=== PATIENT | female | born 1940 | race Caucasian/White ===

== ENCOUNTER 2019-09-10 17:47 | Inpatient (IN) | payer MEDICARE ==
[2019-09-10] MEDS ORDERED: SODIUM CHLORIDE 0.9% 1,000 ML IV STA (18:28)
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
[2019-09-10 18:37] LABS: Basophils % (A) 0 %; Eosinophils % (A) 1 %; HCT 32.4 % (34.0-46.0); Lymphocytes # (A) 1.4 k/uL (1.0-4.8); Lymphocytes % (A) 21 %; MCHC 34.1 g/dL (31.0-37.0); MCV 105.5 fL (80.0-100.0); Macrocytosis Slight; Monocytes # (A) 0.4 k/uL (0-1.0); Monocytes % (A) 6 %; Neutrophils # (A) 4.7 k/uL (1.3-7.7); Neutrophils % (A) 70 %; Platelet Count 238 k/uL (150-450); RBC 3.07 m/uL (3.80-5.40); RDW 12.9 % (11.5-15.5); WBC 6.7 k/uL (3.8-10.6)
[2019-09-10 18:45] LABS: African American GFR (CKD) >90 (>60 ml/min/1.73 sqM); Anion Gap 10 mmol/L; Blood Urea Nitrogen 14 mg/dL (7-17); Carbon Dioxide 21 mmol/L (22-30); Chloride 106 mmol/L (98-107); Glucose 89 mg/dL (74-99); Magnesium 1.9 mg/dL (1.6-2.3); Non-African American GFR(CKD) 85 (>60 ml/min/1.73 sqM); Partial Thromboplastin Time 25.4 sec (22.0-30.0); Potassium 3.2 mmol/L (3.5-5.1); Prothrombin Time 9.9 sec (9.0-12.0); Sodium 137 mmol/L (137-145)
--- NOTE | 2019-09-10 19:19 | XR ---
EXAMINATION: XR chest 2V DATE AND TIME: 09/10/2019 7:07 PM CLINICAL INDICATION: PHH; cough TECHNIQUE: Departmental protocol COMPARISON: None FINDINGS: The lungs are well expanded bilaterally and appear to be clear. However, a few scattered se nescent changes are noted and without a prior imaging study, stability over time cannot be confirmed. There appears to be developing partial consolidation in the right posterior lower lobe, suggesting b ronchopneumonia, and six-week follow-up PA and lateral chest radiograph are recommended to prove reso lution. The pleural spaces are negative. The cardiac silhouette is not enlarged. The remainder of the mediast inal silhouette is unremarkable. The skeletal structures and soft tissues are negative for acute find ings. IMPRESSION: Partial consolidation in the posterior right lower lobe, with 6-week follow-up radiographs advised.
[2019-09-10] MEDS ORDERED: DOXYCYCLINE 100 MG in SODIUM CHLORIDE 0.9% 100 ML IVPB ONE (19:32)
[2019-09-10] MEDS ORDERED: cefTRIAXone IN SWFI 1,000 MG/10 ML SYRINGE IVP STA (19:32)
[2019-09-10] MEDS ORDERED: KETOROLAC 30 MG/ML 1 ML VIAL IVP STA (19:40)
[2019-09-10] MEDS ORDERED: NALOXONE 0.4 MG/ML 1 ML VIAL IV PRN (20:02)
[2019-09-10] MEDS ORDERED: POTASSIUM CHLORIDE ER 20 MEQ TAB.ER PO STA (20:05)
[2019-09-10] MEDS: SODIUM CHLORIDE 0.9% 1,000 ML IV SCH (20:24)
[2019-09-10] MEDS: DOXYCYCLINE 100 MG in SODIUM CHLORIDE 0.9% 100 ML IVPB SCH ×2 (20:24→22:20)
[2019-09-11 05:02] LABS: Appearance,Urine Clear (Clear); Bilirubin,Urine Negative (Negative); Blood,Urine Negative (Negative); Color,Urine Yellow; Glucose,Urine (UA) Negative (Negative); Hyaline Casts,Urine 4 /lpf (0-2); Ketones,Urine 2+ (Negative); Leukocyte Esterase,Urine Large (Negative); Mucus,Urine Few /hpf; Nitrite,Urine Negative (Negative); Protein,Urine 2+ (Negative); RBC,Urine 2 /hpf (0-5); Specific Gravity,Urine 1.025 (1.001-1.035); Squamous Epithelial Cell,Urine 1 /hpf (0-4); WBC,Urine 32 /hpf (0-5)
[2019-09-11] MEDS: HYDROcodone/APAP 10-325MG 1 EACH TAB PO PRN ×3 (05:12→22:59)
[2019-09-11] MEDS: DOXYCYCLINE 100 MG in SODIUM CHLORIDE 0.9% 100 ML IVPB SCH ×2 (08:48→20:39)
[2019-09-11] MEDS: FLUoxetine HCL 20 MG CAP PO SCH (08:48)
[2019-09-11] MEDS: VIT A,C & E-LUTEIN-MINERALS 1 EACH TAB PO SCH (08:48)
[2019-09-11] MEDS: FAMOTIDINE 20 MG TAB PO SCH (08:48)
[2019-09-11] MEDS ORDERED: cefTRIAXone IN SWFI 1,000 MG/10 ML SYRINGE IVP SCH (09:00)
[2019-09-11] MEDS: IPRATROPIUM-ALBUTEROL 3 ML NEB INHALATION SCH ×5 (10:56→23:45)
[2019-09-11] MEDS: methylPREDNISolone SOD SUCCI 40 MG/ML 1 ML VIAL IV SCH ×3 (11:04→23:42)
[2019-09-11] MEDS: ALPRAZolam 1 MG TAB PO SCH (20:26)
[2019-09-11] MEDS: SODIUM CHLORIDE 0.9% 1,000 ML IV SCH (21:00)
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
[2019-09-11] MEDS: ENOXAPARIN 40 MG/0.4 ML SYRINGE SQ SCH (23:01)
[2019-09-11] MEDS: OSELTAMIVIR 75 MG CAP PO SCH (23:01)
[2019-09-11] MEDS: NICOTINE 21MG/24HR PATCH TRANSDERM SCH (23:15)
[2019-09-12] MEDS: IPRATROPIUM-ALBUTEROL 3 ML NEB INHALATION SCH ×6 (03:27→23:24)
[2019-09-12] MEDS: HYDROcodone/APAP 10-325MG 1 EACH TAB PO PRN ×2 (06:00→20:57)
[2019-09-12 07:42] LABS: Basophils % (A) 0 %; Eosinophils % (A) 0 %; HCT 33.3 % (34.0-46.0); HGB 11.2 gm/dL (11.4-16.0); Lymphocytes # (A) 0.5 k/uL (1.0-4.8); Lymphocytes % (A) 11 %; MCH 35.9 pg (25.0-35.0); MCHC 33.5 g/dL (31.0-37.0); MCV 107.1 fL (80.0-100.0); Macrocytosis Moderate; Mean Platelet Volume 7.8; Monocytes # (A) 0.1 k/uL (0-1.0); Monocytes % (A) 3 %; Neutrophils % (A) 85 %; Platelet Count 324 k/uL (150-450); RBC 3.11 m/uL (3.80-5.40); RDW 12.8 % (11.5-15.5); WBC 4.7 k/uL (3.8-10.6)
[2019-09-12 07:56] LABS: African American GFR (CKD) >90 (>60 ml/min/1.73 sqM); Anion Gap 8 mmol/L; Blood Urea Nitrogen 10 mg/dL (7-17); Calcium 8.6 mg/dL (8.4-10.2); Carbon Dioxide 25 mmol/L (22-30); Chloride 106 mmol/L (98-107); Glucose 180 mg/dL (74-99); Non-African American GFR(CKD) 87 (>60 ml/min/1.73 sqM); Potassium 4.1 mmol/L (3.5-5.1); Sodium 139 mmol/L (137-145)
[2019-09-12] MEDS: ENOXAPARIN 40 MG/0.4 ML SYRINGE SQ SCH (08:23)
[2019-09-12] MEDS: FLUoxetine HCL 20 MG CAP PO SCH (08:23)
[2019-09-12] MEDS: NICOTINE 21MG/24HR PATCH TRANSDERM SCH (08:23)
[2019-09-12] MEDS: methylPREDNISolone SOD SUCCI 40 MG/ML 1 ML VIAL IV SCH ×2 (08:23→17:08)
[2019-09-12] MEDS: VIT A,C & E-LUTEIN-MINERALS 1 EACH TAB PO SCH (08:24)
[2019-09-12] MEDS: FAMOTIDINE 20 MG TAB PO SCH (08:24)
[2019-09-12] MEDS: OSELTAMIVIR 75 MG CAP PO SCH ×2 (08:24→20:57)
[2019-09-12] MEDS: BUTA/APAP/CAF/COD 50-325-40-30 CAP PO PRN (17:45)
[2019-09-12] MEDS: ALPRAZolam 1 MG TAB PO SCH (20:57)
[2019-09-12] MEDS: SODIUM CHLORIDE 0.9% 1,000 ML IV SCH (22:37)
[2019-09-12] MEDS: NITROGLYCERIN OINT 1 INCH/GM PACKET TOPICAL SCH ×2 (22:37→22:43)
--- NOTE | 2019-09-12 23:15 | P.PN ---
Progress Note - Text Progress Note Date: 09/12/19 Chief Complaint: Cough short of breath Interval history: This is a 79-year-old patient of Dr. Acosta. Patient long-standing smoker. Quit 2 weeks patient been having increasing amount of cough shortness of breath. The cough has been dry. Has had fever and chills. Earlier patient also learned with dirty appearance. Appetite is gone on. Tired rundown. Also wheezing. Patient has a cardiac anomaly for which she's been followed up with zinc etcher. And she is due to have some surgery down the road. Patient also got arthritis in the joints. Patient tested positive for influenza A. Her is also the hospital with the same. Tired rundown. Chest x-ray showed infiltrates. Admitted with-influenza A infection and pneumonia Today-salt this patient this morning. feeling better. Breathing is improved. Did walk around the room. Did tolerate her diet. Later in the day hours: Patient has some chest pain. I ordered EKG serial enzymes Nitropaste and aspirin. Pain resolved. Review of systems: Was done for constitutional, cardiovascular, GI, pulmonary. relevant finding as above Active Medications Acetam/Butalbital/Caffeine/Codeine (Fioricet W/Codeine) 1 each PO Q6H PRN PRN Reason: Migraine Headache Last Admin: 09/12/19 17:45 Dose: 1 each Documented by: Hydrocodone Bitart/Acetaminophen ([place] 10) 1 each PO Q4H PRN PRN Reason: Pain Last Admin: 09/12/19 20:57 Dose: 1 each Documented by: Albuterol/Ipratropium (Duoneb 0.5 Mg-3 Mg/3 Ml Soln) 3 ml INHALATION RT-Q4H [facility] Last Admin: 09/12/19 20:10 Dose: 3 ml Documented by: Alprazolam (Xanax) 1 mg PO HS [facility] Last Admin: 09/12/19 20:57 Dose: 1 mg Documented by: Enoxaparin Sodium (Lovenox) 40 mg SQ DAILY [facility] Last Admin: 09/12/19 08:23 Dose: 40 mg Documented by: Famotidine (Pepcid) 20 mg PO DAILY [facility] Last Admin: 09/12/19 08:24 Dose: 20 mg Documented by: Fluoxetine HCl (Prozac) 60 mg PO DAILY [facility] Last Admin: 09/12/19 08:23 Dose: 60 mg Documented by: Sodium Chloride (Saline 0.9%) 1,000 mls @ 20 mls/hr IV .Q24H [facility] Last Admin: 09/12/19 22:37 Dose: Not Given Documented by: Ceftriaxone Sodium 1 gm/ (Sodium Chloride) 50 mls @ 100 mls/hr IVPB HS [facility] Last Admin: 09/12/19 20:57 Dose: 100 mls/hr Documented by: Methylprednisolone Sodium Succinate (Solu-Medrol) 40 mg IV Q8HR [facility] Last Admin: 09/12/19 17:08 Dose: 40 mg Documented by: Multivitamins/Minerals (Ivite) 1 each PO DAILY [facility] Last Admin: 09/12/19 08:24 Dose: 1 each Documented by: Naloxone HCl (Narcan) 0.2 mg IV Q2M PRN PRN Reason: Opioid Reversal Nitroglycerin (Nitro-Bid Oint) 0.5 inch TOPICAL Q8HR [facility] Last Admin: 09/12/19 22:43 Dose: Not Given Documented by: Oseltamivir Phosphate (Tamiflu) 75 mg PO Q12HR [facility] Stop: 09/16/19 09:01 Last Admin: 09/12/19 20:57 Dose: 75 mg Documented by: Physical examination: VITAL SIGNS: 97.4, 78, 15, 137/63, 97% room air GENERAL: Sitting up in bed, looking more comfortable EYES: Pupils equal. Conjunctiva normal. HEENT: External appearance of nose and ears normal, oral cavity grossly normal. Decreased hearing NECK: JVD not raised; masses not palpable. HEART: First and second heart sounds are normal; no edema. LUNGS: Respiratory rate increased, decreased breath sounds less wheezing. ABDOMEN: Soft, nontender, liver spleen not palpable, no masses palpable. PSYCH: Alert and oriented x3; mood and affect normal. MUSCULOSKELETAL: Evidence of OA especially in the hands INVESTIGATIONS, reviewed in the clinical context: White count 4.7 hemoglobin 11.2 potassium 4.1 creatinine 0.63 pro calcitonin 0.39 Previous testing White count 6.7 hemoglobin 11 platelets 238 progression 3.2 Longoria's 14 creatinine 0.67 UA positive Influenza type A positive EKG tracing personally reviewed by me-normal sinus rhythm Chest x-ray film personally reviewed by me-showing infiltrate consolidation of the right side Assessment: -Right lower lobe pneumonia, secondary gram-negative organism -Acute influenza A infection -Chronic nicotine dependence patient cigarette smoker -Primary osteoarthritis -Cardiac anomaly for which patient spending outpatient surgery type unknown -Acute COPD exacerbation in a current smoker -Macrocytic anemia, cause unknown-check B12 -Hypokalemia -Chest pain anterior chest wall, workup was ordered today Plan: -Continue with Tamiflu, ceftriaxone. , DuoNeb and IV Solu-Medrol. Serial cardiac enzymes, Nitropaste, aspirin, coronary consult ordered for the chest pain.
[2019-09-13] MEDS: methylPREDNISolone SOD SUCCI 40 MG/ML 1 ML VIAL IV SCH ×3 (00:29→18:01)
[2019-09-13] MEDS: IPRATROPIUM-ALBUTEROL 3 ML NEB INHALATION SCH ×5 (03:26→21:05)
[2019-09-13 04:49] VITALS: RESP 16
[2019-09-13 07:17] LABS: Glucose,Whole Blood 199 mg/dL (75-99)
[2019-09-13] MEDS: FAMOTIDINE 20 MG TAB PO SCH (09:14)
[2019-09-13] MEDS: ASPIRIN 81 MG PO SCH (09:14)
[2019-09-13] MEDS: NITROGLYCERIN OINT 1 INCH/GM PACKET TOPICAL SCH ×2 (09:15→18:02)
[2019-09-13] MEDS: ENOXAPARIN 40 MG/0.4 ML SYRINGE SQ SCH (09:15)
[2019-09-13] MEDS: INSULIN ASPART (NovoLOG) 100 UNIT/ML VIAL SQ SCH ×4 (09:16→20:27)
[2019-09-13] MEDS: OSELTAMIVIR 75 MG CAP PO SCH ×2 (09:16→20:34)
[2019-09-13] MEDS: FLUoxetine HCL 20 MG CAP PO SCH (09:16)
[2019-09-13] MEDS: VIT A,C & E-LUTEIN-MINERALS 1 EACH TAB PO SCH (09:16)
[2019-09-13 11:03] LABS: African American GFR (CKD) >90 (>60 ml/min/1.73 sqM); Anion Gap 5 mmol/L; Blood Urea Nitrogen 10 mg/dL (7-17); Calcium 8.9 mg/dL (8.4-10.2); Carbon Dioxide 27 mmol/L (22-30); Chloride 108 mmol/L (98-107); Glucose 106 mg/dL (74-99); Non-African American GFR(CKD) 90 (>60 ml/min/1.73 sqM); Potassium 3.3 mmol/L (3.5-5.1); Sodium 140 mmol/L (137-145)
[2019-09-13 11:16] LABS: Glucose,Whole Blood 70 mg/dL (75-99)
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
[2019-09-13] MEDS: BUTA/APAP/CAF/COD 50-325-40-30 CAP PO PRN (14:42)
[2019-09-13 17:26] LABS: Glucose,Whole Blood 186 mg/dL (75-99)
[2019-09-13 20:20] LABS: Glucose,Whole Blood 104 mg/dL (75-99)
[2019-09-13] MEDS: SODIUM CHLORIDE 0.9% 1,000 ML IV SCH (20:28)
[2019-09-13] MEDS: CEFDINIR 300 MG CAP PO SCH (20:34)
--- NOTE | 2019-09-13 21:25 | P.PN ---
Progress Note - Text Progress Note Date: 09/13/19 Chief Complaint: Cough short of breath Interval history: This is a 79-year-old patient of Dr. Acosta. Patient long-standing smoker. Quit 2 weeks patient been having increasing amount of cough shortness of breath. The cough has been dry. Has had fever and chills. Earlier patient also learned with dirty appearance. Appetite is gone on. Tired rundown. Also wheezing. Patient has a cardiac anomaly for which she's been followed up with group leader semiconductor processing. And she is due to have some surgery down the road. Patient also got arthritis in the joints. Patient tested positive for influenza A. Her is also the hospital with the same. Tired rundown. Chest x-ray showed infiltrates. Admitted with-influenza A infection and pneumonia. Episode of chest pain. Today-feeding much improved. No further chest pain. Tolerated diet. Patient is a small eater. Seen by cardiology. Review of systems: Was done for constitutional, cardiovascular, GI, pulmonary. relevant finding as above Active Medications Acetam/Butalbital/Caffeine/Codeine (Fioricet W/Codeine) 1 each PO Q6H PRN PRN Reason: Migraine Headache Last Admin: 09/13/19 14:42 Dose: 1 each Documented by: Hydrocodone Bitart/Acetaminophen ([place] 10) 1 each PO Q4H PRN PRN Reason: Pain Last Admin: 09/12/19 20:57 Dose: 1 each Documented by: Albuterol/Ipratropium (Duoneb 0.5 Mg-3 Mg/3 Ml Soln) 3 ml INHALATION RT-Q4H [facility] Last Admin: 09/13/19 21:05 Dose: 3 ml Documented by: Alprazolam (Xanax) 1 mg PO HS [facility] Last Admin: 09/12/19 20:57 Dose: 1 mg Documented by: Aspirin (Aspirin) 81 mg PO DAILY [facility] Last Admin: 09/13/19 09:14 Dose: 81 mg Documented by: Cefdinir (Omnicef) 300 mg PO BID [facility] Last Admin: 09/13/19 20:34 Dose: 300 mg Documented by: Enoxaparin Sodium (Lovenox) 40 mg SQ DAILY [facility] Last Admin: 09/13/19 09:15 Dose: 40 mg Documented by: Famotidine (Pepcid) 20 mg PO DAILY [facility] Last Admin: 09/13/19 09:14 Dose: 20 mg Documented by: Fluoxetine HCl (Prozac) 60 mg PO DAILY [facility] Last Admin: 09/13/19 09:16 Dose: 60 mg Documented by: Sodium Chloride (Saline 0.9%) 1,000 mls @ 20 mls/hr IV .Q24H [facility] Last Admin: 09/13/19 20:28 Dose: Not Given Documented by: Insulin Aspart (Novolog) 0 unit SQ ACHS [facility]; Protocol Last Admin: 09/13/19 20:27 Dose: Not Given Documented by: Methylprednisolone Sodium Succinate (Solu-Medrol) 40 mg IV Q8HR [facility] Last Admin: 09/13/19 18:01 Dose: 40 mg Documented by: Multivitamins/Minerals (Ivite) 1 each PO DAILY [facility] Last Admin: 09/13/19 09:16 Dose: 1 each Documented by: Naloxone HCl (Narcan) 0.2 mg IV Q2M PRN PRN Reason: Opioid Reversal Nitroglycerin (Nitro-Bid Oint) 0.5 inch TOPICAL Q8HR [facility] Last Admin: 09/13/19 18:02 Dose: 0.5 inch Documented by: Oseltamivir Phosphate (Tamiflu) 75 mg PO Q12HR [facility] Stop: 09/16/19 09:01 Last Admin: 09/13/19 20:34 Dose: 75 mg Documented by: Physical examination: VITAL SIGNS: 97.4, 85, 16, 129/61, 97% room air GENERAL: Sitting up in bed, comfortable EYES: Pupils equal. Conjunctiva normal. HEENT: External appearance of nose and ears normal, oral cavity grossly normal. Decreased hearing NECK: JVD not raised; masses not palpable. HEART: First and second heart sounds are normal; no edema. LUNGS: Respiratory rate normal, improved air entry. ABDOMEN: Soft, nontender, liver spleen not palpable, no masses palpable. PSYCH: Alert and oriented x3; mood and affect normal. MUSCULOSKELETAL: Evidence of OA especially in the hands INVESTIGATIONS, reviewed in the clinical context: Potassium 3.3, troponin negative Previous testing White count 6.7 hemoglobin 11 platelets 238 progression 3.2 Longoria's 14 creatinine 0.67 UA positive pro calcitonin 0.39 Influenza type A positive EKG tracing personally reviewed by me-normal sinus rhythm Chest x-ray film personally reviewed by me-showing infiltrate consolidation of the right side Assessment: -Right lower lobe pneumonia, secondary gram-negative organism, much improved -Acute influenza A infection, improved -Chronic nicotine dependence patient cigarette smoker -Primary osteoarthritis -Cardiac anomaly for which patient spending outpatient surgery type unknown -Acute COPD exacerbation in a current smoker -Macrocytic anemia, cause unknown-check B12 -Hypokalemia -Chest pain anterior chest wall, 2-D echo for coronary. Troponin is negative. Plan: Clinically much improved. Afebrile. Normal white count. Switched to Omnicef. We'll change to oral prednisone. DC tomorrow. If okay with cardiology
[2019-09-13] MEDS: HYDROcodone/APAP 10-325MG 1 EACH TAB PO PRN (22:20)
[2019-09-13] MEDS: ALPRAZolam 1 MG TAB PO SCH (22:20)
[2019-09-14] MEDS: NITROGLYCERIN OINT 1 INCH/GM PACKET TOPICAL SCH ×2 (00:46→08:10)
[2019-09-14] MEDS: IPRATROPIUM-ALBUTEROL 3 ML NEB INHALATION SCH ×5 (01:20→15:17)
[2019-09-14 07:20] LABS: Glucose,Whole Blood 124 mg/dL (75-99)
[2019-09-14 07:21] LABS: African American GFR (CKD) >90 (>60 ml/min/1.73 sqM); Anion Gap 6 mmol/L; Blood Urea Nitrogen 12 mg/dL (7-17); Carbon Dioxide 27 mmol/L (22-30); Chloride 109 mmol/L (98-107); Glucose 119 mg/dL (74-99); Non-African American GFR(CKD) 85 (>60 ml/min/1.73 sqM); Potassium 4.7 mmol/L (3.5-5.1); Sodium 142 mmol/L (137-145)
[2019-09-14] MEDS: INSULIN ASPART (NovoLOG) 100 UNIT/ML VIAL SQ SCH ×2 (08:02→12:43)
[2019-09-14] MEDS: ASPIRIN 81 MG PO SCH (08:09)
[2019-09-14] MEDS: FLUoxetine HCL 20 MG CAP PO SCH (08:09)
[2019-09-14] MEDS: CEFDINIR 300 MG CAP PO SCH (08:09)
[2019-09-14] MEDS: VIT A,C & E-LUTEIN-MINERALS 1 EACH TAB PO SCH (08:09)
[2019-09-14] MEDS: FAMOTIDINE 20 MG TAB PO SCH (08:09)
[2019-09-14] MEDS: OSELTAMIVIR 75 MG CAP PO SCH (08:10)
[2019-09-14] MEDS: HYDROcodone/APAP 10-325MG 1 EACH TAB PO PRN (08:10)
[2019-09-14] MEDS: ENOXAPARIN 40 MG/0.4 ML SYRINGE SQ SCH (08:10)
[2019-09-14] MEDS ORDERED: predniSONE 20 MG TAB PO SCH (09:00)
[2019-09-14 11:14] LABS: Glucose,Whole Blood 127 mg/dL (75-99)
[2019-09-14 12:04] VITALS: BP 147/65; PULSE 82; TEMP 97.6
[2019-09-14] MEDS: BUTA/APAP/CAF/COD 50-325-40-30 CAP PO PRN (14:18)
--- NOTE | 2019-09-15 00:22 | P.DS ---
Providers Date of admission: 09/12/19 14:14 Expected date of discharge: 09/14/19 Attending physician: Hi Hassan Consults: 09/12/19 21:43 Consult Physician Routine Consulting Provider: Jhonny Koch Consult Reason/Comments: chest pain Do you want consulting provider notified?: Yes, Notify in am Primary care physician: Carlyle Luevano [facility] Course: hief Complaint: Cough short of breath Hospital course: This is a 79-year-old patient of Dr. Acosta. Patient long-standing smoker. Quit 2 weeks patient been having increasing amount of cough shortness of breath. The cough has been dry. Has had fever and chills. Earlier patient also learned with dirty appearance. Appetite is gone on. Tired rundown. Also wheezing. Patient has a cardiac anomaly for which she's been followed up with assisted living nursing director. And she is due to have some surgery down the road. Patient also got arthritis in the joints. Patient tested positive for influenza A. Her is also the hospital with the same. Tired rundown. Chest x-ray showed infiltrates. Admitted with-influenza A infection and pneumonia. Episode of chest pain.-We'll follow with the assisted living nursing director in outpatient. Treated with Tamiflu, antibiotics to be responded well. Also steroids and bronchodilators. Switched to Omnicef. Today-doing well. Feeling well. Up and about. Discussed with the patient. Questions were answered. She'll follow with her assisted living nursing director an outpatient. Discussion and discharge planning more than 35 minutes Consultants: Dr. Koch from cardiology Physical examination: VITAL SIGNS: 97.6, 82, 16, 147/65, 96% room air GENERAL: Sitting up in bed, comfortable EYES: Pupils equal. Conjunctiva normal. HEENT: External appearance of nose and ears normal, oral cavity grossly normal. Decreased hearing NECK: JVD not raised; masses not palpable. HEART: First and second heart sounds are normal; no edema. LUNGS: Respiratory rate normal, improved air entry. ABDOMEN: Soft, nontender, liver spleen not palpable, no masses palpable. PSYCH: Alert and oriented x3; mood and affect normal. MUSCULOSKELETAL: Evidence of OA especially in the hands INVESTIGATIONS, reviewed in the clinical context: Potassium 4.7 Previous testing White count 6.7 hemoglobin 11 platelets 238 progression 3.2 Longoria's 14 creatinine 0.67 UA positive pro calcitonin 0.39 Influenza type A positive EKG tracing personally reviewed by me-normal sinus rhythm Chest x-ray film personally reviewed by me-showing infiltrate consolidation of the right side troponin negative Assessment: -Right lower lobe pneumonia, secondary gram-negative organism, much improved -Acute influenza A infection, improved -Chronic nicotine dependence patient cigarette smoker -Primary osteoarthritis -Cardiac anomaly for which patient spending outpatient surgery type unknown -Acute COPD exacerbation in a current smoker -Macrocytic anemia, cause unknown-check B12 -Hypokalemia -Chest pain anterior chest wall,. Troponin is negative. Follow up outpatient. Disposition: Home Plan - Discharge Summary New Discharge Prescriptions: New Aspirin 81 mg PO DAILY chew Ipratropium-Albuterol Nebulize [Duoneb 0.5 mg-3 mg/3 ml Soln] 3 ml INHALATION TID #90 ampul.neb INSULIN ASPART (NovoLOG) [NovoLOG (formulary)] 0 unit SQ ACHS vial Cefdinir [Omnicef] 300 mg PO BID #10 cap predniSONE 0 mg PO DIRECTED #10 tab Oseltamivir [Tamiflu] 75 mg PO Q12HR #4 cap Continue Vits A,C,E/Lutein/Minerals [Ocuvite with Lutein Tablet] 1 tab PO DAILY Ranitidine HCl [Zantac] 150 mg PO DAILY HYDROcodone/APAP 10-325MG [[place] 10-325] 1 tab PO Q4H PRN PRN Reason: Pain FLUoxetine HCL [PROzac] 60 mg PO DAILY Buta/APAP/Caf/Cod [id number] [Fioricet w/Cod 41-161-76-30MG] 1 - 2 cap PO Q6H PRN PRN Reason: Migraine Headache ALPRAZolam [Xanax] 1 mg PO HS Discharge Medication List ALPRAZolam [Xanax] 1 mg PO HS 09/10/19 [History] Buta/APAP/Caf/Cod 41-395-21-30 [Fioricet w/Cod 93-844-40-30MG] 1 - 2 cap PO Q6H PRN 09/10/19 [History] FLUoxetine HCL [PROzac] 60 mg PO DAILY 09/10/19 [History] HYDROcodone/APAP 10-325MG [[place] 10-325] 1 tab PO Q4H PRN 09/10/19 [History] Ranitidine HCl [Zantac] 150 mg PO DAILY 09/10/19 [History] Vits A,C,E/Lutein/Minerals [Ocuvite with Lutein Tablet] 1 tab PO DAILY 09/10/19 [History] Aspirin 81 mg PO DAILY chew 09/14/19 [Rx] Cefdinir [Omnicef] 300 mg PO BID #10 cap 09/14/19 [Rx] INSULIN ASPART (NovoLOG) [NovoLOG (formulary)] 0 unit SQ ACHS vial 09/14/19 [Rx] Ipratropium-Albuterol Nebulize [Duoneb 0.5 mg-3 mg/3 ml Soln] 3 ml INHALATION TID #90 ampul.neb 09/14/19 [Rx] Oseltamivir [Tamiflu] 75 mg PO Q12HR #4 cap 09/14/19 [Rx] predniSONE 0 mg PO DIRECTED #10 tab 09/14/19 [Rx] Follow up Appointment(s)/Referral(s): Carlyle Luevano MD [Primary Care Provider] - 1-2 days (office is currently closed, patient to call for appointment when office opens Saturday at 0830) Patient Instructions/Handouts: Influenza (DC), Pneumonia (DC) Discharge Disposition: HOME SELF-CARE
--- NOTE | 2019-09-15 12:00 | ECHOF ---
Referral Reason:chest pain MEASUREMENTS -------- HEIGHT: 167.6 cm WEIGHT: 54.0 kg BP: 134/63 RVIDd: 2.2 cm (< 3.3) IVSd: 1.0 cm (0.6 - 1.1) LVIDd: 4.1 cm (3.9 - 5.3) LVPWd: 0.9 cm (0.6 - 1.1) IVSs: 1.3 cm LVIDs: 2.9 cm LVPWs: 1.4 cm LA Diam: 2.9 cm (2.7 - 3.8) LAESV Index (A-L): 35.59 ml/m Ao Diam: 3.0 cm (2.0 - 3.7) AV Cusp: 2.1 cm (1.5 - 2.6) MV EXCURSION: 18.048 mm (> 18.000) MV EF SLOPE: 136 mm/s (70 - 150) EPSS: 0.3 cm MV E Wilner: 1.11 m/s MV DecT: 157 ms MV A Wilner: 0.93 m/s MV E/A Ratio: 1.18 AR PHT: 264 ms RAP: 5.00 mmHg RVSP: 37.42 mmHg FINDINGS -------- Sinus rhythm. This was a technically good study. The left ventricular size is normal. Left ventricular wall thickness is normal. Overall left vent ricular systolic function is normal with, an EF between 60 - 65 %. The right ventricle is normal in size. LA is moderately dilated 34-39 ml/m2 The right atrium is normal in size. Interatrial and interventricular septum intact. There is mild aortic valve sclerosis. There is hrax-fu-svyjaibt aortic regurgitation. Mild mitral annular calcification present. Treq-dd-[id number] mitral regurgitation is present. Mild tricuspid regurgitation present. There is mild pulmonary hypertension. The right ventricular systolic pressure, as measured by Doppler, is 37.42mmHg. Trace/mild (physiologic) pulmonic regurgitation. The aortic root size is normal. Normal inferior vena cava with normal inspiratory collapse consistent with estimated right atrial pre ssure of 5 mmHg. The inferior vena cava is mildly dilated. There is no pericardial effusion. CONCLUSIONS -------- 1. Sinus rhythm. 2. This was a technically good study. 3. The left ventricular size is normal. 4. Left ventricular wall thickness is normal. 5. Overall left ventricular systolic function is normal with, an EF between 60 - 65 %. 6. The right ventricle is normal in size. 7. LA is moderately dilated 34-39 ml/m2 8. The right atrium is normal in size. 9. Interatrial and interventricular septum intact. 10. There is mild aortic valve sclerosis. 11. There is qtbn-mf-mzzqdynq aortic regurgitation. 12. Mild mitral annular calcification present. 13. Sofr-rd-zwnfpjgb mitral regurgitation is present. 14. Mild tricuspid regurgitation present. 15. There is mild pulmonary hypertension. 16. The right ventricular systolic pressure, as measured by Doppler, is 37.42mmHg. 17. Trace/mild (physiologic) pulmonic regurgitation. 18. The aortic root size is normal. 19. Normal inferior vena cava with normal inspiratory collapse consistent with estimated right atrial pressure of 5 mmHg. 20. The inferior vena cava is mildly dilated. 21. There is no pericardial effusion. PST MANAGER: Eli Rubio RDCS
== END 2019-09-14 15:10 | disposition home health service (06) | DRG 179 ==
LOC: EC 17:47 → 5NMEDONC 20:02 → OBSVTOIN 09-12 14:14
PROVIDERS: ADMIT Hospitalist; ATTEND Hospitalist
DX: J10.08 Influenza due to other identified influenza virus with other specified pneumonia (principal); J15.6 Pneumonia due to other Gram-negative bacteria; J44.1 Chronic obstructive pulmonary disease with (acute) exacerbation; J44.0 Chronic obstructive pulmonary disease with (acute) lower respiratory infection; F17.210 Nicotine dependence, cigarettes, uncomplicated; E87.6 Hypokalemia; F32.9 Major depressive disorder, single episode, unspecified; D53.9 Nutritional anemia, unspecified; F41.9 Anxiety disorder, unspecified; M19.91 Primary osteoarthritis, unspecified site; Z79.899 Other long term (current) drug therapy; Q24.9 Congenital malformation of heart, unspecified; Z80.52 Family history of malignant neoplasm of bladder; Z82.5 Family history of asthma and other chronic lower respiratory diseases; Z85.42 Personal history of malignant neoplasm of other parts of uterus; Z90.710 Acquired absence of both cervix and uterus; Z88.1 Allergy status to other antibiotic agents; Z88.0 Allergy status to penicillin
CPT/HCPCS: 36415; 71046; 80048; 81001; 83605; 83735; 84145; 84484; 85025; 85610; 85730; 87086; 87502; 93005; 93306; 94640; 94760; 96361; 96365; 96375; 99285

== ENCOUNTER 2020-03-17 14:24 | Inpatient (IN) | payer MEDICARE ==
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
[2020-03-17 16:05] LABS: Basophils % (A) 0 %; Eosinophils % (A) 0 %; HCT 34.2 % (34.0-46.0); Lymphocytes % (A) 14 %; MCHC 32.3 g/dL (31.0-37.0); MCV 105.3 fL (80.0-100.0); Macrocytosis Slight; Monocytes # (A) 0.9 k/uL (0-1.0); Monocytes % (A) 6 %; Neutrophils # (A) 11.4 k/uL (1.3-7.7); Neutrophils % (A) 78 %; Platelet Count 493 k/uL (150-450); RBC 3.25 m/uL (3.80-5.40); RDW 12.6 % (11.5-15.5); WBC 14.5 k/uL (3.8-10.6)
--- NOTE | 2020-03-17 16:09 | XR ---
EXAMINATION TYPE: XR chest 1V portable DATE OF EXAM: 03/17/2020 COMPARISON: Chest x-ray September 10, 2019 HISTORY: Cough. TECHNIQUE: Single frontal view of the chest is obtained. FINDINGS: The osseous structures remain demineralized. Cardiac silhouette size stable and within nor mal limits with atherosclerotic change in the aortic knob. Background chronic emphysematous change wi th new right mid lung opacity. No pleural effusion or pneumothorax seen bilaterally. IMPRESSION: Chronic emphysematous change with new right mid lung opacity favoring focal pneumonia g iven patient's history of cough.
[2020-03-17] MEDS ORDERED: HYDROcodone/APAP 5-325MG 1 EACH TAB PO STA (16:13)
[2020-03-17] MEDS ORDERED: HYDROcodone/APAP 10-325MG 1 EACH TAB PO ONE (16:15)
[2020-03-17 16:22] LABS: INR 1.1 (<1.2); Partial Thromboplastin Time 27.9 sec (22.0-30.0); Prothrombin Time 10.9 sec (9.0-12.0)
[2020-03-17 16:26] LABS: Appearance,Urine Clear (Clear); Bilirubin,Urine Negative (Negative); Blood,Urine Negative (Negative); Color,Urine Yellow; Glucose,Urine (UA) Negative (Negative); Hyaline Casts,Urine 10 /lpf (0-2); Ketones,Urine 1+ (Negative); Leukocyte Esterase,Urine Trace (Negative); Mucus,Urine Few /hpf; Nitrite,Urine Negative (Negative); Protein,Urine 1+ (Negative); RBC,Urine 3 /hpf (0-5); Specific Gravity,Urine 1.013 (1.001-1.035); Squamous Epithelial Cell,Urine <1 /hpf (0-4); Urobilinogen,Urine <2.0 mg/dL (<2.0); WBC,Urine 6 /hpf (0-5)
[2020-03-17 16:28] LABS: ALT 21 U/L (4-34); AST 40 U/L (14-36); African American GFR (CKD) >90 (>60 ml/min/1.73 sqM); Albumin 2.9 g/dL (3.5-5.0); Alkaline Phosphatase 106 U/L (38-126); Anion Gap 8 mmol/L; Blood Urea Nitrogen 10 mg/dL (7-17); Calcium 8.5 mg/dL (8.4-10.2); Carbon Dioxide 24 mmol/L (22-30); Chloride 101 mmol/L (98-107); Glucose 103 mg/dL (74-99); LDH 525 U/L (313-618); Magnesium 2.2 mg/dL (1.6-2.3); Non-African American GFR(CKD) 87 (>60 ml/min/1.73 sqM); Potassium 4.1 mmol/L (3.5-5.1); Sodium 133 mmol/L (137-145); Total Bilirubin 0.5 mg/dL (0.2-1.3); Total Protein 5.8 g/dL (6.3-8.2)
[2020-03-17 16:43] LABS: C Reactive Protein 231.6 mg/L (<10.0)
[2020-03-17] MEDS ORDERED: NALOXONE 0.4 MG/ML 1 ML VIAL IV PRN (17:07)
[2020-03-17] MEDS ORDERED: LEVOFLOXACIN 500MG-D5W PMX 500 MG in DEXTROSE/WATER 1 100ML.BAG IVPB STA (17:08)
[2020-03-17] MEDS: SODIUM CHLORIDE 0.9% 1,000 ML IV SCH (17:29)
[2020-03-17] MEDS ORDERED: IBUPROFEN 200 MG TAB PO PRN (19:44)
[2020-03-17] MEDS: ENOXAPARIN 40 MG/0.4 ML SYRINGE SQ SCH (19:55)
[2020-03-17] MEDS ORDERED: ACETAMINOPHEN TAB 500 MG TAB PO PRN (20:08)
[2020-03-17] MEDS ORDERED: IPRATROPIUM-ALBUTEROL 3 ML NEB INHALATION PRN (20:12)
[2020-03-17] MEDS: ALPRAZolam 1 MG TAB PO SCH (21:01)
[2020-03-17] MEDS: HYDROcodone/APAP 10-325MG 1 EACH TAB PO PRN (21:20)
--- NOTE | 2020-03-17 22:06 | HP ---
HISTORY AND PHYSICAL CHIEF COMPLAINTS: Shortness of breath and cough and fever. HISTORY OF PRESENT ILLNESS: This 79-year-old woman with a past medical history of multiple medical problems, including uterine cancer with radiation, history of DJD, history of anxiety, depression, being followed by Dr. Luevano in the outpatient setting, had an episode of pneumonia in September associated with influenza subsequently. The patient apparently became better, but currently the patient is complaining of shortness of breath, cough, fever, night sweats and weakness, and the patient was lying in bed for quite some time. The patient was taken to [facility] and was found to have right middle lobe pneumonia. Patient was admitted for further evaluation and treatment. The COVID-19 test is pending at this time. Apparently the patient's is also sick with multiple illnesses. There is no history of any loss of consciousness, seizures. Patient is complaining of some headache. PAST MEDICAL HISTORY: History of uterine cancer, history of DJD, history of anxiety, depression. MEDICATIONS: Medications prior to admission include: 1. Multivitamins 1 p.o. daily. 2. Prilosec 20 mg daily. 3. Vitamin D3. 4. Calcium carbonate. 5. Ocuvite. 6. Prozac. 7. [place]. 8. Fioricet. 9. Xanax. Doses are reviewed. ALLERGIES: PENICILLIN AND ZITHROMAX. FAMILY HISTORY: History of COPD, bladder cancer in the family. SOCIAL HISTORY: The patient is a retired nurse. Occasional alcohol intake. History of continued nicotine dependence. REVIEW OF SYSTEMS: ENT: As mentioned earlier. CARDIOVASCULAR SYSTEM: No angina, palpitations. RESPIRATORY SYSTEM: As mentioned earlier. GI: No nausea, vomiting. : No dysuria or retention. NERVOUS SYSTEM: No numbness, weakness. ALLERGY/IMMUNOLOGY: No asthma, hayfever. MUSCULOSKELETAL: As mentioned earlier. HEMATOLOGY/ONCOLOGY: No history of anemia. ENDOCRINE: No history of diabetes, hypothyroidism. CONSTITUTIONAL: As mentioned earlier. DERMATOLOGY: Negative. RHEUMATOLOGY: Negative. PSYCHIATRY: As mentioned earlier. PHYSICAL EXAMINATION: Patient is alert, oriented x3. Pulse is 78, blood pressure 111/58, respiration 18, temperature 98.4, pulse ox 94% on room air. HEENT: Conjunctivae normal. Oral mucosa moist. NECK: No jugular venous distention. No carotid bruit. No lymph node enlargement. CARDIOVASCULAR SYSTEM: S1, S2 muffled. RESPIRATORY SYSTEM: Breath sounds diminished at the bases. A few scattered rhonchi and crackles. ABDOMEN: Soft, non-tender. No mass palpable. LEGS: No edema. No swelling. NERVOUS SYSTEM: Higher functions as mentioned earlier. Moves all 4 limbs. No focal motor or sensory deficit. LYMPHATICS: No lymph node palpable in neck, axillae or groin. SKIN: No ulcer, rash, bleeding. JOINTS: No active deforming arthropathy. LABS: Labs at this time show WBC 14.2, hemoglobin 11, MCV 105.3, platelets are 493. D-dimer is 1.16. Sodium 133. ASSESSMENT: 1. Acute right middle lobe pneumonia with possible sepsis. Rule out COVID-19, possibly community-acquired or Gram-negative. 2. Chronic obstructive pulmonary disease, acute exacerbation. 3. History of uterine cancer. 4. History of anxiety, depression. 5. Remote history of nicotine dependence. 6. Increased white count. 7. Anemia, macrocytic, possibly nutritional. 8. Thrombocytosis. 9. Elevated D-dimer. 10.Elevated ESR and CRP. RECOMMENDATIONS AND DISCUSSION: In this 79-year-old woman who presented with multiple complex medical issues, we will monitor the patient closely, continue the current medications, continue with symptomatic treatment and broad-spectrum IV antibiotics. I would also recommend bronchodilators empirically. COVID-19 testing is pending. Otherwise, Infectious Disease and Pulmonary will be consulted. Resume the home medications. DVT prophylaxis. Overall prognosis is guarded because of multiple complex medical issues. Further recommendations to follow. A copy of this dictation is being forwarded to Dr. Luevano, who is the primary physician. MMODL / IJN: [id number] /
[2020-03-18] MEDS: TEMAZEPAM 15 MG CAP PO PRN ×2 (01:30→21:24)
[2020-03-18] MEDS: CHOLECALCIFEROL 1,000 UNIT TAB PO SCH (07:31)
[2020-03-18] MEDS: FLUoxetine HCL 20 MG CAP PO SCH (07:31)
[2020-03-18] MEDS: CALCIUM CARBONATE 500 MG CHEWABLE PO SCH (07:31)
[2020-03-18] MEDS: MULTIVITAMINS, THERA 1 EACH TAB PO SCH (07:31)
[2020-03-18] MEDS: VIT A,C & E-LUTEIN-MINERALS 1 EACH TAB PO SCH (07:31)
[2020-03-18] MEDS: ENOXAPARIN 40 MG/0.4 ML SYRINGE SQ SCH (07:31)
[2020-03-18] MEDS: HYDROcodone/APAP 10-325MG 1 EACH TAB PO PRN ×4 (07:32→21:24)
[2020-03-18] MEDS: PANTOPRAZOLE 40 MG TABLET PO SCH (07:34)
--- NOTE | 2020-03-18 07:55 | CT ---
EXAMINATION TYPE: CT chest wo con DATE OF EXAM: 03/18/2020 COMPARISON: Chest radiograph 03/17/2020 HISTORY: Pneumonia CT DLP: 213.6 mGycm. Automated Exposure Control for Dose Reduction was Utilized. TECHNIQUE: CT scan of the thorax is performed without IV contrast. FINDINGS: LUNGS: The lungs demonstrate groundglass opacities and interlobular septal thickening of the right up per lobe, with more confluent opacity of the inferior right upper lobe and right middle lobe. There a re also scattered groundglass opacities of the bilateral lower lobes at the lung bases. There is a sm all right pleural effusion. No pneumothorax. The tracheobronchial tree is patent. MEDIASTINUM: Lack of IV contrast is noted to limit evaluation for mediastinal and especially hilar ad enopathy. There is a borderline-enlarged right hilar node with calcification (201:33). There are also several prominent mediastinal lymph nodes. Calcified right paraesophageal lymph node. No axillary ly mphadenopathy. No cardiomegaly or pericardial effusion is seen. Calcified coronary artery disease. OTHER: Thickened appearance of the left adrenal gland without discrete nodule. Multilevel degenerativ e changes of the spine. Sclerotic focus of the T6 vertebral body likely represents benign bone island . IMPRESSION: 1. Right upper lobe and right middle lobe confluent consolidative opacity, as well as groundglass op acities and interstitial septal thickening of the right upper lobe and to a lesser degree the bilater al lung bases. Small right pleural effusion. Findings may represent pneumonia. Follow-up to resolutio n is recommended. 2. Right hilar and mediastinal lymphadenopathy may be reactive.
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
[2020-03-18 08:28] LABS: Basophils % (A) 0 %; Eosinophils % (A) 0 %; HCT 32.1 % (34.0-46.0); HGB 10.2 gm/dL (11.4-16.0); Lymphocytes # (A) 1.3 k/uL (1.0-4.8); Lymphocytes % (A) 8 %; MCH 33.7 pg (25.0-35.0); MCHC 31.8 g/dL (31.0-37.0); Macrocytosis Slight; Mean Platelet Volume 7.2; Monocytes # (A) 0.8 k/uL (0-1.0); Monocytes % (A) 5 %; Neutrophils # (A) 14.4 k/uL (1.3-7.7); Neutrophils % (A) 87 %; Platelet Count 505 k/uL (150-450); RBC 3.02 m/uL (3.80-5.40); RDW 12.6 % (11.5-15.5); WBC 16.6 k/uL (3.8-10.6)
[2020-03-18 08:50] LABS: African American GFR (CKD) >90 (>60 ml/min/1.73 sqM); Anion Gap 10 mmol/L; Blood Urea Nitrogen 7 mg/dL (7-17); Calcium 7.8 mg/dL (8.4-10.2); Carbon Dioxide 20 mmol/L (22-30); Chloride 102 mmol/L (98-107); Glucose 82 mg/dL (74-99); Non-African American GFR(CKD) >90 (>60 ml/min/1.73 sqM); Potassium 4.3 mmol/L (3.5-5.1); Sodium 132 mmol/L (137-145)
[2020-03-18] MEDS ORDERED: FLUoxetine HCL 20 MG CAP PO SCH (09:00)
[2020-03-18] MEDS ORDERED: NON FORMULARY DRUG (Omeprazole Magnesium [Prilosec Otc] 20 MG) PO SCH (09:00)
[2020-03-18] MEDS: IPRATROPIUM-ALBUTEROL 3 ML NEB INHALATION SCH ×3 (09:08→21:49)
[2020-03-18] MEDS: SYMBICORT 160-4.5 MCG INHALER INHALATION SCH ×2 (09:09→21:49)
[2020-03-18] MEDS: SODIUM CHLORIDE 0.9% 1,000 ML IV SCH (09:27)
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
--- NOTE | 2020-03-18 16:13 | PN ---
PROGRESS NOTE DATE OF SERVICE: 03/18/2020 This 79-year-old woman who was admitted with acute right middle lobe pneumonia with possible sepsis is being closely monitored. CT scan of the chest was done which was personally reviewed by me. It showed evidence of a significant pneumonic process on the right upper lobe and middle lobe confluent consolidative opacity as well as ground- glass opacities and interstitial septal thickening of the right upper lobe and, to a lesser degree, of the bilateral lung base as well. Small right pleural effusion noted. Right hilar mediastinal lymphadenopathy also noted. Dr. Montejo is also following the patient closely as well as Infectious Disease. Broad-spectrum IV antibiotics have been initiated. Cultures have been obtained. An underlying pulmonary mass cannot be ruled out at this stage, per Dr. Montejo. Past medical history reviewed. REVIEW OF SYSTEMS: CARDIOVASCULAR SYSTEM: No angina, palpitations. RESPIRATORY SYSTEM: As mentioned earlier. GI: As mentioned earlier. : No dysuria or retention. NERVOUS SYSTEM: No numbness, weakness. CURRENT MEDICATIONS: Reviewed. They include Fioricet, Tylenol, Vanzant, DuoNeb, Xanax, Symbicort, Rocephin 1 gram, vitamin D3, Prozac, Advil, Levaquin, I-Marianne, Narcan, Restoril. PHYSICAL EXAMINATION: Patient is alert, oriented x3. The pulse is 103, blood pressure 129/60, respiration 18, temperature 99.9, pulse ox 93% on room air. HEENT: Conjunctivae normal. Oral mucosa moist. NECK: No jugular venous distention. No carotid bruit. No lymph node enlargement. CARDIOVASCULAR SYSTEM: S1, S2 muffled. RESPIRATORY SYSTEM: Breath sounds diminished at the bases. A few scattered rhonchi. ABDOMEN: Soft, non-tender. LEGS: No edema. No swelling. NERVOUS SYSTEM: No focal deficit. LABS: Labs at this time show WBC 16.6, hemoglobin 10.2, sodium 132. ASSESSMENT: 1. Acute right middle lobe pneumonia with possible sepsis, present on admission. Rule out COVID-19. Possibly Gram-negative pneumonia. Rule out underlying pulmonary mass lesion. 2. Chronic obstructive pulmonary disease, acute exacerbation. 3. Hyponatremia. 4. History of uterine cancer. 5. History of anxiety, depression. 6. Remote history of nicotine dependence. 7. Increased white count. 8. Anemia, macrocytic, possibly nutritional. 9. Thrombocytosis. 10.Elevated D-dimer. 11.Elevated ESR and CRP. 12.FULL CODE. RECOMMENDATIONS AND DISCUSSION: in this 79-year-old woman who presented with multiple complex medical issues, we will monitor the patient closely, continue the broad-spectrum IV antibiotics, follow the cultures. As mentioned earlier, the patient has significant lesions in the CT scan. I would recommend a course of antibiotics and watch for resolution and consider bronchoscopy or a repeat CT scan in case the patient is not improving or per Pulmonary. Prognosis guarded because of multiple complex medical issues. Further recommendations to follow. MMODL / IJN: [id number] /
[2020-03-18] MEDS ORDERED: LEVOFLOXACIN 500MG-D5W PMX 500 MG in DEXTROSE/WATER 1 100ML.BAG IVPB SCH (17:00)
--- NOTE | 2020-03-18 17:28 | PN ---
PROGRESS NOTE DATE OF SERVICE: 03/18/2020 REASON FOR FOLLOWUP: Pneumonia. INTERVAL HISTORY: Patient did spike a fever of 100.7 early this morning. The patient is afebrile since then, still complaining of feeling freezing. The patient denies having any headache. No chest pain. She did have a cough, not bringing up any sputum. No nausea, no vomiting. No abdominal pain, no diarrhea. PHYSICAL EXAMINATION: Blood pressure 109/60 with a pulse of 100, temperature 98.5. She is 96% room air. General description is an elderly female, lying in bed in no distress. RESPIRATORY SYSTEM: Unlabored breathing, clear to auscultation anteriorly. HEART: S1, S2. Regular rate and rhythm. ABDOMEN: Soft, no tenderness. LABS: Hemoglobin is 10.8, white count 16.6, creatinine 0.55. Blood culture so far negative. Sputum has not been obtained. DIAGNOSTIC IMPRESSION AND PLAN: Patient with fever, source is likely pneumonia, likely community-acquired. Will try to obtain a sputum to narrow down her antibiotics. Keep the patient on Rocephin and Levaquin and monitor clinical course closely. MMODL / IJN: [id number] /
[2020-03-18] MEDS: ALPRAZolam 1 MG TAB PO SCH (21:25)
[2020-03-19] MEDS: HYDROcodone/APAP 10-325MG 1 EACH TAB PO PRN ×5 (03:43→22:07)
[2020-03-19] MEDS: SYMBICORT 160-4.5 MCG INHALER INHALATION SCH ×2 (08:26→20:42)
[2020-03-19] MEDS: IPRATROPIUM-ALBUTEROL 3 ML NEB INHALATION SCH ×3 (08:26→20:42)
[2020-03-19] MEDS: SODIUM CHLORIDE 0.9% 1,000 ML IV SCH ×3 (08:59→22:02)
[2020-03-19] MEDS: PANTOPRAZOLE 40 MG TABLET PO SCH (09:10)
[2020-03-19] MEDS: FLUoxetine HCL 20 MG CAP PO SCH (09:10)
[2020-03-19] MEDS: CHOLECALCIFEROL 1,000 UNIT TAB PO SCH (09:10)
[2020-03-19] MEDS: VIT A,C & E-LUTEIN-MINERALS 1 EACH TAB PO SCH (09:10)
[2020-03-19] MEDS: CALCIUM CARBONATE 500 MG CHEWABLE PO SCH (09:10)
[2020-03-19] MEDS: MULTIVITAMINS, THERA 1 EACH TAB PO SCH (09:10)
[2020-03-19] MEDS: ENOXAPARIN 40 MG/0.4 ML SYRINGE SQ SCH (09:11)
[2020-03-19 09:35] LABS: Basophils % (A) 0 %; Eosinophils % (A) 0 %; HCT 31.7 % (34.0-46.0); Lymphocytes % (A) 16 %; MCH 33.8 pg (25.0-35.0); MCHC 31.4 g/dL (31.0-37.0); MCV 107.6 fL (80.0-100.0); Macrocytosis Moderate; Mean Platelet Volume 7.5; Monocytes % (A) 6 %; Neutrophils % (A) 77 %; Platelet Count 521 k/uL (150-450); RBC 2.95 m/uL (3.80-5.40); RDW 12.5 % (11.5-15.5); WBC 18.4 k/uL (3.8-10.6)
[2020-03-19 09:48] LABS: African American GFR (CKD) >90 (>60 ml/min/1.73 sqM); Anion Gap 9 mmol/L; Blood Urea Nitrogen 6 mg/dL (7-17); Calcium 7.8 mg/dL (8.4-10.2); Carbon Dioxide 23 mmol/L (22-30); Chloride 101 mmol/L (98-107); Glucose 95 mg/dL (74-99); Non-African American GFR(CKD) >90 (>60 ml/min/1.73 sqM); Potassium 4.5 mmol/L (3.5-5.1); Sodium 133 mmol/L (137-145)
--- NOTE | 2020-03-19 11:00 | P.PN ---
Subjective Progress Note Date: 03/19/20 Principal diagnosis: Acute right middle lobe pneumonia. This is a pleasant 79-year-old female patient who has a history of anxiety, depression, gastroesophageal reflux disease, chronic pain, uterine cancer status post hysterectomy in 1974, chronic tobacco dependence. She presented to the emergency yesterday with complaints of fever chills or diaphoresis, cough and congestion. Some chest wall discomfort. Positive diarrhea. No nausea or vomiting. This just started earlier this week. Chest x-ray reveals chronic emphysematous changes with a new right midlung opacity. Computed tomography scan of the chest reveals a right upper lobe and right middle lobe confluent consolidative opacity, groundglass opacities and interstitial septal thickening of the right upper lobe to a lesser degree bilateral lung bases. Small pleural effusion. Right hilar mediastinal lymphadenopathy, may be reactive. White count 16.6. Hemoglobin 10.2. Sodium 132. Potassium 4.3. Troponins negative 3. C-reactive protein 231. Pro Calcitonin 0.24. LDH 525. Lactic acid 0.8. She's been initiated on Symbicort, DuoNeb inhalations, antibiotics in the form of Levaquin and ceftriaxone. She is seen today in consultation on the regular medical floor. She is currently sitting up in bed. Awake and alert in no acute distress. She is maintaining O2 saturations in the 90s on room air. She's had a T-max of 100.7. Slightly tachycardic. Blood pressure stable. She has a loose nonproductive cough. No hemoptysis. No weight loss. The patient is seen today 03/19/2020 in follow-up on the regular medical floor. She is currently resting comfortably in bed. Awake and alert in no acute distress. She is maintaining O2 saturations in the low 90s on room air. Temp 99.5. Slightly tachycardic. Blood pressure stable. Blood culture reveals no growth to date. White count 18.4. Hemoglobin 10.0. Sodium 133. Potassium 4.5. Creatinine 0.46. She remains on Symbicort, bronchodilators, antibiotics in the form of ceftriaxone and Levaquin. Lovenox for DVT prophylaxis. Objective - Vital Signs Vital signs: Vital Signs Temp 99.5 F 03/19/20 08:07 Pulse 100 03/19/20 08:37 Resp 18 07/25/20 08:07 BP 127/69 03/19/20 08:07 Pulse Ox 93 L 03/19/20 08:07 Intake & Output 03/18/20 03/19/20 03/19/20 18:59 06:59 18:59 Intake Total 1080 600 Output Total 300 Balance 1080 300 Intake: Intake, IV Titration 600 Amount Sodium Chloride 0.9% 1, 600 000 ml @ 75 mls/hr IV . [id number] [facility] Rx#:[id number] Oral 1080 Output: Urine 300 Other: Voiding Method Toilet # Voids 1 1 - Exam GENERAL EXAM: Alert, pleasant 79-year-old female patient, on room air, comfortable in no apparent distress. HEAD: Normocephalic. EYES: Normal reaction of pupils, equal size. NOSE: Clear with pink turbinates. THROAT: No erythema or exudates. NECK: No masses, no JVD. CHEST: No chest wall deformity. LUNGS: Equal air entry with few scattered rhonchi in the right lung. CVS: S1 and S2 normal with no audible murmur, regular rhythm. ABDOMEN: No hepatosplenomegaly, normal bowel sounds, no guarding or rigidity. SPINE: No scoliosis or deformity SKIN: No rashes CENTRAL NERVOUS SYSTEM: No focal deficits, tone is normal in all 4 extremities. EXTREMITIES: There is no peripheral edema. No clubbing, no cyanosis. Pe ripheral pulses are intact. - Labs CBC & Chem 7: 03/19/20 08:42 03/19/20 08:42 Labs: Abnormal Lab Results - Last 24 Hours (Table) 03/19/20 03/19/20 Range/Units 08:42 08:42 WBC 18.4 H (3.8-10.6) k/uL RBC 2.95 L (3.80-5.40) m/uL Hgb 10.0 L (11.4-16.0) gm/dL Hct 31.7 L (34.0-46.0) % MCV 107.6 H (80.0-100.0) fL Plt Count 521 H (150-450) k/uL Neutrophils # 14.0 H (1.3-7.7) k/uL Sodium 133 L (137-145) mmol/L BUN 6 L (7-17) mg/dL Creatinine 0.46 L (0.52-1.04) mg/dL Calcium 7.8 L (8.4-10.2) mg/dL Microbiology - Last 24 Hours (Table) 03/17/20 15:43 Blood Culture - Preliminary Blood No Growth after 24 hours Assessment and Plan Assessment: 1 Acute right middle lobe pneumonia, suspect bacterial versus viral. CoVID screen negative. Legionella pending. 2 Febrile illness secondary to above 3 Leukocytosis secondary to above 4 Chronic tobacco dependence 5 History of uterine cancer status post hysterectomy 7 History of anxiety/depression Plan: The patient was seen and evaluated by Dr. Montejo. Covid 19 negative Continue antibiotics Await Legionella results Cannot rule out underlying pulmonary mass She did recently quit smoking, encouraged regarding complete smoking cessation If no significant improvement over the weekend may consider bronchoscopy with BAL and possible biopsy Repeat chest x-ray Saturday We will continue to follow and make further recommendations based on her clinical status. I, the cosigning physician, performed a history & physical examination of the patient. Lungs sounds with scattered rhonchi in the right lung.. Maintaining good O2 saturations in the 90s on room air. I discussed the assessment and plan of care with my nurse practitioner, Natty Jarquin. I attest to the above note as dictated by her.
[2020-03-19] MEDS: CEFEPIME 2 GM in SODIUM CHLORIDE 0.9% 100 ML IVPB SCH ×2 (14:13→22:01)
[2020-03-19] MEDS: KETOROLAC 30 MG/ML 1 ML VIAL IVP PRN (14:18)
--- NOTE | 2020-03-19 14:39 | XR ---
EXAMINATION TYPE: XR shoulder complete LT DATE OF EXAM: 03/19/2020 COMPARISON: NONE HISTORY: Shoulder pain TECHNIQUE: 3 views FINDINGS: I see no fracture nor dislocation. Joint spaces are normal. There are no pathologic calcifi cations. IMPRESSION: Negative left shoulder exam. No fracture seen.
[2020-03-19] MEDS: CLINDAMYCIN 600 MG in DEXTROSE 5% IN WATER 50 ML IVPB SCH ×2 (16:17)
--- NOTE | 2020-03-19 16:52 | P.PN ---
Subjective Patient is being treated for right middle lobe pneumonia. COVID 19 was ruled out Legionella antigen is pending patient is presently on cefepime patient is still not feeling well. Constitutional: Denied any fatigue denied any fever. Cardio vascular: denied any chest pain, palpitations Gastrointestinal denied any nausea vomiting Pulmonary: Denied any shortness of breath cough Neurologic denied any new focal deficits All inpatient medications were reviewed and appropriate changes in these medications as dictated in the interval history and assessment and plan. Objective - Vital Signs Vital signs: Vital Signs Temp 99.5 F 03/19/20 08:07 Pulse 92 03/19/20 12:04 Resp 18 03/19/20 08:07 BP 127/69 03/19/20 08:07 Pulse Ox 93 L 03/19/20 08:07 Intake & Output 03/18/20 03/19/20 03/19/20 18:59 06:59 18:59 Intake Total 1080 600 Output Total 300 400 Balance 1080 300 -400 Intake: Intake, IV Titration 600 Amount Sodium Chloride 0.9% 1, 600 000 ml @ 75 mls/hr IV . [id number] [facility] Rx#:[id number] Oral 1080 Output: Urine 300 400 Other: Voiding Method Toilet # Voids 1 1 - Exam PHYSICAL EXAMINATION: GENERAL: The patient is alert and oriented x3, not in any acute distress. Well developed, well nourished. HEENT: Pupils are round and equally reacting to light. EOMI. No scleral icterus. No conjunctival pallor. Normocephalic, atraumatic. No pharyngeal erythema. No thyromegaly. CARDIOVASCULAR: S1 and S2 present. No murmurs, rubs, or gallops. PULMONARY: Chest is clear to auscultation, no wheezing or crackles. ABDOMEN: Soft, nontender, nondistended, normoactive bowel sounds. No palpable organomegaly. MUSCULOSKELETAL: No joint swelling or deformity. EXTREMITIES: No cyanosis, clubbing, or pedal edema. NEUROLOGICAL: Gross neurological examination did not reveal any focal deficits. SKIN: No rashes. - Labs CBC & Chem 7: 03/19/20 08:42 03/19/20 08:42 Labs: Abnormal Lab Results - Last 24 Hours (Table) 03/19/20 03/19/20 Range/Units 08:42 08:42 WBC 18.4 H (3.8-10.6) k/uL RBC 2.95 L (3.80-5.40) m/uL Hgb 10.0 L (11.4-16.0) gm/dL Hct 31.7 L (34.0-46.0) % MCV 107.6 H (80.0-100.0) fL Plt Count 521 H (150-450) k/uL Neutrophils # 14.0 H (1.3-7.7) k/uL Sodium 133 L (137-145) mmol/L BUN 6 L (7-17) mg/dL Creatinine 0.46 L (0.52-1.04) mg/dL Calcium 7.8 L (8.4-10.2) mg/dL Microbiology - Last 24 Hours (Table) 03/17/20 15:43 Blood Culture - Preliminary Blood No Growth after 24 hours Assessment and Plan Plan: -Sepsis secondary to Right middle lobe pneumonia: For which patient is on cefepime and clindamycin at this time pulmonary and infectious is following the patient. COVID 19 was ruled out. Legionella is pending -History of nicotine use with possibly of COPD patient is not in significant acceleration at this time -Hypervolemic hyponatremia: Continue with IV fluids - depression -Left-sided chest pain and shoulder pain along obtain a shoulder x-ray. Chest pain is probably secondary to pneumonia For above-mentioned chronic problems or problems patient will be continued on the present medications.
[2020-03-19] MEDS: ALPRAZolam 1 MG TAB PO SCH (22:01)
[2020-03-19] MEDS: TEMAZEPAM 15 MG CAP PO PRN (22:08)
[2020-03-20] MEDS: CLINDAMYCIN 600 MG in DEXTROSE 5% IN WATER 50 ML IVPB SCH ×8 (01:02→22:57)
[2020-03-20] MEDS: HYDROcodone/APAP 10-325MG 1 EACH TAB PO PRN ×4 (05:09→22:56)
[2020-03-20] MEDS: IPRATROPIUM-ALBUTEROL 3 ML NEB INHALATION SCH ×3 (07:09→20:51)
[2020-03-20] MEDS: SYMBICORT 160-4.5 MCG INHALER INHALATION SCH ×2 (07:09→20:51)
[2020-03-20 08:26] LABS: Basophils % (A) 0 %; Eosinophils % (A) 0 %; HCT 31.1 % (34.0-46.0); HGB 9.7 gm/dL (11.4-16.0); Lymphocytes # (A) 2.3 k/uL (1.0-4.8); Lymphocytes % (A) 14 %; MCH 33.6 pg (25.0-35.0); MCHC 31.3 g/dL (31.0-37.0); MCV 107.3 fL (80.0-100.0); Macrocytosis Moderate; Mean Platelet Volume 7.4; Monocytes # (A) 0.9 k/uL (0-1.0); Monocytes % (A) 6 %; Neutrophils % (A) 79 %; Platelet Count 493 k/uL (150-450); RDW 12.5 % (11.5-15.5); WBC 16.5 k/uL (3.8-10.6)
[2020-03-20 08:32] LABS: African American GFR (CKD) >90 (>60 ml/min/1.73 sqM); Anion Gap 9 mmol/L; Blood Urea Nitrogen 6 mg/dL (7-17); Calcium 8.1 mg/dL (8.4-10.2); Carbon Dioxide 21 mmol/L (22-30); Chloride 103 mmol/L (98-107); Glucose 102 mg/dL (74-99); Non-African American GFR(CKD) >90 (>60 ml/min/1.73 sqM); Potassium 4.2 mmol/L (3.5-5.1); Sodium 133 mmol/L (137-145)
[2020-03-20] MEDS: PANTOPRAZOLE 40 MG TABLET PO SCH (09:20)
[2020-03-20] MEDS: VIT A,C & E-LUTEIN-MINERALS 1 EACH TAB PO SCH (09:20)
[2020-03-20] MEDS: MULTIVITAMINS, THERA 1 EACH TAB PO SCH (09:20)
[2020-03-20] MEDS: CEFEPIME 2 GM in SODIUM CHLORIDE 0.9% 100 ML IVPB SCH ×2 (09:20→20:19)
[2020-03-20] MEDS: CALCIUM CARBONATE 500 MG CHEWABLE PO SCH (09:20)
[2020-03-20] MEDS: CHOLECALCIFEROL 1,000 UNIT TAB PO SCH (09:20)
[2020-03-20] MEDS: FLUoxetine HCL 20 MG CAP PO SCH (09:20)
[2020-03-20] MEDS: ENOXAPARIN 40 MG/0.4 ML SYRINGE SQ SCH (09:21)
[2020-03-20] MEDS: KETOROLAC 30 MG/ML 1 ML VIAL IVP PRN ×2 (09:31→14:56)
--- NOTE | 2020-03-20 12:26 | P.PN ---
Subjective Progress Note Date: 03/20/20 Principal diagnosis: Acute right middle lobe pneumonia. This is a pleasant 79-year-old female patient who has a history of anxiety, depression, gastroesophageal reflux disease, chronic pain, uterine cancer status post hysterectomy in 1974, chronic tobacco dependence. She presented to the emergency yesterday with complaints of fever chills or diaphoresis, cough and congestion. Some chest wall discomfort. Positive diarrhea. No nausea or vomiting. This just started earlier this week. Chest x-ray reveals chronic emphysematous changes with a new right midlung opacity. Computed tomography scan of the chest reveals a right upper lobe and right middle lobe confluent consolidative opacity, groundglass opacities and interstitial septal thickening of the right upper lobe to a lesser degree bilateral lung bases. Small pleural effusion. Right hilar mediastinal lymphadenopathy, may be reactive. White count 16.6. Hemoglobin 10.2. Sodium 132. Potassium 4.3. Troponins negative 3. C-reactive protein 231. Pro Calcitonin 0.24. LDH 525. Lactic acid 0.8. She's been initiated on Symbicort, DuoNeb inhalations, antibiotics in the form of Levaquin and ceftriaxone. She is seen today in consultation on the regular medical floor. She is currently sitting up in bed. Awake and alert in no acute distress. She is maintaining O2 saturations in the 90s on room air. She's had a T-max of 100.7. Slightly tachycardic. Blood pressure stable. She has a loose nonproductive cough. No hemoptysis. No weight loss. The patient is seen today 03/19/2020 in follow-up on the regular medical floor. She is currently resting comfortably in bed. Awake and alert in no acute distress. She is maintaining O2 saturations in the low 90s on room air. Temp 99.5. Slightly tachycardic. Blood pressure stable. Blood culture reveals no growth to date. White count 18.4. Hemoglobin 10.0. Sodium 133. Potassium 4.5. Creatinine 0.46. She remains on Symbicort, bronchodilators, antibiotics in the form of ceftriaxone and Levaquin. Lovenox for DVT prophylaxis. The patient is seen today 03/20/2020 in follow-up on the regular medical floor. She is awake and alert in no acute distress. Resting comfortably in bed. Denies any worsening shortness of breath, cough or congestion. Continues to maintain good O2 saturations in the 90s on room air. She's been afebrile. Blood culture reveals no growth. White count 16.5. Hemoglobin 9.7. MCV 107. Sodium 133. Potassium 4.2. Creatinine 0.55. Continued on bronchodilators, clindamycin and cefepime. Objective - Vital Signs Vital signs: Vital Signs Temp 98.3 F 03/20/20 09:10 Pulse 102 H 03/20/20 09:10 Resp 16 03/20/20 09:10 BP 117/70 03/20/20 09:10 Pulse Ox 94 L 03/20/20 09:10 Intake & Output 03/19/20 03/20/20 03/20/20 18:59 06:59 18:59 Intake Total 300 Output Total 500 Balance -500 300 Intake: Oral 300 Output: Urine 500 Other: Voiding Method Toilet # Voids 3 1 - Exam GENERAL EXAM: Alert, pleasant 79-year-old female patient, on room air, comfortable in no apparent distress. HEAD: Normocephalic. EYES: Normal reaction of pupils, equal size. NOSE: Clear with pink turbinates. THROAT: No erythema or exudates. NECK: No masses, no JVD. CHEST: No chest wall deformity. LUNGS: Equal air entry with few scattered rhonchi in the right lung. CVS: S1 and S2 normal with no audible murmur, regular rhythm. ABDOMEN: No hepatosplenomegaly, normal bowel sounds, no guarding or rigidity. SPINE: No scoliosis or deformity SKIN: No rashes CENTRAL NERVOUS SYSTEM: No focal deficits, tone is normal in all 4 extremities. EXTREMITIES: There is no peripheral edema. No clubbing, no cyanosis. Peripheral pulses are intact. - Labs CBC & Chem 7: 03/20/20 07:28 03/20/20 07:28 Labs: Abnormal Lab Results - Last 24 Hours (Table) 03/20/20 03/20/20 Range/Units 07: 07:28 WBC 16.5 H (3.8-10.6) k/uL RBC 2.90 L (3.80-5.40) m/uL Hgb 9.7 L (11.4-16.0) gm/dL Hct 31.1 L (34.0-46.0) % MCV 107.3 H (80.0-100.0) fL Plt Count 493 H (150-450) k/uL Neutrophils # 13.0 H (1.3-7.7) k/uL Sodium 133 L (137-145) mmol/L Carbon Dioxide 21 L (22-30) mmol/L BUN 6 L (7-17) mg/dL Glucose 102 H (74-99) mg/dL Calcium 8.1 L (8.4-10.2) mg/dL Microbiology - Last 24 Hours (Table) 03/17/20 15:43 Blood Culture - Preliminary Blood No Growth after 48 hours Assessment and Plan Assessment: 1 Acute right middle lobe pneumonia, suspect bacterial versus viral. CoVID screen negative. Legionella pending. 2 Febrile illness secondary to above 3 Leukocytosis secondary to above 4 Chronic tobacco dependence 5 History of uterine cancer status post hysterectomy 7 History of anxiety/depression Plan: The patient was seen and evaluated by Dr. Montejo. Lung sounds improved today Continue antibiotics Await Legionella results Cannot rule out underlying pulmonary mass She did recently quit smoking, encouraged regarding complete smoking cessation Repeat chest x-ray in a.m. We will continue to follow and make further recommendations based on her clin ical status. I, the cosigning physician, performed a history & physical examination of the patient. Lungs sounds with scattered rhonchi in the right lung.. Maintaining good O2 saturations in the 90s on room air. I discussed the assessment and plan of care with my nurse practitioner, Natty Jarquin. I attest to the above note as dictated by her.
[2020-03-20] MEDS: SODIUM CHLORIDE 0.9% 1,000 ML IV SCH ×2 (12:38→20:21)
[2020-03-20] MEDS: ALPRAZolam 1 MG TAB PO SCH (20:21)
[2020-03-20] MEDS: TEMAZEPAM 15 MG CAP PO PRN (22:56)
--- NOTE | 2020-03-21 00:14 | PN ---
PROGRESS NOTE DATE OF SERVICE: 03/20/2020 REASON FOR FOLLOWUP: Possible aspiration pneumonia. INTERVAL HISTORY: The patient is currently afebrile. She is breathing comfortably. The patient denies having any chest pain or shortness of breath. She did have some cough, not bringing up any sputum. No nausea, no vomiting. No abdominal pain, no diarrhea. PHYSICAL EXAMINATION: Blood pressure 135/67 with a pulse of 98, temperature 98.4. She is 90% on 2 L nasal cannula. General description is an elderly female lying in bed in no distress. RESPIRATORY SYSTEM: Unlabored breathing, decreased intensity of breath sounds. No wheeze. HEART: S1, S2. Regular rate and rhythm. ABDOMEN: Soft, no tenderness. LABS: Hemoglobin is 9.7, white count 16.5. Blood culture has been negative. DIAGNOSTIC IMPRESSION AND PLAN: Patient with right-sided pneumonia with question of possible aspiration etiology. The patient white count responded to cefepime and clindamycin to continue. Try to obtain a sputum to narrow down antibiotics. Continue supportive care. MMODL / IJN: [id number] /
[2020-03-21] MEDS: HYDROcodone/APAP 10-325MG 1 EACH TAB PO PRN ×4 (07:48→21:26)
--- NOTE | 2020-03-21 07:55 | XR ---
EXAMINATION TYPE: XR chest 1V portable DATE OF EXAM: 03/21/2020 COMPARISON: 03/17/2020 INDICATION: Right lung pneumonia TECHNIQUE: Single frontal view of the chest is obtained. FINDINGS: The heart size is normal. The pulmonary vasculature is normal. There is a worsening consolidation at the base of the right upper lobe and in the perihilar region. S ome developing peripheral left lower lobe infiltrate is evident. Minimal effusion should be considere d bilaterally. Consider atypical pneumonia. IMPRESSION: 1. Base of the right upper lobe consolidation. Correlate for worsening pneumonia. 2. There are some developing peripheral infiltrates. Atypical pneumonia should be considered. 3. Minimal bilateral pleural effusions are not excluded. 4. Follow-up to clearing is recommended.
[2020-03-21] MEDS: FLUoxetine HCL 20 MG CAP PO SCH (08:16)
[2020-03-21] MEDS: CHOLECALCIFEROL 1,000 UNIT TAB PO SCH (08:16)
[2020-03-21] MEDS: PANTOPRAZOLE 40 MG TABLET PO SCH (08:16)
[2020-03-21] MEDS: VIT A,C & E-LUTEIN-MINERALS 1 EACH TAB PO SCH (08:16)
[2020-03-21] MEDS: MULTIVITAMINS, THERA 1 EACH TAB PO SCH (08:16)
[2020-03-21] MEDS: CEFEPIME 2 GM in SODIUM CHLORIDE 0.9% 100 ML IVPB SCH ×2 (08:17→20:04)
[2020-03-21] MEDS: CALCIUM CARBONATE 500 MG CHEWABLE PO SCH (08:17)
[2020-03-21] MEDS: ENOXAPARIN 40 MG/0.4 ML SYRINGE SQ SCH (08:17)
[2020-03-21] MEDS: SYMBICORT 160-4.5 MCG INHALER INHALATION SCH ×2 (08:32→19:37)
[2020-03-21] MEDS: IPRATROPIUM-ALBUTEROL 3 ML NEB INHALATION SCH ×3 (08:33→19:37)
[2020-03-21] MEDS: CLINDAMYCIN 600 MG in DEXTROSE 5% IN WATER 50 ML IVPB SCH ×6 (10:12→23:34)
[2020-03-21 10:16] LABS: Basophils % (A) 0 %; Eosinophils # (A) 0.1 k/uL (0-0.7); Eosinophils % (A) 1 %; HCT 32.4 % (34.0-46.0); Hypochromasia Slight; Lymphocytes # (A) 1.4 k/uL (1.0-4.8); Lymphocytes % (A) 10 %; MCH 33.5 pg (25.0-35.0); MCHC 30.9 g/dL (31.0-37.0); MCV 108.5 fL (80.0-100.0); Macrocytosis Moderate; Mean Platelet Volume 7.7; Monocytes # (A) 0.7 k/uL (0-1.0); Monocytes % (A) 5 %; Neutrophils # (A) 11.1 k/uL (1.3-7.7); Neutrophils % (A) 83 %; Platelet Count 520 k/uL (150-450); RBC 2.99 m/uL (3.80-5.40); RDW 12.6 % (11.5-15.5); WBC 13.5 k/uL (3.8-10.6)
[2020-03-21 10:39] LABS: African American GFR (CKD) >90 (>60 ml/min/1.73 sqM); Anion Gap 11 mmol/L; Blood Urea Nitrogen 8 mg/dL (7-17); Calcium 8.1 mg/dL (8.4-10.2); Carbon Dioxide 17 mmol/L (22-30); Chloride 105 mmol/L (98-107); Glucose 84 mg/dL (74-99); Non-African American GFR(CKD) >90 (>60 ml/min/1.73 sqM); Potassium 4.4 mmol/L (3.5-5.1); Sodium 133 mmol/L (137-145)
--- NOTE | 2020-03-21 10:48 | P.PN ---
Subjective Progress Note Date: 03/20/20 Principal diagnosis: Right middle lobe pneumonia/sepsis This is a pleasant 79-year-old female patient who has a history of anxiety, depression, gastroesophageal reflux disease, chronic pain, uterine cancer status post hysterectomy in 1974, chronic tobacco dependence. She presented to the emergency yesterday with complaints of fever chills or diaphoresis, cough and congestion. Some chest wall discomfort. Positive diarrhea. No nausea or vomiting. This just started earlier this week. Chest x-ray reveals chronic emphysematous changes with a new right midlung opacity. Computed tomography scan of the chest reveals a right upper lobe and right middle lobe confluent consolidative opacity, groundglass opacities and interstitial septal thickening of the right upper lobe to a lesser degree bilateral lung bases. Small pleural effusion. Right hilar mediastinal lymphadenopathy, may be reactive. White count 16.6. Hemoglobin 10.2. Sodium 132. Potassium 4.3. Troponins negative 3. C-reactive protein 231. Pro Calcitonin 0.24. LDH 525. Lactic acid 0.8. She was initiated on Symbicort, DuoNeb inhalations, antibiotics in the form of Levaquin and ceftriaxone 03/20/2020 Patient is seen for follow-up on medical floor; patient is resting comfortably in bed and denies any specific complaints Vital signs remained stable with a temperature of 98.3, pulse 102, respirations 16 and blood pressure 117/70; SpO2 of 94% Lab review shows a white blood count of 16.5 which is improved from 18.4 yesterday; hemoglobin remained stable at 9.7; sodium of 133; Legionella antigen is pending Patient remains on IV antibiotics in form of clindamycin and cefepime; continue with bronchodilator nebulizer treatment; cardiology is following and recommending a repeat chest x-ray in the morning and continue with current treatment until further recommendations Objective - Vital Signs Vital signs: Vital Signs Temp 98.3 F 03/20/20 09:10 Pulse 92 03/20/20 12:31 Resp 16 03/20/20 09:10 BP 117/70 03/20/20 09:10 Pulse Ox 94 L 03/20/20 09:10 Intake & Output 03/19/20 03/20/20 03/20/20 18:59 06:59 18:59 Intake Total 300 Output Total 500 Balance -500 300 Intake: Oral 300 Output: Urine 500 Other: Voiding Method Toilet # Voids 3 1 - Exam GENERAL: The patient is alert and oriented x3, not in any acute distress. Well developed, well nourished. HEENT: Pupils are round and equally reacting to light. EOMI. No scleral icterus. No conjunctival pallor. Normocephalic, atraumatic. No pharyngeal erythema. No thyromegaly. CARDIOVASCULAR: S1 and S2 present. No murmurs, rubs, or gallops. PULMONARY: Chest is clear to auscultation, no wheezing or crackles. ABDOMEN: Soft, nontender, nondistended, normoactive bowel sounds. No palpable organomegaly. MUSCULOSKELETAL: No joint swelling or deformity. EXTREMITIES: No cyanosis, clubbing, or pedal edema. NEUROLOGICAL: Gross neurological examination did not reveal any focal deficits. - Labs CBC & Chem 7: 03/21/20 07:35 03/21/20 07:35 Labs: Abnormal Lab Results - Last 24 Hours (Table) 03/20/20 03/20/20 Range/Units 07:28 07:28 WBC 16.5 H (3.8-10.6) k/uL RBC 2.90 L (3.80-5.40) m/uL Hgb 9.7 L (11.4-16.0) gm/dL Hct 31.1 L (34.0-46.0) % MCV 107.3 H (80.0-100.0) fL Plt Count 493 H (150-450) k/uL Neutrophils # 13.0 H (1.3-7.7) k/uL Sodium 133 L (137-145) mmol/L Carbon Dioxide 21 L (22-30) mmol/L BUN 6 L (7-17) mg/dL Glucose 102 H (74-99) mg/dL Calcium 8.1 L (8.4-10.2) mg/dL Microbiology - Last 24 Hours (Table) 03/17/20 15:43 Blood Culture - Preliminary Blood No Growth after 48 hours Assessment and Plan Assessment: -Sepsis secondary to Right middle lobe pneumonia: For which patient is on cefepime and clindamycin at this time pulmonary and infectious is following the patient. COVID 19 was ruled out. Legionella is pending -History of nicotine use with possibly of COPD patient is not in significant acceleration at this time -Hypervolemic hyponatremia: Continue with IV fluids - depression -Left-sided chest pain and shoulder pain along obtain a shoulder x-ray. Chest pain is probably secondary to pneumonia For above-mentioned chronic problems or problems patient will be continued on the present medications.
--- NOTE | 2020-03-21 14:31 | P.PN ---
Subjective Progress Note Date: 03/21/20 Principal diagnosis: Acute right middle lobe pneumonia This is a pleasant 79-year-old female patient who has a history of anxiety, depression, gastroesophageal reflux disease, chronic pain, uterine cancer status post hysterectomy in 1974, chronic tobacco dependence. She presented to the emergency yesterday with complaints of fever chills or diaphoresis, cough and congestion. Some chest wall discomfort. Positive diarrhea. No nausea or vomiting. This just started earlier this week. Chest x-ray reveals chronic emphysematous changes with a new right midlung opacity. Computed tomography scan of the chest reveals a right upper lobe and right middle lobe confluent consolidative opacity, groundglass opacities and interstitial septal thickening of the right upper lobe to a lesser degree bilateral lung bases. Small pleural effusion. Right hilar mediastinal lymphadenopathy, may be reactive. White count 16.6. Hemoglobin 10.2. Sodium 132. Potassium 4.3. Troponins negative 3. C-reactive protein 231. Pro Calcitonin 0.24. LDH 525. Lactic acid 0.8. She's been initiated on Symbicort, DuoNeb inhalations, antibiotics in the form of Levaquin and ceftriaxone. She is seen today in consultation on the regular medical floor. She is currently sitting up in bed. Awake and alert in no acute distress. She is maintaining O2 saturations in the 90s on room air. She's had a T-max of 100.7. Slightly tachycardic. Blood pressure stable. She has a loose nonproductive cough. No hemoptysis. No weight loss. The patient is seen today 03/19/2020 in follow-up on the regular medical floor. She is currently resting comfortably in bed. Awake and alert in no acute di stress. She is maintaining O2 saturations in the low 90s on room air. Temp 99.5. Slightly tachycardic. Blood pressure stable. Blood culture reveals no growth to date. White count 18.4. Hemoglobin 10.0. Sodium 133. Potassium 4.5. Creatinine 0.46. She remains on Symbicort, bronchodilators, antibiotics in the form of ceftriaxone and Levaquin. Lovenox for DVT prophylaxis. The patient is seen today 03/20/2020 in follow-up on the regular medical floor. She is awake and alert in no acute distress. Resting comfortably in bed. Denies any worsening shortness of breath, cough or congestion. Continues to maintain good O2 saturations in the 90s on room air. She's been afebrile. Blood culture reveals no growth. White count 16.5. Hemoglobin 9.7. MCV 107. Sodium 133. Potassium 4.2. Creatinine 0.55. Continued on bronchodilators, clindamycin and cefepime. On 03/21/2020 patient seen in follow-up on general medical surgical floor. She is resting comfortably in bed, denies any acute distress, is on 3 L of oxygen a pulse ox of 93%, she is afebrile, hemodynamically stable, no signs of altered mentation, lung sounds reveal a few crackles at bilateral bases, her only complaint is chest discomfort and cough, no phlegm production. Today's chest x- ray showing right upper lobe consolidation some worsening of the airspace disease, and some developing peripheral infiltrates with consideration for atypical pneumonia, minimal bilateral pleural effusions are not excluded. Current antibiotic coverage includes cefepime and clindamycin, patient has ALLERGIES to azithromycin and penicillin. Patient is given IV fluids at 75 ML per hour. Legionella urine antigen has been sent and is pending, mycoplasma IgG and IgM pending Objective - Vital Signs Vital signs: Vital Signs Temp 98.9 F 03/21/20 07:42 Pulse 86 03/21/20 11:33 Resp 18 03/21/20 07:42 BP 166/70 03/21/20 07:42 Pulse Ox 93 L 03/21/20 07:42 Intake & Output 03/20/20 03/21/20 03/21/20 18:59 06:59 18:59 Intake Total 600 Balance 600 Intake: IV 600 Sodium Chloride 0.9% 1, 600 000 ml @ 75 mls/hr IV . [id number] [facility] Rx#:[id number] Other: Voiding Method Toilet # Voids 1 2 3 - Exam GENERAL EXAM: Alert, very pleasant, 79-year-old white female on 3 L of oxygen pulse ox of 93% comfortable in no apparent distress. HEAD: Normocephalic/atraumatic. EYES: Normal reaction of pupils, equal size. Conjunctiva pink, sclera white. NOSE: Clear with pink turbinates. THROAT: No erythema or exudates. NECK: No masses, no JVD, no thyroid enlargement, no adenopathy. CHEST: No chest wall deformity. Symmetrical expansion. LUNGS: Equal air entry with mild crackles at bilateral bases CVS: Regular rate and rhythm, normal S1 and S2, no gallops, no murmurs, no rubs ABDOMEN: Soft, nontender. No hepatosplenomegaly, normal bowel sounds, no guarding or rigidity. EXTREMITIES: No clubbing, no edema, no cyanosis, 2+ pulses and upper and lower extremities. MUSCULOSKELETAL: Muscle strength and tone normal. SPINE: No scoliosis or deformity SKIN: No rashes CENTRAL NERVOUS SYSTEM: Alert and oriented -3. No focal deficits, tone is normal in all 4 extremities. PSYCHIATRIC: Alert and oriented -3. Appropriate affect. Intact judgment and insight. - Labs CBC & Chem 7: 03/21/20 07:35 03/21/20 07:35 Labs: Abnormal Lab Results - Last 24 Hours (Table) 03/21/20 03/21/20 Range/Units 07:35 07:35 WBC 13.5 H (3.8-10.6) k/uL RBC 2.99 L (3.80-5.40) m/uL Hgb 10.0 L (11.4-16.0) gm/dL Hct 32.4 L (34.0-46.0) % MCV 108.5 H (80.0-100.0) fL MCHC 30.9 L (31.0-37.0) g/dL Plt Count 520 H (150-450) k/uL Neutrophils # 11.1 H (1.3-7.7) k/uL Sodium 133 L (137-145) mmol/L Carbon Dioxide 17 L (22-30) mmol/L Calcium 8.1 L (8.4-10.2) mg/dL Microbiology - Last 24 Hours (Table) 03/17/20 15:43 Blood Culture - Preliminary Blood No Growth after 72 hours Assessment and Plan Plan: Assessment: 1 Acute right middle lobe pneumonia, suspect bacterial versus viral. CoVID screen negative. Legionella pending. 2 Febrile illness secondary to above 3 Leukocytosis secondary to above 4 Chronic tobacco dependence 5 History of uterine cancer status post hysterectomy 7 History of anxiety/depression Plan: Continue with antibiotics per ID service recommendations, today's chest x-ray has been noted with some worsening of the right upper lobe pneumonia, Legionella urine antigen was negative, mycoplasma IgG and IgM are pending, patient has been afebrile. We will obtain follow-up pro-calcitonin. I performed a history & physical examination of the patient and discussed their management with my nurse practitioner, Khushbu Reyes. I reviewed the nurse practitioner's note and agree with the documented findings and plan of care. Lung sounds are positive for diminished breath sounds. The findings and the impression was discussed with the patient. I attest to the documentation by the nurse practitioner. Time with Patient: Less than 30
--- NOTE | 2020-03-21 15:17 | XR ---
EXAMINATION TYPE: XR chest 1V portable DATE OF EXAM: 03/21/2020 COMPARISON: 03/21/2020 earlier exam INDICATION: Short of breath TECHNIQUE: Single frontal view of the chest is obtained. FINDINGS: The heart size is normal. The pulmonary vasculature is normal. Right upper lobe consolidation remains present. Right perihilar infiltrate may be slightly improved. Left lower lobe infiltrate appears improved. Small right pleural effusion is present IMPRESSION: 1. Mild improvement of infiltrates. A right upper lobe consolidation remains present. Small right ple ural effusion is present.
[2020-03-21] MEDS: SODIUM CHLORIDE 0.9% 1,000 ML IV SCH (16:26)
[2020-03-21] MEDS: ALPRAZolam 1 MG TAB PO SCH (20:05)
--- NOTE | 2020-03-21 21:00 | PN ---
PROGRESS NOTE DATE OF SERVICE: 03/21/2020 REASON FOR FOLLOWUP: Pneumonia; possible aspiration. INTERVAL HISTORY: The patient is currently afebrile. The patient is breathing more comfortably. The patient denies having any chest pain. She did have a cough, though decreased in intensity and dry in nature. No nausea, no vomiting. No abdominal pain or diarrhea. PHYSICAL EXAMINATION: Blood pressure 117/56, pulse of 92, temperature 97.8. She is 96% on 2 L nasal cannula. General description is an elderly female lying in bed in no distress. RESPIRATORY SYSTEM: Unlabored breathing. Clear to auscultation anteriorly. HEART: S1, S2. Regular rate and rhythm. ABDOMEN: Soft. No tenderness. LABS: Hemoglobin is 10, white count 13.5, BUN of 8, creatinine 0.52. Blood culture has been negative. Chest x-ray this afternoon did show improvement of infiltrate. DIAGNOSTIC IMPRESSION AND PLAN: Patient with right upper lobe pneumonia, possible aspiration in etiology. The patient is clinically responding to the clindamycin and cefepime; to continue. Try to obtain a sputum sample to narrow down the antibiotics. Continue with supportive care. MMODL / IJN: [id number] /
[2020-03-21] MEDS: TEMAZEPAM 15 MG CAP PO PRN (21:26)
[2020-03-22] MEDS: BUTA/APAP/CAF/COD 50-325-40-30 CAP PO PRN (05:14)
[2020-03-22] MEDS: SODIUM CHLORIDE 0.9% 1,000 ML IV SCH ×2 (05:16→17:15)
[2020-03-22] MEDS: IPRATROPIUM-ALBUTEROL 3 ML NEB INHALATION SCH ×3 (08:20→20:59)
[2020-03-22] MEDS: SYMBICORT 160-4.5 MCG INHALER INHALATION SCH ×2 (08:21→21:00)
[2020-03-22 08:34] LABS: African American GFR (CKD) >90 (>60 ml/min/1.73 sqM); Anion Gap 8 mmol/L; Blood Urea Nitrogen 8 mg/dL (7-17); Calcium 7.8 mg/dL (8.4-10.2); Carbon Dioxide 19 mmol/L (22-30); Chloride 105 mmol/L (98-107); Glucose 85 mg/dL (74-99); Non-African American GFR(CKD) >90 (>60 ml/min/1.73 sqM); Potassium 3.6 mmol/L (3.5-5.1); Sodium 132 mmol/L (137-145)
[2020-03-22] MEDS ORDERED: guaiFENesin-Coden 100-10MG/5ML 10 ML CUP PO PRN (08:56)
[2020-03-22 09:00] LABS: Basophils % (A) 0 %; Eosinophils # (A) 0.1 k/uL (0-0.7); Eosinophils % (A) 1 %; HGB 9.3 gm/dL (11.4-16.0); Lymphocytes # (A) 1.2 k/uL (1.0-4.8); Lymphocytes % (A) 9 %; MCH 35.3 pg (25.0-35.0); MCHC 33.3 g/dL (31.0-37.0); MCV 105.8 fL (80.0-100.0); Macrocytosis Slight; Mean Platelet Volume 7.5; Monocytes # (A) 0.7 k/uL (0-1.0); Monocytes % (A) 5 %; Neutrophils % (A) 85 %; Platelet Count 509 k/uL (150-450); RBC 2.65 m/uL (3.80-5.40); RDW 12.7 % (11.5-15.5); WBC 14.2 k/uL (3.8-10.6)
[2020-03-22] MEDS: CHOLECALCIFEROL 1,000 UNIT TAB PO SCH (09:04)
[2020-03-22] MEDS: CALCIUM CARBONATE 500 MG CHEWABLE PO SCH (09:04)
[2020-03-22] MEDS: VIT A,C & E-LUTEIN-MINERALS 1 EACH TAB PO SCH (09:04)
[2020-03-22] MEDS: MULTIVITAMINS, THERA 1 EACH TAB PO SCH (09:04)
[2020-03-22] MEDS: FLUoxetine HCL 20 MG CAP PO SCH (09:04)
[2020-03-22] MEDS: PANTOPRAZOLE 40 MG TABLET PO SCH (09:04)
[2020-03-22] MEDS: CLINDAMYCIN 600 MG in DEXTROSE 5% IN WATER 50 ML IVPB SCH ×6 (09:05→23:01)
[2020-03-22] MEDS: HYDROcodone/APAP 10-325MG 1 EACH TAB PO PRN ×4 (09:05→22:59)
[2020-03-22] MEDS: ENOXAPARIN 40 MG/0.4 ML SYRINGE SQ SCH (09:14)
--- NOTE | 2020-03-22 10:35 | P.PN ---
Subjective Progress Note Date: 03/22/20 Principal diagnosis: Acute right middle lobe pneumonia This is a pleasant 79-year-old female patient who has a history of anxiety, depression, gastroesophageal reflux disease, chronic pain, uterine cancer status post hysterectomy in 1974, chronic tobacco dependence. She presented to the emergency yesterday with complaints of fever chills or diaphoresis, cough and congestion. Some chest wall discomfort. Positive diarrhea. No nausea or vomiting. This just started earlier this week. Chest x-ray reveals chronic emphysematous changes with a new right midlung opacity. Computed tomography scan of the chest reveals a right upper lobe and right middle lobe confluent consolidative opacity, groundglass opacities and interstitial septal thickening of the right upper lobe to a lesser degree bilateral lung bases. Small pleural effusion. Right hilar mediastinal lymphadenopathy, may be reactive. White count 16.6. Hemoglobin 10.2. Sodium 132. Potassium 4.3. Troponins negative 3. C-reactive protein 231. Pro Calcitonin 0.24. LDH 525. Lactic acid 0.8. She's been initiated on Symbicort, DuoNeb inhalations, antibiotics in the form of Levaquin and ceftriaxone. She is seen today in consultation on the regular medical floor. She is currently sitting up in bed. Awake and alert in no acute distress. She is maintaining O2 saturations in the 90s on room air. She's had a T-max of 100.7. Slightly tachycardic. Blood pressure stable. She has a loose nonproductive cough. No hemoptysis. No weight loss. The patient is seen today 03/19/2020 in follow-up on the regular medical floor. She is currently resting comfortably in bed. Awake and alert in no acute di stress. She is maintaining O2 saturations in the low 90s on room air. Temp 99.5. Slightly tachycardic. Blood pressure stable. Blood culture reveals no growth to date. White count 18.4. Hemoglobin 10.0. Sodium 133. Potassium 4.5. Creatinine 0.46. She remains on Symbicort, bronchodilators, antibiotics in the form of ceftriaxone and Levaquin. Lovenox for DVT prophylaxis. The patient is seen today 03/20/2020 in follow-up on the regular medical floor. She is awake and alert in no acute distress. Resting comfortably in bed. Denies any worsening shortness of breath, cough or congestion. Continues to maintain good O2 saturations in the 90s on room air. She's been afebrile. Blood culture reveals no growth. White count 16.5. Hemoglobin 9.7. MCV 107. Sodium 133. Potassium 4.2. Creatinine 0.55. Continued on bronchodilators, clindamycin and cefepime. On 03/21/2020 patient seen in follow-up on general medical surgical floor. She is resting comfortably in bed, denies any acute distress, is on 3 L of oxygen a pulse ox of 93%, she is afebrile, hemodynamically stable, no signs of altered mentation, lung sounds reveal a few crackles at bilateral bases, her only complaint is chest discomfort and cough, no phlegm production. Today's chest x- ray showing right upper lobe consolidation some worsening of the airspace disease, and some developing peripheral infiltrates with consideration for atypical pneumonia, minimal bilateral pleural effusions are not excluded. Current antibiotic coverage includes cefepime and clindamycin, patient has ALLERGIES to azithromycin and penicillin. Patient is given IV fluids at 75 ML per hour. Legionella urine antigen has been sent and is pending, mycoplasma IgG and IgM pending On 03/14/2020 patient seen in follow-up on general medical surgical floor, she is resting in bed, she states she's been coughing excessively last night, and now her chest hurts from all the coughing she is known. Not bringing up any sputum, lung sounds reveal some crackles in the right lower and mid lung. She is afebrile, she remains on antibiotics with clindamycin and cefepime. She is on breathing treatments. Denies hemoptysis, yesterday chest x-ray showed mild improvement of infiltrates, and persistence of right upper lobe consolidation and small right pleural effusion. Pro calcitonin has actually increased to 0.40. Blood culture has shown no growth, today's labs have been reviewed showing white blood cell count of 14.2, hemoglobin of 9.3, sodium of 132, potassium is 3.6, chloride is 105, CO2 is 19, BUN of 8 creatinine 0.48. Objective - Vital Signs Vital signs: Vital Signs Temp 98.3 F 03/22/20 07:00 Pulse 94 03/22/20 08:38 Resp 18 03/22/20 07:00 BP 123/70 03/22/20 07:00 Pulse Ox 94 L 03/22/20 07:00 Intake & Output 03/21/20 03/22/20 03/22/20 18:59 06:59 18:59 Intake Total 600 Balance 600 Intake: IV 600 Sodium Chloride 0.9% 1, 600 000 ml @ 75 mls/hr IV . [id number] [facility] Rx#:[id number] Other: Voiding Method Toilet # Voids 3 2 - Exam GENERAL EXAM: Alert, very pleasant, 79-year-old white female on 3 L of oxygen pulse ox of 93% comfortable in no apparent distress. HEAD: Normocephalic/atraumatic. EYES: Normal reaction of pupils, equal size. Conjunctiva pink, sclera white. NOSE: Clear with pink turbinates. THROAT: No erythema or exudates. NECK: No masses, no JVD, no thyroid enlargement, no adenopathy. CHEST: No chest wall deformity. Symmetrical expansion. LUNGS: Equal air entry with mild crackles at bilateral bases CVS: Regular rate and rhythm, normal S1 and S2, no gallops, no murmurs, no rubs ABDOMEN: Soft, nontender. No hepatosplenomegaly, normal bowel sounds, no guarding or rigidity. EXTREMITIES: No clubbing, no edema, no cyanosis, 2+ pulses and upper and lower extremities. MUSCULOSKELETAL: Muscle strength and tone normal. SPINE: No scoliosis or deformity SKIN: No rashes CENTRAL NERVOUS SYSTEM: Alert and oriented -3. No focal deficits, tone is normal in all 4 extremities. PSYCHIATRIC: Alert and oriented -3. Appropriate affect. Intact judgment and insight. - Labs CBC & Chem 7: 03/22/20 07:49 03/22/20 07:49 Labs: Abnormal Lab Results - Last 24 Hours (Table) 03/21/20 03/21/20 03/22/20 Range/Units 07:35 07:35 07:49 WBC 14.2 H (3.8-10.6) k/uL RBC 2.65 L (3.80-5.40) m/uL Hgb 9.3 L (11.4-16.0) gm/dL Hct 28.0 L (34.0-46.0) % MCV 105.8 H (80.0-100.0) fL MCH 35.3 H (25.0-35.0) pg Plt Count 509 H (150-450) k/uL Neutrophils # 12.0 H (1.3-7.7) k/uL Sodium 133 L (137-145) mmol/L Carbon Dioxide 17 L (22-30) mmol/L Creatinine (0.52-1.04) mg/dL Calcium 8.1 L (8.4-10.2) mg/dL Procalcitonin 0.40 H (0.02-0.09) ng/mL 03/22/20 Range/Units 07:49 WBC (3.8-10.6) k/uL RBC (3.80-5.40) m/uL Hgb (11.4-16.0) gm/dL Hct (34.0-46.0) % MCV (80.0-100.0) fL MCH (25.0-35.0) pg Plt Count (150-450) k/uL Neutrophils # (1.3-7.7) k/uL Sodium 132 L (137-145) mmol/L Carbon Dioxide 19 L (22-30) mmol/L Creatinine 0.48 L (0.52-1.04) mg/dL Calcium 7.8 L (8.4-10.2) mg/dL Procalcitonin (0.02-0.09) ng/mL Microbiology - Last 24 Hours (Table) 03/17/20 15:43 Blood Culture - Preliminary Blood No Growth after 96 hours Assessment and Plan Plan: Assessment: 1 Acute right middle lobe pneumonia, suspect bacterial versus viral. CoVID screen negative. Legionella pending. 2 Febrile illness secondary to above 3 Leukocytosis secondary to above 4 Chronic tobacco dependence 5 History of uterine cancer status post hysterectomy 7 History of anxiety/depression Plan: No fever or chills, continue with antibiotics per ID service recommendations, patient is complaining of cough and chest soreness from coughing, patient can have Robitussin-AC every 6 hours as needed for coughing spells, pro-calcitonin level has been noted. Vital signs remain stable, no altered mentation, we'll continue to follow I performed a history & physical examination of the patient and discussed their management with my nurse practitioner, Khushbu Reyes. I reviewed the nurse practitioner's note and agree with the documented findings and plan of care. Lung sounds are positive for diminished breath sounds. The findings and the impression was discussed with the patient. I attest to the documentation by the nurse practitioner. Time with Patient: Less than 30
[2020-03-22] MEDS: CEFEPIME 2 GM in SODIUM CHLORIDE 0.9% 100 ML IVPB SCH ×2 (10:44→20:59)
[2020-03-22] MEDS: guaiFENesin 600 MG TABLET.ER PO SCH ×2 (13:03→20:58)
--- NOTE | 2020-03-22 15:41 | PN ---
PROGRESS NOTE DATE OF SERVICE: 03/22/2020 REASON FOR FOLLOWUP: Pneumonia, possible aspiration. INTERVAL HISTORY: Patient is currently afebrile. The patient is breathing more comfortably. She did have a cough, not bringing up any sputum. No chest pain. No nausea, no vomiting. No abdominal pain, no diarrhea. PHYSICAL EXAMINATION: Blood pressure 120/70 with a pulse 96, temperature 98.3. She is 94% on 2 L nasal cannula. General description is an elderly female, up in the bed in no distress. RESPIRATORY SYSTEM: Unlabored breathing, decreased intense breath sounds. No wheeze. HEART: S1, S2. Regular rate and rhythm. ABDOMEN: Soft. No tenderness. LABS: Hemoglobin is 9, white count of 14.2, creatinine 0.48, blood culture negative. DIAGNOSTIC IMPRESSION AND PLAN: Patient with right upper lobe pneumonia, possible aspiration etiology. Currently on cefepime. May benefit from bronchoscopy and deep cultures and she was unable to provide any sputum and monitor clinical course closely. MMODL / IJN: [id number] /
[2020-03-22] MEDS: ALPRAZolam 1 MG TAB PO SCH (20:59)
--- NOTE | 2020-03-23 00:16 | P.PN ---
Progress Note - Text Progress Note Date: 03/22/20 presenting complaint: Cough Interval history: Patient admitted with COPD exacerbation and pneumonia. Today-has a cough. Bit congested anteriorly. Not able to bring up any sputum. Some headache with coughing. tolerating diet. Playing Scrabble on the iPad. Review of systems: Was done for constitutional, cardiovascular, GI, pulmonary. relevant finding as above Active Medications Acetam/Butalbital/Caffeine/Codeine (Fioricet W/Codeine) 1 - 2 each PO Q6H PRN PRN Reason: Migraine Headache Last Admin: 03/22/20 05:14 Dose: 1 each Documented by: Acetaminophen (Tylenol Tab) 500 mg PO Q6HR PRN PRN Reason: Fever and/ or Pain Last Admin: 03/18/20 02:45 Dose: 500 mg Documented by: Hydrocodone Bitart/Acetaminophen (Glide 10) 1 each PO Q4H PRN PRN Reason: Pain Last Admin: 03/22/20 22:59 Dose: 1 each Documented by: Albuterol/Ipratropium (Duoneb 0.5 Mg-3 Mg/3 Ml Soln) 3 ml INHALATION RT-TID PENDING SALE TO [facility] Last Admin: 03/22/20 20:59 Dose: 3 ml Documented by: Albuterol/Ipratropium (Duoneb 0.5 Mg-3 Mg/3 Ml Soln) 3 ml INHALATION RT-TID PRN PRN Reason: Shortness Of Breath Or Wheezing Alprazolam (Xanax) 1 mg PO HS PENDING SALE TO [facility] Last Admin: 03/22/20 20:59 Dose: 1 mg Documented by: Budesonide/Formoterol Fumarate (Symbicort 160-4.5 Mcg Inhaler) 2 puff INHALATI ON RT-BID PENDING SALE TO [facility] Last Admin: 03/22/20 21:00 Dose: 2 puff Documented by: Calcium Carbonate/Glycine (Tums) 500 mg PO DAILY PENDING SALE TO [facility] Last Admin: 03/22/20 09:04 Dose: 500 mg Documented by: Cholecalciferol (Vitamin D3 (25 Mcg = 1000 Iu)) 1,000 unit PO DAILY PENDING SALE TO [facility] Last Admin: 03/22/20 09:04 Dose: 1,000 unit Documented by: Enoxaparin Sodium (Lovenox) 40 mg SQ DAILY PENDING SALE TO [facility] Last Admin: 03/22/20 09:14 Dose: 40 mg Documented by: Fluoxetine HCl (Prozac) 60 mg PO DAILY PENDING SALE TO [facility] Last Admin: 03/22/20 09:04 Dose: 60 mg Documented by: Guaifenesin (Mucinex) 1,200 mg PO Q12HR PENDING SALE TO [facility] Last Admin: 03/22/20 20:58 Dose: 1,200 mg Documented by: Sodium Chloride (Saline 0.9%) 1,000 mls @ 75 mls/hr IV .[id number] PENDING SALE TO [facility] Last Admin: 03/22/20 17:15 Dose: Not Given Documented by: Cefepime HCl 2 gm/ Sodium (Chloride) 100 mls @ 200 mls/hr IVPB Q12HR PENDING SALE TO [facility] Last Admin: 03/22/20 20:59 Dose: 200 mls/hr Documented by: Clindamycin Phosphate 600 mg/ (Dextrose/Water) 54 mls @ 50 mls/hr IVPB Q8HR PENDING SALE TO [facility] Last Admin: 03/22/20 23:01 Dose: 50 mls/hr Documented by: Ketorolac Tromethamine (Toradol) 15 mg IVP Q6HR PRN PRN Reason: Pain Stop: 03/24/20 13:47 Last Admin: 03/20/20 14:56 Dose: 15 mg Documented by: Multivitamins (Theragran) 1 each PO DAILY PENDING SALE TO [facility] Last Admin: 03/22/20 09:04 Dose: 1 each Documented by: Multivitamins/Minerals (Ivite) 1 each PO DAILY PENDING SALE TO [facility] Last Admin: 03/22/20 09:04 Dose: 1 each Documented by: Naloxone HCl (Narcan) 0.2 mg IV Q2M PRN PRN Reason: Opioid Reversal Pantoprazole Sodium (Protonix) 40 mg PO -BRKFST PENDING SALE TO [facility] Last Admin: 03/22/20 09:04 Dose: 40 mg Documented by: Temazepam (Restoril) 15 mg PO HS PRN PRN Reason: Insomnia Last Admin: 03/21/20 21:26 Dose: 15 mg Documented by: On examination: VITAL SIGNS: [98.1, 101, 16, 109/63, 90% on 2 L] GENERAL APPEARANCE: propped up in bed, comfortable HEENT: Normal external appearance of nose and ear. Oral cavity normal EYES: Pupils equal. Conjunctiva normal. NECK: JVD not raised. Mass not palpable. RESPIRATORY: Respiratory effort normal. Lungs -fair entry CARDIOVASCULAR: First and second sounds normal. No edema. ABDOMEN: Soft. Liver and spleen not palpable. No tenderness. No mass palpable. PSYCHIATRY: Alert and oriented x3. Mood and affect normal. Investigations: white count 14.2 hemoglobin 9.3 progression 3.6 sodium 132 creatinine 0.48 Protocol calcitonin 0.4 chest x-ray film shows right upper lobe consolidation Blood culture negative Assessment: -Right upper lobe pneumonia, suspected gram-negative organism -Acute COPD exacerbation Holly ex-smoker -Anxiety depression otherwise specified -GERD Plan: Discussed at length with the patient. Question onset.. Mucinex added.also spoke to patient's sister on the phone at length. questions are answered. Hopefully discharge in next 24-48 hours. Follow with pulmonary an infection disease. Total time spent today was about 40 minutes with over 25 minutes of discussion.
[2020-03-23 05:24] LABS: Mycoplasma IgG Antibody (EIA) 0.88 INDEX (<=0.90); Mycoplasma IgM Antibody 0.1 INDEX (<=0.90)
[2020-03-23] MEDS: PANTOPRAZOLE 40 MG TABLET PO SCH (07:37)
[2020-03-23] MEDS: CLINDAMYCIN 600 MG in DEXTROSE 5% IN WATER 50 ML IVPB SCH ×6 (07:49→23:45)
[2020-03-23] MEDS: IPRATROPIUM-ALBUTEROL 3 ML NEB INHALATION SCH ×3 (08:10→20:14)
[2020-03-23] MEDS: SYMBICORT 160-4.5 MCG INHALER INHALATION SCH ×2 (08:10→20:14)
[2020-03-23] MEDS: SODIUM CHLORIDE 0.9% 1,000 ML IV SCH ×2 (08:47→22:09)
[2020-03-23] MEDS: HYDROcodone/APAP 10-325MG 1 EACH TAB PO PRN ×3 (09:01→20:47)
[2020-03-23] MEDS: CEFEPIME 2 GM in SODIUM CHLORIDE 0.9% 100 ML IVPB SCH ×2 (09:02→20:48)
[2020-03-23] MEDS: CALCIUM CARBONATE 500 MG CHEWABLE PO SCH (09:41)
[2020-03-23] MEDS: CHOLECALCIFEROL 1,000 UNIT TAB PO SCH (09:42)
[2020-03-23] MEDS: FLUoxetine HCL 20 MG CAP PO SCH (09:42)
[2020-03-23] MEDS: MULTIVITAMINS, THERA 1 EACH TAB PO SCH (09:42)
[2020-03-23] MEDS: ENOXAPARIN 40 MG/0.4 ML SYRINGE SQ SCH (09:43)
[2020-03-23] MEDS: guaiFENesin 600 MG TABLET.ER PO SCH ×2 (09:44→20:54)
[2020-03-23] MEDS: VIT A,C & E-LUTEIN-MINERALS 1 EACH TAB PO SCH (09:52)
--- NOTE | 2020-03-23 14:17 | P.PN ---
Subjective Progress Note Date: 03/23/20 Principal diagnosis: Acute right middle lobe pneumonia This is a pleasant 79-year-old female patient who has a history of anxiety, depression, gastroesophageal reflux disease, chronic pain, uterine cancer status post hysterectomy in 1974, chronic tobacco dependence. She presented to the emergency yesterday with complaints of fever chills or diaphoresis, cough and congestion. Some chest wall discomfort. Positive diarrhea. No nausea or vomiting. This just started earlier this week. Chest x-ray reveals chronic emphysematous changes with a new right midlung opacity. Computed tomography scan of the chest reveals a right upper lobe and right middle lobe confluent consolidative opacity, groundglass opacities and interstitial septal thickening of the right upper lobe to a lesser degree bilateral lung bases. Small pleural effusion. Right hilar mediastinal lymphadenopathy, may be reactive. White count 16.6. Hemoglobin 10.2. Sodium 132. Potassium 4.3. Troponins negative 3. C-reactive protein 231. Pro Calcitonin 0.24. LDH 525. Lactic acid 0.8. She's been initiated on Symbicort, DuoNeb inhalations, antibiotics in the form of Levaquin and ceftriaxone. She is seen today in consultation on the regular medical floor. She is currently sitting up in bed. Awake and alert in no acute distress. She is maintaining O2 saturations in the 90s on room air. She's had a T-max of 100.7. Slightly tachycardic. Blood pressure stable. She has a loose nonproductive cough. No hemoptysis. No weight loss. The patient is seen today 03/19/2020 in follow-up on the regular medical floor. She is currently resting comfortably in bed. Awake and alert in no acute di stress. She is maintaining O2 saturations in the low 90s on room air. Temp 99.5. Slightly tachycardic. Blood pressure stable. Blood culture reveals no growth to date. White count 18.4. Hemoglobin 10.0. Sodium 133. Potassium 4.5. Creatinine 0.46. She remains on Symbicort, bronchodilators, antibiotics in the form of ceftriaxone and Levaquin. Lovenox for DVT prophylaxis. The patient is seen today 03/20/2020 in follow-up on the regular medical floor. She is awake and alert in no acute distress. Resting comfortably in bed. Denies any worsening shortness of breath, cough or congestion. Continues to maintain good O2 saturations in the 90s on room air. She's been afebrile. Blood culture reveals no growth. White count 16.5. Hemoglobin 9.7. MCV 107. Sodium 133. Potassium 4.2. Creatinine 0.55. Continued on bronchodilators, clindamycin and cefepime. On 03/21/2020 patient seen in follow-up on general medical surgical floor. She is resting comfortably in bed, denies any acute distress, is on 3 L of oxygen a pulse ox of 93%, she is afebrile, hemodynamically stable, no signs of altered mentation, lung sounds reveal a few crackles at bilateral bases, her only complaint is chest discomfort and cough, no phlegm production. Today's chest x- ray showing right upper lobe consolidation some worsening of the airspace disease, and some developing peripheral infiltrates with consideration for atypical pneumonia, minimal bilateral pleural effusions are not excluded. Current antibiotic coverage includes cefepime and clindamycin, patient has ALLERGIES to azithromycin and penicillin. Patient is given IV fluids at 75 ML per hour. Legionella urine antigen has been sent and is pending, mycoplasma IgG and IgM pending On 03/14/2020 patient seen in follow-up on general medical surgical floor, she is resting in bed, she states she's been coughing excessively last night, and now her chest hurts from all the coughing she is known. Not bringing up any sputum, lung sounds reveal some crackles in the right lower and mid lung. She is afebrile, she remains on antibiotics with clindamycin and cefepime. She is on breathing treatments. Denies hemoptysis, yesterday chest x-ray showed mild improvement of infiltrates, and persistence of right upper lobe consolidation and small right pleural effusion. Pro calcitonin has actually increased to 0.40. Blood culture has shown no growth, today's labs have been reviewed showing white blood cell count of 14.2, hemoglobin of 9.3, sodium of 132, potassium is 3.6, chloride is 105, CO2 is 19, BUN of 8 creatinine 0.48. On 03/23/2020 patient seen in follow-up on a general medical surgical floor. She is sleeping comfortably in bed, we did wake her up to talk to her, she states she still coughs, and her chest wall hurts from all the coughing she has them, she is currently on Mucinex, her cough syrup with codeine has been di scontinued, she is not able to bring up any sputum. She is on 2 L of oxygen, and at times she is hypoxic even on supplemental oxygen, may be because she is sleeping, she did have a low-grade fever this morning with a temp of 100.2F. She remains on cefepime and clindamycin for antibiotic coverage. No new chest x-ray today, we'll obtain follow-up chest x-ray tomorrow. Today's labs have been reviewed, showing white blood cell, 14.2, hemoglobin is 9.3, platelet count is 509, sodium is 132, potassium 3.6, CO2 is 19, B1 is 8 creatinine 0.48. Yesterday's Pro calcitonin was elevated to 0.40. No altered mentation, no hemoptysis. She states she requires assistance to get up out of bed and ambu late in the room, feels weak Objective - Vital Signs Vital signs: Vital Signs Temp 99.8 F H 03/23/20 11:26 Pulse 84 03/23/20 12:06 Resp 18 03/23/20 11:26 BP 110/56 03/23/20 11:26 Pulse Ox 88 L 03/23/20 11:26 Intake & Output 03/22/20 03/23/20 03/23/20 18:59 06:59 18:59 Intake Total 100 Balance 100 Intake: Oral 100 Other: Voiding Method Toilet Toilet # Voids 3 1 - Exam GENERAL EXAM: Alert, very pleasant, 79-year-old white female on 2 L of oxygen pulse ox of 84-91% comfortable in no apparent distress. HEAD: Normocephalic/atraumatic. EYES: Normal reaction of pupils, equal size. Conjunctiva pink, sclera white. NOSE: Clear with pink turbinates. THROAT: No erythema or exudates. NECK: No masses, no JVD, no thyroid enlargement, no adenopathy. CHEST: No chest wall deformity. Symmetrical expansion. LUNGS: Equal air entry with mild crackles at bilateral bases CVS: Regular rate and rhythm, normal S1 and S2, no gallops, no murmurs, no rubs ABDOMEN: Soft, nontender. No hepatosplenomegaly, normal bowel sounds, no guarding or rigidity. EXTREMITIES: No clubbing, no edema, no cyanosis, 2+ pulses and upper and lower extremities. MUSCULOSKELETAL: Muscle strength and tone normal. SPINE: No scoliosis or deformity SKIN: No rashes CENTRAL NERVOUS SYSTEM: Alert and oriented -3. No focal deficits, tone is normal in all 4 extremities. PSYCHIATRIC: Alert and oriented -3. Appropriate affect. Intact judgment and insight. - Labs CBC & Chem 7: 03/22/20 07:49 03/22/20 07:49 Labs: Microbiology - Last 24 Hours (Table) 03/17/20 15:43 Blood Culture - Preliminary Blood No Growth after 120 hours Assessment and Plan Plan: Assessment: 1 Acute right middle lobe pneumonia, suspect bacterial versus viral. CoVID screen negative. Legionella urine antigen was negative, mycoplasma IgG and IgM were negative 2 Febrile illness secondary to above 3 Leukocytosis secondary to above 4 Chronic tobacco dependence 5 History of uterine cancer status post hysterectomy 7 History of anxiety/depression Plan: Continue antibiotics per ID service recommendations, patient is in no acute distress, still has episodes of coughing spells, complains of chest discomfort from all the coughing. No altered mentation, continues to have intermittent low-grade fevers, we'll obtain follow-up chest x-ray in the morning. The re sults of the urine Legionella antigen and mycoplasma IgG and IgM were negative. We'll continue to closely follow I performed a history & physical examination of the patient and discussed their management with my nurse practitioner, Khushbu Reyes. I reviewed the nurse practitioner's note and agree with the documented findings and plan of care. Lung sounds are positive for diminished breath sounds. The findings and the impression was discussed with the patient. I attest to the documentation by the nurse practitioner. Time with Patient: Less than 30
[2020-03-23] MEDS: BUTA/APAP/CAF/COD 50-325-40-30 CAP PO PRN (16:07)
[2020-03-23 20:29] VITALS: BMI 19.3
[2020-03-23] MEDS: ALPRAZolam 1 MG TAB PO SCH (20:47)
[2020-03-23] MEDS: TEMAZEPAM 15 MG CAP PO PRN (20:54)
[2020-03-23] MEDS ORDERED: CODEINE 30 MG TAB PO PRN (22:32)
--- NOTE | 2020-03-23 22:32 | P.PN ---
Progress Note - Text Progress Note Date: 03/23/20 presenting complaint: Cough Interval history: Patient admitted with COPD exacerbation and pneumonia. Ex-smoker. On IV cefepime, clindamycin, nebulized bronchodilators,. Today-has had bouts of coughing this morning. No congestion. Eating some. Sitting up in bed. No fever no chills. Review of systems: Was done for constitutional, cardiovascular, GI, pulmonary. relevant finding as above Active Medications Acetam/Butalbital/Caffeine/Codeine (Fioricet W/Codeine) 1 - 2 each PO Q6H PRN PRN Reason: Migraine Headache Last Admin: 03/23/20 16:07 Dose: 2 each Documented by: Acetaminophen (Tylenol Tab) 500 mg PO Q6HR PRN PRN Reason: Fever and/ or Pain Last Admin: 03/18/20 02:45 Dose: 500 mg Documented by: Hydrocodone Bitart/Acetaminophen ([place] 10) 1 each PO Q4H PRN PRN Reason: Pain Last Admin: 03/23/20 20:47 Dose: 1 each Documented by: Albuterol/Ipratropium (Duoneb 0.5 Mg-3 Mg/3 Ml Soln) 3 ml INHALATION RT-TID [facility] Last Admin: 03/23/20 20:14 Dose: 3 ml Documented by: Albuterol/Ipratropium (Duoneb 0.5 Mg-3 Mg/3 Ml Soln) 3 ml INHALATION RT-TID PRN PRN Reason: Shortness Of Breath Or Wheezing Alprazolam (Xanax) 1 mg PO HS [facility] Last Admin: 03/23/20 20:47 Dose: 1 mg Documented by: Budesonide/Formoterol Fumarate (Symbicort 160-4.5 Mcg Inhaler) 2 puff INHALATION RT-BID [facility] Last Admin: 03/23/20 20:14 Dose: 2 puff Documented by: Calcium Carbonate/Glycine (Tums) 500 mg PO DAILY [facility] Last Admin: 03/23/20 09:41 Dose: 500 mg Documented by: Cholecalciferol (Vitamin D3 (25 Mcg = 1000 Iu)) 1,000 unit PO DAILY [facility] Last Admin: 03/23/20 09:42 Dose: 1,000 unit Documented by: Enoxaparin Sodium (Lovenox) 40 mg SQ DAILY [facility] Last Admin: 03/23/20 09:43 Dose: 40 mg Documented by: Fluoxetine HCl (Prozac) 60 mg PO DAILY [facility] Last Admin: 03/23/20 09:42 Dose: 60 mg Documented by: Guaifenesin (Mucinex) 1,200 mg PO Q12HR [facility] Last Admin: 03/23/20 20:54 Dose: 1,200 mg Documented by: Sodium Chloride (Saline 0.9%) 1,000 mls @ 75 mls/hr IV .[id number] [facility] Last Admin: 03/23/20 22:09 Dose: Not Given Documented by: Cefepime HCl 2 gm/ Sodium (Chloride) 100 mls @ 200 mls/hr IVPB Q12HR [facility] Last Admin: 03/23/20 20:48 Dose: 200 mls/hr Documented by: Clindamycin Phosphate 600 mg/ (Dextrose/Water) 54 mls @ 50 mls/hr IVPB Q8HR [facility] Last Admin: 03/23/20 15:55 Dose: 50 mls/hr Documented by: Ketorolac Tromethamine (Toradol) 15 mg IVP Q6HR PRN PRN Reason: Pain Stop: 03/24/20 13:47 Last Admin: 03/20/20 14:56 Dose: 15 mg Documented by: Multivitamins (Theragran) 1 each PO DAILY [facility] Last Admin: 03/23/20 09:42 Dose: 1 each Documented by: Multivitamins/Minerals (Ivite) 1 each PO DAILY [facility] Last Admin: 03/23/20 09:52 Dose: 1 each Documented by: Naloxone HCl (Narcan) 0.2 mg IV Q2M PRN PRN Reason: Opioid Reversal Pantoprazole Sodium (Protonix) 40 mg PO AC-BRKFST [facility] Last Admin: 03/23/20 07:37 Dose: 40 mg Documented by: Temazepam (Restoril) 15 mg PO HS PRN PRN Reason: Insomnia Last Admin: 03/23/20 20:54 Dose: 15 mg Documented by: On examination: VITAL SIGNS: 97.8, 88, 20, 113/61, 91% on 2 L GENERAL APPEARANCE: propped up in bed, HEENT: Normal external appearance of nose and ear. Oral cavity normal EYES: Pupils equal. Conjunctiva normal. NECK: JVD not raised. Mass not palpable. RESPIRATORY: Respiratory effort increased Lungs -fair entry CARDIOVASCULAR: First and second sounds normal. No edema. ABDOMEN: Soft. Liver and spleen not palpable. No tenderness. No mass palpable. PSYCHIATRY: Alert and oriented x3. Mood and affect normal. Investigations: white count 14.2 hemoglobin 9.3 progression 3.6 sodium 132 creatinine 0.48 Pro-calcitonin 0.4 chest x-ray film shows right upper lobe consolidation Blood culture negative Assessment: -Right upper lobe pneumonia, suspected gram-negative organism -Acute COPD exacerbation - ex-smoker -Anxiety depression otherwise specified -GERD Plan: Continue with bronchodilators.. We will DC Mucinex. Use codeine for cough suppression. Discussed with the patient.
--- NOTE | 2020-03-23 22:53 | PN ---
PROGRESS NOTE DATE OF SERVICE: 03/23/2020 REASON FOR FOLLOWUP: Pneumonia, possibly aspiration. INTERVAL HISTORY: The patient is currently afebrile. The patient is breathing comfortably. Still complaining of cough, not bringing up any sputum. No nausea, no vomiting. No abdominal pain or diarrhea. PHYSICAL EXAMINATION: Blood pressure 113/61 with a pulse of 80, temperature 97.8. She is 91% on 2 L nasal cannula. General description is an elderly female up in the bed in no distress. RESPIRATORY SYSTEM: Unlabored breathing with decreased breath sounds at the base. No wheeze. HEART: S1, S2. Regular rate and rhythm. ABDOMEN: Soft. No tenderness. LABS: White count 14.2. Blood culture negative. She was unable to provide any sputum. DIAGNOSTIC IMPRESSION AND PLAN: Patient with right upper lobe pneumonia with concern for possible aspiration. Await repeat x-ray in the morning. Try to obtain a sputum sample. If unable, may benefit from bronchoscopy. Will discuss further with Pulmonary. Continue with supportive care. MMODL / IJN: [id number] /
[2020-03-24 07:14] LABS: Basophils % (A) 0 %; Eosinophils # (A) 0.2 k/uL (0-0.7); Eosinophils % (A) 1 %; HCT 34.2 % (34.0-46.0); HGB 10.6 gm/dL (11.4-16.0); Hypochromasia Slight; Lymphocytes # (A) 1.3 k/uL (1.0-4.8); Lymphocytes % (A) 7 %; MCH 33.3 pg (25.0-35.0); MCHC 30.9 g/dL (31.0-37.0); MCV 107.9 fL (80.0-100.0); Macrocytosis Moderate; Mean Platelet Volume 7.2; Monocytes # (A) 0.8 k/uL (0-1.0); Monocytes % (A) 4 %; Neutrophils # (A) 16.4 k/uL (1.3-7.7); Neutrophils % (A) 87 %; Platelet Count 582 k/uL (150-450); RBC 3.17 m/uL (3.80-5.40); RDW 12.8 % (11.5-15.5); WBC 18.9 k/uL (3.8-10.6)
--- NOTE | 2020-03-24 07:20 | XR ---
EXAMINATION TYPE: XR chest 2V DATE OF EXAM: 03/24/2020 COMPARISON: Prior chest x-ray 03/21/2020 HISTORY: Shortness of breath TECHNIQUE: Frontal and lateral views of the chest are obtained. FINDINGS: The abnormal density in the right upper lobe is somewhat less confluent, there is interval development of abnormal density in the perihilar locations, left upper lobe. Interstitium is increas ed. Heart size is stable. No evident pneumothorax or pleural effusion. Prominent lung lines suggest u nderlying COPD. IMPRESSION: Correlate for possible congestive heart failure in a patient with pre-existing COPD, [employer] pneumonia, pulmonary edema, interstitial lung disease
[2020-03-24 07:22] LABS: African American GFR (CKD) >90 (>60 ml/min/1.73 sqM); Anion Gap 10 mmol/L; Blood Urea Nitrogen 10 mg/dL (7-17); Calcium 8.2 mg/dL (8.4-10.2); Carbon Dioxide 20 mmol/L (22-30); Chloride 106 mmol/L (98-107); Glucose 84 mg/dL (74-99); Non-African American GFR(CKD) >90 (>60 ml/min/1.73 sqM); Potassium 3.8 mmol/L (3.5-5.1); Sodium 136 mmol/L (137-145)
[2020-03-24] MEDS: PANTOPRAZOLE 40 MG TABLET PO SCH (07:23)
[2020-03-24] MEDS: CHOLECALCIFEROL 1,000 UNIT TAB PO SCH (07:23)
[2020-03-24] MEDS: VIT A,C & E-LUTEIN-MINERALS 1 EACH TAB PO SCH (07:23)
[2020-03-24] MEDS: FLUoxetine HCL 20 MG CAP PO SCH (07:23)
[2020-03-24] MEDS: CALCIUM CARBONATE 500 MG CHEWABLE PO SCH (07:23)
[2020-03-24] MEDS: MULTIVITAMINS, THERA 1 EACH TAB PO SCH (07:23)
[2020-03-24] MEDS: BUTA/APAP/CAF/COD 50-325-40-30 CAP PO PRN ×2 (07:24→15:54)
[2020-03-24] MEDS: CEFEPIME 2 GM in SODIUM CHLORIDE 0.9% 100 ML IVPB SCH ×2 (07:25→20:36)
[2020-03-24] MEDS: ENOXAPARIN 40 MG/0.4 ML SYRINGE SQ SCH (07:25)
[2020-03-24] MEDS ORDERED: FUROSEMIDE 10 MG/ML 4 ML VIAL IV STA (08:48)
[2020-03-24] MEDS: FORMOTEROL FUMARATE 20 MCG/2 ML NEBU INHALATION SCH ×2 (08:56→20:18)
[2020-03-24] MEDS: BUDESONIDE 1 MG/2 ML NEBU INHALATION SCH ×2 (08:56→20:06)
[2020-03-24] MEDS: IPRATROPIUM-ALBUTEROL 3 ML NEB INHALATION SCH ×3 (08:56→20:06)
[2020-03-24] MEDS: CLINDAMYCIN 600 MG in DEXTROSE 5% IN WATER 50 ML IVPB SCH ×6 (09:53→23:31)
--- NOTE | 2020-03-24 11:23 | P.PN ---
Subjective Progress Note Date: 03/24/20 Principal diagnosis: Acute right middle lobe pneumonia This is a pleasant 79-year-old female patient who has a history of anxiety, depression, gastroesophageal reflux disease, chronic pain, uterine cancer status post hysterectomy in 1974, chronic tobacco dependence. She presented to the emergency yesterday with complaints of fever chills or diaphoresis, cough and congestion. Some chest wall discomfort. Positive diarrhea. No nausea or vomiting. This just started earlier this week. Chest x-ray reveals chronic emphysematous changes with a new right midlung opacity. Computed tomography scan of the chest reveals a right upper lobe and right middle lobe confluent consolidative opacity, groundglass opacities and interstitial septal thickening of the right upper lobe to a lesser degree bilateral lung bases. Small pleural effusion. Right hilar mediastinal lymphadenopathy, may be reactive. White count 16.6. Hemoglobin 10.2. Sodium 132. Potassium 4.3. Troponins negative 3. C-reactive protein 231. Pro Calcitonin 0.24. LDH 525. Lactic acid 0.8. She's been initiated on Symbicort, DuoNeb inhalations, antibiotics in the form of Levaquin and ceftriaxone. She is seen today in consultation on the regular medical floor. She is currently sitting up in bed. Awake and alert in no acute distress. She is maintaining O2 saturations in the 90s on room air. She's had a T-max of 100.7. Slightly tachycardic. Blood pressure stable. She has a loose nonproductive cough. No hemoptysis. No weight loss. The patient is seen today 03/19/2020 in follow-up on the regular medical floor. She is currently resting comfortably in bed. Awake and alert in no acute di stress. She is maintaining O2 saturations in the low 90s on room air. Temp 99.5. Slightly tachycardic. Blood pressure stable. Blood culture reveals no growth to date. White count 18.4. Hemoglobin 10.0. Sodium 133. Potassium 4.5. Creatinine 0.46. She remains on Symbicort, bronchodilators, antibiotics in the form of ceftriaxone and Levaquin. Lovenox for DVT prophylaxis. The patient is seen today 03/20/2020 in follow-up on the regular medical floor. She is awake and alert in no acute distress. Resting comfortably in bed. Denies any worsening shortness of breath, cough or congestion. Continues to maintain good O2 saturations in the 90s on room air. She's been afebrile. Blood culture reveals no growth. White count 16.5. Hemoglobin 9.7. MCV 107. Sodium 133. Potassium 4.2. Creatinine 0.55. Continued on bronchodilators, clindamycin and cefepime. On 03/21/2020 patient seen in follow-up on general medical surgical floor. She is resting comfortably in bed, denies any acute distress, is on 3 L of oxygen a pulse ox of 93%, she is afebrile, hemodynamically stable, no signs of altered mentation, lung sounds reveal a few crackles at bilateral bases, her only complaint is chest discomfort and cough, no phlegm production. Today's chest x- ray showing right upper lobe consolidation some worsening of the airspace disease, and some developing peripheral infiltrates with consideration for atypical pneumonia, minimal bilateral pleural effusions are not excluded. Current antibiotic coverage includes cefepime and clindamycin, patient has ALLERGIES to azithromycin and penicillin. Patient is given IV fluids at 75 ML per hour. Legionella urine antigen has been sent and is pending, mycoplasma IgG and IgM pending On 03/14/2020 patient seen in follow-up on general medical surgical floor, she is resting in bed, she states she's been coughing excessively last night, and now her chest hurts from all the coughing she is known. Not bringing up any sputum, lung sounds reveal some crackles in the right lower and mid lung. She is afebrile, she remains on antibiotics with clindamycin and cefepime. She is on breathing treatments. Denies hemoptysis, yesterday chest x-ray showed mild improvement of infiltrates, and persistence of right upper lobe consolidation and small right pleural effusion. Pro calcitonin has actually increased to 0.40. Blood culture has shown no growth, today's labs have been reviewed showing white blood cell count of 14.2, hemoglobin of 9.3, sodium of 132, potassium is 3.6, chloride is 105, CO2 is 19, BUN of 8 creatinine 0.48. On 03/23/2020 patient seen in follow-up on a general medical surgical floor. She is sleeping comfortably in bed, we did wake her up to talk to her, she states she still coughs, and her chest wall hurts from all the coughing she has them, she is currently on Mucinex, her cough syrup with codeine has been di scontinued, she is not able to bring up any sputum. She is on 2 L of oxygen, and at times she is hypoxic even on supplemental oxygen, may be because she is sleeping, she did have a low-grade fever this morning with a temp of 100.2F. She remains on cefepime and clindamycin for antibiotic coverage. No new chest x-ray today, we'll obtain follow-up chest x-ray tomorrow. Today's labs have been reviewed, showing white blood cell, 14.2, hemoglobin is 9.3, platelet count is 509, sodium is 132, potassium 3.6, CO2 is 19, B1 is 8 creatinine 0.48. Yesterday's Pro calcitonin was elevated to 0.40. No altered mentation, no hemoptysis. She states she requires assistance to get up out of bed and ambu late in the room, feels weak. On 03/24/2020 patient seen in follow-up on general medical surgical floor. She states she is still having some intermittent coughing, denies any chest pain, no hemoptysis, follow-up chest x-ray today shows congestive heart failure, pulmonary edema and interstitial lung disease. Patient has been getting IV fluids for last 7 days with 0.9 normal saline at a rate of 75 ML per hour, proBNP was obtained and came back at 6440. No lower extremity edema, we'll stop the IV fluids, and we'll give the patient on dose of IV Lasix. On 2 L of oxygen her pulse ox is 90-91%, she is afebrile. Blood culture has shown no growth, today's labs have been reviewed showing white blood cell count of 18.9, hemoglobin of 10.6, sodium of 136, potassium 3.8, CO2 is 20, and renal profile was within normal limits. Objective - Vital Signs Vital signs: Vital Signs Temp 98.2 F 03/24/20 07:00 Pulse 88 03/24/20 09:25 Resp 20 03/24/20 07:28 BP 149/79 03/24/20 07:00 Pulse Ox 91 L 03/24/20 07:00 Intake & Output 03/23/20 03/24/20 03/24/20 18:59 06:59 18:59 Intake Total 200 Balance 200 Weight 54.431 kg Intake: Oral 200 Other: Voiding Method Toilet Toilet Toilet # Voids 2 2 - Exam GENERAL EXAM: Alert, very pleasant, 79-year-old white female on 2 L of oxygen pulse ox of 90-91% comfortable in no apparent distress. HEAD: Normocephalic/atraumatic. EYES: Normal reaction of pupils, equal size. Conjunctiva pink, sclera white. NOSE: Clear with pink turbinates. THROAT: No erythema or exudates. NECK: No masses, no JVD, no thyroid enlargement, no adenopathy. CHEST: No chest wall deformity. Symmetrical expansion. LUNGS: Equal air entry with mild crackles at bilateral bases CVS: Regular rate and rhythm, normal S1 and S2, no gallops, no murmurs, no rubs ABDOMEN: Soft, nontender. No hepatosplenomegaly, normal bowel sounds, no guarding or rigidity. EXTREMITIES: No clubbing, no edema, no cyanosis, 2+ pulses and upper and lower extremities. MUSCULOSKELETAL: Muscle strength and tone normal. SPINE: No scoliosis or deformity SKIN: No rashes CENTRAL NERVOUS SYSTEM: Alert and oriented -3. No focal deficits, tone is normal in all 4 extremities. PSYCHIATRIC: Alert and oriented -3. Appropriate affect. Intact judgment and insight. - Labs CBC & Chem 7: 03/24/20 06:46 03/24/20 06:46 Labs: Abnormal Lab Results - Last 24 Hours (Table) 03/24/20 03/24/20 Range/Units 06:46 06:46 WBC 18.9 H (3.8-10.6) k/uL RBC 3.17 L (3.80-5.40) m/uL Hgb 10.6 L (11.4-16.0) gm/dL MCV 107.9 H (80.0-100.0) fL MCHC 30.9 L (31.0-37.0) g/dL Plt Count 582 H (150-450) k/uL Neutrophils # 16.4 H (1.3-7.7) k/uL Sodium 136 L (137-145) mmol/L Carbon Dioxide 20 L (22-30) mmol/L Calcium 8.2 L (8.4-10.2) mg/dL Microbiology - Last 24 Hours (Table) 03/17/20 15:43 Blood Culture - Final Blood No Growth after 144 hours Assessment and Plan Plan: Assessment: 1 Acute right middle lobe pneumonia, suspect bacterial versus viral. CoVID screen negative. Legionella urine antigen was negative, mycoplasma IgG and IgM were negative 2 pulmonary edema, fluid overload 3 Febrile illness secondary to above, resolved 4 Leukocytosis secondary to above 5 Chronic tobacco dependence 6 History of uterine cancer status post hysterectomy 7 History of anxiety/depression Plan: Continue current antibiotics, we'll stop the IV fluids, will give the patient dose of IV Lasix, be chest x-ray in the morning, accurate intake and output, daily weight, increase activity as tolerated, continue to follow I performed a history & physical examination of the patient and discussed their management with my nurse practitioner, Khushbu Reyes. I reviewed the nurse practitioner's note and agree with the documented findings and plan of care. Lung sounds are positive for diminished breath sounds. The findings and the impression was discussed with the patient. I attest to the documentation by the nurse practitioner. Time with Patient: Less than 30
[2020-03-24] MEDS: HYDROcodone/APAP 10-325MG 1 EACH TAB PO PRN ×2 (13:10→20:35)
--- NOTE | 2020-03-24 16:00 | CDI ---
Documentation Clarification Form Date: 03/24/2020 03:05:00 PM From: Anum Solis RN, CCDS Admit Date: 03/17/2020 05:21:00 PM Patient Name: Naomi Yuen Visit Number: [id number] Discharge Date: ATTENTION: The Clinical Documentation Specialists (CDI) and [facility] Coding Staff appreciate your assistance in clarifying documentation. Please respond to the clarification below the line at the bottom and electronically sign. The CDI & [facility] Coding staff will review the response and follow-up if needed. Please note: Queries are made part of the Legal Health Record. If you have any questions, please contact the author of this message via ITS. Dr. Hi Hassan 03/17 H/P Acute right middle lobe pneumonia with possible sepsis. Rule out COVID- 19, possibly community-acquired or Gram-Negative 03/19-03/10 (Internal medicine) progress note: Sepsis secondary to right middle lobe pneumonia. Please render your opinion on the diagnosis of sepsis. History/Risk Factors: COPD, Urinary cancer, Former smoker Clinical Indicators: 79-year-old female present to ED on 03/17 with complaints of fever chill, diaphoresis, cough and congestion. Some chest wall discomfort, Positive diarrhea. 03/17 WBC 14.5, Neutrophils 11.4 03/17 Lactic acid: 0.8 03/17 Blood cultures: No growth 03/24 Labs: WBC 18.9 Neutorphils 16.4 03/17 Vitals signs on admission: 106/53 79 18 97.9 03/18 08:02 vital signs: 123/58 103 18 99.9 03/17 CXR: chronic emphysematous change with new right mid lung opacity favoring focal pneumonia Treatment: 03/17 ID Consult: Presented with fever shortness of breath and couth in this patient CXR with right middle pneumonia patient did have elevated white count with left shift no lymphopenia high clinical suspicious for bacterial pneumonia rather than a viral. Rocephin 1 gm daily (03/17-03/19) 03/19 Maxipime 2 gm iv q 12 hrs 03/19 Clindamycin 600 mg iv q hr Levaquin 500 mg iv -03/18 CBC Daily In your professional opinion, please clarify if these findings signify one of the following conditions, whether the condition is POA, and cause, if known: Condition Sepsis ruled out Sepsis secondary to pneumonia present on admission, now resolved Sepsis, secondary to pneumonia, suspected gram-negative organism, POA Other, please specify Unable to determine SIRS Criteria (2 or more of the following may indicate SIRS): -Temperature < 96.8F (36C) or > 101.0F (38.3C) -Heart Rate > 90 bpm -Respiratory Rate > 20 breaths/min or PaCO2 < 32 mmHg -White Blood Cell Count > 12,000 or < 4,000 cells/mm3 or > 10% bands -Lactate >2.0 mmol/L (>4.0 is equivalent to septic shock) (Last Revision: November 2017) Sepsis from pneumonia, from suspected gram-negative organism POA MTDD
--- NOTE | 2020-03-24 17:39 | PN ---
PROGRESS NOTE DATE OF SERVICE: 03/24/2020 REASON FOR FOLLOWUP: Right upper lobe pneumonia. INTERVAL HISTORY: The patient is currently afebrile. The patient is still complaining of shortness of breath. She did have a cough but was not bringing up any sputum. No nausea, no vomiting. No abdominal pain or any diarrhea. PHYSICAL EXAMINATION: Blood pressure 118/67 with a pulse of 103, temperature 98. She is 92% on 2 L nasal cannula. General description is an elderly female up in the bed in no distress. RESPIRATORY SYSTEM: Unlabored breathing with decreased intensity of breath sounds. No wheeze. HEART: S1, S2. Regular rate and rhythm. ABDOMEN: Soft. No tenderness. LABS: BUN of 10, creatinine 0.54, white count of 18.9. Blood culture has been negative. Sputum has not been collected. DIAGNOSTIC IMPRESSION AND PLAN: Patient admitted to hospital with fever, shortness of breath and a cough in this patient who did have evidence of pneumonia, concern for possible aspiration etiology. She has been on cefepime and clindamycin. Will try to obtain a sputum sample to narrow down antibiotics and monitor clinical course closely. MMODL / IJN: [id number] /
--- NOTE | 2020-03-24 17:41 | P.PN ---
Progress Note - Text Progress Note Date: 03/24/20 presenting complaint: Cough Interval history: Patient admitted with COPD exacerbation and pneumonia. Ex-smoker. On IV cefepime, clindamycin, nebulized bronchodilators,. Being followed by Dr. Castaneda from pulmonary. Today-intermittent coughing. Occasionally short of breath. Hasn't been out of bed. Eating some. Review of systems: Was done for constitutional, cardiovascular, GI, pulmonary. relevant finding as above Active Medications Acetam/Butalbital/Caffeine/Codeine (Fioricet W/Codeine) 1 - 2 each PO Q6H PRN PRN Reason: Migraine Headache Last Admin: 03/24/20 15:54 Dose: 2 each Documented by: Acetaminophen (Tylenol Tab) 500 mg PO Q6HR PRN PRN Reason: Fever and/ or Pain Last Admin: 03/18/20 02:45 Dose: 500 mg Documented by: Hydrocodone Bitart/Acetaminophen ([place] 10) 1 each PO Q4H PRN PRN Reason: Pain Last Admin: 03/24/20 13:10 Dose: 1 each Documented by: Albuterol/Ipratropium (Duoneb 0.5 Mg-3 Mg/3 Ml Soln) 3 ml INHALATION RT-TID [facility] Last Admin: 03/24/20 11:53 Dose: 3 ml Documented by: Albuterol/Ipratropium (Duoneb 0.5 Mg-3 Mg/3 Ml Soln) 3 ml INHALATION RT-TID PRN PRN Reason: Shortness Of Breath Or Wheezing Alprazolam (Xanax) 1 mg PO HS [facility] Last Admin: 03/23/20 20:47 Dose: 1 mg Documented by: Budesonide (Pulmicort) 1 mg INHALATION RT-BID [facility] Last Admin: 03/24/20 08:56 Dose: 1 mg Documented by: Calcium Carbonate/Glycine (Tums) 500 mg PO DAILY [facility] Last Admin: 03/24/20 07:23 Dose: 500 mg Documented by: Cholecalciferol (Vitamin D3 (25 Mcg = 1000 Iu)) 1,000 unit PO DAILY [facility] Last Admin: 03/24/20 07:23 Dose: 1,000 unit Documented by: Codeine Sulfate (Codeine) 15 mg PO Q6HR PRN PRN Reason: When necessary for cough Last Admin: 03/24/20 05:17 Dose: 15 mg Documented by: Enoxaparin Sodium (Lovenox) 40 mg SQ DAILY [facility] Last Admin: 03/24/20 07:25 Dose: 40 mg Documented by: Fluoxetine HCl (Prozac) 60 mg PO DAILY [facility] Last Admin: 03/24/20 07:23 Dose: 60 mg Documented by: Formoterol Fumarate (Perforomist) 20 mcg INHALATION RT-BID [facility] Last Admin: 03/24/20 08:56 Dose: 20 mcg Documented by: Cefepime HCl 2 gm/ Sodium (Chloride) 100 mls @ 200 mls/hr IVPB Q12HR [facility] Last Admin: 03/24/20 07:25 Dose: 200 mls/hr Documented by: Clindamycin Phosphate 600 mg/ (Dextrose/Water) 54 mls @ 50 mls/hr IVPB Q8HR [facility] Last Admin: 03/24/20 15:54 Dose: 50 mls/hr Documented by: Multivitamins (Theragran) 1 each PO DAILY [facility] Last Admin: 03/24/20 07:23 Dose: 1 each Documented by: Multivitamins/Minerals (Ivite) 1 each PO DAILY [facility] Last Admin: 03/24/20 07:23 Dose: 1 each Documented by: Naloxone HCl (Narcan) 0.2 mg IV Q2M PRN PRN Reason: Opioid Reversal Pantoprazole Sodium (Protonix) 40 mg PO AC-BRKFST [facility] Last Admin: 03/24/20 07:23 Dose: 40 mg Documented by: Temazepam (Restoril) 15 mg PO HS PRN PRN Reason: Insomnia Last Admin: 03/23/20 20:54 Dose: 15 mg Documented by: On examination: VITAL SIGNS: 98.2, 109, 20, 149/79, 91% on 2 L GENERAL APPEARANCE: propped up in bed, awake HEENT: Normal external appearance of nose and ear. Oral cavity normal EYES: Pupils equal. Conjunctiva normal. NECK: JVD not raised. Mass not palpable. RESPIRATORY: Respiratory effort increased Lungs -decreased breath sounds CARDIOVASCULAR: First and second sounds normal. No edema. ABDOMEN: Soft. Liver and spleen not palpable. No tenderness. No mass palpable. PSYCHIATRY: Alert and oriented x3. Mood and affect normal. Investigations: White count 18.19 globin 10.6 potassium 3.8 creatinine 0.54 chest x-ray film shows right upper lobe consolidation Blood culture negative Assessment: -Right upper lobe pneumonia, suspected gram-negative organism -Acute COPD exacerbation - ex-smoker -Anxiety depression otherwise specified -GERD Plan: Dr. Castaneda did give the patient 1 dose of IV Lasix. Other medication to plan to continue. Did remind the patient to sit up in a chair. Nursing order placed. We will use incentive spirometer.
[2020-03-24] MEDS: ALPRAZolam 1 MG TAB PO SCH (20:32)
[2020-03-24] MEDS: TEMAZEPAM 15 MG CAP PO PRN (20:35)
[2020-03-25] MEDS: HYDROcodone/APAP 10-325MG 1 EACH TAB PO PRN ×3 (05:41→21:04)
--- NOTE | 2020-03-25 07:08 | XR ---
EXAMINATION TYPE: XR chest 2V DATE OF EXAM: 03/25/2020 COMPARISON: 03/24/2020 HISTORY: Shortness of breath TECHNIQUE: Frontal and lateral views of the chest are obtained. FINDINGS: Scattered senescent parenchymal changes noted. Hyperinflation compatible with COPD. Increasing nodularity and volume loss right upper lobe. Stable upper lobe and perihilar infiltrates. Small effusion suggested. Correlate for pneumonia. Underlying mass is not excluded. Follow-up until r esolution advised. Heart size is stable. Mediastinal structures are stable and grossly unremarkable. No evidence for hilar prominence. Degenerative changes dorsal spine. IMPRESSION: 1. Increasing nodularity and volume loss right upper lobe. Stable upper lobe and perihilar infiltrate s. Small effusion suggested. Correlate for pneumonia. Underlying mass is not excluded. Follow-up unti l resolution advised.
[2020-03-25] MEDS: ENOXAPARIN 40 MG/0.4 ML SYRINGE SQ SCH (08:05)
[2020-03-25] MEDS: MULTIVITAMINS, THERA 1 EACH TAB PO SCH (08:06)
[2020-03-25] MEDS: CHOLECALCIFEROL 1,000 UNIT TAB PO SCH (08:06)
[2020-03-25] MEDS: FLUoxetine HCL 20 MG CAP PO SCH (08:06)
[2020-03-25] MEDS: PANTOPRAZOLE 40 MG TABLET PO SCH (08:06)
[2020-03-25] MEDS: CALCIUM CARBONATE 500 MG CHEWABLE PO SCH (08:06)
[2020-03-25] MEDS: VIT A,C & E-LUTEIN-MINERALS 1 EACH TAB PO SCH (08:06)
[2020-03-25] MEDS: CEFEPIME 2 GM in SODIUM CHLORIDE 0.9% 100 ML IVPB SCH ×2 (08:07→21:03)
[2020-03-25] MEDS: BUDESONIDE 1 MG/2 ML NEBU INHALATION SCH ×2 (09:26→19:54)
[2020-03-25] MEDS: FORMOTEROL FUMARATE 20 MCG/2 ML NEBU INHALATION SCH ×2 (09:26→19:54)
[2020-03-25] MEDS: IPRATROPIUM-ALBUTEROL 3 ML NEB INHALATION SCH ×4 (09:26→19:54)
[2020-03-25] MEDS: CLINDAMYCIN 600 MG in DEXTROSE 5% IN WATER 50 ML IVPB SCH ×4 (10:12→15:42)
[2020-03-25] MEDS ORDERED: FUROSEMIDE 10 MG/ML 4 ML VIAL IV STA (11:13)
[2020-03-25] MEDS: BUTA/APAP/CAF/COD 50-325-40-30 CAP PO PRN (12:11)
--- NOTE | 2020-03-25 13:12 | P.PN ---
Subjective Progress Note Date: 03/25/20 Principal diagnosis: Acute right middle lobe pneumonia This is a pleasant 79-year-old female patient who has a history of anxiety, depression, gastroesophageal reflux disease, chronic pain, uterine cancer status post hysterectomy in 1974, chronic tobacco dependence. She presented to the emergency yesterday with complaints of fever chills or diaphoresis, cough and congestion. Some chest wall discomfort. Positive diarrhea. No nausea or vomiting. This just started earlier this week. Chest x-ray reveals chronic emphysematous changes with a new right midlung opacity. Computed tomography scan of the chest reveals a right upper lobe and right middle lobe confluent consolidative opacity, groundglass opacities and interstitial septal thickening of the right upper lobe to a lesser degree bilateral lung bases. Small pleural effusion. Right hilar mediastinal lymphadenopathy, may be reactive. White count 16.6. Hemoglobin 10.2. Sodium 132. Potassium 4.3. Troponins negative 3. C-reactive protein 231. Pro Calcitonin 0.24. LDH 525. Lactic acid 0.8. She's been initiated on Symbicort, DuoNeb inhalations, antibiotics in the form of Levaquin and ceftriaxone. She is seen today in consultation on the regular medical floor. She is currently sitting up in bed. Awake and alert in no acute distress. She is maintaining O2 saturations in the 90s on room air. She's had a T-max of 100.7. Slightly tachycardic. Blood pressure stable. She has a loose nonproductive cough. No hemoptysis. No weight loss. The patient is seen today 03/19/2020 in follow-up on the regular medical floor. She is currently resting comfortably in bed. Awake and alert in no acute di stress. She is maintaining O2 saturations in the low 90s on room air. Temp 99.5. Slightly tachycardic. Blood pressure stable. Blood culture reveals no growth to date. White count 18.4. Hemoglobin 10.0. Sodium 133. Potassium 4.5. Creatinine 0.46. She remains on Symbicort, bronchodilators, antibiotics in the form of ceftriaxone and Levaquin. Lovenox for DVT prophylaxis. The patient is seen today 03/20/2020 in follow-up on the regular medical floor. She is awake and alert in no acute distress. Resting comfortably in bed. Denies any worsening shortness of breath, cough or congestion. Continues to maintain good O2 saturations in the 90s on room air. She's been afebrile. Blood culture reveals no growth. White count 16.5. Hemoglobin 9.7. MCV 107. Sodium 133. Potassium 4.2. Creatinine 0.55. Continued on bronchodilators, clindamycin and cefepime. On 03/21/2020 patient seen in follow-up on general medical surgical floor. She is resting comfortably in bed, denies any acute distress, is on 3 L of oxygen a pulse ox of 93%, she is afebrile, hemodynamically stable, no signs of altered mentation, lung sounds reveal a few crackles at bilateral bases, her only complaint is chest discomfort and cough, no phlegm production. Today's chest x- ray showing right upper lobe consolidation some worsening of the airspace disease, and some developing peripheral infiltrates with consideration for atypical pneumonia, minimal bilateral pleural effusions are not excluded. Current antibiotic coverage includes cefepime and clindamycin, patient has ALLERGIES to azithromycin and penicillin. Patient is given IV fluids at 75 ML per hour. Legionella urine antigen has been sent and is pending, mycoplasma IgG and IgM pending On 03/14/2020 patient seen in follow-up on general medical surgical floor, she is resting in bed, she states she's been coughing excessively last night, and now her chest hurts from all the coughing she is known. Not bringing up any sputum, lung sounds reveal some crackles in the right lower and mid lung. She is afebrile, she remains on antibiotics with clindamycin and cefepime. She is on breathing treatments. Denies hemoptysis, yesterday chest x-ray showed mild improvement of infiltrates, and persistence of right upper lobe consolidation and small right pleural effusion. Pro calcitonin has actually increased to 0.40. Blood culture has shown no growth, today's labs have been reviewed showing white blood cell count of 14.2, hemoglobin of 9.3, sodium of 132, potassium is 3.6, chloride is 105, CO2 is 19, BUN of 8 creatinine 0.48. On 03/23/2020 patient seen in follow-up on a general medical surgical floor. She is sleeping comfortably in bed, we did wake her up to talk to her, she states she still coughs, and her chest wall hurts from all the coughing she has them, she is currently on Mucinex, her cough syrup with codeine has been di scontinued, she is not able to bring up any sputum. She is on 2 L of oxygen, and at times she is hypoxic even on supplemental oxygen, may be because she is sleeping, she did have a low-grade fever this morning with a temp of 100.2F. She remains on cefepime and clindamycin for antibiotic coverage. No new chest x-ray today, we'll obtain follow-up chest x-ray tomorrow. Today's labs have been reviewed, showing white blood cell, 14.2, hemoglobin is 9.3, platelet count is 509, sodium is 132, potassium 3.6, CO2 is 19, B1 is 8 creatinine 0.48. Yesterday's Pro calcitonin was elevated to 0.40. No altered mentation, no hemoptysis. She states she requires assistance to get up out of bed and ambu late in the room, feels weak. On 03/24/2020 patient seen in follow-up on general medical surgical floor. She states she is still having some intermittent coughing, denies any chest pain, no hemoptysis, follow-up chest x-ray today shows congestive heart failure, pulmonary edema and interstitial lung disease. Patient has been getting IV fluids for last 7 days with 0.9 normal saline at a rate of 75 ML per hour, proBNP was obtained and came back at 6440. No lower extremity edema, we'll stop the IV fluids, and we'll give the patient on dose of IV Lasix. On 2 L of oxygen her pulse ox is 90-91%, she is afebrile. Blood culture has shown no growth, today's labs have been reviewed showing white blood cell count of 18.9, hemoglobin of 10.6, sodium of 136, potassium 3.8, CO2 is 20, and renal profile was within normal limits. On 03/25/2020 patient seen in follow-up on general medical surgical floor. She states her breathing is improving, although she still gets short of breath with exertion, coughing less, she remains on 2 L of oxygen her pulse ox is around 92%, afebrile, respirations nonlabored. We'll cut her IV fluids down yesterday, she received a dose of IV Lasix, patient has diabetes, on today's exam lung sounds reveal some coarse scattered crackles at the left lower base, follow-up chest x-ray was reviewed showing nodularity involving loss in the right upper lobe, small pleural effusion, stable upper lobe and perihilar infiltrates. No altered mentation, vital signs are stable, no hemoptysis, she remains on empiric antibiotics, blood cultures have been negative, she has not been able to produce a sputum for specimen. Objective - Vital Signs Vital signs: Vital Signs Temp 98.5 F 03/25/20 07:00 Pulse 82 03/25/20 09:47 Resp 16 03/25/20 08:10 BP 113/57 03/25/20 07:00 Pulse Ox 92 L 03/25/20 07:00 Intake & Output 03/24/20 03/25/20 03/25/20 18:59 06:59 18:59 Intake Total 150 100 100 Balance 150 100 100 Intake: Intake, IV Titration 150 Amount Cefepime 2 gm In Sodium 100 Chloride 0.9% 100 ml @ 200 mls/hr IVPB Q12HR [facility] Rx#:[id number] Clindamycin 600 mg In 50 Dextrose 5% in Water 50 ml @ 50 mls/hr IVPB Q8HR [facility] Rx#:[id number] Oral 100 100 Other: Voiding Method Toilet Toilet Toilet # Voids 1 - Exam GENERAL EXAM: Alert, very pleasant, 79-year-old white female on 2 L of oxygen pulse ox of 92% comfortable in no apparent distress. HEAD: Normocephalic/atraumatic. EYES: Normal reaction of pupils, equal size. Conjunctiva pink, sclera white. NOSE: Clear with pink turbinates. THROAT: No erythema or exudates. NECK: No masses, no JVD, no thyroid enlargement, no adenopathy. CHEST: No chest wall deformity. Symmetrical expansion. LUNGS: Equal air entry with mild crackles at bilateral bases CVS: Regular rate and rhythm, normal S1 and S2, no gallops, no murmurs, no rubs ABDOMEN: Soft, nontender. No hepatosplenomegaly, normal bowel sounds, no guarding or rigidity. EXTREMITIES: No clubbing, no edema, no cyanosis, 2+ pulses and upper and lower extremities. MUSCULOSKELETAL: Muscle strength and tone normal. SPINE: No scoliosis or deformity SKIN: No rashes CENTRAL NERVOUS SYSTEM: Alert and oriented -3. No focal deficits, tone is normal in all 4 extremities. PSYCHIATRIC: Alert and oriented -3. Appropriate affect. Intact judgment and insight. - Labs CBC & Chem 7: 03/24/20 06:46 03/24/20 06:46 Assessment and Plan Plan: Assessment: 1 Acute right middle lobe pneumonia, suspect bacterial versus viral. CoVID screen negative. Legionella urine antigen was negative, mycoplasma IgG and IgM were negative 2 pulmonary edema, fluid overload 3 Febrile illness secondary to above, resolved 4 Leukocytosis secondary to above 5 Chronic tobacco dependence 6 History of uterine cancer status post hysterectomy 7 History of anxiety/depression 8 fluid overload, pulmonary edema, improved with diuretics Plan: We'll give the patient another dose of IV Lasix today, wean FiO2, increase activity as tolerated, today's chest x-ray has been reviewed, still showing changes of fluid volume overload, and stable upper lobe perihilar infiltrates. From pulmonary perspective patient is stable and could be considered for discharge home possibly next 24 hours, or even today, she will need outpatient follow-up in the office for repeat chest x-ray. No fever, altered mentation, no chest pain no hemoptysis, continue same antibiotics. I performed a history & physical examination of the patient and discussed their management with my nurse practitioner, Khushbu Reyes. I reviewed the nurse practitioner's note and agree with the documented findings and plan of care. Lung sounds are positive for diminished breath sounds. The findings and the imp ression was discussed with the patient. I attest to the documentation by the nurse practitioner. Time with Patient: Less than 30
[2020-03-25] MEDS: ALPRAZolam 1 MG TAB PO SCH (21:03)
[2020-03-25] MEDS: TEMAZEPAM 15 MG CAP PO PRN (21:03)
[2020-03-25] MEDS: metroNIDAZOLE 500 MG TAB PO SCH (23:05)
--- NOTE | 2020-03-25 23:16 | P.PN ---
Progress Note - Text Progress Note Date: 03/25/20 presenting complaint: Cough Interval history: Patient admitted with COPD exacerbation and pneumonia. Ex-smoker. On IV cefepime, clindamycin, nebulized bronchodilators,. Being followed by Dr. Castaneda from pulmonary. Today-breathing better. Pulmonary care to some IV Lasix. Appetite somewhat be tter. Up to bathroom. Had a bowel movement.. Review of systems: Was done for constitutional, cardiovascular, GI, pulmonary. relevant finding as above Active Medications Acetam/Butalbital/Caffeine/Codeine (Fioricet W/Codeine) 1 - 2 each PO Q6H PRN PRN Reason: Migraine Headache Last Admin: 03/25/20 12:11 Dose: 2 each Documented by: Acetaminophen (Tylenol Tab) 500 mg PO Q6HR PRN PRN Reason: Fever and/ or Pain Last Admin: 03/18/20 02:45 Dose: 500 mg Documented by: Hydrocodone Bitart/Acetaminophen (Amistad 10) 1 each PO Q4H PRN PRN Reason: Pain Last Admin: 03/25/20 21:04 Dose: 1 each Documented by: Albuterol/Ipratropium (Duoneb 0.5 Mg-3 Mg/3 Ml Soln) 3 ml INHALATION RT-TID [facility] Last Admin: 03/25/20 19:54 Dose: 3 ml Documented by: Albuterol/Ipratropium (Duoneb 0.5 Mg-3 Mg/3 Ml Soln) 3 ml INHALATION RT-TID PRN PRN Reason: Shortness Of Breath Or Wheezing Alprazolam (Xanax) 1 mg PO HS [facility] Last Admin: 03/25/20 21:03 Dose: 1 mg Documented by: Budesonide (Pulmicort) 1 mg INHALATION RT-BID [facility] Last Admin: 03/25/20 19:54 Dose: 1 mg Documented by: Calcium Carbonate/Glycine (Tums) 500 mg PO DAILY [facility] Last Admin: 03/25/20 08:06 Dose: 500 mg Documented by: Cholecalciferol (Vitamin D3 (25 Mcg = 1000 Iu)) 1,000 unit PO DAILY [facility] Last Admin: 03/25/20 08:06 Dose: 1,000 unit Documented by: Codeine Sulfate (Codeine) 15 mg PO Q6HR PRN PRN Reason: When necessary for cough Last Admin: 03/24/20 05:17 Dose: 15 mg Documented by: Enoxaparin Sodium (Lovenox) 40 mg SQ DAILY [facility] Last Admin: 03/25/20 08:05 Dose: 40 mg Documented by: Fluoxetine HCl (Prozac) 60 mg PO DAILY [facility] Last Admin: 03/25/20 08:06 Dose: 60 mg Documented by: Formoterol Fumarate (Perforomist) 20 mcg INHALATION RT-BID [facility] Last Admin: 03/25/20 19:54 Dose: 20 mcg Documented by: Cefepime HCl 2 gm/ Sodium (Chloride) 100 mls @ 200 mls/hr IVPB Q12HR [facility] Last Admin: 03/25/20 21:03 Dose: 200 mls/hr Documented by: Metronidazole (Flagyl) 500 mg PO TID [facility] Last Admin: 03/25/20 23:05 Dose: 500 mg Documented by: Multivitamins (Theragran) 1 each PO DAILY [facility] Last Admin: 03/25/20 08:06 Dose: 1 each Documented by: Multivitamins/Minerals (Ivite) 1 each PO DAILY [facility] Last Admin: 03/25/20 08:06 Dose: 1 each Documented by: Naloxone HCl (Narcan) 0.2 mg IV Q2M PRN PRN Reason: Opioid Reversal Pantoprazole Sodium (Protonix) 40 mg PO AC-BRKFST [facility] Last Admin: 03/25/20 08:06 Dose: 40 mg Documented by: Temazepam (Restoril) 15 mg PO HS PRN PRN Reason: Insomnia Last Admin: 03/25/20 21:03 Dose: 15 mg Documented by: On examination: VITAL SIGNS: 98.3, 91, 15, 104/57 ,96% on 2 L GENERAL APPEARANCE: Sitting up, looking better HEENT: Normal external appearance of nose and ear. Oral cavity normal EYES: Pupils equal. Conjunctiva normal. NECK: JVD not raised. Mass not palpable. RESPIRATORY: Respiratory effort increased Lungs -decreased breath sounds CARDIOVASCULAR: First and second sounds normal. No edema. ABDOMEN: Soft. Liver and spleen not palpable. No tenderness. No mass palpable. PSYCHIATRY: Alert and oriented x3. Mood and affect normal. Investigations: White count 18.19 globin 10.6 potassium 3.8 creatinine 0.54 chest x-ray film shows right upper lobe consolidation Blood culture negative Assessment: -Right upper lobe pneumonia, suspected gram-negative organism -Acute COPD exacerbation - ex-smoker -Anxiety depression otherwise specified -GERD Plan: Dr. Castaneda gave a dose of IV Lasix. I did discuss with her liters and his practitioner with Dr. Castaneda. Patient okay to be discharged tomorrow.
--- NOTE | 2020-03-25 23:34 | PN ---
PROGRESS NOTE DATE OF SERVICE: 03/25/2020 REASON FOR FOLLOWUP: Pneumonia with a question of aspiration etiology. INTERVAL HISTORY: The patient is currently afebrile. The patient is breathing slightly comfortably. Still has a cough but no sputum. No nausea, no vomiting. No abdominal pain. She has been complaining of some diarrhea. PHYSICAL EXAMINATION: Blood pressure 105/58 with a pulse of 89, temperature 98.4. She is 95% on room air. General description is an elderly female up in the chair in no distress. RESPIRATORY SYSTEM: Unlabored breathing with decreased breath sounds at the base. No wheeze. HEART: S1, S2. Regular rate and rhythm. ABDOMEN: Soft. No tenderness. LABS: No new labs have been obtained today. DIAGNOSTIC IMPRESSION AND PLAN: Patient with right upper lobe pneumonia with a question of possible aspiration patient is currently covered with cefepime. Clindamycin will be discontinued in view of the diarrhea and Flagyl will be added. Monitor clinical course closely. MMODL / IJN: [id number] /
[2020-03-26 02:46] VITALS: RESP 17
[2020-03-26] MEDS: HYDROcodone/APAP 10-325MG 1 EACH TAB PO PRN ×3 (03:55→16:10)
[2020-03-26 07:30] VITALS: BP 117/70; TEMP 98.8
[2020-03-26] MEDS: ENOXAPARIN 40 MG/0.4 ML SYRINGE SQ SCH (07:57)
[2020-03-26] MEDS: FLUoxetine HCL 20 MG CAP PO SCH (07:57)
[2020-03-26] MEDS: CEFEPIME 2 GM in SODIUM CHLORIDE 0.9% 100 ML IVPB SCH (07:57)
[2020-03-26] MEDS: PANTOPRAZOLE 40 MG TABLET PO SCH (07:57)
[2020-03-26] MEDS: VIT A,C & E-LUTEIN-MINERALS 1 EACH TAB PO SCH (07:58)
[2020-03-26] MEDS: metroNIDAZOLE 500 MG TAB PO SCH (07:58)
[2020-03-26] MEDS: CALCIUM CARBONATE 500 MG CHEWABLE PO SCH (07:58)
[2020-03-26] MEDS: CHOLECALCIFEROL 1,000 UNIT TAB PO SCH (07:58)
[2020-03-26] MEDS: MULTIVITAMINS, THERA 1 EACH TAB PO SCH (07:58)
[2020-03-26] MEDS: IPRATROPIUM-ALBUTEROL 3 ML NEB INHALATION SCH ×2 (08:31→11:36)
[2020-03-26] MEDS: FORMOTEROL FUMARATE 20 MCG/2 ML NEBU INHALATION SCH (08:31)
[2020-03-26] MEDS: BUDESONIDE 1 MG/2 ML NEBU INHALATION SCH (08:31)
--- NOTE | 2020-03-26 10:23 | XR ---
EXAMINATION TYPE: XR chest 2V DATE OF EXAM: 03/26/2020 HISTORY: CHF/ Pneumonia. REFERENCE: Previous study dated 03/25/2020. FINDINGS: There is a continuing right upper lobe infiltrate. There is fullness of the right hilum. Th e lungs are overinflated. There is nodular interstitial disease in the right upper lobe and this may represent early pneumonitis. The heart is not enlarged. No definite pleural fluid is seen. IMPRESSION: 1. COPD. 2. CONTINUING RIGHT UPPER LOBE AIRSPACE DISEASE. 3. PROMINENCE OF THE RIGHT HILUM. THIS SHOULD BE FOLLOWED TO RESOLUTION.
--- NOTE | 2020-03-26 11:41 | PN ---
PROGRESS NOTE This is a 79-year-old female. She is again seen in her room, resting comfortably. She is actually getting a breathing treatment. Her lung sounds have improved. Her breathing is improved. She remains on O2 at 2 L. Saturations are in the mid 90s. Yesterday, we gave her a dose of Lasix. We likely will give her another dose today. In addition, we will repeat a chest x-ray. The most recent chest x-ray appears to show some fluid overload and fluid in the minor fissure consistent with a pseudotumor. PHYSICAL EXAMINATION: VITAL SIGNS: Current vital signs are reviewed. Temperature is 98.8, heart rate 78, respiratory rate 17, blood pressure 117/70, mean 85. 2 L saturation 96%. GENERAL: Appears in no acute distress. HEENT: Examination is grossly unremarkable. Nasal O2 in place. NECK: Supple. Full range of motion. No adenopathy. Neck veins are flat. CARDIOVASCULAR: Examination reveals regular rhythm and rate. Heart rate 76. S1, S2 normal. LUNGS: Reveal mostly clear breath sounds. A few scattered crackles. No wheezes or rhonchi. ABDOMEN: Soft. Bowel sounds are heard. EXTREMITIES are intact. LAB DATA: No lab data from today as yet. Microbiology is negative. Chest x-ray from today shows a persistent right upper lobe infiltrate/fluid collection. Costophrenic angles shows small pleural effusions. The right hilum is a bit enlarged and will need to be followed. Current medications are reviewed. She remains on Pulmicort and formoterol. That could be switched to Symbicort. She is on DuoNeb. She is also getting cefepime. ASSESSMENT: 1. Acute right middle lobe/right upper lobe pneumonia. Improved clinically. Covid screen was negative as was Legionella urinary antigen and mycoplasma IgG and IgM antibodies. 2. Mild fluid overload/pulmonary edema with pseudotumor. 3. Febrile illness, resolved. 4. Chronic tobacco dependence. 5. History of uterine cancer, status post hysterectomy. 6. Anxiety/depression. PLAN: Currently, from the pulmonary standpoint, the patient is stable for discharge. We mentioned that yesterday in our note. She did get Lasix yesterday. She does need to follow up as an outpatient. Additional recommendations and suggestions are forthcoming. We will continue to follow. No additional recommendations are made. Prognosis is guarded. MMODL / IJN: [id number] /
[2020-03-26 11:45] VITALS: PULSE 73
[2020-03-26] MEDS: BUTA/APAP/CAF/COD 50-325-40-30 CAP PO PRN (12:22)
--- NOTE | 2020-03-26 14:26 | PN ---
PROGRESS NOTE DATE OF SERVICE: 03/26/2020 REASON FOR FOLLOWUP: Pneumonia, possible aspiration. INTERVAL HISTORY: Patient is currently afebrile. Patient is breathing more comfortably. Denies having any chest pain. She did have a cough, not bringing up any sputum. No nausea, no vomiting. No abdominal pain or diarrhea. PHYSICAL EXAMINATION: Blood pressure is 117/70 with a pulse of 86, temperature is 98.8. She is 95% on 2 L nasal cannula. General description is an elderly female lying in bed in no distress. Respiratory system: Unlabored breathing, clear to auscultation anteriorly. Heart S1, S2. Regular rate and rhythm. ABDOMEN: Soft, no tenderness. LABS: No new labs have been obtained today. DIAGNOSTIC IMPRESSION AND PLAN: Patient with right upper lobe pneumonia in this patient overall clinical improvement and admitting team wants to discharge the patient home. Discharge antibiotic will be Avelox 400 daily for 7 days and close outpatient followup. May benefit from outpatient bronchoscopy if the right upper lobe abnormal area does not resolve. MMODL / IJN: [id number] /
--- NOTE | 2020-03-26 19:20 | P.DS ---
Providers Date of admission: 03/17/20 17:21 Expected date of discharge: 03/26/20 Attending physician: Hi Hassan Consults: 03/17/20 18:20 Consult Physician Routine Consulting Provider: Domenico Montejo Consult Reason/Comments: pneumonia Do you want consulting provider notified?: Yes 03/17/20 18:21 Consult Physician Routine Consulting Provider: Roberta Srivastava Consult Reason/Comments: covid??? Do you want consulting provider notified?: Yes Primary care physician: [facility] Course: presenting complaint: Cough Interval history: Patient admitted with COPD exacerbation and pneumonia. Ex-smoker. On IV cefepime, clindamycin, nebulized bronchodilators,. Being followed by Dr. Castaneda from pulmonary. Did get fluid overloaded with IV fluids. Given IV Lasix. Today-doing much better. Cleared by Dr. Castaneda to be discharged. Care was discussed with the patient question also. Follow-up with pulmonary. Discharge antibiotics discussed with Dr. Srivastava from ID Discussion and discharge planning more than 35 minutes Consultation: Dr. Acuña and Dr. Castaneda from pulmonary Dr. Srivastava from ID On examination: VITAL SIGNS: 98.8, 86, 17, 117/70, 93% room air GENERAL APPEARANCE: Sitting up, comfortable HEENT: Normal external appearance of nose and ear. Oral cavity normal EYES: Pupils equal. Conjunctiva normal. NECK: JVD not raised. Mass not palpable. RESPIRATORY: Respiratory effort normal,-decreased breath sounds CARDIOVASCULAR: First and second sounds normal. No edema. ABDOMEN: Soft. Liver and spleen not palpable. No tenderness. No mass palpable. PSYCHIATRY: Alert and oriented x3. Mood and affect normal. Investigations: White count 18.19 globin 10.6 potassium 3.8 creatinine 0.54 chest x-ray film shows right upper lobe consolidation Blood culture negative Assessment: -Right upper lobe pneumonia, suspected gram-negative organism -Acute COPD exacerbation - ex-smoker -Anxiety depression otherwise specified -GERD -Mild hyponatremia -Macrocytic anemia for outpatient workup Disposition: Home Patient Condition at Discharge: Stable Plan - Discharge Summary Discharge Rx Participant: Yes New Discharge Prescriptions: New Ipratropium-Albuterol Nebulize [Duoneb 0.5 mg-3 mg/3 ml Soln] 3 ml INHALATION RT-TID #90 ml Budesonide-Formot 160-4.5 Mcg [Symbicort 160-4.5 Mcg Inhaler] 2 puff INHALATION RT-BID #1 puff Moxifloxacin HCl [Avelox] 400 mg PO DAILY #7 tablet Continue Vits A,C,E/Lutein/Minerals [Ocuvite with Lutein Tablet] 1 tab PO DAILY HYDROcodone/APAP 10-325MG [[place] 10-325] 1 tab PO Q4H PRN PRN Reason: Pain FLUoxetine HCL [PROzac] 20 mg PO DAILY [place]/APAP/Caf/Cod 22-685-18-30 [Fioricet w/Cod 96-533-17-30MG] 1 - 2 cap PO Q6H PRN PRN Reason: Migraine Headache ALPRAZolam [Xanax] 1 mg PO HS Multivitamins, Thera [Multivitamin (formulary)] 1 tab PO DAILY Omeprazole Magnesium [PriLOSEC OTC] 20 mg PO DAILY Cholecalciferol [Vitamin D3 (25 Mcg = 1000 Iu)] 1,000 unit PO DAILY Calcium Carbonate [Calcium] 600 mg PO DAILY FLUoxetine HCL [PROzac] 40 mg PO DAILY Discharge Medication List ALPRAZolam [Xanax] 1 mg PO HS 09/10/19 [History] [place]/APAP/Caf/Cod 66-507-37-30 [Fioricet w/Cod 43-933-94-30MG] 1 - 2 cap PO Q6H PRN 09/10/19 [History] FLUoxetine HCL [PROzac] 20 mg PO DAILY 09/10/19 [History] HYDROcodone/APAP 10-325MG [[place] 10-325] 1 tab PO Q4H PRN 09/10/19 [History] Vits A,C,E/Lutein/Minerals [Ocuvite with Lutein Tablet] 1 tab PO DAILY 09/10/19 [History] Calcium Carbonate [Calcium] 600 mg PO DAILY 03/17/20 [History] Cholecalciferol [Vitamin D3 (25 Mcg = 1000 Iu)] 1,000 unit PO DAILY 03/17/20 [History] FLUoxetine HCL [PROzac] 40 mg PO DAILY 03/17/20 [History] Multivitamins, Thera [Multivitamin (formulary)] 1 tab PO DAILY 03/17/20 [History] Omeprazole Magnesium [PriLOSEC OTC] 20 mg PO DAILY 03/17/20 [History] Budesonide-Formot 160-4.5 Mcg [Symbicort 160-4.5 Mcg Inhaler] 2 puff INHALATION RT-BID #1 puff 03/26/20 [Rx] Ipratropium-Albuterol Nebulize [Duoneb 0.5 mg-3 mg/3 ml Soln] 3 ml INHALATION RT-TID #90 ml 03/26/20 [Rx] Moxifloxacin HCl [Avelox] 400 mg PO DAILY #7 tablet 03/26/20 [Rx] Follow up Appointment(s)/Referral(s): Domenico Montejo MD [STAFF PHYSICIAN] - 1 Week (Office closed at time of discharge please call SaturdayMarch 28 to set up a follow up appointment) Carlyle Luevano MD [Primary Care Provider] - 1-2 days (Office closed at time of discharge please call SaturdayMarch 28 to set up a follow up appointment) [facility] [NON-STAFF] - As Needed (Oxygen and Walker) [facility] Visiting Nurse, [NON-STAFF] - As Needed Patient Instructions/Handouts: Pneumonia (DC) Activity/Diet/Wound Care/Special Instructions: Please call [place] [facility] for meals, housekeeping: #[phone] Please call [facility] at least 24 hours in advance for transportation to appointments if needed: [phone] Discharge Disposition: HOME WITH HOME HEALTH SERVICES
[2020-03-26] MEDS ORDERED: SYMBICORT 160-4.5 MCG INHALER INHALATION SCH (20:00)
== END 2020-03-26 16:37 | disposition home health service (06) | DRG 871 ==
LOC: EC 14:24 → 4SSUR 17:21
PROVIDERS: ADMIT Hospitalist; ATTEND Hospitalist
DX: A41.50 Gram-negative sepsis, unspecified (principal); J15.6 Pneumonia due to other Gram-negative bacteria; J44.1 Chronic obstructive pulmonary disease with (acute) exacerbation; J44.0 Chronic obstructive pulmonary disease with (acute) lower respiratory infection; E87.1 Hypo-osmolality and hyponatremia; J81.1 Chronic pulmonary edema; Z20.828 Contact with and (suspected) exposure to other viral communicable diseases; K21.9 Gastro-esophageal reflux disease without esophagitis; M19.90 Unspecified osteoarthritis, unspecified site; D53.9 Nutritional anemia, unspecified; F17.200 Nicotine dependence, unspecified, uncomplicated; R59.0 Localized enlarged lymph nodes; E87.70 Fluid overload, unspecified; E86.1 Hypovolemia; F41.8 Other specified anxiety disorders; Z79.899 Other long term (current) drug therapy; Z88.0 Allergy status to penicillin; Z88.1 Allergy status to other antibiotic agents; Z85.42 Personal history of malignant neoplasm of other parts of uterus; Z92.3 Personal history of irradiation; Z82.5 Family history of asthma and other chronic lower respiratory diseases; Z80.52 Family history of malignant neoplasm of bladder; Z90.710 Acquired absence of both cervix and uterus; Z87.01 Personal history of pneumonia (recurrent)
CPT/HCPCS: 36415; 71045; 71046; 71250; 80048; 80053; 81001; 83605; 83615; 83735; 83880; 84145; 84484; 85025; 85379; 85610; 85652; 85730; 86140; 86738; 87040; 87449; 93005; 94640; 96365; 99285

== ENCOUNTER 2020-06-24 21:39 | Emergency (ER) | payer MEDICARE ==
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
[2020-06-24] MEDS ORDERED: ACETAMINOPHEN TAB 500 MG TAB PO STA (21:53)
[2020-06-24 21:55] VITALS: RESP 16
--- NOTE | 2020-06-24 22:09 | XR ---
EXAMINATION TYPE: XR shoulder complete LT DATE OF EXAM: 06/24/2020 COMPARISON: 03/19/2020 HISTORY: Pain. Trauma. TECHNIQUE: 3 views FINDINGS: There is nondisplaced fracture lateral and of the left clavicle. The glenohumeral joint is anatomic. Joint spaces are normal. IMPRESSION: Acute nondisplaced fracture of the lateral and of the clavicle.
--- NOTE | 2020-06-24 22:21 | CT ---
EXAMINATION TYPE: CT brain cspine wo con DATE OF EXAM: 06/24/2020 COMPARISON: None HISTORY: Fall. CT DLP: 1367.8 mGycm Automated exposure control for dose reduction was used. There is cerebral cortical atrophy. There is some hypodensity in the periventricular white matter. Th ere is no mass effect nor midline shift. There is no sign of intracranial hemorrhage. The calvarium i s intact. Skull base appears intact. There is normal aeration of the mastoid sinuses. Cervical vertebra have fairly normal spacing and alignment. Posterior elements are intact. Facet join ts are intact. Prevertebral soft tissues appear normal. There is no evidence of a fracture. IMPRESSION: Negative CT scan of the brain. Mild chronic small vessel ischemia. Negative CT scan cervical spine.
[2020-06-24 22:50] VITALS: BP 140/68; PULSE 70; TEMP 98
== END 2020-06-24 22:45 | disposition home or self-care (01) ==
LOC: EC 21:39
DX: S16.1XXA Strain of muscle, fascia and tendon at neck level, initial encounter (principal); S42.035A Nondisplaced fracture of lateral end of left clavicle, initial encounter for closed fracture; F41.9 Anxiety disorder, unspecified; F32.9 Major depressive disorder, single episode, unspecified; Z85.42 Personal history of malignant neoplasm of other parts of uterus; Z92.3 Personal history of irradiation; Z88.0 Allergy status to penicillin; Z88.1 Allergy status to other antibiotic agents; Z87.891 Personal history of nicotine dependence; Z80.52 Family history of malignant neoplasm of bladder; W01.198A Fall on same level from slipping, tripping and stumbling with subsequent striking against other object, initial encounter; Y93.89 Activity, other specified; Y92.89 Other specified places as the place of occurrence of the external cause
CPT/HCPCS: 70450; 72125; 99284

== ENCOUNTER 2023-01-13 17:55 | Emergency (ER) | payer MEDICARE ==
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
[2023-01-13 18:10] VITALS: TEMP 98
--- NOTE | 2023-01-13 19:26 | CT ---
EXAMINATION TYPE: CT brain cspine wo con CT DLP: 1297.1 mGycm, Automated exposure control for dose reduction was used. DATE OF EXAM: 01/13/2023 6:38 PM COMPARISON: None. CLINICAL INDICATION:Female, 82 years old with history of fall; fall. laceration to back of head. TECHNIQUE: Brain: Multiple axial CT images of the brain were obtained without IV contrast. Cspine: Axial CT images from the skull base to the inferior aspect of T2 we obtained without intraven ous contrast. Coronal and sagittal reformatted images were also reviewed. FINDINGS: Brain: Extra-axial spaces: No abnormal extra-axial fluid collections. Ventricular system: Within normal limits Cerebral parenchyma: No acute intraparenchymal hemorrhage or mass effect. The wren-white junction is well differentiated. Cerebellum: Unremarkable. Mass effect: No evidence of midline shift. Intracranial vasculature: unremarkable Soft tissues: Posterior scalp laceration with skin maximo. Calvarium/osseous structures: No depressed skull fracture. Paranasal sinuses and mastoid air cells: Mild scattered mucosal thickening and or secretions. Visualized orbits: Bilateral aphakia Cervical spine: Fracture: None. Osseous structures: Unremarkable Vertebral alignment: Within normal limits. Spinal canal/Neural Foramina: No evidence of significant spinal canal narrowing. No evidence for sign ificant neural foraminal stenosis. Neck soft tissues: Prevertebral soft tissues are within normal limits. Other: The airway is patent. Mild centrilobular emphysema changes. IMPRESSION: 1. No acute intracranial process. 2. Posterior skin laceration without evidence of fracture. 3. No evidence of cervical spine fracture. 4. Mild multilevel degenerative disc disease.
--- NOTE | 2023-01-13 20:08 | XR ---
EXAMINATION TYPE: XR chest 1V DATE OF EXAM: 01/13/2023 8:05 PM COMPARISON: Chest radiographs from 04/26/2020 TECHNIQUE: XR chest 1V Frontal view of the chest. CLINICAL INDICATION:Female, 82 years old with history of fall; FINDINGS: Lungs/Pleura: There is no evidence of pleural effusion, focal consolidation, or pneumothorax. Pulmonary vascularity: Unremarkable. Heart/mediastinum: Cardiomediastinal silhouette is unremarkable. Musculoskeletal: No acute osseous pathology. Deformity of the distal clavicle is new from prior. IMPRESSION: 1. No acute cardiopulmonary disease/process. 2. Left clavicle deformity correlate with point tenderness for acute fracture.
--- NOTE | 2023-01-13 20:09 | XR ---
EXAMINATION TYPE: XR pelvis AP view DATE OF EXAM: 01/13/2023 8:05 PM INDICATION: Patient age:Female; 82 years old; Reason for study: fall; COMPARISON: None TECHNIQUE: The pelvis was examined in a single projection. FINDINGS: There is no evidence of fracture or dislocation. There is no soft tissue abnormality. No a bnormal calcifications are present. Multilevel degenerative changes of the lower spine. IMPRESSION: No acute osseous pathology.
[2023-01-13 20:51] VITALS: BP 144/80; PULSE 78; RESP 16
== END 2023-01-13 20:51 | disposition home or self-care (01) ==
LOC: EC 17:55
DX: S01.01XA Laceration without foreign body of scalp, initial encounter (principal); F41.9 Anxiety disorder, unspecified; F32.A Depression, unspecified; Z79.51 Long term (current) use of inhaled steroids; Z79.899 Other long term (current) drug therapy; Z88.0 Allergy status to penicillin; Z88.1 Allergy status to other antibiotic agents; Z87.891 Personal history of nicotine dependence; W18.30XA Fall on same level, unspecified, initial encounter
CPT/HCPCS: 12001; 70450; 71045; 72125; 72170; 99284

== ENCOUNTER 2023-01-19 20:55 | Emergency (ER) | payer MEDICARE ==
[2023-01-19 21:01] VITALS: RESP 16
[2023-01-19] MEDS ORDERED: DIPH,PERTUS(ACELL)TETVAC-LF 0.5 ML VIAL IM ONE (21:23)
[2023-01-19] MEDS ORDERED: MORPHINE SULFATE 4 MG/ML SYRINGE IM STA (21:23)
--- NOTE | 2023-01-19 22:17 | CT ---
EXAMINATION TYPE: CT brain wo con CT DLP: 1099.4 mGycm, Automated exposure control for dose reduction was used. DATE OF EXAM: 01/19/2023 9:54 PM COMPARISON: CT brain 06/24/2020, CT brain 01/13/2023. CLINICAL INDICATION:Female, 82 years old with history of fall, head laceration, Laceration to posteri or skull, fall TECHNIQUE: Brain: Axial CT images of the brain were obtained with coronal and sagittal reformats created and rev iewed. Contrast used: None. Oral contrast used: None. FINDINGS: Brain: Extra-axial spaces: No abnormal extra-axial fluid collections. Ventricular system: Dilatation in proportion to cerebral atrophy. Cerebral parenchyma: Cerebral atrophy. No acute intraparenchymal hemorrhage or mass effect. The hemalatha lucio of the wren-white junctions are well differentiated. Patchy nonspecific areas of hypoattenuatio n in the periventricular white matter. Cerebellum: Unremarkable. Mass effect: No evidence of midline shift. Intracranial vasculature: Atherosclerotic calcifications of the intracranial vessels. Soft tissues: Posterior midline/left scalp soft tissue swelling with small laceration and soft tissue hematoma (series 201, image 31). Calvarium/osseous structures: No depressed skull fracture. Paranasal sinuses and mastoid air cells: Clear. Mastoid air cells are Clear Visualized orbits: The lenses are surgically removed from the globes. IMPRESSION: 1. No acute intracranial process. 2. Nonspecific white matter changes, likely secondary to chronic small vessel ischemic disease. 3. Posterior skin laceration with small soft tissue hematoma.
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
[2023-01-20] MEDS ORDERED: LIDOCAINE 2% INJ 20 MG/ML (10 ML MDV) SQ STA (00:04)
[2023-01-20 01:27] VITALS: BP 154/6; PULSE 77; TEMP 97.8
== END 2023-01-20 01:25 | disposition home or self-care (01) ==
LOC: EC 20:55
DX: S01.01XA Laceration without foreign body of scalp, initial encounter (principal); F32.A Depression, unspecified; F41.9 Anxiety disorder, unspecified; Z79.899 Other long term (current) drug therapy; Z23 Encounter for immunization; Z88.0 Allergy status to penicillin; Z88.1 Allergy status to other antibiotic agents; Z87.891 Personal history of nicotine dependence; W01.0XXA Fall on same level from slipping, tripping and stumbling without subsequent striking against object, initial encounter; Y92.009 Unspecified place in unspecified non-institutional (private) residence as the place of occurrence of the external cause; Y93.01 Activity, walking, marching and hiking
CPT/HCPCS: 70450; 90715; 99285; 96372; 90471; 12002; J2001; J2270

== ENCOUNTER 2023-06-21 15:41 | Inpatient (IN) | payer MEDICARE ==
[2023-06-21] MEDS ORDERED: IPRATROPIUM-ALBUTEROL 3 ML NEB INHALATION STA (15:55)
[2023-06-21 16:26] LABS: Basophils % (A) 0 %; Eosinophils # (A) 0.2 k/uL (0-0.7); Eosinophils % (A) 3 %; HCT 34.3 % (34.0-46.0); HGB 11.7 gm/dL (11.4-16.0); Lymphocytes # (A) 1.9 k/uL (1.0-4.8); Lymphocytes % (A) 26 %; MCH 36.1 pg (25.0-35.0); MCV 106.2 fL (80.0-100.0); Macrocytosis Slight; Mean Platelet Volume 8.3; Monocytes # (A) 0.5 k/uL (0-1.0); Monocytes % (A) 7 %; Neutrophils # (A) 4.7 k/uL (1.3-7.7); Neutrophils % (A) 64 %; Platelet Count 216 k/uL (150-450); RBC 3.23 m/uL (3.80-5.40); RDW 11.8 % (11.5-15.5); WBC 7.3 k/uL (3.8-10.6)
--- NOTE | 2023-06-21 16:35 | XR ---
EXAMINATION TYPE: XR chest 1V portable DATE OF EXAM: 06/21/2023 COMPARISON: 01/13/2023. HISTORY: Fall. TECHNIQUE: Single frontal view of the chest is obtained. IMPRESSION: There is airspace opacity seen within the left upper lobe as well as the right lung apex which would raise the suspicion of pneumonia. There are some scattered interstitial changes also seen throughout the lungs bilaterally which may be inflammatory or infectious as well. Follow to resolution is recomm ended. The cardiac silhouette is mildly enlarged.
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
[2023-06-21 16:52] LABS: ALT 17 U/L (4-34); AST 32 U/L (14-36); African American GFR (CKD) >90 (>60 ml/min/1.73 sqM); Albumin 2.5 g/dL (3.5-5.0); Alkaline Phosphatase 94 U/L (38-126); Anion Gap 8 mmol/L; Blood Urea Nitrogen 15 mg/dL (7-17); Carbon Dioxide 21 mmol/L (22-30); Chloride 104 mmol/L (98-107); Glucose 104 mg/dL (74-99); Non-African American GFR(CKD) 89 (>60 ml/min/1.73 sqM); Potassium 4.2 mmol/L (3.5-5.1); Sodium 133 mmol/L (137-145); Total Bilirubin 0.5 mg/dL (0.2-1.3)
[2023-06-21 16:57] LABS: NT-Pro-B-Type Natriuretic Pept 2620 pg/mL
[2023-06-21] MEDS ORDERED: MORPHINE SULFATE 4 MG/ML SYRINGE IVP STA (17:40)
[2023-06-21 19:11] LABS: Partial Thromboplastin Time 20.6 sec (22.0-30.0); Prothrombin Time 11.2 sec (10.0-12.5)
[2023-06-21] MEDS ORDERED: HYDROmorphone 0.5 MG/0.5 ML SYRINGE IVP STA (20:51)
--- NOTE | 2023-06-21 22:06 | CT ---
EXAMINATION TYPE: CT angio chest DATE OF EXAM: 06/21/2023 COMPARISON: CT chest March 18, 2020 HISTORY: c/o SOB CT DLP: 279.4 mGycm. Automated Exposure Control for Dose Reduction was Utilized. CONTRAST: CTA scan of the thorax is performed with IV Contrast, patient injected with 67cc mL of Isovue 370, pu lmonary embolism protocol. MIP Images are created on CT scanner and reviewed. FINDINGS: LUNGS: Bilateral multifocal areas of groundglass opacity are present. There is additional cystic hernandez ge in the left upper lobe. There is some organizing consolidations in the anterior right upper lung a xial image 21. There is small to tiny left pleural effusion. No pneumothorax is seen bilaterally. Mil d underlying emphysematous changes are present. MEDIASTINUM: There is satisfactory enhancement of the pulmonary artery and its branches, there is no CT evidence for pulmonary embolism. There is an enlarged 1.5 x 1.1 cm right hilar lymph node image 78 . There are prominent but subcentimeter prevascular and AP window along with left hilar lymph nodes. No cardiomegaly or pericardial effusion is seen. Moderate biatrial dilatation is seen. OTHER: Exaggerated thoracic kyphosis is seen. IMPRESSION: 1. No CT evidence for acute pulmonary embolism. 2. Bilateral multifocal groundglass opacities consistent with bilateral multilobar multifocal edema a nd/or acute infiltrates. Suspect chronic cystic change in the left upper lobe. Differential includes atypical infection such as covid-19. Correlate clinically.
[2023-06-21] MEDS ORDERED: IPRATROPIUM-ALBUTEROL 3 ML NEB INHALATION PRN (22:25)
[2023-06-21] MEDS ORDERED: PNEUMONIA PROTOCOL UTILIZED 1 EACH MISC PO PRN (22:25)
[2023-06-21] MEDS ORDERED: LEVOFLOXACIN 750MG-D5W PMX 750 MG in DEXTROSE/WATER 1 150ML.BAG IVPB STA (22:27)
[2023-06-21] MEDS: SODIUM CHLORIDE 0.9% 1,000 ML IV SCH (23:15)
[2023-06-22] MEDS ORDERED: HYDROmorphone 0.5 MG/0.5 ML SYRINGE IVP STA (01:43)
[2023-06-22 07:38] LABS: Basophils % (A) 0 %; Eosinophils # (A) 0.2 k/uL (0-0.7); Eosinophils % (A) 3 %; HCT 36.5 % (34.0-46.0); HGB 12.1 gm/dL (11.4-16.0); Lymphocytes # (A) 1.3 k/uL (1.0-4.8); Lymphocytes % (A) 15 %; MCH 35.4 pg (25.0-35.0); MCV 107.2 fL (80.0-100.0); Macrocytosis Moderate; Mean Platelet Volume 7.6; Monocytes # (A) 0.7 k/uL (0-1.0); Monocytes % (A) 8 %; Neutrophils # (A) 6.1 k/uL (1.3-7.7); Neutrophils % (A) 73 %; Platelet Count 417 k/uL (150-450); RBC 3.41 m/uL (3.80-5.40); RDW 11.9 % (11.5-15.5); WBC 8.3 k/uL (3.8-10.6)
[2023-06-22 08:13] LABS: African American GFR (CKD) >90 (>60 ml/min/1.73 sqM); Anion Gap 6 mmol/L; Blood Urea Nitrogen 12 mg/dL (7-17); Calcium 8.3 mg/dL (8.4-10.2); Carbon Dioxide 25 mmol/L (22-30); Chloride 100 mmol/L (98-107); Glucose 133 mg/dL (74-99); Non-African American GFR(CKD) >90 (>60 ml/min/1.73 sqM); Potassium 4.8 mmol/L (3.5-5.1); Sodium 131 mmol/L (137-145)
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
[2023-06-22] MEDS: ALPRAZolam 0.5 MG TAB PO PRN ×2 (09:17→20:46)
[2023-06-22] MEDS: SODIUM CHLORIDE 0.9% 1,000 ML IV SCH ×2 (09:17→17:04)
[2023-06-22] MEDS: FLUoxetine HCL 20 MG CAP PO SCH ×2 (09:17)
[2023-06-22] MEDS: HYDROcodone/APAP 10-325MG 1 EACH TAB PO PRN ×3 (09:18→20:46)
[2023-06-22] MEDS: FAMOTIDINE 20 MG/2 ML VIAL IV SCH ×2 (09:18→20:47)
[2023-06-22] MEDS: CALCIUM CARBONATE 500 MG CHEWABLE PO PRN (09:18)
[2023-06-22] MEDS: HEPARIN SODIUM,PORCINE 5,000 UNIT/ML 1 ML VIAL SQ SCH ×2 (09:19→20:47)
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
[2023-06-22] MEDS: BUTA/APAP/CAF/COD 50-325-40-30 CAP PO PRN ×2 (13:38→18:41)
[2023-06-22] MEDS ORDERED: ARTIFICIAL TEARS OINTMENT 3.5 GM TUBE BOTH EYES PRN (15:51)
--- NOTE | 2023-06-22 16:03 | XR ---
EXAM: XR chest 1V portable CLINICAL INDICATION:Female, 83 years old with history of pneumonia; [facility] COMPARISON: 06/21/2023 chest x-ray and CTA TECHNIQUE: Chest single view. FINDINGS: Lines/tubes/devices: EKG leads overlie the chest. No indwelling lines are seen. Cardiomediastinum: Cardiac silhouette appears stable, top normal in size. Atherosclerotic calcifications of the aorta. Unremarkable mediastinal silhouette. Vasculature: No increased pulmonary vasculature. Lungs/pleura: Chronic pulmonary parenchymal changes redemonstrated. Hazy opacities bilaterally, greatest over the l raquel apices and lung bases, seem to correspond with the previous CT findings of groundglass infiltrate s. Stable small left pleural effusion. No visible pneumothorax. Bones/soft tissues: Osseous structures appear grossly stable. Remote appearing deformity of the distal left clavicle. Mil dly widened appearance of the right AC joint, could be posttraumatic or postoperative. Mild diffuse d egenerative changes. Regional soft tissues appear unremarkable. IMPRESSION: Background chronic lung changes, with slight interval worsening of bilateral hazy opacities concernin g for edema, versus infectious/inflammatory process. Stable small left pleural effusion.
[2023-06-22] MEDS: traZODone HCL 50 MG TAB PO PRN (20:47)
[2023-06-22] MEDS: LEVOFLOXACIN 750MG-D5W PMX 750 MG in DEXTROSE/WATER 1 150ML.BAG IVPB SCH (20:47)
[2023-06-22] MEDS: [UNRECOGNIZED DRUG - OTHER] LEFT EYE SCH (20:48)
[2023-06-22] MEDS: HYPROMELLOSE LEFT EYE SCH (20:48)
[2023-06-22] MEDS ORDERED: [UNRECOGNIZED DRUG - OTHER] LEFT EYE SCH (21:00)
[2023-06-22] MEDS ORDERED: MELATONIN 3 MG TABLET PO PRN (23:25)
[2023-06-22] MEDS ORDERED: ARTIFICIAL TEARS-HYPROMELLOSE DROPS 15 ML BTL BOTH EYES PRN (23:26)
[2023-06-23] MEDS: BUTA/APAP/CAF/COD 50-325-40-30 CAP PO PRN ×2 (00:32→06:19)
[2023-06-23] MEDS: CALCIUM CARBONATE 500 MG CHEWABLE PO PRN (02:22)
[2023-06-23] MEDS: HYDROcodone/APAP 10-325MG 1 EACH TAB PO PRN ×3 (02:25→19:58)
[2023-06-23] MEDS: ALPRAZolam 0.5 MG TAB PO PRN ×3 (03:55→21:01)
[2023-06-23] MEDS: SODIUM CHLORIDE 0.9% 1,000 ML IV SCH ×2 (03:56→16:57)
[2023-06-23] MEDS: FAMOTIDINE 20 MG/2 ML VIAL IV SCH ×2 (08:33→21:01)
[2023-06-23] MEDS: FLUoxetine HCL 20 MG CAP PO SCH ×2 (09:51)
[2023-06-23] MEDS: HEPARIN SODIUM,PORCINE 5,000 UNIT/ML 1 ML VIAL SQ SCH ×2 (09:51→21:01)
--- NOTE | 2023-06-23 12:00 | P.PN ---
Subjective This is a pleasant 83 years old female with past medical history of anxiety and depression on medication and remote history of history of uterine cancer Pt states TERESITA with cough for a few days. Pt had negative Covid test yesterday. Patient presents because of dyspnea of one week duration associated with left upper chest pain, noncardiac in about 8/10 in severity. Patient says that her chest pain is worse with inhalation and feels like sharp yesterday. She denies coughing to me. She denies any GI or urinary symptoms. No headache dizziness weakness or numbness. She denies smoking, drinks alcohol occasionally and no illicit tracts Patient is afebrile, she is saturating 97% on room air Labs show an unremarkable CBC, INR 1.0. D-dimer elevated at 1.5. BMP is unremarkable. Liver enzymes not elevated. Troponin is negative. Appropriate ProBNP [address] [place] virus, RSV and influenza virus is undetected chest x-ray:Opacity in the left upper lobe as well as right lung Which raise the suspicion for pneumonia with this catheter into station changes, I reviewed the chest x-ray by myself CTA of the chest: No pulmonary embolism. Bilateral multifocal groundglass opacity consistent with bilateral multifocal edema and/or acute infiltrates. Suspected chronic cystic changes in the left upper lobe. EKG: Normal sinus rhythm at [address]-T changes. Patient is a started on Levaquin and admitted with pulmonary team consult 06/23/2023 Patient states she is a little better regarding her breathing and her exertional dyspnea is also a little better when she went to the restroom today She denies chest pain or coughing. She has been a problem and she was placed on melatonin. Chest x-ray from yesterday showing similar changes when I reviewed it, radiologist thinks is slightly worse. Procalcitonin is -0.08 She remains on IV Levaquin 750 mg and normal saline 100 mL per hour Objective - Vital Signs Vital signs: Vital Signs Temp 97.2 F L 06/23/23 07:07 Pulse 85 06/23/23 07:07 Resp 17 06/23/23 07:07 BP 146/73 06/23/23 07:07 Pulse Ox 95 06/23/23 07:07 FiO2 Intake & Output 06/22/23 06/23/23 06/23/23 18:59 06:59 18:59 Output Total 1 Balance -1 Output: Urine/Stool Mix 1 Other: Voiding Method Toilet Toilet Toilet # Voids 3 3 - Exam GENERAL: The patient is alert and oriented x3, not in any acute distress. Well developed, well nourished. HEENT: Pupils are round and equally reacting to light. EOMI. No scleral icterus. No conjunctival pallor. Normocephalic, atraumatic. No pharyngeal erythema. No thyromegaly. CARDIOVASCULAR: S1 and S2 present. No murmurs, rubs, or gallops. PULMONARY: Chest is clear to auscultation, no wheezing , no crackles. ABDOMEN: Soft, nontender, nondistended, normoactive bowel sounds. No palpable organomegaly. MUSCULOSKELETAL: No joint swelling or deformity. EXTREMITIES: No cyanosis, clubbing, or pedal edema. NEUROLOGICAL: Gross neurological examination did not reveal any focal deficits. SKIN: No rashes. no petechiae. - Labs CBC & Chem 7: 06/22/23 07:19 06/22/23 07:19 Assessment and Plan Assessment: Bilateral multifocal pneumonia Bilateral upper lobe opacity suspicious for chronic cystic changes in the left upper lobe. History of anxiety and depression history of uterine cancer Plan: Continue with Levaquin Pulmonary consult Continue with bronchodilator Labs and medication were reviewed.. Continue same treatment. Continue with symptomatic treatment. Resume home medication. Monitor labs and vitals. DVT and GI prophylaxis. Further recommendations as per clinical course of the patient DVT prophylaxis: Subcutaneous heparin GI Prophylaxis: Pepcid PT/OT: Pending Prognosis is guarded
--- NOTE | 2023-06-23 12:59 | P.PN ---
Subjective Progress Note Date: 06/23/23 This is a 83-year-old female patient, residing at [facility], presented to the hospital because of worsening shortness of breath and cough. The patient chest x-ray showed a left lung pneumonia and following that the patient was given a computed tomography scan of the chest that showed extensive multifocal groundglass pulmonary opacity mainly in the left lung and the patient was diagnosed having bilateral pneumonia, hospitalized, started on antibiotics. She is known to have underlying COPD patient was treated by our services back in February 2024 and extensive right lung pneumonia from which the patient recovers. She is known to have COPD and she is an ex-smoker. She has previous history of uterine cancer and she has undergone hysterectomy. She is an ex-smoker. At this point in time, the patient is on oxygen at 2 L with a pulse ox of 94%. The patient has a white cell count of 8.3 with a hemoglobin of 12, BUN is at 12 with a creatinine of 0.4 and sodium level is at 131. The viral screen including Covid 19, influenza and RSV are all negative. D-dimer is at 1.56. The patient is currently on a combination of Levaquin and DuoNeb nebulized treatments [id number]. She is also on heparin subcu for DVT prophylaxis. On today's evaluation of 06/23/2023, no new complaints and the patient remains on Levaquin. Remains on oxygen at 2 L/m nasal cannula. No fever or chills. The pro-calcitonin level was low. BUN is at 12 with a creatinine of 0 point. D-dimer is at 1.56. The discomfort of 8.3 with a hemoglobin 12.1. Objective - Vital Signs Vital signs: Vital Signs Temp 97.2 F L 06/23/23 07:07 Pulse 85 06/23/23 07:07 Resp 17 06/23/23 07:07 BP 146/73 06/23/23 07:07 Pulse Ox 95 06/23/23 07:07 FiO2 Intake & Output 06/22/23 06/23/23 06/23/23 18:59 06:59 18:59 Output Total 1 Balance -1 Output: Urine/Stool Mix 1 Other: Voiding Method Toilet Toilet # Voids 3 3 - Exam The patient is calm comfortable, nontoxic looking and the patient is currently on 2 L of oxygen by nasal cannula HEAD: Normocephalic. EYES: Normal reaction of pupils, equal size. NOSE: Clear with pink turbinates. THROAT: No erythema or exudates. NECK: No masses, no JVD. CHEST: No chest wall deformity. LUNGS: Equal air entry with few scattered rhonchi in the right lung. CVS: S1 and S2 normal with no audible murmur, regular rhythm. ABDOMEN: No hepatosplenomegaly, normal bowel sounds, no guarding or rigidity. SPINE: No scoliosis or deformity SKIN: No rashes CENTRAL NERVOUS SYSTEM: No focal deficits, tone is normal in all 4 extremities. EXTREMITIES: There is no peripheral edema. No clubbing, no cyanosis. Peripheral pulses are intact. - Labs CBC & Chem 7: 06/22/23 07:19 06/22/23 07:19 Assessment and Plan Plan: Bilateral pneumonia with extensive groundglass pulmonary infiltrates involving the left lung with predominance of the left upper lobe. Consider atypical pneumonia. Suspect a viral pneumonia. The patient's pro-calcitonin level was low. Interstitial edema/CHF cannot be completely ruled out COPD Acute hypoxic respiratory failure secondary to above History of uterine cancer History of chronic anxiety/depression Plan Check pro calcitonin level, level was low Agree on Levaquin Obtain sputum Gram stain and culture possible Obtain an echocardiogram Continue DuoNeb nebs Titrate oxygen flow to maintain saturation above 90% Blood cultures Resume all medications We'll follow
[2023-06-23] MEDS: LEVOFLOXACIN 750MG-D5W PMX 750 MG in DEXTROSE/WATER 1 150ML.BAG IVPB SCH (21:01)
[2023-06-23] MEDS: TEMAZEPAM 15 MG CAP PO PRN (21:01)
[2023-06-23] MEDS: traZODone HCL 50 MG TAB PO PRN (21:01)
[2023-06-23] MEDS: [UNRECOGNIZED DRUG - OTHER] LEFT EYE SCH (21:06)
[2023-06-23] MEDS: HYPROMELLOSE LEFT EYE SCH (21:06)
[2023-06-23 23:48] LABS: Glucose,Whole Blood 96 mg/dL (70-110)
--- NOTE | 2023-06-24 00:31 | CT ---
EXAM: CT Head Without Intravenous Contrast CLINICAL HISTORY: ITS.REASON CT Reason: Fall TECHNIQUE: Axial computed tomography images of the head/brain without intravenous contrast. CTDI is 45.2 mGy and DLP is 1079.5 mGy-cm. This CT exam was performed using one or more of the following dose reduction techniques: automated exposure control, adjustment of the mA and/or kV according to patient size, and/or use of iterative reconstruction technique. COMPARISON: No relevant prior studies available. FINDINGS: No acute intracranial hemorrhage. No midline shift or mass effect. The territorial wren-white matter differentiation is maintained throughout. Age-related cerebral volume loss. Periventricular and subcortical white matter hypoattenuation, consistent with chronic microangiopathy. The visualized orbits appear grossly unremarkable. The calvarium is intact. The visualized paranasal sinuses and mastoid air cells are grossly clear. IMPRESSION: No acute intracranial hemorrhage, midline shift, or mass effect. EXAM: CT Cervical Spine Without Intravenous Contrast CLINICAL HISTORY: ITS.REASON CT Reason: Fall TECHNIQUE: Axial computed tomography images of the cervical spine without intravenous contrast. CTDI is 9.1 mGy and DLP is 261.1 mGy-cm. This CT exam was performed using one or more of the following dose reduction techniques: automated exposure control, adjustment of the mA and/or kV according to patient size, and/or use of iterative reconstruction technique. COMPARISON: No relevant prior studies available. FINDINGS: The vertebral body heights are maintained. The craniocervical junction is intact. The atlanto-dens interval is maintained. The dens is intact. There is no spondylolisthesis. Multilevel cervical spondylosis and degenerative disc disease. Straightening of the cervical lordosis. Airspace consolidation in the RIGHT and LEFT upper lobes, concerning for multifocal pneumonia. IMPRESSION: No acute fracture or subluxation of the cervical spine. Airspace consolidation in the RIGHT and LEFT upper lobes, concerning for multifocal pneumonia.
[2023-06-24] MEDS: SODIUM CHLORIDE 0.9% 1,000 ML IV SCH ×2 (02:22→23:55)
[2023-06-24] MEDS: BUTA/APAP/CAF/COD 50-325-40-30 CAP PO PRN ×3 (04:03→19:02)
[2023-06-24] MEDS: CALCIUM CARBONATE 500 MG CHEWABLE PO PRN (05:10)
[2023-06-24] MEDS: HEPARIN SODIUM,PORCINE 5,000 UNIT/ML 1 ML VIAL SQ SCH ×2 (08:00→21:15)
[2023-06-24] MEDS: FLUoxetine HCL 20 MG CAP PO SCH ×2 (08:00→08:01)
[2023-06-24] MEDS: FAMOTIDINE 20 MG/2 ML VIAL IV SCH (08:00)
[2023-06-24] MEDS: HYDROcodone/APAP 10-325MG 1 EACH TAB PO PRN ×2 (08:04→15:42)
[2023-06-24] MEDS ORDERED: FLUCONAZOLE 100 MG TAB PO ONE (11:22)
[2023-06-24] MEDS: FUROSEMIDE 10 MG/ML 2 ML VIAL IV SCH ×2 (12:12→18:29)
--- NOTE | 2023-06-24 15:48 | P.PN ---
Subjective Progress Note Date: 06/24/23 This is a 83-year-old female patient, residing at [facility], presented to the hospital because of worsening shortness of breath and cough. The patient chest x-ray showed a left lung pneumonia and following that the patient was given a computed tomography scan of the chest that showed extensive multifocal groundglass pulmonary opacity mainly in the left lung and the patient was diagnosed having bilateral pneumonia, hospitalized, started on antibiotics. She is known to have underlying COPD patient was treated by our services back in February 2024 and extensive right lung pneumonia from which the patient recovers. She is known to have COPD and she is an ex-smoker. She has previous history of uterine cancer and she has undergone hysterectomy. She is an ex-smoker. At this point in time, the patient is on oxygen at 2 L with a pulse ox of 94%. The patient has a white cell count of 8.3 with a hemoglobin of 12, BUN is at 12 with a creatinine of 0.4 and sodium level is at 131. The viral screen including Covid 19, influenza and RSV are all negative. D-dimer is at 1.56. The patient is currently on a combination of Levaquin and DuoNeb nebulized treatments [id number]. She is also on heparin subcu for DVT prophylaxis. On today's evaluation of 06/23/2023, no new complaints and the patient remains on Levaquin. Remains on oxygen at 2 L/m nasal cannula. No fever or chills. The pro-calcitonin level was low. BUN is at 12 with a creatinine of 0 point. D-dimer is at 1.56. The discomfort of 8.3 with a hemoglobin 12.1. The patient is seen today 06/24/2023 in follow-up on the regular medical floor. She is currently resting comfortably in bed. Awake and alert in no acute distre ss. She is maintaining O2 saturations at 3 L/m per nasal cannula. Her pro- calcitonin is 0.08. She has been on Levaquin. No new labs today. She did take a fall last evening. Computed tomography scan of the head revealed no acute intracranial hemorrhage, midline shift or mass effect. No acute fracture or subluxation of the cervical spine. Airspace consolidation in the right and left upper lobes were noted. She'll be given a trial of Lasix. Objective - Vital Signs Vital signs: Vital Signs Temp 98.1 F 06/24/23 13:30 Pulse 62 06/24/23 13:30 Resp 18 06/24/23 13:30 BP 154/78 06/24/23 13:30 Pulse Ox 95 06/24/23 13:30 FiO2 Intake & Output 06/23/23 06/24/23 06/24/23 18:59 06:59 18:59 Other: Voiding Method Toilet Toilet # Voids 2 2 # Bowel Movements 1 - Exam The patient is an 83-year-old female, in no acute distress, currently on 3 L of oxygen by nasal cannula HEAD: Normocephalic. EYES: Normal reaction of pupils, equal size. NOSE: Clear with pink turbinates. THROAT: No erythema or exudates. NECK: No masses, no JVD. CHEST: No chest wall deformity. LUNGS: Equal air entry with few scattered rhonchi. CVS: S1 and S2 normal with no audible murmur, regular rhythm. ABDOMEN: No hepatosplenomegaly, normal bowel sounds, no guarding or rigidity. SPINE: No scoliosis or deformity SKIN: No rashes CENTRAL NERVOUS SYSTEM: No focal deficits, tone is normal in all 4 extremities. EXTREMITIES: There is no peripheral edema. No clubbing, no cyanosis. Peripheral pulses are intact. - Labs CBC & Chem 7: 06/22/23 07:19 06/22/23 07:19 Assessment and Plan Assessment: Bilateral pneumonia with extensive groundglass pulmonary infiltrates involving the left lung with predominance of the left upper lobe. Consider atypical pneumonia. Suspect a viral pneumonia. The patient's pro-calcitonin level was low. Interstitial edema/CHF cannot be completely ruled out COPD Acute hypoxic respiratory failure secondary to above History of uterine cancer History of chronic anxiety/depression Plan Computed tomography scan, medications reviewed Pro-calcitonin within normal limits Levaquin discontinued Initiate IV Lasix Obtain an echocardiogram Follow-up chest x-ray in the a.m. We will continue to follow I have personally seen and examined the patient, performed the documentation and the assessment and plan as written. Number of minutes spent on the visit: 10.
--- NOTE | 2023-06-24 19:12 | CA ---
Transthoracic Echo Report Name: Naomi Yuen Age: 83 Gender: F : 1940 Exam Date: 06/24/2023 11:42 Exam Location: [facility] Ht (in): 64 Wt (lb): 145 Ordering Physician: Hina Gordon MD Attending/Referring Phys: Trustee Of Estate Sofia Casanova RDCS Procedure CPT: Indications: chf Cardiac Hx: Technical Quality: Fair Contrast 1: Total Dose (mL): Contrast 2: Total Dose (mL): MEASUREMENTS (Male / Female) Normal Values 2D ECHO LV Diastolic Diameter PLAX 4.3 cm 4.2 - 5.9 / 3.9 - 5.3 cm LV Systolic Diameter PLAX 3.3 cm IVS Diastolic Thickness 1.1 cm 0.6 - 1.0 / 0.6 - 0.9 cm LVPW Diastolic Thickness 1.4 cm 0.6 - 1.0 / 0.6 - 0.9 cm LV Relative Wall Thickness 0.6 LA Volume 40.8 cm??? 18 - 58 / 22 - 52 cm??? LA Volume Index 23.5 cm???/m??? 16 - 28 cm???/m??? M-MODE Aortic Root Diameter MM 3.2 cm LA Systolic Diameter MM 4.3 cm LA Ao Ratio MM 1.4 AV Cusp Separation MM 1.9 cm DOPPLER AV Peak Velocity 167.4 cm/s AV Peak Gradient 11.2 mmHg AV Mean Velocity 107.5 cm/s AV Mean Gradient 5.4 mmHg AV Velocity Time Integral 31.9 cm AI Peak Velocity 321.6 cm/s AI Peak Gradient 41.4 mmHg AI Pressure Half Time 460.9 ms LVOT Peak Velocity 91.1 cm/s LVOT Peak Gradient 3.3 mmHg LVOT Velocity Time Integral 20.1 cm MV Area PHT 5.2 cm??? Mitral E Point Velocity 88.2 cm/s Mitral A Point Velocity 91.8 cm/s Mitral E to A Ratio 1.0 MV Deceleration Time 146.2 ms MV E' Velocity 7.1 cm/s Mitral E to MV E' Ratio 12.4 TR Peak Velocity 335.9 cm/s TR Peak Gradient 45.1 mmHg Right Ventricular Systolic Press 50.0 mmHg FINDINGS Left Ventricle Moderately increased left ventricular wall thickness. Normal left ventricular systolic function with no obvious regional wall motion abnormalities. Left ventricular cavity size normal. Left ventricular ejection fraction is estimated at 55-60 %. Right Ventricle Normal right ventricular size and function . Moderate pulmonary hypertension. Right Atrium Normal right atrial size. Left Atrium Normal left atrial size. Mitral Valve Structurally normal mitral valve. No mitral stenosis. Mild mitral regurgitation.mitral annular calcification. Aortic Valve No aortic stenosis. Mild to moderate aortic regurgitation.aortic valve sclerosis. Tricuspid Valve Structurally normal tricuspid valve. Moderate tricuspid regurgitation. Pulmonic Valve Structurally normal pulmonic valve. Pericardium No pericardial effusion. Aorta Normal size aortic root and proximal ascending aorta. CONCLUSIONS 1. Normal left ventricle size and systolic function 2. Moderate tricuspid regurgitation with moderate pulmonary hypertension 3. Mild to moderate aortic and mild mitral regurgitation Previewed by: Dr. Joyce Cortes MD (Electronically Signed) Final Date: 24 June 2023 19:11
[2023-06-24] MEDS ORDERED: LEVOFLOXACIN 750 MG TAB PO SCH (21:00)
[2023-06-24] MEDS: FAMOTIDINE 20 MG TAB PO SCH (21:15)
[2023-06-24] MEDS: HYPROMELLOSE LEFT EYE SCH (21:17)
[2023-06-24] MEDS: [UNRECOGNIZED DRUG - OTHER] LEFT EYE SCH (21:17)
--- NOTE | 2023-06-24 21:56 | P.PN ---
Progress Note - Text Progress Note Date: 06/24/23 This is a pleasant 83 years old female with past medical history of anxiety and depression on medication and remote history of history of uterine cancer Pt states TERESITA with cough for a few days. Pt had negative Covid test yesterday. Patient presents because of dyspnea of one week duration associated with left upper chest pain, noncardiac in about 8/10 in severity. Patient says that her chest pain is worse with inhalation and feels like sharp yesterday. She denies coughing to me. She denies any GI or urinary symptoms. No headache dizziness weakness or numbness. She denies smoking, drinks alcohol occasionally and no illicit tracts Patient is afebrile, she is saturating 97% on room air Labs show an unremarkable CBC, INR 1.0. D-dimer elevated at 1.5. BMP is unremarkable. Liver enzymes not elevated. Troponin is negative. Appropriate ProBNP 2620 [place] virus, RSV and influenza virus is undetected chest x-ray:Opacity in the left upper lobe as well as right lung Which raise the suspicion for pneumonia with this catheter into station changes, I reviewed the chest x-ray by myself CTA of the chest: No pulmonary embolism. Bilateral multifocal groundglass opacity consistent with bilateral multifocal edema and/or acute infiltrates. Suspected chronic cystic changes in the left upper lobe. EKG: Normal sinus rhythm at [address]-T changes. Patient is a started on Levaquin and admitted with pulmonary team consult 06/23/2023 Patient states she is a little better regarding her breathing and her exertional dyspnea is also a little better when she went to the restroom today She denies chest pain or coughing. She has been a problem and she was placed on melatonin. Chest x-ray from yesterday showing similar changes when I reviewed it, radiologist thinks is slightly worse. Procalcitonin is -0.08 She remains on IV Levaquin 750 mg and normal saline 100 mL per hour June 24: I assumed care of the patient today. Negative bed. Tired. Oral thrush. Diflucan started. Decreased appetite. Dry cough. Short of breath. Seen by pulmonary Dr. Montejo. Trial of short course of IV Lasix. DC IV fluids. Active Medications Acetam/Butalbital/Caffeine/Codeine (Buta/Apap/Caf/Cod 29-600-16-30 Cap) 1 each PO Q6H PRN PRN Reason: Migraine Headache Last Admin: 06/24/23 19:02 Dose: 1 each Hydrocodone Bitart/Acetaminophen (Hydrocodone/Apap 10-325mg 1 Each Tab) 1 each PO Q6HR PRN PRN Reason: Pain Last Admin: 06/24/23 15:42 Dose: 1 each Albuterol/Ipratropium (Ipratropium-Albuterol 3 Ml Neb) 3 ml INHALATION RT-Q4H PRN PRN Reason: shortness of breath Last Admin: 06/22/23 08:31 Dose: 3 ml Alprazolam (Alprazolam 0.5 Mg Tab) 0.5 mg PO BID PRN PRN Reason: Anxiety Last Admin: 06/23/23 21:01 Dose: 0.5 mg Artificial Tears (Artificial Tears-Hypromellose Drops 15 Ml Btl) 1 drops BOTH EYES QID PRN PRN Reason: Dry Eye(s) Calcium Carbonate/Glycine (Calcium Carbonate 500 Mg Chewable) 500 mg PO QID PRN PRN Reason: GERD Last Admin: 06/24/23 05:10 Dose: 500 mg Famotidine (Famotidine 20 Mg Tab) 20 mg PO BID CODY Last Admin: 06/24/23 21:15 Dose: 20 mg Fluconazole (Fluconazole 100 Mg Tab) 100 mg PO DAILY CODY; Protocol Fluoxetine HCl (Fluoxetine Hcl 20 Mg Cap) 20 mg PO DAILY CODY Last Admin: 06/24/23 08:01 Dose: 20 mg Fluoxetine HCl (Fluoxetine Hcl 20 Mg Cap) 40 mg PO DAILY CODY Last Admin: 06/24/23 08:00 Dose: 40 mg Heparin Sodium (Porcine) (Heparin Sodium,Porcine 5,000 Unit/Ml 1 Ml Vial) 5,000 unit SQ Q12HR CODY Last Admin: 06/24/23 21:15 Dose: 5,000 unit Miscellaneous Information (Pneumonia Protocol Utilized 1 Each Misc) 1 each PO ONCE PRN PRN Reason: Per Protocol Systane Night Gel ( (Hypromellose 0.3%)) 1 applic LEFT EYE HS CODY Last Admin: 06/24/23 21:17 Dose: 1 applic Temazepam (Temazepam 15 Mg Cap) 15 mg PO HS PRN PRN Reason: Insomnia Last Admin: 06/23/23 21:01 Dose: 15 mg Trazodone HCl (Trazodone Hcl 50 Mg Tab) 50 mg PO HS PRN PRN Reason: Insomnia Last Admin: 06/23/23 21:01 Dose: 50 mg On examination: VITAL SIGNS: [98.1, 62, 18, 154/78, 95% on 2 L] GENERAL APPEARANCE: Laying in bed, but tired. HEENT: Normal external appearance of nose and ear. Oral cavity normal. White spots on the pharynx and tongue EYES: Pupils equal. Conjunctiva normal. NECK: JVD not raised. Mass not palpable. RESPIRATORY: Respiratory effort normal. Lungs basal crackles CARDIOVASCULAR: First and second sounds normal. No edema. ABDOMEN: Soft. Liver and spleen not palpable. No tenderness. No mass palpable. PSYCHIATRY: Alert and oriented x3. Mood and affect normal. INVESTIGATIONS, reviewed in the clinical context: White count 8.3 hemoglobin 12.1 potassium 4.8 creatinine 0.49 Procalcitonin 0.08 Influenza type A, B, urine Legionella antigen, RSV, COVID-19: Not detected 2-D echocardiogram: EF 55-60%. Moderate pulmonary hypertension. Moderate tricuspid regurgitation. Computed tomography cervical spine: Airspace consolidations right and upper lobes. Chest CTA: Bilateral multifocal groundglass opacities. Assessment and plan: -Bilateral multifocal pneumonia , could be viral Pulmonary consulted. Consider bronchoscopy -Bilateral upper lobe opacity suspicious for chronic cystic changes in the left upper lobe. Follow with pulmonary -Secondary pulmonary hypertension -anxiety and depression Prozac -Oral candidiasis Diflucan -Acute fluid overload IV Lasix. Stop IV fluids -Chronic insomnia Trazodone Antibiotics discontinued by pulmonary. IV Lasix. Patient may need a bronchoscopy.
[2023-06-24] MEDS: TEMAZEPAM 15 MG CAP PO PRN (23:12)
[2023-06-25] MEDS: BUTA/APAP/CAF/COD 50-325-40-30 CAP PO PRN ×2 (01:35→21:52)
[2023-06-25] MEDS: ALPRAZolam 0.5 MG TAB PO PRN ×2 (01:36→16:02)
[2023-06-25] MEDS: HYDROcodone/APAP 10-325MG 1 EACH TAB PO PRN ×3 (05:49→15:51)
[2023-06-25 07:06] LABS: African American GFR (CKD) >90 (>60 ml/min/1.73 sqM); Anion Gap 11 mmol/L; Blood Urea Nitrogen 5 mg/dL (7-17); Calcium 8.3 mg/dL (8.4-10.2); Carbon Dioxide 24 mmol/L (22-30); Chloride 100 mmol/L (98-107); Glucose 86 mg/dL (74-99); Non-African American GFR(CKD) >90 (>60 ml/min/1.73 sqM); Potassium 3.2 mmol/L (3.5-5.1); Sodium 135 mmol/L (137-145)
--- NOTE | 2023-06-25 07:18 | XR ---
EXAMINATION TYPE: XR chest 1V portable DATE OF EXAM: 06/25/2023 COMPARISON: 06/22/2023 INDICATION: Follow-up CHF TECHNIQUE: Single frontal view of the chest is obtained. FINDINGS: The heart size is normal. The pulmonary vasculature is prominent. There is prominent infiltrates in the upper lung oakley bilaterally. Some milder infiltrates in the l ower lung oakley findings are worsening over the interval. IMPRESSION: 1. Worsening bilateral lung infiltrates. Pulmonary edema and pneumonia within the differential.
[2023-06-25] MEDS ORDERED: POTASSIUM CHLORIDE ER 20 MEQ TAB.ER PO STA (09:07)
[2023-06-25] MEDS: FLUoxetine HCL 20 MG CAP PO SCH ×2 (09:21)
[2023-06-25] MEDS: FAMOTIDINE 20 MG TAB PO SCH ×2 (09:21→21:53)
[2023-06-25] MEDS: FLUCONAZOLE 100 MG TAB PO SCH (09:21)
[2023-06-25] MEDS: HEPARIN SODIUM,PORCINE 5,000 UNIT/ML 1 ML VIAL SQ SCH ×2 (09:22→21:43)
[2023-06-25] MEDS: FUROSEMIDE 10 MG/ML 2 ML VIAL IV SCH ×2 (11:18→21:54)
[2023-06-25] MEDS: LEVOFLOXACIN 500 MG TAB PO SCH (11:18)
--- NOTE | 2023-06-25 13:45 | P.PN ---
Subjective Progress Note Date: 06/25/23 This is a 83-year-old female patient, residing at [facility], presented to the hospital because of worsening shortness of breath and cough. The patient chest x-ray showed a left lung pneumonia and following that the patient was given a computed tomography scan of the chest that showed extensive multifocal groundglass pulmonary opacity mainly in the left lung and the patient was diagnosed having bilateral pneumonia, hospitalized, started on antibiotics. She is known to have underlying COPD patient was treated by our services back in February 2024 and extensive right lung pneumonia from which the patient recovers. She is known to have COPD and she is an ex-smoker. She has previous history of uterine cancer and she has undergone hysterectomy. She is an ex-smoker. At this point in time, the patient is on oxygen at 2 L with a pulse ox of 94%. The patient has a white cell count of 8.3 with a hemoglobin of 12, BUN is at 12 with a creatinine of 0.4 and sodium level is at 131. The viral screen including Covid 19, influenza and RSV are all negative. D-dimer is at 1.56. The patient is currently on a combination of Levaquin and DuoNeb nebulized treatments [id number]. She is also on heparin subcu for DVT prophylaxis. On today's evaluation of 06/23/2023, no new complaints and the patient remains on Levaquin. Remains on oxygen at 2 L/m nasal cannula. No fever or chills. The pro-calcitonin level was low. BUN is at 12 with a creatinine of 0 point. D-dimer is at 1.56. The discomfort of 8.3 with a hemoglobin 12.1. The patient is seen today 06/24/2023 in follow-up on the regular medical floor. She is currently resting comfortably in bed. Awake and alert in no acute distre ss. She is maintaining O2 saturations at 3 L/m per nasal cannula. Her pro- calcitonin is 0.08. She has been on Levaquin. No new labs today. She did take a fall last evening. Computed tomography scan of the head revealed no acute intracranial hemorrhage, midline shift or mass effect. No acute fracture or subluxation of the cervical spine. Airspace consolidation in the right and left upper lobes were noted. She'll be given a trial of Lasix. The patient is seen today 06/25/2023 in follow-up on the regular medical floor. She is sitting up in a chair at the bedside. Awake and alert in no acute distress. She is maintaining good O2 saturations in the 90s on 3 L/m per nasal cannula. She's been afebrile. Hemodynamically stable. She is feeling a bit better today compared to yesterday. She states she feels she can breathe easier after her dose of Lasix and some extra voiding. Chest x-ray reveals worsening bilateral lung infiltrates. Pulmonary edema and pneumonia within the differe ntial. Pro-calcitonin was 0.08. Echocardiogram reveals preserved left ventricular systolic function. Moderate tricuspid regurg with moderate pulmonary hypertension. Sodium 135. Potassium 3.2. Bicarb 24. BUN 5. Creatinine 0.49. Legionella urine antigen was negative. She'll be continued on IV diuretics and antibiotics for now. Objective - Vital Signs Vital signs: Vital Signs Temp 98.1 F 06/25/23 07:34 Pulse 94 06/25/23 08:00 Resp 17 06/25/23 08:00 BP 132/75 06/25/23 07:34 Pulse Ox 96 06/25/23 08:37 FiO2 Intake & Output 06/24/23 06/25/23 06/25/23 18:59 06:59 18:59 Other: Voiding Method Toilet Toilet # Voids 6 3 - Exam GENERAL: The patient is an 83-year-old female, in no acute distress, sitting up in a chair, on 3 L of oxygen by nasal cannula HEAD: Normocephalic. EYES: Normal reaction of pupils, equal size. NOSE: Clear with pink turbinates. THROAT: No erythema or exudates. NECK: No masses, no JVD. CHEST: No chest wall deformity. LUNGS: Equal air entry with few scattered rhonchi bilaterally. CVS: S1 and S2 normal with no audible murmur, regular rhythm. ABDOMEN: No hepatosplenomegaly, normal bowel sounds, no guarding or rigidity. SPINE: No scoliosis or deformity SKIN: No rashes CENTRAL NERVOUS SYSTEM: No focal deficits, tone is normal in all 4 extremities. EXTREMITIES: There is no peripheral edema. No clubbing, no cyanosis. Peripheral pulses are intact. - Labs CBC & Chem 7: 06/22/23 07:19 06/25/23 06:17 Labs: Abnormal Lab Results - Last 24 Hours (Table) 06/25/23 Range/Units 06:17 Sodium 135 L (137-145) mmol/L Potassium 3.2 L (3.5-5.1) mmol/L BUN 5 L (7-17) mg/dL Creatinine 0.49 L (0.52-1.04) mg/dL Calcium 8.3 L (8.4-10.2) mg/dL Assessment and Plan Assessment: Bilateral pneumonia with extensive groundglass pulmonary infiltrates involving the left lung with predominance of the left upper lobe. Consider atypical pneumonia. Suspect a viral pneumonia. Legionella ruled out. The patient's pro- calcitonin level was low. Interstitial edema/CHF cannot be completely ruled out. We'll repeat her COVID-19 screen History of CoVID pneumonitis approximately 3 years ago COPD Acute hypoxic respiratory failure secondary to above History of uterine cancer History of chronic anxiety/depression Plan: Chest x-ray, echocardiogram, labs and, medications reviewed Continue with IV diuretics Place back on Levaquin Add Solu-Medrol Titrate the FiO2 as tolerated No plans for bronchoscopy at this point We will continue to follow I have personally seen and examined the patient, performed the documentation and the assessment and plan as written. Number of minutes spent on the visit: 10.
[2023-06-25] MEDS: NYSTATIN 100,000 UNIT/GM POWD 15 GM TOPICAL SCH ×3 (13:52→21:58)
[2023-06-25] MEDS: methylPREDNISolone SOD SUCCI 40 MG/ML 1 ML VIAL IV SCH (15:51)
--- NOTE | 2023-06-25 19:22 | P.PN ---
Progress Note - Text Progress Note Date: 06/25/23 This is a pleasant 83 years old female with past medical history of anxiety and depression on medication and remote history of history of uterine cancer Pt states TERESITA with cough for a few days. Pt had negative Covid test yesterday. Patient presents because of dyspnea of one week duration associated with left upper chest pain, noncardiac in about 8/10 in severity. Patient says that her chest pain is worse with inhalation and feels like sharp yesterday. She denies coughing to me. She denies any GI or urinary symptoms. No headache dizziness weakness or numbness. She denies smoking, drinks alcohol occasionally and no illicit tracts Patient is afebrile, she is saturating 97% on room air Labs show an unremarkable CBC, INR 1.0. D-dimer elevated at 1.5. BMP is unremarkable. Liver enzymes not elevated. Troponin is negative. Appropriate ProBNP 26[address] [place] virus, RSV and influenza virus is undetected chest x-ray:Opacity in the left upper lobe as well as right lung Which raise the suspicion for pneumonia with this catheter into station changes, I reviewed the chest x-ray by myself CTA of the chest: No pulmonary embolism. Bilateral multifocal groundglass opacity consistent with bilateral multifocal edema and/or acute infiltrates. Suspected chronic cystic changes in the left upper lobe. EKG: Normal sinus rhythm at [address]-T changes. Patient is a started on Levaquin and admitted with pulmonary team consult 06/23/2023 Patient states she is a little better regarding her breathing and her exertional dyspnea is also a little better when she went to the restroom today She denies chest pain or coughing. She has been a problem and she was placed on melatonin. Chest x-ray from yesterday showing similar changes when I reviewed it, radiologist thinks is slightly worse. Procalcitonin is -0.08 She remains on IV Levaquin 750 mg and normal saline 100 mL per hour June 24: I assumed care of the patient today. Negative bed. Tired. Oral thrush. Diflucan started. Decreased appetite. Dry cough. Short of breath. Seen by pulmonary Dr. Montejo. Trial of short course of IV Lasix. DC IV fluids. June 25: Slight improvement in shortness of breath with IV Lasix. Oral thrush-on Diflucan discussed with Dr. hair that about possible bronchoscopy-felt patient did not do well with the same. Discussed to start IV Solu-Medrol. Told the patient sit up on a chair use incentive spirometry more frequently. Active Medications Acetam/Butalbital/Caffeine/Codeine (Buta/Apap/Caf/Cod 13-282-00-30 Cap) 1 each PO Q6H PRN PRN Reason: Migraine Headache Last Admin: 06/25/23 01:35 Dose: 1 each Hydrocodone Bitart/Acetaminophen (Hydrocodone/Apap 10-325mg 1 Each Tab) 1 each PO Q6HR PRN PRN Reason: Pain Last Admin: 06/25/23 15:51 Dose: 1 each Albuterol/Ipratropium (Ipratropium-Albuterol 3 Ml Neb) 3 ml INHALATION RT-Q4H PRN PRN Reason: shortness of breath Last Admin: 06/22/23 08:31 Dose: 3 ml Alprazolam (Alprazolam 0.5 Mg Tab) 0.5 mg PO BID PRN PRN Reason: Anxiety Last Admin: 06/25/23 16:02 Dose: 0.5 mg Artificial Tears (Artificial Tears-Hypromellose Drops 15 Ml Btl) 1 drops BOTH EYES QID PRN PRN Reason: Dry Eye(s) Calcium Carbonate/Glycine (Calcium Carbonate 500 Mg Chewable) 500 mg PO QID PRN PRN Reason: GERD Last Admin: 06/24/23 05:10 Dose: 500 mg Famotidine (Famotidine 20 Mg Tab) 20 mg PO BID CODY Last Admin: 06/25/23 09:21 Dose: 20 mg Fluconazole (Fluconazole 100 Mg Tab) 100 mg PO DAILY CODY; Protocol Last Admin: 06/25/23 09:21 Dose: 100 mg Fluoxetine HCl (Fluoxetine Hcl 20 Mg Cap) 20 mg PO DAILY CODY Last Admin: 06/25/23 09:21 Dose: 20 mg Fluoxetine HCl (Fluoxetine Hcl 20 Mg Cap) 40 mg PO DAILY CODY Last Admin: 06/25/23 09:21 Dose: 40 mg Furosemide (Furosemide 10 Mg/Ml 2 Ml Vial) 20 mg IV Q12HR CODY Last Admin: 06/25/23 11:18 Dose: 20 mg Heparin Sodium (Porcine) (Heparin Sodium,Porcine 5,000 Unit/Ml 1 Ml Vial) 5,000 unit SQ Q12HR CODY Last Admin: 06/25/23 09:22 Dose: 5,000 unit Levofloxacin (Levofloxacin 500 Mg Tab) 500 mg PO Q24H CODY; Protocol Last Admin: 06/25/23 11:18 Dose: 500 mg Methylprednisolone Sodium Succinate (Methylprednisolone Sod Succi 40 Mg/Ml 1 Ml Vial) 40 mg IV Q8HR CODY Last Admin: 06/25/23 15:51 Dose: 40 mg Miscellaneous Information (Pneumonia Protocol Utilized 1 Each Misc) 1 each PO ONCE PRN PRN Reason: Per Protocol Systane Night Gel ( (Hypromellose 0.3%)) 1 applic LEFT EYE HS CODY Last Admin: 06/24/23 21:17 Dose: 1 applic Nystatin (Nystatin 100,000 Unit/Gm Powd 15 Gm) 1 applic TOPICAL BID CODY; Protocol Last Admin: 06/25/23 13:59 Dose: 1 applic Pramipexole Dihydrochloride (Pramipexole 0.25 Mg Tab) 0.25 mg PO HS CODY Temazepam (Temazepam 15 Mg Cap) 15 mg PO HS PRN PRN Reason: Insomnia Last Admin: 06/24/23 23:12 Dose: 15 mg Trazodone HCl (Trazodone Hcl 50 Mg Tab) 50 mg PO HS PRN PRN Reason: Insomnia Last Admin: 06/23/23 21:01 Dose: 50 mg On examination: VITAL SIGNS: 98, 88, 16, 127/75, 97% room air GENERAL APPEARANCE: Laying in bed, a bit tired HEENT: Normal external appearance of nose and ear. Oral cavity normal. White spots on the pharynx and tongue EYES: Pupils equal. Conjunctiva normal. NECK: JVD not raised. Mass not palpable. RESPIRATORY: Respiratory effort normal. Lungs basal crackles CARDIOVASCULAR: First and second sounds normal. No edema. ABDOMEN: Soft. Liver and spleen not palpable. No tenderness. No mass palpable. PSYCHIATRY: Alert and oriented x3. Mood and affect normal. INVESTIGATIONS, reviewed in the clinical context: June 25: Sodium 135 potassium 3.2 creatinine 0.49 White count 8.3 hemoglobin 12.1 potassium 4.8 creatinine 0.49 Procalcitonin 0.08 Influenza type A, B, urine Legionella antigen, RSV, COVID-19: Not detected 2-D echocardiogram: EF 55-60%. Moderate pulmonary hypertension. Moderate tricuspid regurgitation. Computed tomography cervical spine: Airspace consolidations right and upper lobes. Chest CTA: Bilateral multifocal groundglass opacities. Assessment and plan: -Bilateral multifocal pneumonia , could be viral Pulmonary following. Levaquin -Bilateral upper lobe opacity suspicious for chronic cystic changes in the left upper lobe. Follow with pulmonary -Secondary pulmonary hypertension -anxiety and depression Prozac -Oral candidiasis Diflucan -Acute fluid overload IV Lasix. -Chronic insomnia Trazodone Continue IV Lasix. IV Solu-Medrol added. Increase activity discussed with patient.
[2023-06-25] MEDS: PRAMIPEXOLE 0.25 MG TAB PO SCH (21:51)
[2023-06-25] MEDS: [UNRECOGNIZED DRUG - OTHER] LEFT EYE SCH (21:58)
[2023-06-25] MEDS: HYPROMELLOSE LEFT EYE SCH (21:58)
[2023-06-25] MEDS: TEMAZEPAM 15 MG CAP PO PRN (22:06)
[2023-06-26] MEDS: methylPREDNISolone SOD SUCCI 40 MG/ML 1 ML VIAL IV SCH ×3 (00:02→15:45)
[2023-06-26] MEDS: ALPRAZolam 0.5 MG TAB PO PRN ×2 (00:03→15:45)
[2023-06-26] MEDS: HYDROcodone/APAP 10-325MG 1 EACH TAB PO PRN ×2 (06:17→22:42)
[2023-06-26] MEDS: FLUCONAZOLE 100 MG TAB PO SCH (09:48)
[2023-06-26] MEDS: HEPARIN SODIUM,PORCINE 5,000 UNIT/ML 1 ML VIAL SQ SCH ×2 (09:48→20:09)
[2023-06-26] MEDS: FAMOTIDINE 20 MG TAB PO SCH ×2 (09:48→20:09)
[2023-06-26] MEDS: FLUoxetine HCL 20 MG CAP PO SCH ×2 (09:48→09:49)
[2023-06-26] MEDS: FUROSEMIDE 10 MG/ML 2 ML VIAL IV SCH ×2 (09:48→21:20)
[2023-06-26] MEDS: NYSTATIN 100,000 UNIT/GM POWD 15 GM TOPICAL SCH ×2 (09:49→21:53)
[2023-06-26] MEDS: LEVOFLOXACIN 500 MG TAB PO SCH (09:49)
--- NOTE | 2023-06-26 10:34 | XR ---
EXAMINATION TYPE: XR chest 1V portable DATE OF EXAM: 06/26/2023 10:28 AM COMPARISON: Chest radiographs from 06/25/2023 TECHNIQUE: XR chest 1V portable Portable AP radiograph of the chest. CLINICAL INDICATION:Female, 83 years old with history of Dyspnea; FINDINGS: Lungs/Pleura: No pleural effusion or pneumothorax. Improvement in scattered reticular infiltrates mos t prominent within the bilateral upper lobes. Pulmonary vascularity: Unremarkable. Heart/mediastinum: Cardiomediastinal silhouette is unremarkable. Atherosclerotic calcifications are seen in the aorta. Musculoskeletal: No acute osseous pathology. IMPRESSION: Slight improvement in scattered reticular infiltrates from prior exam.
--- NOTE | 2023-06-26 13:10 | P.PN ---
Subjective Progress Note Date: 06/26/23 This is a 83-year-old female patient, residing at [facility], presented to the hospital because of worsening shortness of breath and cough. The patient chest x-ray showed a left lung pneumonia and following that the patient was given a computed tomography scan of the chest that showed extensive multifocal groundglass pulmonary opacity mainly in the left lung and the patient was diagnosed having bilateral pneumonia, hospitalized, started on antibiotics. She is known to have underlying COPD patient was treated by our services back in February 2024 and extensive right lung pneumonia from which the patient recovers. She is known to have COPD and she is an ex-smoker. She has previous history of uterine cancer and she has undergone hysterectomy. She is an ex-smoker. At this point in time, the patient is on oxygen at 2 L with a pulse ox of 94%. The patient has a white cell count of 8.3 with a hemoglobin of 12, BUN is at 12 with a creatinine of 0.4 and sodium level is at 131. The viral screen including Covid 19, influenza and RSV are all negative. D-dimer is at 1.56. The patient is currently on a combination of Levaquin and DuoNeb nebulized treatments [id number]. She is also on heparin subcu for DVT prophylaxis. On today's evaluation of 06/23/2023, no new complaints and the patient remains on Levaquin. Remains on oxygen at 2 L/m nasal cannula. No fever or chills. The pro-calcitonin level was low. BUN is at 12 with a creatinine of 0 point. D-dimer is at 1.56. The discomfort of 8.3 with a hemoglobin 12.1. The patient is seen today 06/24/2023 in follow-up on the regular medical floor. She is currently resting comfortably in bed. Awake and alert in no acute distre ss. She is maintaining O2 saturations at 3 L/m per nasal cannula. Her pro- calcitonin is 0.08. She has been on Levaquin. No new labs today. She did take a fall last evening. Computed tomography scan of the head revealed no acute intracranial hemorrhage, midline shift or mass effect. No acute fracture or subluxation of the cervical spine. Airspace consolidation in the right and left upper lobes were noted. She'll be given a trial of Lasix. The patient is seen today 06/25/2023 in follow-up on the regular medical floor. She is sitting up in a chair at the bedside. Awake and alert in no acute distress. She is maintaining good O2 saturations in the 90s on 3 L/m per nasal cannula. She's been afebrile. Hemodynamically stable. She is feeling a bit better today compared to yesterday. She states she feels she can breathe easier after her dose of Lasix and some extra voiding. Chest x-ray reveals worsening bilateral lung infiltrates. Pulmonary edema and pneumonia within the differe ntial. Pro-calcitonin was 0.08. Echocardiogram reveals preserved left ventricular systolic function. Moderate tricuspid regurg with moderate pulmonary hypertension. Sodium 135. Potassium 3.2. Bicarb 24. BUN 5. Creatinine 0.49. Legionella urine antigen was negative. She'll be continued on IV diuretics and antibiotics for now. The patient is seen today 06/26/2023 in follow-up on the regular medical floor. He is awake and alert in no acute distress. Sitting up in bed. Still with some loose nonproductive cough. She slept good. She states she is feeling better. He is maintaining good O2 saturations in the mid 90s on room air. Afebrile. Hemodynamically stable. Today's chest x-ray does show slight improvement scattered reticular infiltrates. [place] virus by PCR not detected. She remains on IV diuretics. Remains on bronchodilators. Remains on steroids. Antibiotics in the form of Levaquin. Continued on Diflucan. Objective - Vital Signs Vital signs: Vital Signs Temp 97.9 F 06/26/23 07:41 Pulse 84 06/26/23 07:41 Resp 16 06/26/23 07:41 BP 125/69 06/26/23 07:41 Pulse Ox 95 06/26/23 07:41 FiO2 Intake & Output 06/25/23 06/26/23 06/26/23 18:59 06:59 18:59 Intake Total 118 Balance 118 Intake: Oral 118 Other: Voiding Method Toilet Toilet # Voids 2 3 - Exam GENERAL: Awake, alert, pleasant 83-year-old female, in no acute distress, on 2 L of oxygen by nasal cannula HEAD: Normocephalic. EYES: Normal reaction of pupils, equal size. NOSE: Clear with pink turbinates. THROAT: No erythema or exudates. NECK: No masses, no JVD. CHEST: No chest wall deformity. LUNGS: Equal air entry with few scattered rhonchi bilaterally. CVS: S1 and S2 normal with no audible murmur, regular rhythm. ABDOMEN: No hepatosplenomegaly, normal bowel sounds, no guarding or rigidity. SPINE: No scoliosis or deformity SKIN: No rashes CENTRAL NERVOUS SYSTEM: No focal deficits, tone is normal in all 4 extremities. EXTREMITIES: There is no peripheral edema. No clubbing, no cyanosis. Peripheral pulses are intact. - Labs CBC & Chem 7: 06/22/23 07:19 06/26/23 07:09 Assessment and Plan Assessment: Bilateral pneumonia with extensive groundglass pulmonary infiltrates involving the left lung with predominance of the left upper lobe. Consider atypical pneumonia. Suspect a viral pneumonia. Legionella ruled out. The patient's pro-calcitonin level was low. Interstitial edema/CHF cannot be completely ruled out. Repeat COVID-19 screen negative. Follow-up chest x-ray showing slight improvement. History of CoVID pneumonitis approximately 3 years ago COPD Acute hypoxic respiratory failure secondary to above History of uterine cancer History of chronic anxiety/depression Plan: Chest x-ray, labs and medications reviewed X-ray showing improvement, patient feeling better No plans for bronchoscopy Continue with IV diuretics, Levaquin. steroids Titrate the FiO2 as tolerated We will continue to follow I have personally seen and examined the patient, performed the documentation and the assessment and plan as written. Number of minutes spent on the visit: 10.
[2023-06-26] MEDS: BUTA/APAP/CAF/COD 50-325-40-30 CAP PO PRN (14:01)
--- NOTE | 2023-06-26 17:48 | P.PN ---
Progress Note - Text Progress Note Date: 06/26/23 This is a pleasant 83 years old female with past medical history of anxiety and depression on medication and remote history of history of uterine cancer Pt states TERESITA with cough for a few days. Pt had negative Covid test yesterday. Patient presents because of dyspnea of one week duration associated with left upper chest pain, noncardiac in about 8/10 in severity. Patient says that her chest pain is worse with inhalation and feels like sharp yesterday. She denies coughing to me. She denies any GI or urinary symptoms. No headache dizziness weakness or numbness. She denies smoking, drinks alcohol occasionally and no illicit tracts Patient is afebrile, she is saturating 97% on room air Labs show an unremarkable CBC, INR 1.0. D-dimer elevated at 1.5. BMP is unremarkable. Liver enzymes not elevated. Troponin is negative. Appropriate ProBNP 2620 [place] virus, RSV and influenza virus is undetected chest x-ray:Opacity in the left upper lobe as well as right lung Which raise the suspicion for pneumonia with this catheter into station changes, I reviewed the chest x-ray by myself CTA of the chest: No pulmonary embolism. Bilateral multifocal groundglass opacity consistent with bilateral multifocal edema and/or acute infiltrates. Suspected chronic cystic changes in the left upper lobe. EKG: Normal sinus rhythm at [address]-T changes. Patient is a started on Levaquin and admitted with pulmonary team consult 06/23/2023 Patient states she is a little better regarding her breathing and her exertional dyspnea is also a little better when she went to the restroom today She denies chest pain or coughing. She has been a problem and she was placed on melatonin. Chest x-ray from yesterday showing similar changes when I reviewed it, radiologist thinks is slightly worse. Procalcitonin is -0.08 She remains on IV Levaquin 750 mg and normal saline 100 mL per hour June 24: I assumed care of the patient today. Negative bed. Tired. Oral thrush. Diflucan started. Decreased appetite. Dry cough. Short of breath. Seen by pulmonary Dr. Montejo. Trial of short course of IV Lasix. DC IV fluids. June 25: Slight improvement in shortness of breath with IV Lasix. Oral thrush-on Diflucan discussed with Dr. hair that about possible bronchoscopy-felt patient did not do well with the same. Discussed to start IV Solu-Medrol. Told the patient sit up on a chair use incentive spirometry more frequently. June 26: Getting IV Lasix. Some improvement in breathing. Still short of breath. Feels tightness in the chest. Bronchoscopy with lavage still under consideration.. Pulmonary following. Active Medications Acetam/Butalbital/Caffeine/Codeine (Buta/Apap/Caf/Cod [id number] Cap) 1 each PO Q6H PRN PRN Reason: Migraine Headache Last Admin: 06/26/23 14:01 Dose: 1 each Hydrocodone Bitart/Acetaminophen (Hydrocodone/Apap 10-325mg 1 Each Tab) 1 each PO Q6HR PRN PRN Reason: Pain Last Admin: 06/26/23 06:17 Dose: 1 each Albuterol/Ipratropium (Ipratropium-Albuterol 3 Ml Neb) 3 ml INHALATION RT-Q4H PRN PRN Reason: shortness of breath Last Admin: 06/22/23 08:31 Dose: 3 ml Alprazolam (Alprazolam 0.5 Mg Tab) 0.5 mg PO BID PRN PRN Reason: Anxiety Last Admin: 06/26/23 15:45 Dose: 0.5 mg Artificial Tears (Artificial Tears-Hypromellose Drops 15 Ml Btl) 1 drops BOTH EYES QID PRN PRN Reason: Dry Eye(s) Calcium Carbonate/Glycine (Calcium Carbonate 500 Mg Chewable) 500 mg PO QID PRN PRN Reason: GERD Last Admin: 06/24/23 05:10 Dose: 500 mg Famotidine (Famotidine 20 Mg Tab) 20 mg PO BID [facility] Last Admin: 06/26/23 09:48 Dose: 20 mg Fluconazole (Fluconazole 100 Mg Tab) 100 mg PO DAILY [facility]; Protocol Last Admin: 06/26/23 09:48 Dose: 100 mg Fluoxetine HCl (Fluoxetine Hcl 20 Mg Cap) 20 mg PO DAILY [facility] Last Admin: 06/26/23 09:48 Dose: 20 mg Fluoxetine HCl (Fluoxetine Hcl 20 Mg Cap) 40 mg PO DAILY [facility] Last Admin: 06/26/23 09:49 Dose: 40 mg Furosemide (Furosemide 10 Mg/Ml 2 Ml Vial) 20 mg IV Q12HR [facility] Last Admin: 06/26/23 09:48 Dose: 20 mg Heparin Sodium (Porcine) (Heparin Sodium,Porcine 5,000 Unit/Ml 1 Ml Vial) 5,000 unit SQ Q12HR [facility] Last Admin: 06/26/23 09:48 Dose: 5,000 unit Levofloxacin (Levofloxacin 500 Mg Tab) 500 mg PO Q24H [facility]; Protocol Last Admin: 06/26/23 09:49 Dose: 500 mg Methylprednisolone Sodium Succinate (Methylprednisolone Sod Succi 40 Mg/Ml 1 Ml Vial) 40 mg IV Q8HR [facility] Last Admin: 06/26/23 15:45 Dose: 40 mg Miscellaneous Information (Pneumonia Protocol Utilized 1 Each Misc) 1 each PO ONCE PRN PRN Reason: Per Protocol Systane Night Gel ( (Hypromellose 0.3%)) 1 applic LEFT EYE HS [facility] Last Admin: 06/25/23 21:58 Dose: 1 applic Nystatin (Nystatin 100,000 Unit/Gm Powd 15 Gm) 1 applic TOPICAL BID [facility]; Protocol Last Admin: 06/26/23 09:49 Dose: 1 applic Pramipexole Dihydrochloride (Pramipexole 0.25 Mg Tab) 0.25 mg PO HS [facility] Last Admin: 06/25/23 21:51 Dose: 0.25 mg Temazepam (Temazepam 15 Mg Cap) 15 mg PO HS PRN PRN Reason: Insomnia Last Admin: 06/25/23 22:06 Dose: 15 mg Trazodone HCl (Trazodone Hcl 50 Mg Tab) 50 mg PO HS PRN PRN Reason: Insomnia Last Admin: 06/23/23 21:01 Dose: 50 mg On examination: VITAL SIGNS: 97.4, 90, 18, 139/56, 96% room air GENERAL APPEARANCE: Up in a recliner HEENT: Normal external appearance of nose and ear. Oral cavity normal. White spots on the pharynx and tongue EYES: Pupils equal. Conjunctiva normal. NECK: JVD not raised. Mass not palpable. RESPIRATORY: Respiratory effort normal. Lungs basal crackles CARDIOVASCULAR: First and second sounds normal. No edema. ABDOMEN: Soft. Liver and spleen not palpable. No tenderness. No mass palpable. PSYCHIATRY: Alert and oriented x3. Mood and affect normal. INVESTIGATIONS, reviewed in the clinical context: June 25: Sodium 135 potassium 3.2 creatinine 0.49 White count 8.3 hemoglobin 12.1 potassium 4.8 creatinine 0.49 Procalcitonin 0.08 Influenza type A, B, urine Legionella antigen, RSV, COVID-19: Not detected 2-D echocardiogram: EF 55-60%. Moderate pulmonary hypertension. Moderate tricuspid regurgitation. Computed tomography cervical spine: Airspace consolidations right and upper lobes. Chest CTA: Bilateral multifocal groundglass opacities. Assessment and plan: -Bilateral multifocal pneumonia , could be viral Pulmonary following. Levaquin -Bilateral upper lobe opacity suspicious for chronic cystic changes in the left upper lobe. Follow with pulmonary -Secondary pulmonary hypertension -anxiety and depression Prozac -Oral candidiasis Diflucan -Acute fluid overload IV Lasix. -Chronic insomnia Trazodone Continue IV Lasix. IV Solu-Medrol. Levaquin. Follow with pulmonary. Discussed with patient.
[2023-06-26] MEDS: PRAMIPEXOLE 0.25 MG TAB PO SCH (20:09)
[2023-06-26] MEDS: TEMAZEPAM 15 MG CAP PO PRN (22:08)
[2023-06-26] MEDS: [UNRECOGNIZED DRUG - OTHER] LEFT EYE SCH (22:09)
[2023-06-26] MEDS: HYPROMELLOSE LEFT EYE SCH (22:09)
[2023-06-27] MEDS: methylPREDNISolone SOD SUCCI 40 MG/ML 1 ML VIAL IV SCH ×3 (00:19→17:27)
[2023-06-27] MEDS: HYDROcodone/APAP 10-325MG 1 EACH TAB PO PRN ×3 (06:26→22:12)
[2023-06-27 08:02] LABS: African American GFR (CKD) >90 (>60 ml/min/1.73 sqM); Anion Gap 8 mmol/L; Blood Urea Nitrogen 15 mg/dL (7-17); Calcium 8.5 mg/dL (8.4-10.2); Carbon Dioxide 28 mmol/L (22-30); Chloride 98 mmol/L (98-107); Glucose 151 mg/dL (74-99); Non-African American GFR(CKD) 82 (>60 ml/min/1.73 sqM); Potassium 3.6 mmol/L (3.5-5.1); Sodium 134 mmol/L (137-145)
[2023-06-27] MEDS: HEPARIN SODIUM,PORCINE 5,000 UNIT/ML 1 ML VIAL SQ SCH ×2 (08:49→21:37)
[2023-06-27] MEDS: FUROSEMIDE 10 MG/ML 2 ML VIAL IV SCH ×2 (08:49→21:17)
[2023-06-27] MEDS: FLUoxetine HCL 20 MG CAP PO SCH ×2 (08:50)
[2023-06-27] MEDS: FAMOTIDINE 20 MG TAB PO SCH ×2 (08:50→21:16)
[2023-06-27] MEDS: FLUCONAZOLE 100 MG TAB PO SCH (08:50)
[2023-06-27] MEDS: NYSTATIN 100,000 UNIT/GM POWD 15 GM TOPICAL SCH ×2 (08:51→21:07)
[2023-06-27] MEDS: LEVOFLOXACIN 500 MG TAB PO SCH (10:29)
[2023-06-27] MEDS ORDERED: PROCHLORPERAZINE INJ 10 MG/2 ML VIAL IVP PRN (11:42)
--- NOTE | 2023-06-27 13:16 | P.PN ---
Subjective Progress Note Date: 06/27/23 This is a 83-year-old female patient, residing at [facility], presented to the hospital because of worsening shortness of breath and cough. The patient chest x-ray showed a left lung pneumonia and following that the patient was given a computed tomography scan of the chest that showed extensive multifocal groundglass pulmonary opacity mainly in the left lung and the patient was diagnosed having bilateral pneumonia, hospitalized, started on antibiotics. She is known to have underlying COPD patient was treated by our services back in February 2024 and extensive right lung pneumonia from which the patient recovers. She is known to have COPD and she is an ex-smoker. She has previous history of uterine cancer and she has undergone hysterectomy. She is an ex-smoker. At this point in time, the patient is on oxygen at 2 L with a pulse ox of 94%. The patient has a white cell count of 8.3 with a hemoglobin of 12, BUN is at 12 with a creatinine of 0.4 and sodium level is at 131. The viral screen including Covid 19, influenza and RSV are all negative. D-dimer is at 1.56. The patient is currently on a combination of Levaquin and DuoNeb nebulized treatments [id number]. She is also on heparin subcu for DVT prophylaxis. On today's evaluation of 06/23/2023, no new complaints and the patient remains on Levaquin. Remains on oxygen at 2 L/m nasal cannula. No fever or chills. The pro-calcitonin level was low. BUN is at 12 with a creatinine of 0 point. D-dimer is at 1.56. The discomfort of 8.3 with a hemoglobin 12.1. The patient is seen today 06/24/2023 in follow-up on the regular medical floor. She is currently resting comfortably in bed. Awake and alert in no acute distre ss. She is maintaining O2 saturations at 3 L/m per nasal cannula. Her pro- calcitonin is 0.08. She has been on Levaquin. No new labs today. She did take a fall last evening. Computed tomography scan of the head revealed no acute intracranial hemorrhage, midline shift or mass effect. No acute fracture or subluxation of the cervical spine. Airspace consolidation in the right and left upper lobes were noted. She'll be given a trial of Lasix. The patient is seen today 06/25/2023 in follow-up on the regular medical floor. She is sitting up in a chair at the bedside. Awake and alert in no acute distress. She is maintaining good O2 saturations in the 90s on 3 L/m per nasal cannula. She's been afebrile. Hemodynamically stable. She is feeling a bit better today compared to yesterday. She states she feels she can breathe easier after her dose of Lasix and some extra voiding. Chest x-ray reveals worsening bilateral lung infiltrates. Pulmonary edema and pneumonia within the differe ntial. Pro-calcitonin was 0.08. Echocardiogram reveals preserved left ventricular systolic function. Moderate tricuspid regurg with moderate pulmonary hypertension. Sodium 135. Potassium 3.2. Bicarb 24. BUN 5. Creatinine 0.49. Legionella urine antigen was negative. She'll be continued on IV diuretics and antibiotics for now. The patient is seen today 06/26/2023 in follow-up on the regular medical floor. He is awake and alert in no acute distress. Sitting up in bed. Still with some loose nonproductive cough. She slept good. She states she is feeling better. He is maintaining good O2 saturations in the mid 90s on room air. Afebrile. Hemodynamically stable. Today's chest x-ray does show slight improvement scattered reticular infiltrates. [place] virus by PCR not detected. She remains on IV diuretics. Remains on bronchodilators. Remains on steroids. Antibiotics in the form of Levaquin. Continued on Diflucan. The patient is seen today 06/27/2023 in follow-up on the regular medical floor. She is awake and alert in no acute distress. Resting comfortably in bed. She continues to maintain saturations in the 90s on 2 L/m per nasal cannula. Afebrile. Hemodynamically stable. Sodium 134. Potassium 3.6. Bicarb 28. BUN 15. Creatinine 0.70. Glucose 151. She is continued on Lasix 20 mg IV every 12 hours. Continued on Levaquin, Diflucan, bronchodilators, steroids. Heparin for DVT prophylaxis. Objective - Vital Signs Vital signs: Vital Signs Temp 97.6 F 06/27/23 08:00 Pulse 84 06/27/23 08:00 Resp 18 06/27/23 08:00 BP 132/73 06/27/23 08:00 Pulse Ox 94 L 06/27/23 08:31 FiO2 Intake & Output 06/26/23 06/27/23 06/27/23 18:59 06:59 18:59 Other: Voiding Method Toilet # Voids 3 1 1 - Exam GENERAL: Awake, pleasant 83-year-old female, resting comfortably in bed, in no acute distress, on 2 L of oxygen by nasal cannula HEAD: Normocephalic. EYES: Normal reaction of pupils, equal size. NOSE: Clear with pink turbinates. THROAT: No erythema or exudates. NECK: No masses, no JVD. CHEST: No chest wall deformity. LUNGS: Equal air entry with few scattered rhonchi bilaterally. CVS: S1 and S2 normal with no audible murmur, regular rhythm. ABDOMEN: No hepatosplenomegaly, normal bowel sounds, no guarding or rigidity. SPINE: No scoliosis or deformity SKIN: No rashes CENTRAL NERVOUS SYSTEM: No focal deficits, tone is normal in all 4 extremities. EXTREMITIES: There is no peripheral edema. No clubbing, no cyanosis. Peripheral pulses are intact. - Labs CBC & Chem 7: 06/22/23 07:19 06/27/23 07:01 Labs: Abnormal Lab Results - Last 24 Hours (Table) 06/27/23 Range/Units 07:01 Sodium 134 L (137-145) mmol/L Glucose 151 H (74-99) mg/dL Assessment and Plan Assessment: Bilateral pneumonia with extensive groundglass pulmonary infiltrates involving the left lung with predominance of the left upper lobe. Consider atypical pneumonia. Suspect a viral pneumonia. Legionella ruled out. The patient's pro- calcitonin level was low. Interstitial edema/CHF cannot be completely ruled out. Repeat COVID-19 screen negative. Follow-up chest x-ray showing slight improvement. Trialed on diuretics as well. History of CoVID pneumonitis approximately 3 years ago COPD Acute hypoxic respiratory failure secondary to above History of uterine cancer History of chronic anxiety/depression Plan: Medications and labs reviewed Continue with diuretics, antibiotics, steroids Titrate the FiO2 as tolerated We will continue to follow I have personally seen and examined the patient, performed the documentation and the assessment and plan as written. Number of minutes spent on the visit: 10.
[2023-06-27 14:12] VITALS: BMI 24.9
[2023-06-27] MEDS: BUTA/APAP/CAF/COD 50-325-40-30 CAP PO PRN (18:13)
[2023-06-27] MEDS: PRAMIPEXOLE 0.25 MG TAB PO SCH (21:16)
[2023-06-27] MEDS: TEMAZEPAM 15 MG CAP PO PRN (21:17)
--- NOTE | 2023-06-27 22:45 | P.PN ---
Progress Note - Text Progress Note Date: 06/27/23 This is a pleasant 83 years old female with past medical history of anxiety and depression on medication and remote history of history of uterine cancer Pt states TERESITA with cough for a few days. Pt had negative Covid test yesterday. Patient presents because of dyspnea of one week duration associated with left upper chest pain, noncardiac in about 8/10 in severity. Patient says that her chest pain is worse with inhalation and feels like sharp yesterday. She denies coughing to me. She denies any GI or urinary symptoms. No headache dizziness weakness or numbness. She denies smoking, drinks alcohol occasionally and no illicit tracts Patient is afebrile, she is saturating 97% on room air Labs show an unremarkable CBC, INR 1.0. D-dimer elevated at 1.5. BMP is unremarkable. Liver enzymes not elevated. Troponin is negative. Appropriate ProBNP 2620 [place] virus, RSV and influenza virus is undetected chest x-ray:Opacity in the left upper lobe as well as right lung Which raise the suspicion for pneumonia with this catheter into station changes, I reviewed the chest x-ray by myself CTA of the chest: No pulmonary embolism. Bilateral multifocal groundglass opacity consistent with bilateral multifocal edema and/or acute infiltrates. Suspected chronic cystic changes in the left upper lobe. EKG: Normal sinus rhythm at [address]-T changes. Patient is a started on Levaquin and admitted with pulmonary team consult 06/23/2023 Patient states she is a little better regarding her breathing and her exertional dyspnea is also a little better when she went to the restroom today She denies chest pain or coughing. She has been a problem and she was placed on melatonin. Chest x-ray from yesterday showing similar changes when I reviewed it, radiologist thinks is slightly worse. Procalcitonin is -0.08 She remains on IV Levaquin 750 mg and normal saline 100 mL per hour June 24: I assumed care of the patient today. Negative bed. Tired. Oral thrush. Diflucan started. Decreased appetite. Dry cough. Short of breath. Seen by pulmonary Dr. Montejo. Trial of short course of IV Lasix. DC IV fluids. June 25: Slight improvement in shortness of breath with IV Lasix. Oral thrush-on Diflucan discussed with Dr. hair that about possible bronchoscopy-felt patient did not do well with the same. Discussed to start IV Solu-Medrol. Told the patient sit up on a chair use incentive spirometry more frequently. June 26: Getting IV Lasix. Some improvement in breathing. Still short of breath. Feels tightness in the chest. Bronchoscopy with lavage still under consideration.. Pulmonary following. June 27: Breathing a bit better. Did walk better. Remains on IV Lasix. He followed by pulmonary. On Levaquin. No plan for bronchoscopy lavage per pulmonary. Active Medications Acetam/Butalbital/Caffeine/Codeine (Buta/Apap/Caf/Cod [id number] Cap) 1 each PO Q6H PRN PRN Reason: Migraine Headache Last Admin: 06/27/23 18:13 Dose: 1 each Hydrocodone Bitart/Acetaminophen (Hydrocodone/Apap 10-325mg 1 Each Tab) 1 each PO Q6HR PRN PRN Reason: Pain Last Admin: 06/27/23 22:12 Dose: 1 each Albuterol/Ipratropium (Ipratropium-Albuterol 3 Ml Neb) 3 ml INHALATION RT-Q4H PRN PRN Reason: shortness of breath Last Admin: 06/22/23 08:31 Dose: 3 ml Alprazolam (Alprazolam 0.5 Mg Tab) 0.5 mg PO BID PRN PRN Reason: Anxiety Last Admin: 06/26/23 15:45 Dose: 0.5 mg Artificial Tears (Artificial Tears-Hypromellose Drops 15 Ml Btl) 1 drops BOTH EYES QID PRN PRN Reason: Dry Eye(s) Calcium Carbonate/Glycine (Calcium Carbonate 500 Mg Chewable) 500 mg PO QID PRN PRN Reason: GERD Last Admin: 06/24/23 05:10 Dose: 500 mg Famotidine (Famotidine 20 Mg Tab) 20 mg PO BID CODY Last Admin: 06/27/23 21:16 Dose: 20 mg Fluconazole (Fluconazole 100 Mg Tab) 100 mg PO DAILY [facility]; Protocol Last Admin: 06/27/23 08:50 Dose: 100 mg Fluoxetine HCl (Fluoxetine Hcl 20 Mg Cap) 20 mg PO DAILY [facility] Last Admin: 06/27/23 08:50 Dose: 20 mg Fluoxetine HCl (Fluoxetine Hcl 20 Mg Cap) 40 mg PO DAILY [facility] Last Admin: 06/27/23 08:50 Dose: 40 mg Furosemide (Furosemide 10 Mg/Ml 2 Ml Vial) 20 mg IV Q12HR [facility] Last Admin: 06/27/23 21:17 Dose: 20 mg Heparin Sodium (Porcine) (Heparin Sodium,Porcine 5,000 Unit/Ml 1 Ml Vial) 5,000 unit SQ Q12HR [facility] Last Admin: 06/27/23 21:37 Dose: 5,000 unit Levofloxacin (Levofloxacin 500 Mg Tab) 500 mg PO Q24H [facility]; Protocol Last Admin: 06/27/23 10:29 Dose: 500 mg Methylprednisolone Sodium Succinate (Methylprednisolone Sod Succi 40 Mg/Ml 1 Ml Vial) 40 mg IV Q12H [facility] Miscellaneous Information (Pneumonia Protocol Utilized 1 Each Misc) 1 each PO ONCE PRN PRN Reason: Per Protocol Systane Night Gel ( (Hypromellose 0.3%)) 1 applic LEFT EYE HS [facility] Last Admin: 06/26/23 22:09 Dose: 1 applic Nystatin (Nystatin 100,000 Unit/Gm Powd 15 Gm) 1 applic TOPICAL BID CODY; P rotocol Last Admin: 06/27/23 21:07 Dose: Not Given Pramipexole Dihydrochloride (Pramipexole 0.25 Mg Tab) 0.25 mg PO HS [facility] Last Admin: 06/27/23 21:16 Dose: 0.25 mg Prochlorperazine Edisylate (Prochlorperazine Inj 10 Mg/2 Ml Vial) 5 mg IVP Q8HR PRN PRN Reason: Nausea And Vomiting Last Admin: 06/27/23 12:23 Dose: 5 mg Temazepam (Temazepam 15 Mg Cap) 15 mg PO HS PRN PRN Reason: Insomnia Last Admin: 06/27/23 21:17 Dose: 15 mg Trazodone HCl (Trazodone Hcl 50 Mg Tab) 50 mg PO HS PRN PRN Reason: Insomnia Last Admin: 06/23/23 21:01 Dose: 50 mg On examination: VITAL SIGNS: 98.4, 87, 16, 145-69, 96% on 2 L GENERAL APPEARANCE: Up in a recliner HEENT: Normal external appearance of nose and ear. Oral cavity normal. White spots on the pharynx and tongue EYES: Pupils equal. Conjunctiva normal. NECK: JVD not raised. Mass not palpable. RESPIRATORY: Respiratory effort normal. Lungs decreased breath sounds CARDIOVASCULAR: First and second sounds normal. No edema. ABDOMEN: Soft. Liver and spleen not palpable. No tenderness. No mass palpable. PSYCHIATRY: Alert and oriented x3. Mood and affect normal. INVESTIGATIONS, reviewed in the clinical context: June 27: Potassium 3.6 creatinine 0.7 June 25: Sodium 135 potassium 3.2 creatinine 0.49 White count 8.3 hemoglobin 12.1 potassium 4.8 creatinine 0.49 Procalcitonin 0.08 Influenza type A, B, urine Legionella antigen, RSV, COVID-19: Not detected 2-D echocardiogram: EF 55-60%. Moderate pulmonary hypertension. Moderate tricuspid regurgitation. Computed tomography cervical spine: Airspace consolidations right and upper lobes. Chest CTA: Bilateral multifocal groundglass opacities. Assessment and plan: -Bilateral multifocal pneumonia , could be viral: Some improvement Pulmonary following. Levaquin -Bilateral upper lobe opacity suspicious for chronic cystic changes in the left upper lobe. Follow with pulmonary -Secondary pulmonary hypertension -anxiety and depression Prozac -Oral candidiasis Diflucan -Acute fluid overload IV Lasix. -Chronic insomnia Trazodone Continue IV Lasix. IV Solu-Medrol. Levaquin. No bronchoscopy with lavage per pulmonary. Check proBNP/procalcitonin.
[2023-06-28] MEDS: BUTA/APAP/CAF/COD 50-325-40-30 CAP PO PRN ×2 (01:02→21:21)
[2023-06-28] MEDS: methylPREDNISolone SOD SUCCI 40 MG/ML 1 ML VIAL IV SCH ×3 (01:02→17:10)
[2023-06-28] MEDS: ALPRAZolam 0.5 MG TAB PO PRN ×2 (01:04→23:42)
[2023-06-28] MEDS: HYPROMELLOSE LEFT EYE SCH ×2 (01:04→23:43)
[2023-06-28] MEDS: [UNRECOGNIZED DRUG - OTHER] LEFT EYE SCH ×2 (01:04→23:43)
--- NOTE | 2023-06-28 07:33 | XR ---
EXAMINATION TYPE: XR chest 1V portable DATE OF EXAM: 06/28/2023 COMPARISON: 06/26/2023 INDICATION: Pneumonia TECHNIQUE: Single frontal view of the chest is obtained. FINDINGS: The heart size is normal. The pulmonary vasculature is normal. Diffuse increased lung markings are present. Findings are improving from comparison. Pneumonia, atypi jules pneumonia and pulmonary fibrosis could be considered within the differential. IMPRESSION: 1. Improving diffuse lung markings.
[2023-06-28 07:55] LABS: Basophils % (A) 0 %; Eosinophils % (A) 0 %; HCT 39.4 % (34.0-46.0); HGB 12.4 gm/dL (11.4-16.0); Lymphocytes % (A) 10 %; MCH 33.8 pg (25.0-35.0); MCHC 31.5 g/dL (31.0-37.0); MCV 107.1 fL (80.0-100.0); Macrocytosis Moderate; Mean Platelet Volume 7.8; Monocytes # (A) 0.3 k/uL (0-1.0); Monocytes % (A) 3 %; Neutrophils # (A) 8.2 k/uL (1.3-7.7); Neutrophils % (A) 86 %; Platelet Count 511 k/uL (150-450); RBC 3.68 m/uL (3.80-5.40); RDW 11.9 % (11.5-15.5); WBC 9.5 k/uL (3.8-10.6)
[2023-06-28] MEDS: HYDROcodone/APAP 10-325MG 1 EACH TAB PO PRN ×2 (08:04→14:07)
[2023-06-28] MEDS: LEVOFLOXACIN 500 MG TAB PO SCH (08:05)
[2023-06-28] MEDS: FUROSEMIDE 10 MG/ML 2 ML VIAL IV SCH ×2 (08:06→21:22)
[2023-06-28] MEDS: FLUoxetine HCL 20 MG CAP PO SCH ×2 (08:06)
[2023-06-28] MEDS: FLUCONAZOLE 100 MG TAB PO SCH (08:06)
[2023-06-28] MEDS: FAMOTIDINE 20 MG TAB PO SCH ×2 (08:06→21:22)
[2023-06-28] MEDS: HEPARIN SODIUM,PORCINE 5,000 UNIT/ML 1 ML VIAL SQ SCH ×2 (08:07→21:22)
[2023-06-28 08:10] LABS: African American GFR (CKD) 83 (>60 ml/min/1.73 sqM); Anion Gap 7 mmol/L; Blood Urea Nitrogen 20 mg/dL (7-17); Calcium 8.7 mg/dL (8.4-10.2); Carbon Dioxide 32 mmol/L (22-30); Chloride 96 mmol/L (98-107); Glucose 141 mg/dL (74-99); Non-African American GFR(CKD) 72 (>60 ml/min/1.73 sqM); Sodium 135 mmol/L (137-145)
[2023-06-28 08:14] LABS: NT-Pro-B-Type Natriuretic Pept 2850 pg/mL
[2023-06-28] MEDS ORDERED: methylPREDNISolone SOD SUCCI 40 MG/ML 1 ML VIAL IV SCH (09:00)
--- NOTE | 2023-06-28 11:48 | P.PN ---
Subjective Progress Note Date: 06/28/23 This is a 83-year-old female patient, residing at [facility], presented to the hospital because of worsening shortness of breath and cough. The patient chest x-ray showed a left lung pneumonia and following that the patient was given a computed tomography scan of the chest that showed extensive multifocal groundglass pulmonary opacity mainly in the left lung and the patient was diagnosed having bilateral pneumonia, hospitalized, started on antibiotics. She is known to have underlying COPD patient was treated by our services back in February 2024 and extensive right lung pneumonia from which the patient recovers. She is known to have COPD and she is an ex-smoker. She has previous history of uterine cancer and she has undergone hysterectomy. She is an ex-smoker. At this point in time, the patient is on oxygen at 2 L with a pulse ox of 94%. The patient has a white cell count of 8.3 with a hemoglobin of 12, BUN is at 12 with a creatinine of 0.4 and sodium level is at 131. The viral screen including Covid 19, influenza and RSV are all negative. D-dimer is at 1.56. The patient is currently on a combination of Levaquin and DuoNeb nebulized treatments [id number]. She is also on heparin subcu for DVT prophylaxis. On today's evaluation of 06/23/2023, no new complaints and the patient remains on Levaquin. Remains on oxygen at 2 L/m nasal cannula. No fever or chills. The pro-calcitonin level was low. BUN is at 12 with a creatinine of 0 point. D-dimer is at 1.56. The discomfort of 8.3 with a hemoglobin 12.1. The patient is seen today 06/24/2023 in follow-up on the regular medical floor. She is currently resting comfortably in bed. Awake and alert in no acute distre ss. She is maintaining O2 saturations at 3 L/m per nasal cannula. Her pro- calcitonin is 0.08. She has been on Levaquin. No new labs today. She did take a fall last evening. Computed tomography scan of the head revealed no acute intracranial hemorrhage, midline shift or mass effect. No acute fracture or subluxation of the cervical spine. Airspace consolidation in the right and left upper lobes were noted. She'll be given a trial of Lasix. The patient is seen today 06/25/2023 in follow-up on the regular medical floor. She is sitting up in a chair at the bedside. Awake and alert in no acute distress. She is maintaining good O2 saturations in the 90s on 3 L/m per nasal cannula. She's been afebrile. Hemodynamically stable. She is feeling a bit better today compared to yesterday. She states she feels she can breathe easier after her dose of Lasix and some extra voiding. Chest x-ray reveals worsening bilateral lung infiltrates. Pulmonary edema and pneumonia within the differe ntial. Pro-calcitonin was 0.08. Echocardiogram reveals preserved left ventricular systolic function. Moderate tricuspid regurg with moderate pulmonary hypertension. Sodium 135. Potassium 3.2. Bicarb 24. BUN 5. Creatinine 0.49. Legionella urine antigen was negative. She'll be continued on IV diuretics and antibiotics for now. The patient is seen today 06/26/2023 in follow-up on the regular medical floor. He is awake and alert in no acute distress. Sitting up in bed. Still with some loose nonproductive cough. She slept good. She states she is feeling better. He is maintaining good O2 saturations in the mid 90s on room air. Afebrile. Hemodynamically stable. Today's chest x-ray does show slight improvement scattered reticular infiltrates. [place] virus by PCR not detected. She remains on IV diuretics. Remains on bronchodilators. Remains on steroids. Antibiotics in the form of Levaquin. Continued on Diflucan. The patient is seen today 06/27/2023 in follow-up on the regular medical floor. She is awake and alert in no acute distress. Resting comfortably in bed. She continues to maintain saturations in the 90s on 2 L/m per nasal cannula. Afebrile. Hemodynamically stable. Sodium 134. Potassium 3.6. Bicarb 28. BUN 15. Creatinine 0.70. Glucose 151. She is continued on Lasix 20 mg IV every 12 hours. Continued on Levaquin, Diflucan, bronchodilators, steroids. Heparin for DVT prophylaxis. The patient is seen today 06/28/2023 in follow-up on the regular medical floor. She is currently resting comfortably in bed. Awake and alert in no acute distress. She was having some issues with hoarseness. No evidence of oral candidiasis. She is maintaining O2 saturations in the 90s on 2 L nasal cannula. Afebrile. Hemodynamically stable. Chest x-ray continues to show improving diffuse lung markings. White count 9.5. Hemoglobin 12.4. Sodium 135. Potassium 4.0. Bicarb 32. BUN 20. Creatinine 0.78. Glucose 141. ProBNP 2850. Pro-calcitonin 0.06. She is continued on IV diuretics. Antibiotics in the form of Levaquin. Heparin for DVT prophylaxis. Objective - Vital Signs Vital signs: Vital Signs Temp 97.7 F 06/28/23 07:47 Pulse 76 06/28/23 07:47 Resp 15 06/28/23 07:47 BP 146/76 06/28/23 07:47 Pulse Ox 94 L 06/28/23 07:47 FiO2 Intake & Output 06/27/23 06/28/23 06/28/23 18:59 06:59 18:59 Weight 65.771 kg Other: Voiding Method Toilet # Voids 1 2 - Exam GENERAL: Awake, alert 83-year-old female, no acute distress, on 2 L of oxygen by nasal cannula HEAD: Normocephalic. EYES: Normal reaction of pupils, equal size. NOSE: Clear with pink turbinates. THROAT: Hoarseness but no erythema or exudates. NECK: No masses, no JVD. CHEST: No chest wall deformity. LUNGS: Equal air entry with few scattered rhonchi bilaterally. CVS: S1 and S2 normal with no audible murmur, regular rhythm. ABDOMEN: No hepatosplenomegaly, normal bowel sounds, no guarding or rigidity. SPINE: No scoliosis or deformity SKIN: No rashes CENTRAL NERVOUS SYSTEM: No focal deficits, tone is normal in all 4 extremities. EXTREMITIES: There is no peripheral edema. No clubbing, no cyanosis. Peripheral pulses are intact. - Labs CBC & Chem 7: 06/28/23 07:00 06/28/23 07:00 Labs: Abnormal Lab Results - Last 24 Hours (Table) 06/28/23 06/28/23 Range/Units 07:00 07:00 RBC 3.68 L (3.80-5.40) m/uL MCV 107.1 H (80.0-100.0) fL Plt Count 511 H (150-450) k/uL Neutrophils # 8.2 H (1.3-7.7) k/uL Sodium 135 L (137-145) mmol/L Chloride 96 L (98-107) mmol/L Carbon Dioxide 32 H (22-30) mmol/L BUN 20 H (7-17) mg/dL Glucose 141 H (74-99) mg/dL Assessment and Plan Assessment: Bilateral pneumonia with extensive groundglass pulmonary infiltrates involving the left lung with predominance of the left upper lobe. Consider atypical pneumonia. Suspect a viral pneumonia. Legionella ruled out. Interstitial edema/CHF cannot be completely ruled out. Repeat COVID-19 screen negative. Today's follow-up chest x-ray continues to show improvement. Trialed on diuretics as well. ProBNP 2850. Procalcitonin 0.06. History of CoVID pneumonitis approximately 3 years ago COPD Acute hypoxic respiratory failure secondary to above History of uterine cancer History of chronic anxiety/depression Plan: Chest x-ray, medications and labs reviewed X-ray continues to show improvement Continue with diuretics, antibiotics, steroids Titrate the FiO2 as tolerated Increase her activity as to follow We will continue to follow I have personally seen and examined the patient, performed the documentation and the assessment and plan as written. Number of minutes spent on the visit: 10.
--- NOTE | 2023-06-28 13:29 | P.PN ---
Subjective Progress Note Date: 06/28/23 This is a pleasant 83 years old female with past medical history of anxiety and depression on medication and remote history of history of uterine cancer Pt states TERESITA with cough for a few days. Pt had negative Covid test yesterday. Patient presents because of dyspnea of one week duration associated with left upper chest pain, noncardiac in about 8/10 in severity. Patient says that her chest pain is worse with inhalation and feels like sharp yesterday. She denies coughing to me. She denies any GI or urinary symptoms. No headache dizziness weakness or numbness. She denies smoking, drinks alcohol occasionally and no illicit tracts Patient is afebrile, she is saturating 97% on room air Labs show an unremarkable CBC, INR 1.0. D-dimer elevated at 1.5. BMP is unremarkable. Liver enzymes not elevated. Troponin is negative. Appropriate ProBNP 2620 [place] virus, RSV and influenza virus is undetected chest x-ray:Opacity in the left upper lobe as well as right lung Which raise the suspicion for pneumonia with this catheter into station changes, I reviewed the chest x-ray by myself CTA of the chest: No pulmonary embolism. Bilateral multifocal groundglass opacity consistent with bilateral multifocal edema and/or acute infiltrates. Suspected chronic cystic changes in the left upper lobe. EKG: Normal sinus rhythm at [address]-T changes. Patient is a started on Levaquin and admitted with pulmonary team consult 06/23/2023 Patient states she is a little better regarding her breathing and her exertional dyspnea is also a little better when she went to the restroom today She denies chest pain or coughing. She has been a problem and she was placed on melatonin. Chest x-ray from yesterday showing similar changes when I reviewed it, radiologist thinks is slightly worse. Procalcitonin is -0.08 She remains on IV Levaquin 750 mg and normal saline 100 mL per hour June 24: I assumed care of the patient today. Negative bed. Tired. Oral thrush. Diflucan started. Decreased appetite. Dry cough. Short of breath. Seen by pulmonary Dr. Montejo. Trial of short course of IV Lasix. DC IV fluids. June 25: Slight improvement in shortness of breath with IV Lasix. Oral thrush-on Diflucan discussed with Dr. friedman that about possible bronchoscopy-felt patient did not do well with the same. Discussed to start IV Solu-Medrol. Told the patient sit up on a chair use incentive spirometry more frequently. June 26: Getting IV Lasix. Some improvement in breathing. Still short of breath. Feels tightness in the chest. Bronchoscopy with lavage still under consideration.. Pulmonary following. June 27: Breathing a bit better. Did walk better. Remains on IV Lasix. He followed by pulmonary. On Levaquin. No plan for bronchoscopy lavage per pulmonary. 06/28. Patient seen and examined. Blood work done this morning showed W7.5, hemoglobin 12.4, crit, 511, sodium 135, potassium 4, BUN 20, creatinine 0.78. Still complaining of shortness of breath on exertion. Currently on 2 L of oxygen REVIEW OF SYSTEMS: CONSTITUTIONAL: No fever, no malaise,. CARDIOVASCULAR: No chest pain, no palpitations, no syncope. PULMONARY: As mentioned above GASTROINTESTINAL: No diarrhea, no nausea, no vomiting, no abdominal pain. NEUROLOGICAL: No headaches, no weakness, PHYSICAL EXAMINATION: GENERAL: The patient is alert and oriented x3, not in any acute distress. Well developed, well nourished. HEENT: Pupils are round and equally reacting to light. EOMI. No scleral icterus. No conjunctival pallor. Normocephalic, atraumatic. No pharyngeal erythema. No thyromegaly. CARDIOVASCULAR: S1 and S2 present. No murmurs, rubs, or gallops. PULMONARY: Chest is clear to auscultation, no wheezing or crackles. ABDOMEN: Soft, nontender, nondistended, normoactive bowel sounds. No palpable organomegaly. MUSCULOSKELETAL: No joint swelling or deformity. EXTREMITIES: No cyanosis, clubbing, or pedal edema. NEUROLOGICAL: Gross neurological examination did not reveal any focal deficits. SKIN: No rashes. Assessment and plan -Bilateral multifocal pneumonia -Bilateral upper lobe opacity suspicious for chronic cystic changes in the left upper lobe. COPD Acute hypoxic respiratory failure Secondary pulmonary hypertension anxiety and depression Oral candidiasis Acute fluid overload Chronic insomnia Monitor vital signs Monitor CBC Monitor CMP Continue telemetry monitoring Encourage use of incentive spirometer Continue oxygen supplementation Strict I's and O's daily weights, continue IV Lasix 20 mg every 12 Continue Levaquin continue IV steroids Continue breathing treatments Pulmonology following Labs and medication were reviewed.. Continue same treatment. Continue with symptomatic treatment. Resume home medication. Monitor labs and vitals. DVT and GI prophylaxis. Further recommendations as per clinical course of the patient Dictation was produced using [employer] dictation software. please excuse any grammatical, word or spelling errors. Objective - Vital Signs Vital signs: Vital Signs Temp 97.7 F 06/28/23 07:47 Pulse 76 06/28/23 07:47 Resp 15 06/28/23 07:47 BP 146/76 06/28/23 07:47 Pulse Ox 94 L 06/28/23 07:47 FiO2 Intake & Output 06/27/23 06/28/23 06/28/23 18:59 06:59 18:59 Weight 65.771 kg Other: Voiding Method Toilet # Voids 1 2 - Labs CBC & Chem 7: 06/28/23 07:00 06/28/23 07:00 Labs: Abnormal Lab Results - Last 24 Hours (Table) 06/28/23 06/28/23 Range/Units 07:00 07:00 RBC 3.68 L (3.80-5.40) m/uL MCV 107.1 H (80.0-100.0) fL Plt Count 511 H (150-450) k/uL Neutrophils # 8.2 H (1.3-7.7) k/uL Sodium 135 L (137-145) mmol/L Chloride 96 L (98-107) mmol/L Carbon Dioxide 32 H (22-30) mmol/L BUN 20 H (7-17) mg/dL Glucose 141 H (74-99) mg/dL
[2023-06-28] MEDS: NYSTATIN 100,000 UNIT/GM POWD 15 GM TOPICAL SCH ×2 (14:08→22:28)
[2023-06-28] MEDS: TEMAZEPAM 15 MG CAP PO PRN (21:20)
[2023-06-28] MEDS: PRAMIPEXOLE 0.25 MG TAB PO SCH (21:22)
[2023-06-28] MEDS: NYSTATIN 100,000 UNIT/ML SUSP 500,000 UNIT/5 ML CUP PO SCH (22:45)
[2023-06-29] MEDS: methylPREDNISolone SOD SUCCI 40 MG/ML 1 ML VIAL IV SCH ×2 (00:31→08:53)
[2023-06-29] MEDS: FLUoxetine HCL 20 MG CAP PO SCH ×2 (08:51)
[2023-06-29] MEDS: FLUCONAZOLE 100 MG TAB PO SCH (08:52)
[2023-06-29] MEDS: FUROSEMIDE 10 MG/ML 2 ML VIAL IV SCH ×2 (08:52→19:56)
[2023-06-29] MEDS: FAMOTIDINE 20 MG TAB PO SCH ×2 (08:52→19:56)
[2023-06-29] MEDS: NYSTATIN 100,000 UNIT/ML SUSP 500,000 UNIT/5 ML CUP PO SCH ×4 (08:52→19:55)
[2023-06-29] MEDS: HEPARIN SODIUM,PORCINE 5,000 UNIT/ML 1 ML VIAL SQ SCH ×2 (08:52→19:55)
[2023-06-29] MEDS: LEVOFLOXACIN 500 MG TAB PO SCH (08:52)
[2023-06-29] MEDS: NYSTATIN 100,000 UNIT/GM POWD 15 GM TOPICAL SCH ×2 (08:54→22:04)
[2023-06-29] MEDS: HYDROcodone/APAP 10-325MG 1 EACH TAB PO PRN ×2 (08:58→23:31)
--- NOTE | 2023-06-29 12:40 | P.PN ---
Subjective Progress Note Date: 06/29/23 This is a pleasant 83 years old female with past medical history of anxiety and depression on medication and remote history of history of uterine cancer Pt states TERESITA with cough for a few days. Pt had negative Covid test yesterday. Patient presents because of dyspnea of one week duration associated with left upper chest pain, noncardiac in about 8/10 in severity. Patient says that her chest pain is worse with inhalation and feels like sharp yesterday. She denies coughing to me. She denies any GI or urinary symptoms. No headache dizziness weakness or numbness. She denies smoking, drinks alcohol occasionally and no illicit tracts Patient is afebrile, she is saturating 97% on room air Labs show an unremarkable CBC, INR 1.0. D-dimer elevated at 1.5. BMP is unremarkable. Liver enzymes not elevated. Troponin is negative. Appropriate ProBNP 2620 [place] virus, RSV and influenza virus is undetected chest x-ray:Opacity in the left upper lobe as well as right lung Which raise the suspicion for pneumonia with this catheter into station changes, I reviewed the chest x-ray by myself CTA of the chest: No pulmonary embolism. Bilateral multifocal groundglass opacity consistent with bilateral multifocal edema and/or acute infiltrates. Suspected chronic cystic changes in the left upper lobe. EKG: Normal sinus rhythm at [address]-T changes. Patient is a started on Levaquin and admitted with pulmonary team consult 06/23/2023 Patient states she is a little better regarding her breathing and her exertional dyspnea is also a little better when she went to the restroom today She denies chest pain or coughing. She has been a problem and she was placed on melatonin. Chest x-ray from yesterday showing similar changes when I reviewed it, radiologist thinks is slightly worse. Procalcitonin is -0.08 She remains on IV Levaquin 750 mg and normal saline 100 mL per hour June 24: I assumed care of the patient today. Negative bed. Tired. Oral thrush. Diflucan started. Decreased appetite. Dry cough. Short of breath. Seen by pulmonary Dr. Montejo. Trial of short course of IV Lasix. DC IV fluids. June 25: Slight improvement in shortness of breath with IV Lasix. Oral thrush-on Diflucan discussed with Dr. friedman that about possible bronchoscopy-felt patient did not do well with the same. Discussed to start IV Solu-Medrol. Told the patient sit up on a chair use incentive spirometry more frequently. June 26: Getting IV Lasix. Some improvement in breathing. Still short of breath. Feels tightness in the chest. Bronchoscopy with lavage still under consideration.. Pulmonary following. June 27: Breathing a bit better. Did walk better. Remains on IV Lasix. He followed by pulmonary. On Levaquin. No plan for bronchoscopy lavage per pulmonary. 06/28. Patient seen and examined. Blood work done this morning showed W7.5, hemoglobin 12.4, crit, 511, sodium 135, potassium 4, BUN 20, creatinine 0.78. Still complaining of shortness of breath on exertion. Currently on 2 L of oxygen 06/29. Patient seen and examined. Still complaining of hoarseness of voice, still feels that she is not ready to go home today. Gets short of breath on exertion REVIEW OF SYSTEMS: CONSTITUTIONAL: No fever, no malaise,. CARDIOVASCULAR: No chest pain, no palpitations, no syncope. PULMONARY: As mentioned above GASTROINTESTINAL: No diarrhea, no nausea, no vomiting, no abdominal pain. NEUROLOGICAL: No headaches, no weakness, PHYSICAL EXAMINATION: GENERAL: The patient is alert and oriented x3, not in any acute distress. Well developed, well nourished. HEENT: Pupils are round and equally reacting to light. EOMI. No scleral icterus. No conjunctival pallor. Normocephalic, atraumatic. No pharyngeal erythema. No thyromegaly. CARDIOVASCULAR: S1 and S2 present. No murmurs, rubs, or gallops. PULMONARY: Chest is clear to auscultation, no wheezing or crackles. ABDOMEN: Soft, nontender, nondistended, normoactive bowel sounds. No palpable organomegaly. MUSCULOSKELETAL: No joint swelling or deformity. EXTREMITIES: No cyanosis, clubbing, or pedal edema. NEUROLOGICAL: Gross neurological examination did not reveal any focal deficits. SKIN: No rashes. Assessment and plan -Bilateral multifocal pneumonia -Bilateral upper lobe opacity suspicious for chronic cystic changes in the left upper lobe. COPD Acute hypoxic respiratory failure Secondary pulmonary hypertension anxiety and depression Oral candidiasis Acute fluid overload Chronic insomnia Monitor vital signs Monitor CBC Monitor CMP Continue telemetry monitoring Encourage use of incentive spirometer Continue oxygen supplementation Strict I's and O's daily weights, continue IV Lasix 20 mg every 12 Continue Levaquin Continue Diflucan continue IV steroids Continue breathing treatments Pulmonology following Labs and medication were reviewed.. Continue same treatment. Continue with symptomatic treatment. Resume home medication. Monitor labs and vitals. DVT and GI prophylaxis. Further recommendations as per clinical course of the patient Dictation was produced using [employer] dictation software. please excuse any gramma tical, word or spelling errors. Objective - Vital Signs Vital signs: Vital Signs Temp 97.6 F 06/29/23 07:20 Pulse 84 06/29/23 07:20 Resp 18 06/29/23 07:20 BP 147/67 06/29/23 07:20 Pulse Ox 95 06/29/23 08:16 FiO2 Intake & Output 06/28/23 06/29/23 06/29/23 18:59 06:59 18:59 Other: # Voids 3 1 - Labs CBC & Chem 7: 06/28/23 07:00 06/28/23 07:00
--- NOTE | 2023-06-29 12:41 | P.PN ---
Subjective Progress Note Date: 06/29/23 This is a 83-year-old female patient, residing at [facility], presented to the hospital because of worsening shortness of breath and cough. The patient chest x-ray showed a left lung pneumonia and following that the patient was given a computed tomography scan of the chest that showed extensive multifocal groundglass pulmonary opacity mainly in the left lung and the patient was diagnosed having bilateral pneumonia, hospitalized, started on antibiotics. She is known to have underlying COPD patient was treated by our services back in February 2024 and extensive right lung pneumonia from which the patient recovers. She is known to have COPD and she is an ex-smoker. She has previous history of uterine cancer and she has undergone hysterectomy. She is an ex-smoker. At this point in time, the patient is on oxygen at 2 L with a pulse ox of 94%. The patient has a white cell count of 8.3 with a hemoglobin of 12, BUN is at 12 with a creatinine of 0.4 and sodium level is at 131. The viral screen including Covid 19, influenza and RSV are all negative. D-dimer is at 1.56. The patient is currently on a combination of Levaquin and DuoNeb nebulized treatments [id number]. She is also on heparin subcu for DVT prophylaxis. On today's evaluation of 06/23/2023, no new complaints and the patient remains on Levaquin. Remains on oxygen at 2 L/m nasal cannula. No fever or chills. The pro-calcitonin level was low. BUN is at 12 with a creatinine of 0 point. D-dimer is at 1.56. The discomfort of 8.3 with a hemoglobin 12.1. The patient is seen today 06/24/2023 in follow-up on the regular medical floor. She is currently resting comfortably in bed. Awake and alert in no acute distre ss. She is maintaining O2 saturations at 3 L/m per nasal cannula. Her pro- calcitonin is 0.08. She has been on Levaquin. No new labs today. She did take a fall last evening. Computed tomography scan of the head revealed no acute intracranial hemorrhage, midline shift or mass effect. No acute fracture or subluxation of the cervical spine. Airspace consolidation in the right and left upper lobes were noted. She'll be given a trial of Lasix. The patient is seen today 06/25/2023 in follow-up on the regular medical floor. She is sitting up in a chair at the bedside. Awake and alert in no acute distress. She is maintaining good O2 saturations in the 90s on 3 L/m per nasal cannula. She's been afebrile. Hemodynamically stable. She is feeling a bit better today compared to yesterday. She states she feels she can breathe easier after her dose of Lasix and some extra voiding. Chest x-ray reveals worsening bilateral lung infiltrates. Pulmonary edema and pneumonia within the differe ntial. Pro-calcitonin was 0.08. Echocardiogram reveals preserved left ventricular systolic function. Moderate tricuspid regurg with moderate pulmonary hypertension. Sodium 135. Potassium 3.2. Bicarb 24. BUN 5. Creatinine 0.49. Legionella urine antigen was negative. She'll be continued on IV diuretics and antibiotics for now. The patient is seen today 06/26/2023 in follow-up on the regular medical floor. He is awake and alert in no acute distress. Sitting up in bed. Still with some loose nonproductive cough. She slept good. She states she is feeling better. He is maintaining good O2 saturations in the mid 90s on room air. Afebrile. Hemodynamically stable. Today's chest x-ray does show slight improvement scattered reticular infiltrates. [place] virus by PCR not detected. She remains on IV diuretics. Remains on bronchodilators. Remains on steroids. Antibiotics in the form of Levaquin. Continued on Diflucan. The patient is seen today 06/27/2023 in follow-up on the regular medical floor. She is awake and alert in no acute distress. Resting comfortably in bed. She continues to maintain saturations in the 90s on 2 L/m per nasal cannula. Afebrile. Hemodynamically stable. Sodium 134. Potassium 3.6. Bicarb 28. BUN 15. Creatinine 0.70. Glucose 151. She is continued on Lasix 20 mg IV every 12 hours. Continued on Levaquin, Diflucan, bronchodilators, steroids. Heparin for DVT prophylaxis. The patient is seen today 06/28/2023 in follow-up on the regular medical floor. She is currently resting comfortably in bed. Awake and alert in no acute distress. She was having some issues with hoarseness. No evidence of oral candidiasis. She is maintaining O2 saturations in the 90s on 2 L nasal cannula. Afebrile. Hemodynamically stable. Chest x-ray continues to show improving diffuse lung markings. White count 9.5. Hemoglobin 12.4. Sodium 135. Potassium 4.0. Bicarb 32. BUN 20. Creatinine 0.78. Glucose 141. ProBNP 2850. Pro-calcitonin 0.06. She is continued on IV diuretics. Antibiotics in the form of Levaquin. Heparin for DVT prophylaxis. The patient is seen today 06/29/2023 in follow-up on the regular medical floor. She is sitting up in bed. Awake and alert in no acute distress. Breathing easier today compared to yesterday. No worsening cough or congestion. No fever or chills. Maintaining O2 saturations in the 90s on 2 L nasal cannula. She is continued on IV diuretics. No accurate I&O. Remains on bronchodilators, s teroids. Antibiotics in the form of Levaquin. Heparin for DVT prophylaxis. Objective - Vital Signs Vital signs: Vital Signs Temp 97.6 F 06/29/23 07:20 Pulse 84 06/29/23 07:20 Resp 18 06/29/23 07:20 BP 147/67 06/29/23 07:20 Pulse Ox 95 06/29/23 08:16 FiO2 Intake & Output 06/28/23 06/29/23 06/29/23 18:59 06:59 18:59 Other: # Voids 3 1 - Exam GENERAL: Awake, pleasant 83-year-old female, sitting up in bed, on 2 L of oxygen by nasal cannula HEAD: Normocephalic. EYES: Normal reaction of pupils, equal size. NOSE: Clear with pink turbinates. THROAT: Hoarseness but no erythema or exudates. NECK: No masses, no JVD. CHEST: No chest wall deformity. LUNGS: Equal air entry with few scattered rhonchi bilaterally. CVS: S1 and S2 normal with no audible murmur, regular rhythm. ABDOMEN: No hepatosplenomegaly, normal bowel sounds, no guarding or rigidity. SPINE: No scoliosis or deformity SKIN: No rashes CENTRAL NERVOUS SYSTEM: No focal deficits, tone is normal in all 4 extremities. EXTREMITIES: There is no peripheral edema. No clubbing, no cyanosis. Peripheral pulses are intact. - Labs CBC & Chem 7: 06/28/23 07:00 06/28/23 07:00 Assessment and Plan Assessment: Bilateral pneumonia with extensive groundglass pulmonary infiltrates involving the left lung with predominance of the left upper lobe. Consider atypical pneumonia. Suspect a viral pneumonia. Legionella ruled out. Interstitial edema/CHF cannot be completely ruled out. Repeat COVID-19 screen negative. Follow-up chest x-ray continues to show improvement. Trialed on diuretics as well. ProBNP 2850. Procalcitonin 0.06. History of CoVID pneumonitis approximately 3 years ago COPD Acute hypoxic respiratory failure secondary to above History of uterine cancer History of chronic anxiety/depression Plan: Medications reviewed Continue with diuretics, empiric antibiotics Transition Solu-Medrol to prednisone taper Titrate the FiO2 as tolerated Increase her activity as to follow Probable discharge in the a.m. We will continue to follow I have personally seen and examined the patient, performed the documentation and the assessment and plan as written. Number of minutes spent on the visit: 10.
[2023-06-29] MEDS: BUTA/APAP/CAF/COD 50-325-40-30 CAP PO PRN ×2 (13:19→19:55)
[2023-06-29] MEDS: ALPRAZolam 0.5 MG TAB PO PRN ×2 (16:52→23:29)
[2023-06-29] MEDS: PRAMIPEXOLE 0.25 MG TAB PO SCH (19:56)
[2023-06-29] MEDS: TEMAZEPAM 15 MG CAP PO PRN (22:03)
[2023-06-29] MEDS: HYPROMELLOSE LEFT EYE SCH (22:05)
[2023-06-29] MEDS: [UNRECOGNIZED DRUG - OTHER] LEFT EYE SCH (22:05)
[2023-06-30] MEDS: BUTA/APAP/CAF/COD 50-325-40-30 CAP PO PRN ×2 (04:06→12:56)
[2023-06-30] MEDS: traZODone HCL 50 MG TAB PO PRN (04:09)
[2023-06-30 07:40] LABS: HCT 37.6 % (34.0-46.0); HGB 12.4 gm/dL (11.4-16.0); MCV 105.8 fL (80.0-100.0); Macrocytosis Slight; Mean Platelet Volume 7.8; Platelet Count 497 k/uL (150-450); RBC 3.56 m/uL (3.80-5.40); RDW 11.9 % (11.5-15.5); WBC 12.7 k/uL (3.8-10.6)
[2023-06-30] MEDS: FUROSEMIDE 10 MG/ML 2 ML VIAL IV SCH ×2 (08:29→20:19)
[2023-06-30] MEDS: HEPARIN SODIUM,PORCINE 5,000 UNIT/ML 1 ML VIAL SQ SCH ×2 (08:29→20:19)
[2023-06-30] MEDS: LEVOFLOXACIN 500 MG TAB PO SCH (08:30)
[2023-06-30] MEDS: FLUoxetine HCL 20 MG CAP PO SCH ×2 (08:30)
[2023-06-30] MEDS: FLUCONAZOLE 100 MG TAB PO SCH (08:30)
[2023-06-30] MEDS: FAMOTIDINE 20 MG TAB PO SCH (08:30)
[2023-06-30] MEDS: NYSTATIN 100,000 UNIT/ML SUSP 500,000 UNIT/5 ML CUP PO SCH ×4 (08:31→20:19)
[2023-06-30] MEDS: predniSONE 10 MG TAB PO SCH (08:31)
[2023-06-30] MEDS: NYSTATIN 100,000 UNIT/GM POWD 15 GM TOPICAL SCH ×2 (08:31→19:15)
[2023-06-30 09:02] LABS: ALT 36 U/L (4-34); AST 45 U/L (14-36); African American GFR (CKD) 79 (>60 ml/min/1.73 sqM); Albumin 2.8 g/dL (3.5-5.0); Albumin/Globulin Ratio 1.1; Alkaline Phosphatase 79 U/L (38-126); Anion Gap 3 mmol/L; Blood Urea Nitrogen 23 mg/dL (7-17); Calcium 8.4 mg/dL (8.4-10.2); Carbon Dioxide 40 mmol/L (22-30); Chloride 90 mmol/L (98-107); Globulin 2.5 g/dL; Glucose 86 mg/dL (74-99); Non-African American GFR(CKD) 69 (>60 ml/min/1.73 sqM); Potassium 3.3 mmol/L (3.5-5.1); Sodium 133 mmol/L (137-145); Total Bilirubin 0.4 mg/dL (0.2-1.3); Total Protein 5.3 g/dL (6.3-8.2)
[2023-06-30] MEDS: POTASSIUM CHLORIDE ER 10 MEQ TAB.ER.PRT PO SCH ×3 (11:07→15:29)
--- NOTE | 2023-06-30 13:20 | P.PN ---
Subjective Progress Note Date: 06/30/23 This is a 83-year-old female patient, residing at [facility], presented to the hospital because of worsening shortness of breath and cough. The patient chest x-ray showed a left lung pneumonia and following that the patient was given a computed tomography scan of the chest that showed extensive multifocal groundglass pulmonary opacity mainly in the left lung and the patient was diagnosed having bilateral pneumonia, hospitalized, started on antibiotics. She is known to have underlying COPD patient was treated by our services back in February 2024 and extensive right lung pneumonia from which the patient recovers. She is known to have COPD and she is an ex-smoker. She has previous history of uterine cancer and she has undergone hysterectomy. She is an ex-smoker. At this point in time, the patient is on oxygen at 2 L with a pulse ox of 94%. The patient has a white cell count of 8.3 with a hemoglobin of 12, BUN is at 12 with a creatinine of 0.4 and sodium level is at 131. The viral screen including Covid 19, influenza and RSV are all negative. D-dimer is at 1.56. The patient is currently on a combination of Levaquin and DuoNeb nebulized treatments [id number]. She is also on heparin subcu for DVT prophylaxis. On today's evaluation of 06/23/2023, no new complaints and the patient remains on Levaquin. Remains on oxygen at 2 L/m nasal cannula. No fever or chills. The pro-calcitonin level was low. BUN is at 12 with a creatinine of 0 point. D-dimer is at 1.56. The discomfort of 8.3 with a hemoglobin 12.1. The patient is seen today 06/24/2023 in follow-up on the regular medical floor. She is currently resting comfortably in bed. Awake and alert in no acute distre ss. She is maintaining O2 saturations at 3 L/m per nasal cannula. Her pro- calcitonin is 0.08. She has been on Levaquin. No new labs today. She did take a fall last evening. Computed tomography scan of the head revealed no acute intracranial hemorrhage, midline shift or mass effect. No acute fracture or subluxation of the cervical spine. Airspace consolidation in the right and left upper lobes were noted. She'll be given a trial of Lasix. The patient is seen today 06/25/2023 in follow-up on the regular medical floor. She is sitting up in a chair at the bedside. Awake and alert in no acute distress. She is maintaining good O2 saturations in the 90s on 3 L/m per nasal cannula. She's been afebrile. Hemodynamically stable. She is feeling a bit better today compared to yesterday. She states she feels she can breathe easier after her dose of Lasix and some extra voiding. Chest x-ray reveals worsening bilateral lung infiltrates. Pulmonary edema and pneumonia within the differe ntial. Pro-calcitonin was 0.08. Echocardiogram reveals preserved left ventricular systolic function. Moderate tricuspid regurg with moderate pulmonary hypertension. Sodium 135. Potassium 3.2. Bicarb 24. BUN 5. Creatinine 0.49. Legionella urine antigen was negative. She'll be continued on IV diuretics and antibiotics for now. The patient is seen today 06/26/2023 in follow-up on the regular medical floor. He is awake and alert in no acute distress. Sitting up in bed. Still with some loose nonproductive cough. She slept good. She states she is feeling better. He is maintaining good O2 saturations in the mid 90s on room air. Afebrile. Hemodynamically stable. Today's chest x-ray does show slight improvement scattered reticular infiltrates. [place] virus by PCR not detected. She remains on IV diuretics. Remains on bronchodilators. Remains on steroids. Antibiotics in the form of Levaquin. Continued on Diflucan. The patient is seen today 06/27/2023 in follow-up on the regular medical floor. She is awake and alert in no acute distress. Resting comfortably in bed. She continues to maintain saturations in the 90s on 2 L/m per nasal cannula. Afebrile. Hemodynamically stable. Sodium 134. Potassium 3.6. Bicarb 28. BUN 15. Creatinine 0.70. Glucose 151. She is continued on Lasix 20 mg IV every 12 hours. Continued on Levaquin, Diflucan, bronchodilators, steroids. Heparin for DVT prophylaxis. The patient is seen today 06/28/2023 in follow-up on the regular medical floor. She is currently resting comfortably in bed. Awake and alert in no acute distress. She was having some issues with hoarseness. No evidence of oral candidiasis. She is maintaining O2 saturations in the 90s on 2 L nasal cannula. Afebrile. Hemodynamically stable. Chest x-ray continues to show improving diffuse lung markings. White count 9.5. Hemoglobin 12.4. Sodium 135. Potassium 4.0. Bicarb 32. BUN 20. Creatinine 0.78. Glucose 141. ProBNP 2850. Pro-calcitonin 0.06. She is continued on IV diuretics. Antibiotics in the form of Levaquin. Heparin for DVT prophylaxis. The patient is seen today 06/29/2023 in follow-up on the regular medical floor. She is sitting up in bed. Awake and alert in no acute distress. Breathing easier today compared to yesterday. No worsening cough or congestion. No fever or chills. Maintaining O2 saturations in the 90s on 2 L nasal cannula. She is continued on IV diuretics. No accurate I&O. Remains on bronchodilators, s teroids. Antibiotics in the form of Levaquin. Heparin for DVT prophylaxis. The patient is seen today 06/30/2023 in follow-up on the regular medical floor. Awake and alert in no acute distress. Denies any worsening shortness of breath, cough or congestion. No fever chills. Maintaining O2 saturations in the mid 90s on 2 L/m per nasal cannula. Afebrile. Hemodynamically stable. White count 12.7. Hemoglobin 12.4. Platelets 497. Sodium 133. Potassium 3.3. Bicarb 40. BUN 23. Creatinine 0.81. AST 45. ALT 36. He remains on IV diuretics. Heparin for DVT prophylaxis. Continue bronchodilators as needed. Objective - Vital Signs Vital signs: Vital Signs Temp 98.1 F 06/30/23 07:35 Pulse 71 06/30/23 07:35 Resp 18 06/30/23 07:35 BP 123/73 06/30/23 07:35 Pulse Ox 94 L 06/30/23 09:36 FiO2 Intake & Output 06/29/23 06/30/23 06/30/23 19:59 06:59 18:59 Other: # Voids - Exam GENERAL: Awake, alert 83-year-old female, on 2 L of oxygen by nasal cannula HEAD: Normocephalic. EYES: Normal reaction of pupils, equal size. NOSE: Clear with pink turbinates. THROAT: Hoarseness but no erythema or exudates. NECK: No masses, no JVD. CHEST: No chest wall deformity. LUNGS: Equal air entry with few scattered rhonchi bilaterally. CVS: S1 and S2 normal with no audible murmur, regular rhythm. ABDOMEN: No hepatosplenomegaly, normal bowel sounds, no guarding or rigidity. SPINE: No scoliosis or deformity SKIN: No rashes CENTRAL NERVOUS SYSTEM: No focal deficits, tone is normal in all 4 extremities. EXTREMITIES: There is no peripheral edema. No clubbing, no cyanosis. Peripheral pulses are intact. - Labs CBC & Chem 7: 06/30/23 06:31 06/30/23 06:31 Labs: Abnormal Lab Results - Last 24 Hours (Table) 06/30/23 06/30/23 Range/Units 06:31 06:31 WBC 12.7 H (3.8-10.6) k/uL RBC 3.56 L (3.80-5.40) m/uL MCV 105.8 H (80.0-100.0) fL Plt Count 497 H (150-450) k/uL Sodium 133 L (137-145) mmol/L Potassium 3.3 L (3.5-5.1) mmol/L Chloride 90 L (98-107) mmol/L Carbon Dioxide 40 H (22-30) mmol/L BUN 23 H (7-17) mg/dL AST 45 H (14-36) U/L ALT 36 H (4-34) U/L Total Protein 5.3 L (6.3-8.2) g/dL Albumin 2.8 L (3.5-5.0) g/dL Assessment and Plan Assessment: Bilateral pneumonia with extensive groundglass pulmonary infiltrates involving the left lung with predominance of the left upper lobe. Consider atypical pneumonia. Suspect a viral pneumonia. Legionella ruled out. Interstitial edema/CHF cannot be completely ruled out. Repeat COVID-19 screen negative. Follow-up chest x-ray continues to show improvement. Trialed on diuretics as well. ProBNP 2850. Procalcitonin 0.06. History of CoVID pneumonitis approximately 3 years ago COPD Acute hypoxic respiratory failure secondary to above History of uterine cancer History of chronic anxiety/depression Plan: Medications and labs reviewed Continue the current treatment plan Correct electrolyte imbalances Titrate the FiO2 as tolerated Increase her activity as to follow We will continue to follow I have personally seen and examined the patient, performed the documentation and the assessment and plan as written. Number of minutes spent on the visit: 10.
--- NOTE | 2023-06-30 13:55 | P.PN ---
Subjective Progress Note Date: 06/30/23 This is a pleasant 83 years old female with past medical history of anxiety and depression on medication and remote history of history of uterine cancer Pt states TERESIAT with cough for a few days. Pt had negative Covid test yesterday. Patient presents because of dyspnea of one week duration associated with left upper chest pain, noncardiac in about 8/10 in severity. Patient says that her chest pain is worse with inhalation and feels like sharp yesterday. She denies coughing to me. She denies any GI or urinary symptoms. No headache dizziness weakness or numbness. She denies smoking, drinks alcohol occasionally and no illicit tracts Patient is afebrile, she is saturating 97% on room air Labs show an unremarkable CBC, INR 1.0. D-dimer elevated at 1.5. BMP is unremarkable. Liver enzymes not elevated. Troponin is negative. Appropriate ProBNP 2620 [place] virus, RSV and influenza virus is undetected chest x-ray:Opacity in the left upper lobe as well as right lung Which raise the suspicion for pneumonia with this catheter into station changes, I reviewed the chest x-ray by myself CTA of the chest: No pulmonary embolism. Bilateral multifocal groundglass opacity consistent with bilateral multifocal edema and/or acute infiltrates. Suspected chronic cystic changes in the left upper lobe. EKG: Normal sinus rhythm at [address]-T changes. Patient is a started on Levaquin and admitted with pulmonary team consult 06/23/2023 Patient states she is a little better regarding her breathing and her exertional dyspnea is also a little better when she went to the restroom today She denies chest pain or coughing. She has been a problem and she was placed on melatonin. Chest x-ray from yesterday showing similar changes when I reviewed it, radiologist thinks is slightly worse. Procalcitonin is -0.08 She remains on IV Levaquin 750 mg and normal saline 100 mL per hour June 24: I assumed care of the patient today. Negative bed. Tired. Oral thrush. Diflucan started. Decreased appetite. Dry cough. Short of breath. Seen by pulmonary Dr. Montejo. Trial of short course of IV Lasix. DC IV fluids. June 25: Slight improvement in shortness of breath with IV Lasix. Oral thrush-on Diflucan discussed with Dr. friedman that about possible bronchoscopy-felt patient did not do well with the same. Discussed to start IV Solu-Medrol. Told the patient sit up on a chair use incentive spirometry more frequently. June 26: Getting IV Lasix. Some improvement in breathing. Still short of breath. Feels tightness in the chest. Bronchoscopy with lavage still under consideration.. Pulmonary following. June 27: Breathing a bit better. Did walk better. Remains on IV Lasix. He followed by pulmonary. On Levaquin. No plan for bronchoscopy lavage per pulmonary. 06/28. Patient seen and examined. Blood work done this morning showed W7.5, hemoglobin 12.4, crit, 511, sodium 135, potassium 4, BUN 20, creatinine 0.78. Still complaining of shortness of breath on exertion. Currently on 2 L of oxygen 06/29. Patient seen and examined. Still complaining of hoarseness of voice, still feels that she is not ready to go home today. Gets short of breath on exertion 06/30. Patient seen and examined. Stated she became short of breath on exertion this morning, feeling more lethargic. Still complaining of hoarseness of voice. REVIEW OF SYSTEMS: CONSTITUTIONAL: No fever, no malaise,. CARDIOVASCULAR: No chest pain, no palpitations, no syncope. PULMONARY: As mentioned above GASTROINTESTINAL: No diarrhea, no nausea, no vomiting, no abdominal pain. NEUROLOGICAL: No headaches, no weakness, PHYSICAL EXAMINATION: GENERAL: The patient is alert and oriented x3, not in any acute distress. Well developed, well nourished. HEENT: Pupils are round and equally reacting to light. EOMI. No scleral icterus. No conjunctival pallor. Normocephalic, atraumatic. No pharyngeal erythema. No thyromegaly. CARDIOVASCULAR: S1 and S2 present. No murmurs, rubs, or gallops. PULMONARY: Chest is clear to auscultation, no wheezing or crackles. ABDOMEN: Soft, nontender, nondistended, normoactive bowel sounds. No palpable organomegaly. MUSCULOSKELETAL: No joint swelling or deformity. EXTREMITIES: No cyanosis, clubbing, or pedal edema. NEUROLOGICAL: Gross neurological examination did not reveal any focal deficits. SKIN: No rashes. Assessment and plan -Bilateral multifocal pneumonia -Bilateral upper lobe opacity suspicious for chronic cystic changes in the left upper lobe. COPD Acute hypoxic respiratory failure Secondary pulmonary hypertension anxiety and depression Oral candidiasis Acute fluid overload Chronic insomnia Monitor vital signs Monitor CBC Monitor CMP Continue telemetry monitoring Encourage use of incentive spirometer Continue oxygen supplementation Strict I's and O's daily weights, continue IV Lasix 20 mg every 12 Continue Levaquin Continue Diflucan continue IV steroids Continue breathing treatments Pulmonology following Labs and medication were reviewed.. Continue same treatment. Continue with symptomatic treatment. Resume home medication. Monitor labs and vitals. DVT and GI prophylaxis. Further recommendations as per clinical course of the patient Dictation was produced using [employer] dictation software. please excuse any grammatical, word or spelling errors. Objective - Vital Signs Vital signs: Vital Signs Temp 98.1 F 06/30/23 07:35 Pulse 71 06/30/23 07:35 Resp 18 06/30/23 07:35 BP 123/73 06/30/23 07:35 Pulse Ox 94 L 06/30/23 09:36 FiO2 Intake & Output 06/29/23 06/30/23 06/30/23 19:59 06:59 18:59 Other: # Voids - Labs CBC & Chem 7: 06/30/23 06:31 06/30/23 06:31 Labs: Abnormal Lab Results - Last 24 Hours (Table) 06/30/23 06/30/23 Range/Units 06:31 06:31 WBC 12.7 H (3.8-10.6) k/uL RBC 3.56 L (3.80-5.40) m/uL MCV 105.8 H (80.0-100.0) fL Plt Count 497 H (150-450) k/uL Sodium 133 L (137-145) mmol/L Potassium 3.3 L (3.5-5.1) mmol/L Chloride 90 L (98-107) mmol/L Carbon Dioxide 40 H (22-30) mmol/L BUN 23 H (7-17) mg/dL AST 45 H (14-36) U/L ALT 36 H (4-34) U/L Total Protein 5.3 L (6.3-8.2) g/dL Albumin 2.8 L (3.5-5.0) g/dL
[2023-06-30] MEDS: HYDROcodone/APAP 10-325MG 1 EACH TAB PO PRN (20:19)
[2023-06-30] MEDS: PRAMIPEXOLE 0.25 MG TAB PO SCH (20:19)
[2023-06-30] MEDS: TEMAZEPAM 15 MG CAP PO PRN (22:31)
[2023-06-30] MEDS: CALCIUM CARBONATE 500 MG CHEWABLE PO PRN (22:33)
[2023-07-01] MEDS: [UNRECOGNIZED DRUG - OTHER] LEFT EYE SCH (00:33)
[2023-07-01] MEDS: HYPROMELLOSE LEFT EYE SCH (00:33)
[2023-07-01] MEDS: ALPRAZolam 0.5 MG TAB PO PRN (00:33)
[2023-07-01 07:49] VITALS: BP 127/70; PULSE 87; RESP 16; TEMP 97.7
[2023-07-01] MEDS: HEPARIN SODIUM,PORCINE 5,000 UNIT/ML 1 ML VIAL SQ SCH (08:12)
[2023-07-01] MEDS: FLUCONAZOLE 100 MG TAB PO SCH (08:12)
[2023-07-01] MEDS: FUROSEMIDE 10 MG/ML 2 ML VIAL IV SCH (08:12)
[2023-07-01] MEDS: NYSTATIN 100,000 UNIT/ML SUSP 500,000 UNIT/5 ML CUP PO SCH (08:12)
[2023-07-01] MEDS: FLUoxetine HCL 20 MG CAP PO SCH ×2 (08:12)
[2023-07-01] MEDS: predniSONE 10 MG TAB PO SCH (08:13)
[2023-07-01] MEDS: NYSTATIN 100,000 UNIT/GM POWD 15 GM TOPICAL SCH (08:14)
[2023-07-01] MEDS: BUTA/APAP/CAF/COD 50-325-40-30 CAP PO PRN (08:17)
[2023-07-01 08:25] LABS: Basophils # (A) 0.05 X 10*3/uL (0.00-0.10); Basophils % (A) 0.4 %; Eosinophils # (A) 0.14 X 10*3/uL (0.04-0.35); Eosinophils % (A) 1.1 %; HCT 36.2 % (37.2-46.3); Lymphocytes % (A) 35.5 %; MCH 34.5 pg (27.0-32.0); MCHC 33.1 d/dL (32.0-37.0); Mean Platelet Volume 9.1 FL (9.5-12.2); Monocytes # (A) 1.41 X 10*3/uL (0.20-1.00); Monocytes % (A) 10.9 %; NRBC Per 100 WBC 0 X 10*3/uL (0.00-0.01); Neutrophils # (A) 6.55 X 10*3/uL (1.80-7.70); Neutrophils % (A) 50.6 %; Platelet Count 437 X 10*3/uL (140-440); RBC 3.48 X 10*6/uL (4.10-5.20); RDW 12.4 % (11.5-14.5); WBC 12.95 X 10*3/uL (4.50-10.00)
[2023-07-01 08:49] LABS: ALT 35 U/L (8-44); AST 37 U/L (13-35); Albumin 3.2 d/dL (3.8-4.9); Alkaline Phosphatase 75 U/L (41-126); Calcium 8.9 mg/dL (8.7-10.3); Carbon Dioxide 37.8 mmol/L (21.6-31.8); Chloride 93 mmol/L (96-109); Glucose 84 mg/dL (70-110); Potassium 4.5 mmol/L (3.5-5.5); Sodium 139 mmol/L (135-145); Total Bilirubin <0.2 mg/dL (0.3-1.2); Total Protein 5.2 d/dL (6.2-8.2)
[2023-07-01] MEDS ORDERED: LEVOFLOXACIN 250 MG TAB PO SCH (09:00)
[2023-07-01] MEDS ORDERED: FAMOTIDINE 20 MG TAB PO SCH (09:00)
--- NOTE | 2023-07-01 11:44 | P.DS ---
Providers Date of admission: 06/21/23 22:25 Expected date of discharge: 07/01/23 Attending physician: Hi Hassan Consults: 06/21/23 22:25 Consult Physician Routine Consulting Provider: Hina Gordon Consult Reason/Comments: hypoxia Do you want consulting provider notified?: Yes [facility] Course: Discharge diagnoses; -Bilateral multifocal pneumonia -Bilateral upper lobe opacity suspicious for chronic cystic changes in the left upper lobe. COPD Acute hypoxic respiratory failure Secondary pulmonary hypertension anxiety and depression Oral candidiasis Acute fluid overload Chronic insomnia Hospital course; This is a pleasant 83 years old female with past medical history of anxiety and depression on medication and remote history of history of uterine cancer Pt states TERESITA with cough for a few days. Pt had negative Covid test yesterday. Patient presents because of dyspnea of one week duration associated with left upper chest pain, noncardiac in about 8/10 in severity. Patient says that her chest pain is worse with inhalation and feels like sharp yesterday. She denies coughing to me. She denies any GI or urinary symptoms. No headache dizziness weakness or numbness. She denies smoking, drinks alcohol occasionally and no illicit tracts Patient is afebrile, she is saturating 97% on room air Labs show an unremarkable CBC, INR 1.0. D-dimer elevated at 1.5. BMP is unremarkable. Liver enzymes not elevated. Troponin is negative. Appropriate ProBNP 2620 [place] virus, RSV and influenza virus is undetected chest x-ray:Opacity in the left upper lobe as well as right lung Which raise the suspicion for pneumonia with this catheter into station changes, I reviewed the chest x-ray by myself CTA of the chest: No pulmonary embolism. Bilateral multifocal groundglass opacity consistent with bilateral multifocal edema and/or acute infiltrates. Suspected chronic cystic changes in the left upper lobe. EKG: Normal sinus rhythm at [address]-T changes. Patient is a started on Levaquin and admitted with pulmonary team consult 06/23/2023 Patient states she is a little better regarding her breathing and her exertional dyspnea is also a little better when she went to the restroom today She denies chest pain or coughing. She has been a problem and she was placed on melatonin. Chest x-ray from yesterday showing similar changes when I reviewed it, radiologist thinks is slightly worse. Procalcitonin is -0.08 She remains on IV Levaquin 750 mg and normal saline 100 mL per hour June 24: I assumed care of the patient today. Negative bed. Tired. Oral thrush. Diflucan started. Decreased appetite. Dry cough. Short of breath. Seen by pulmonary Dr. Montejo. Trial of short course of IV Lasix. DC IV fluids. June 25: Slight improvement in shortness of breath with IV Lasix. Oral thrush-on Diflucan discussed with Dr. idalia troy about possible bronchoscopy-felt patient did not do well with the same. Discussed to start IV Solu-Medrol. Told the patient sit up on a chair use incentive spirometry more frequently. June 26: Getting IV Lasix. Some improvement in breathing. Still short of breath. Feels tightness in the chest. Bronchoscopy with lavage still under consideration.. Pulmonary following. June 27: Breathing a bit better. Did walk better. Remains on IV Lasix. He followed by pulmonary. On Levaquin. No plan for bronchoscopy lavage per pulmonary. 06/28. Patient seen and examined. Blood work done this morning showed W7.5, hemoglobin 12.4, crit, 511, sodium 135, potassium 4, BUN 20, creatinine 0.78. Still complaining of shortness of breath on exertion. Currently on 2 L of oxygen 06/29. Patient seen and examined. Still complaining of hoarseness of voice, still feels that she is not ready to go home today. Gets short of breath on exertion 06/30. Patient seen and examined. Stated she became short of breath on exertion this morning, feeling more lethargic. Still complaining of hoarseness of voice. 07/01. Patient seen and examined. Patient has completed 7 days of Levaquin and Diflucan. Being discharged on tapering dose of prednisone. Outpatient follow- up with pulmonology PHYSICAL EXAMINATION: GENERAL: The patient is alert and oriented x3, not in any acute distress. Well developed, well nourished. HEENT: Pupils are round and equally reacting to light. EOMI. No scleral icterus. No conjunctival pallor. Normocephalic, atraumatic. No pharyngeal erythema. No th yromegaly. CARDIOVASCULAR: S1 and S2 present. No murmurs, rubs, or gallops. PULMONARY: Chest is clear to auscultation, no wheezing or crackles. ABDOMEN: Soft, nontender, nondistended, normoactive bowel sounds. No palpable organomegaly. MUSCULOSKELETAL: No joint swelling or deformity. EXTREMITIES: No cyanosis, clubbing, or pedal edema. NEUROLOGICAL: Gross neurological examination did not reveal any focal deficits. SKIN: No rashes. Dictation was produced using [employer] dictation software. please excuse any grammatical, word or spelling errors. Patient Condition at Discharge: Fair Plan - Discharge Summary Discharge Rx Participant: No New Discharge Prescriptions: New Nystatin 100,000 Unit/ml Susp [Mycostatin Oral Susp] 500,000 unit PO QID 7 Days #140 ml predniSONE 10 mg PO DAILY 9 Days #18 tab Continue FLUoxetine HCL [PROzac] 20 mg PO DAILY Buta/APAP/Caf/Cod [id number] [Fioricet w/Cod 10-558-75-30MG] 1 - 2 cap PO Q6H PRN PRN Reason: Migraine Headache ALPRAZolam [Xanax] 1 mg PO TID PRN PRN Reason: Anxiety Multivitamins, Thera [Multivitamin (formulary)] 1 tab PO DAILY Omeprazole Magnesium [PriLOSEC OTC] 20 mg PO DAILY FLUoxetine HCL [PROzac] 40 mg PO DAILY HYDROcodone/APAP 10-325MG [[place] 10-325] 1 tab PO Q6HR PRN PRN Reason: Pain Systane Night Gel 1 applic LEFT EYE HS Albuterol Sulfate [Albuterol Sulfate Hfa] 1 - 2 puff PO RT-Q6H PRN PRN Reason: Shortness Of Breath Carboxymethylcellulose Sodium [Refresh Tears] 1 drop BOTH EYES QID PRN PRN Reason: DRY EYES traZODone HCL [Desyrel] 50 mg PO HS Calcium Carbonate [Tums] 500 - 1,000 mg PO QID PRN PRN Reason: GERD Vit C/E/Cuperic/Zinc/Lutein [Preservision Lutein Softgel] 1 cap PO BID Discharge Medication List ALPRAZolam [Xanax] 1 mg PO TID PRN 09/10/19 [History] Buta/APAP/Caf/Cod [id number] [Fioricet w/Cod [id number]] 1 - 2 cap PO Q6H PRN 09/10/19 [History] FLUoxetine HCL [PROzac] 20 mg PO DAILY 09/10/19 [History] FLUoxetine HCL [PROzac] 40 mg PO DAILY 03/17/20 [History] Multivitamins, Thera [Multivitamin (formulary)] 1 tab PO DAILY 03/17/20 [History] Omeprazole Magnesium [PriLOSEC OTC] 20 mg PO DAILY 03/17/20 [History] Albuterol Sulfate [Albuterol Sulfate Hfa] 1 - 2 puff PO RT-Q6H PRN 06/21/23 [History] Calcium Carbonate [Tums] 500 - 1,000 mg PO QID PRN 06/21/23 [History] Carboxymethylcellulose Sodium [Refresh Tears] 1 drop BOTH EYES QID PRN 06/21/23 [History] HYDROcodone/APAP 10-325MG [[place] 10-325] 1 tab PO Q6HR PRN 06/21/23 [History] Systane Night Gel 1 applic LEFT EYE HS 06/21/23 [History] Vit C/E/Cuperic/Zinc/Lutein [Preservision Lutein Softgel] 1 cap PO BID 06/21/23 [History] traZODone HCL [Desyrel] 50 mg PO HS 06/21/23 [History] Nystatin 100,000 Unit/ml Susp [Mycostatin Oral Susp] 500,000 unit PO QID 7 Days #140 ml 07/01/23 [Rx] predniSONE 10 mg PO DAILY 9 Days #18 tab 07/01/23 [Rx] Follow up Appointment(s)/Referral(s): Carlyle Luevano MD [Primary Care Provider] - 1-2 days [facility] - As Needed Discharge Disposition: HOME WITH HOME HEALTH SERVICES
[2023-07-01] MEDS: HYDROcodone/APAP 10-325MG 1 EACH TAB PO PRN (11:58)
--- NOTE | 2023-07-01 12:28 | P.PN ---
Subjective Progress Note Date: 07/01/23 This is a 83-year-old female patient, residing at [facility], presented to the hospital because of worsening shortness of breath and cough. The patient chest x-ray showed a left lung pneumonia and following that the patient was given a computed tomography scan of the chest that showed extensive multifocal groundglass pulmonary opacity mainly in the left lung and the patient was diagnosed having bilateral pneumonia, hospitalized, started on antibiotics. She is known to have underlying COPD patient was treated by our services back in February 2024 and extensive right lung pneumonia from which the patient recovers. She is known to have COPD and she is an ex-smoker. She has previous history of uterine cancer and she has undergone hysterectomy. She is an ex-smoker. At this point in time, the patient is on oxygen at 2 L with a pulse ox of 94%. The patient has a white cell count of 8.3 with a hemoglobin of 12, BUN is at 12 with a creatinine of 0.4 and sodium level is at 131. The viral screen including Covid 19, influenza and RSV are all negative. D-dimer is at 1.56. The patient is currently on a combination of Levaquin and DuoNeb nebulized treatments [id number]. She is also on heparin subcu for DVT prophylaxis. On today's evaluation of 06/23/2023, no new complaints and the patient remains on Levaquin. Remains on oxygen at 2 L/m nasal cannula. No fever or chills. The pro-calcitonin level was low. BUN is at 12 with a creatinine of 0 point. D-dimer is at 1.56. The discomfort of 8.3 with a hemoglobin 12.1. The patient is seen today 06/24/2023 in follow-up on the regular medical floor. She is currently resting comfortably in bed. Awake and alert in no acute distre ss. She is maintaining O2 saturations at 3 L/m per nasal cannula. Her pro- calcitonin is 0.08. She has been on Levaquin. No new labs today. She did take a fall last evening. Computed tomography scan of the head revealed no acute intracranial hemorrhage, midline shift or mass effect. No acute fracture or subluxation of the cervical spine. Airspace consolidation in the right and left upper lobes were noted. She'll be given a trial of Lasix. The patient is seen today 06/25/2023 in follow-up on the regular medical floor. She is sitting up in a chair at the bedside. Awake and alert in no acute distress. She is maintaining good O2 saturations in the 90s on 3 L/m per nasal cannula. She's been afebrile. Hemodynamically stable. She is feeling a bit better today compared to yesterday. She states she feels she can breathe easier after her dose of Lasix and some extra voiding. Chest x-ray reveals worsening bilateral lung infiltrates. Pulmonary edema and pneumonia within the differe ntial. Pro-calcitonin was 0.08. Echocardiogram reveals preserved left ventricular systolic function. Moderate tricuspid regurg with moderate pulmonary hypertension. Sodium 135. Potassium 3.2. Bicarb 24. BUN 5. Creatinine 0.49. Legionella urine antigen was negative. She'll be continued on IV diuretics and antibiotics for now. The patient is seen today 06/26/2023 in follow-up on the regular medical floor. He is awake and alert in no acute distress. Sitting up in bed. Still with some loose nonproductive cough. She slept good. She states she is feeling better. He is maintaining good O2 saturations in the mid 90s on room air. Afebrile. Hemodynamically stable. Today's chest x-ray does show slight improvement scattered reticular infiltrates. [place] virus by PCR not detected. She remains on IV diuretics. Remains on bronchodilators. Remains on steroids. Antibiotics in the form of Levaquin. Continued on Diflucan. The patient is seen today 06/27/2023 in follow-up on the regular medical floor. She is awake and alert in no acute distress. Resting comfortably in bed. She continues to maintain saturations in the 90s on 2 L/m per nasal cannula. Afebrile. Hemodynamically stable. Sodium 134. Potassium 3.6. Bicarb 28. BUN 15. Creatinine 0.70. Glucose 151. She is continued on Lasix 20 mg IV every 12 hours. Continued on Levaquin, Diflucan, bronchodilators, steroids. Heparin for DVT prophylaxis. The patient is seen today 06/28/2023 in follow-up on the regular medical floor. She is currently resting comfortably in bed. Awake and alert in no acute distress. She was having some issues with hoarseness. No evidence of oral candidiasis. She is maintaining O2 saturations in the 90s on 2 L nasal cannula. Afebrile. Hemodynamically stable. Chest x-ray continues to show improving diffuse lung markings. White count 9.5. Hemoglobin 12.4. Sodium 135. Potassium 4.0. Bicarb 32. BUN 20. Creatinine 0.78. Glucose 141. ProBNP 2850. Pro-calcitonin 0.06. She is continued on IV diuretics. Antibiotics in the form of Levaquin. Heparin for DVT prophylaxis. The patient is seen today 06/29/2023 in follow-up on the regular medical floor. She is sitting up in bed. Awake and alert in no acute distress. Breathing easier today compared to yesterday. No worsening cough or congestion. No fever or chills. Maintaining O2 saturations in the 90s on 2 L nasal cannula. She is continued on IV diuretics. No accurate I&O. Remains on bronchodilators, s teroids. Antibiotics in the form of Levaquin. Heparin for DVT prophylaxis. The patient is seen today 06/30/2023 in follow-up on the regular medical floor. Awake and alert in no acute distress. Denies any worsening shortness of breath, cough or congestion. No fever chills. Maintaining O2 saturations in the mid 90s on 2 L/m per nasal cannula. Afebrile. Hemodynamically stable. White count 12.7. Hemoglobin 12.4. Platelets 497. Sodium 133. Potassium 3.3. Bicarb 40. BUN 23. Creatinine 0.81. AST 45. ALT 36. He remains on IV diuretics. Heparin for DVT prophylaxis. Continue bronchodilators as needed. The patient is seen today 07/01/2023 in follow-up on the regular medical floor. She is sitting up in bed. Awake and alert in no acute distress. She denies any worsening shortness of breath, cough or congestion. No fever or chills. Maintaining good O2 saturations in the upper 90s on 2 L/m per nasal cannula. She is afebrile. Hemodynamically stable. White count 12.9. Hemoglobin 12.0. Platelets 437. Sodium 139. Potassium 4.5. Bicarb 38. BUN 20. Creatinine 1.0. Glucose 84. She is continued on bronchodilators. Remains on Levaquin. Remains on IV diuretics. No accurate I&O. Continued on Diflucan. Objective - Vital Signs Vital signs: Vital Signs Temp 97.7 F 07/01/23 07:13 Pulse 87 07/01/23 07:13 Resp 16 07/01/23 07:13 BP 127/70 07/01/23 07:13 Pulse Ox 97 07/01/23 08:44 FiO2 Intake & Output 06/30/23 07/01/23 07/01/23 18:59 06:59 18:59 Other: Voiding Method Toilet # Voids 2 4 - Exam GENERAL: Awake, pleasant 83-year-old female, resting comfortably in bed, on 2 L of oxygen by nasal cannula HEAD: Normocephalic. EYES: Normal reaction of pupils, equal size. NOSE: Clear with pink turbinates. THROAT: Hoarseness but no erythema or exudates. NECK: No masses, no JVD. CHEST: No chest wall deformity. LUNGS: Equal air entry with few scattered rhonchi bilaterally. CVS: S1 and S2 normal with no audible murmur, regular rhythm. ABDOMEN: No hepatosplenomegaly, normal bowel sounds, no guarding or rigidity. SPINE: No scoliosis or deformity SKIN: No rashes CENTRAL NERVOUS SYSTEM: No focal deficits, tone is normal in all 4 extremities. EXTREMITIES: There is no peripheral edema. No clubbing, no cyanosis. P eripheral pulses are intact. - Labs CBC & Chem 7: 07/01/23 05:35 07/01/23 05:35 Labs: Abnormal Lab Results - Last 24 Hours (Table) 07/01/23 07/01/23 Range/Units 05:35 05:35 WBC 12.95 H (4.50-10.00) X 10*3/uL RBC 3.48 L (4.10-5.20) X 10*6/uL Hct 36.2 L (37.2-46.3) % MCV 104.0 H (80.0-97.0) FL MCH 34.5 H (27.0-32.0) pg MPV 9.1 L (9.5-12.2) FL Monocytes # 1.41 H (0.20-1.00) X 10*3/uL Chloride 93 L (96-109) mmol/L Carbon Dioxide 37.8 H (21.6-31.8) mmol/L Est GFR (CKD-EPI) 57 L (>=60) Total Bilirubin <0.2 L (0.3-1.2) mg/dL AST 37 H (13-35) U/L Total Protein 5.2 L (6.2-8.2) d/dL Albumin 3.2 L (3.8-4.9) d/dL Assessment and Plan Assessment: Bilateral pneumonia with extensive groundglass pulmonary infiltrates involving the left lung with predominance of the left upper lobe. Consider atypical pneumonia. Suspect a viral pneumonia. Legionella ruled out. Interstitial edema/CHF cannot be completely ruled out. Repeat COVID-19 screen negative. Follow-up chest x-ray continues to show improvement. Trialed on diuretics as well. ProBNP 2850. Procalcitonin 0.06. History of CoVID pneumonitis approximately 3 years ago COPD Acute hypoxic respiratory failure secondary to above History of uterine cancer History of chronic anxiety/depression Plan: Medications and labs reviewed Clinically improved Continue the current treatment plan Titrate the FiO2 as tolerated Increase her activity as tolerated This patient was seen independently by the nurse practitioner I have personally seen and examined the patient, performed the documentation and the assessment and plan as written. Number of minutes spent on the visit: 20.
--- NOTE | 2023-07-02 21:44 | CDI ---
Documentation Clarification Form Date: 07/02/2023 09:33:09 PM From: Elvie [place] Phone: Admit Date: 06/21/2023 10:25:00 PM Patient Name: Naomi Yuen Visit Number: [id number] Discharge Date: 07/01/2023 01:32:00 PM ATTENTION: The Clinical Documentation Specialists (CDI) and [facility] Coding Staff appreciate your assistance in clarifying documentation. Please respond to the clarification below the line at the bottom and electronically sign. The CDI & [facility] Coding staff will review the response and follow-up if needed. Please note: Queries are made part of the Legal Health Record. If you have any questions, please contact the author of this message via ITS. Dr. Domenico Montejo Your patient has the documented diagnosis of unspecified CHF per 06/24 Progress Note. Additional information regarding the type and acuity of CHF is requested. History/Risk Factors: 83yo F, Dick PNA, chroniccysticchanges DREW, COPD, AHRF, secondary PHTN, anxietyanddepression, oral candidiasis, acutefluid overload, chronicinsomnia, former smoker Clinical Indicators: VS/Pulse OX: 92-97 BNP: [id number] Echocardiogram Results: Normal LV size and systolic function, moderateTRwith moderatePHTN, mild to moderate AR and MR Chest X Ray: The cardiac silhouette is mildlyenlarged. 06/21 Cardiac silhouette appears stable, top normal in size.Atherosclerotic calcifications of the aorta. Unremarkable mediastinal silhouette. 06/22 Treatment: Trialed on diuretics. In your professional opinion, can you please clarify the type and acuity of CHF if known? [ ] Acute Systolic Heart Failure (reduced EF) [ ] Chronic Systolic Heart Failure (reduced EF) [ ] Acute on Chronic Systolic Heart Failure (reduced EF) [ ] Acute Diastolic Heart Failure (preserved EF) [ ] Chronic Diastolic Heart Failure (preserved EF) [ ] Acute on Chronic Diastolic Heart Failure (preserved EF) [ ] Acute Systolic & Diastolic Heart Failure [ ] Chronic Systolic & Diastolic Heart Failure [ ] Acute on Chronic Heart Failure Systolic & Diastolic Heart Failure [ ] Other, please specify [ x ] Unable to determine (Template Last Revised: September 2020) MTDD
== END 2023-07-01 13:32 | disposition home health service (06) | DRG 193 ==
LOC: EC 15:41 → 4SSUR 22:25
PROVIDERS: ADMIT Hospitalist; ATTEND Hospitalist
DX: J12.9 Viral pneumonia, unspecified (principal); J96.01 Acute respiratory failure with hypoxia; B37.0 Candidal stomatitis; J44.0 Chronic obstructive pulmonary disease with (acute) lower respiratory infection; I27.29 Other secondary pulmonary hypertension; I07.1 Rheumatic tricuspid insufficiency; F32.A Depression, unspecified; F51.04 Psychophysiologic insomnia; J98.4 Other disorders of lung; F41.9 Anxiety disorder, unspecified; Z20.822 Contact with and (suspected) exposure to COVID-19; Z85.42 Personal history of malignant neoplasm of other parts of uterus; Z87.891 Personal history of nicotine dependence; Z88.0 Allergy status to penicillin; Z88.1 Allergy status to other antibiotic agents; Z92.3 Personal history of irradiation; Z90.710 Acquired absence of both cervix and uterus; Z87.01 Personal history of pneumonia (recurrent); Z86.16 Personal history of COVID-19; Z79.899 Other long term (current) drug therapy; Z82.5 Family history of asthma and other chronic lower respiratory diseases; Z80.52 Family history of malignant neoplasm of bladder; I50.9 Heart failure, unspecified
CPT/HCPCS: 36415; 70450; 71045; 71275; 72125; 80048; 80053; 83735; 83880; 84132; 84145; 84484; 85025; 85027; 85379; 85610; 85730; 87449; 87635; 87636; 93005; 93306; 94640; 94760; 96365; 96366; 96375; 99285

== ENCOUNTER 2023-07-31 04:14 | Emergency (ER) | payer MEDICARE ==
[2023-07-31 04:30] VITALS: RESP 18
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
[2023-07-31] MEDS ORDERED: MORPHINE SULFATE 4 MG/ML SYRINGE IVP STA (05:05)
--- NOTE | 2023-07-31 05:32 | XR ---
EXAMINATION TYPE: XR Hip RT and AP Pelvis DATE OF EXAM: 07/31/2023 COMPARISON: NONE HISTORY: Fall injury TECHNIQUE: A single AP view of the pelvis is obtained. Two views of the right hip are obtained. FINDINGS: There is no acute displaced fracture evident in the pelvis. Symmetric mild/moderate axial joint space loss in both hips. Sacroiliac joints are preserved. Pubic symphysis is intact. The overl patrick soft tissue appears unremarkable. Two views of right hip show no acute fracture or dislocation. No focal lytic or sclerotic lesion see n in the proximal right femur. The overlying soft tissue is unremarkable. IMPRESSION: There is no acute displaced fracture in the pelvis or right hip.
[2023-07-31 06:21] VITALS: BP 138/74; PULSE 84
[2023-07-31 06:44] VITALS: TEMP 97.8
[2023-07-31] MEDS ORDERED: HYDROcodone/APAP 5-325MG 1 EACH TAB PO STA (06:45)
== END 2023-07-31 08:55 | disposition home or self-care (01) ==
LOC: EC 04:14
DX: M25.551 Pain in right hip (principal); F41.9 Anxiety disorder, unspecified; F32.A Depression, unspecified; Z79.899 Other long term (current) drug therapy; Z87.891 Personal history of nicotine dependence; Z88.0 Allergy status to penicillin; Z88.1 Allergy status to other antibiotic agents; W18.30XA Fall on same level, unspecified, initial encounter
CPT/HCPCS: 73502; 99284; 96374; J2270

== ENCOUNTER 2023-08-10 09:27 | Emergency (ER) | payer MEDICARE ==
[2023-08-10 09:46] VITALS: RESP 18
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
[2023-08-10 10:45] LABS: Basophils % (A) 0 %; Eosinophils # (A) 0.1 k/uL (0-0.7); Eosinophils % (A) 1 %; HGB 13.1 gm/dL (11.4-16.0); Lymphocytes # (A) 2.1 k/uL (1.0-4.8); Lymphocytes % (A) 14 %; MCH 34.3 pg (25.0-35.0); MCHC 32.8 g/dL (31.0-37.0); MCV 104.5 fL (80.0-100.0); Macrocytosis Slight; Mean Platelet Volume 8.2; Monocytes % (A) 7 %; Neutrophils # (A) 11.5 k/uL (1.3-7.7); Neutrophils % (A) 77 %; Platelet Count 342 k/uL (150-450); RBC 3.83 m/uL (3.80-5.40); RDW 12.9 % (11.5-15.5); WBC 14.8 k/uL (3.8-10.6)
--- NOTE | 2023-08-10 10:45 | XR ---
EXAMINATION TYPE: XR chest 2V DATE OF EXAM: 08/10/2023 10:33 AM CLINICAL INDICATION:Female, 83 years old with history of fall; COMPARISON: Chest radiographs from 06/28/2023 TECHNIQUE: XR chest 2V Frontal and lateral views of the chest. FINDINGS: Lungs/Pleura: Prominent interstitial lung markings are seen scattered throughout the lungs with gloria ening of the diaphragm and increased lucency of the lung apices. No evidence of focal consolidation, pneumothorax or pleural effusion. Pulmonary vascularity: Unremarkable. Heart/mediastinum: Cardiomediastinal silhouette is unremarkable. Musculoskeletal: No acute osseous pathology. Other findings: None IMPRESSION: 1. No acute cardiopulmonary disease process. 2. COPD changes.
--- NOTE | 2023-08-10 10:46 | XR ---
EXAMINATION TYPE: XR Hip RT and AP Pelvis DATE OF EXAM: 08/10/2023 10:33 AM CLINICAL INDICATION:Female, 83 years old with history of fall; COMPARISON: 07/31/2023. TECHNIQUE: XR Hip RT and AP Pelvis; hip was examined in the frontal and lateral projections and a AP pelvis. FINDINGS: No evidence for acute process, joint dislocation or significant soft tissue swelling. Osteo phyte formation of the superior acetabulum of the hip. IMPRESSION: 1. No evidence for acute process. 2. Mild hip osteoarthrosis.
[2023-08-10 10:54] LABS: ALT 14 U/L (4-34); AST 24 U/L (14-36); African American GFR (CKD) >90 (>60 ml/min/1.73 sqM); Albumin 3.3 g/dL (3.5-5.0); Alcohol <10 mg/dL; Alkaline Phosphatase 116 U/L (38-126); Anion Gap 10 mmol/L; Blood Urea Nitrogen 15 mg/dL (7-17); Calcium 9.2 mg/dL (8.4-10.2); Carbon Dioxide 22 mmol/L (22-30); Chloride 107 mmol/L (98-107); Creatine Kinase 56 U/L (30-135); Glucose 116 mg/dL (74-99); Magnesium 1.9 mg/dL (1.6-2.3); Non-African American GFR(CKD) 85 (>60 ml/min/1.73 sqM); Potassium 4.1 mmol/L (3.5-5.1); Sodium 139 mmol/L (137-145); Total Bilirubin 0.7 mg/dL (0.2-1.3); Total Protein 5.8 g/dL (6.3-8.2)
[2023-08-10] MEDS ORDERED: KETOROLAC 15 MG/ML 1 ML VIAL IVP STA (12:09)
[2023-08-10 12:35] LABS: INR 1.1 (<1.2); Prothrombin Time 11.9 sec (10.0-12.5)
[2023-08-10] MEDS ORDERED: MORPHINE SULFATE 4 MG/ML SYRINGE IVP STA (12:53)
[2023-08-10 14:59] VITALS: BP 123/54; PULSE 92; TEMP 98.2
== END 2023-08-10 14:59 | disposition home or self-care (01) ==
LOC: EC 09:27
DX: S70.01XA Contusion of right hip, initial encounter (principal); F41.9 Anxiety disorder, unspecified; F32.A Depression, unspecified; J44.9 Chronic obstructive pulmonary disease, unspecified; Z87.891 Personal history of nicotine dependence; Z88.0 Allergy status to penicillin; Z88.1 Allergy status to other antibiotic agents; Z79.899 Other long term (current) drug therapy; W06.XXXA Fall from bed, initial encounter
CPT/HCPCS: 36415; 80053; 82550; 83735; 85025; 85610; 85730; 73502; 71046; 99285; 96374; 96375; G0480; J2270; J1885; 80320

== ENCOUNTER 2023-09-11 04:01 | Emergency (ER) | payer MEDICARE ==
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
[2023-09-11 04:12] VITALS: TEMP 97.5
[2023-09-11] MEDS ORDERED: HYDROcodone/APAP 5-325MG 1 EACH TAB PO STA ×2 (04:20→04:32)
--- NOTE | 2023-09-11 05:58 | CT ---
EXAM: CT Head Without Intravenous Contrast CLINICAL HISTORY: CT Reason: FALL INJURY TECHNIQUE: Axial computed tomography images of the head/brain without intravenous contrast. CTDI is 45.2 mGy and DLP is 1085 mGy-cm. This CT exam was performed using one or more of the following dose reduction techniques: automated exposure control, adjustment of the mA and/or kV according to patient size, and/or use of iterative reconstruction technique. COMPARISON: No relevant prior studies available. FINDINGS: Brain: Mild cerebral atrophy and periventricular white matter low density consistent with chronic small vessel disease and/or senescent changes. No acute large vessel infarct or intracranial hemorrhage is seen. Ventricles: Unremarkable. No ventriculomegaly. Bones/joints: Unremarkable. No acute fracture. Soft tissues: Unremarkable. Sinuses: Unremarkable as visualized. No acute sinusitis. Mastoid air cells: Unremarkable as visualized. No mastoid effusion. IMPRESSION: Mild cerebral atrophy and periventricular white matter low density consistent with chronic small vessel disease and/or senescent changes. No acute large vessel infarct or intracranial hemorrhage is seen. EXAM: CT Cervical Spine Without Intravenous Contrast CLINICAL HISTORY: CT Reason: FALL INJURY TECHNIQUE: Axial computed tomography images of the cervical spine without intravenous contrast. CTDI is 7.6 mGy and DLP is 212.6 mGy-cm. This CT exam was performed using one or more of the following dose reduction techniques: automated exposure control, adjustment of the mA and/or kV according to patient size, and/or use of iterative reconstruction technique. COMPARISON: No relevant prior studies available. FINDINGS: Vertebrae: Mild narrowing and osteophytosis of the atlantodental joint. The odontoid process is intact. No acute fracture. Soft tissues: Unremarkable. Vasculature: Mild calcification of the carotid bifurcation bilaterally. Lung apices: Mild emphysematous changes in the lung apices. DISCS/SPINAL CANAL/NEURAL FORAMINA: C2-C3: Unremarkable. No significant disc disease. No stenosis. C3-C4: Unremarkable. No significant disc disease. No stenosis. C4-C5: Mild degenerative disc disease. No stenosis. C5-C6: Mild degenerative disc disease. No stenosis. C6-C7: Mild degenerative disc disease. No stenosis. C7-T1: Mild degenerative disc disease. No stenosis. IMPRESSION: Mild multilevel degenerative disc disease and facet arthrosis throughout the cervical spine. No acute fracture, subluxation, or significant spinal stenosis is identified.
--- NOTE | 2023-09-11 06:01 | XR ---
EXAM: XR Pelvis, 1 or 2 Views CLINICAL HISTORY: XR Reason: fall injury TECHNIQUE: Frontal view of the pelvis. COMPARISON: No relevant prior studies available. FINDINGS: Bones/joints: 8 mm chronic calcification projecting over the right inferior pubic ramus, unchanged. The pelvis appears intact. No acute fracture or dislocation is seen. Mild degenerative changes in the lumbosacral junction. Soft tissues: Unremarkable. IMPRESSION: 8 mm chronic calcification projecting over the right inferior pubic ramus, unchanged. The pelvis appears intact. No acute fracture or dislocation is seen.
[2023-09-11 07:57] VITALS: BP 110/36; PULSE 65; RESP 16
== END 2023-09-11 07:41 | disposition home or self-care (01) ==
LOC: EC 04:01
DX: M25.551 Pain in right hip (principal); F41.9 Anxiety disorder, unspecified; F32.A Depression, unspecified; Z79.899 Other long term (current) drug therapy; Z87.891 Personal history of nicotine dependence; Z88.0 Allergy status to penicillin; Z88.1 Allergy status to other antibiotic agents; W18.30XA Fall on same level, unspecified, initial encounter
CPT/HCPCS: 70450; 72125; 72170; 93005; 99285

== ENCOUNTER 2023-09-12 14:51 | Inpatient (IN) | payer MEDICARE ==
[2023-09-12] MEDS ORDERED: SODIUM CHLORIDE 0.9% 500 ML 500 ML IV STA (15:25)
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
[2023-09-12 15:58] LABS: Basophils % (A) 0 %; Eosinophils # (A) 0.3 k/uL (0-0.7); Eosinophils % (A) 4 %; HCT 30.6 % (34.0-46.0); HGB 9.9 gm/dL (11.4-16.0); Hypochromasia Moderate; Lymphocytes # (A) 2.6 k/uL (1.0-4.8); Lymphocytes % (A) 30 %; MCH 34.2 pg (25.0-35.0); MCHC 32.4 g/dL (31.0-37.0); MCV 105.3 fL (80.0-100.0); Macrocytosis Moderate; Mean Platelet Volume 9.2; Monocytes # (A) 0.6 k/uL (0-1.0); Monocytes % (A) 7 %; Neutrophils # (A) 4.9 k/uL (1.3-7.7); Neutrophils % (A) 58 %; Platelet Count 238 k/uL (150-450); RBC 2.91 m/uL (3.80-5.40); RDW 14.3 % (11.5-15.5); WBC 8.5 k/uL (3.8-10.6)
[2023-09-12 15:59] LABS: INR 1.1 (<1.2); Partial Thromboplastin Time 25.2 sec (22.0-30.0); Prothrombin Time 12.2 sec (10.0-12.5)
[2023-09-12 16:09] LABS: ALT 18 U/L (4-34); AST 24 U/L (14-36); African American GFR (CKD) 40 (>60 ml/min/1.73 sqM); Albumin 2.5 g/dL (3.5-5.0); Alkaline Phosphatase 174 U/L (38-126); Anion Gap 9 mmol/L; Blood Urea Nitrogen 22 mg/dL (7-17); Calcium 8.3 mg/dL (8.4-10.2); Carbon Dioxide 16 mmol/L (22-30); Chloride 115 mmol/L (98-107); Glucose 86 mg/dL (74-99); Magnesium 1.9 mg/dL (1.6-2.3); Non-African American GFR(CKD) 34 (>60 ml/min/1.73 sqM); Sodium 140 mmol/L (137-145); Total Bilirubin 0.4 mg/dL (0.2-1.3)
--- NOTE | 2023-09-12 16:18 | CT ---
EXAMINATION TYPE: CT brain isiah naranjo DATE OF EXAM: 09/12/2023 COMPARISON: CT trauma one day earlier HISTORY: weakness and hx of recent falls CT DLP: 1265.5 mGycm. Automated Exposure Control for Dose Reduction was Utilized. TECHNIQUE: CT scan of the head and cervical spine are performed without contrast. FINDINGS: There is no acute intracranial hemorrhage or midline shift identified. The ventricles an d sulci are within normal limits in size for patient's age. Mild to moderate low-attenuation in power ventricular white matter is redemonstrated. The calvarium is intact. The globes are intact and the vi sualized sinuses are clear. Cervical spine is visualized in its entirety from C1 through upper thoracic levels and demonstrates s atisfactory alignment without evidence of acute fracture or dislocation. Prevertebral soft tissue ap pears within normal limits. The C1-C2 articulation is within normal limits on the coronal images. V ertebral body heights are maintained. Disc space heights are well-preserved for patient's age. [employer] ior disc herniation C4-5 level redemonstrated. Axial images demonstrate multilevel uncovertebral face t degenerative changes bilaterally. Somewhat small size thyroid gland redemonstrated. Lung apices tyrese w no pneumothorax. IMPRESSION: 1. There is no acute fracture or dislocation evident in the cervical spine. 2. No acute intracranial hemorrhage or midline shift is seen. No significant change from one day earlier.
--- NOTE | 2023-09-12 16:19 | XR ---
EXAMINATION TYPE: XR chest 2V DATE OF EXAM: 09/12/2023 COMPARISON: Chest x-ray August 10, 2023 HISTORY: Weakness TECHNIQUE: Frontal and lateral views of the chest are obtained. FINDINGS: There is some chronic parenchymal changes bilaterally without suspicious focal air space o pacity, pleural effusion, or pneumothorax seen. The cardiac silhouette size is stable and within nor mal limits. The osseous structures remain demineralized. IMPRESSION: No acute cardiopulmonary process. No significant change from most recent x-ray.
--- NOTE | 2023-09-12 16:21 | XR ---
EXAMINATION TYPE: XR pelvis AP view DATE OF EXAM: 09/12/2023 CLINICAL HISTORY: Fall TECHNIQUE: A single AP view of the pelvis is obtained. COMPARISON: Pelvic x-ray one day earlier. FINDINGS: There is no acute displaced fracture evident in the pelvis. Mild/moderate axial joint spac e loss of both hips redemonstrated. Prominent phlebolith projects over the right inferior pelvic nura us similar to last few x-rays. Sacroiliac joints are preserved. Pubic symphysis is intact. The overly ing soft tissue appears unremarkable. IMPRESSION: There is no acute displaced fracture in the pelvis. No significant change from recent st [facility].
[2023-09-12 17:35] LABS: Appearance,Urine Cloudy (Clear); Bacteria,Urine Rare /hpf; Bilirubin,Urine Negative (Negative); Blood,Urine Negative (Negative); Color,Urine Yellow; Glucose,Urine (UA) Negative (Negative); Hyaline Casts,Urine 32 /lpf (0-2); Ketones,Urine Negative (Negative); Leukocyte Esterase,Urine Moderate (Negative); Mucus,Urine Rare /hpf; Nitrite,Urine Negative (Negative); PH, Urine 5.5 (5.0-8.0); Protein,Urine 1+ (Negative); RBC,Urine 1 /hpf (0-5); Specific Gravity,Urine 1.016 (1.001-1.035); Squamous Epithelial Cell,Urine <1 /hpf (0-4); Urobilinogen,Urine <2.0 mg/dL (<2.0); WBC,Urine 24 /hpf (0-5)
[2023-09-12 17:42] LABS: Amphetamine Screen,Urine Not Detected (NotDetected); Barbiturate Screen,Urine Not Detected (NotDetected); Benzodiazepines Screen,Urine Detected (NotDetected); Cocaine Screen,Urine Not Detected (NotDetected); Methadone Screen, Urine Not Detected (NotDetected); Opiate Screen,Urine Detected (NotDetected); Oxycodone Screen, Urine Not Detected (NotDetected); Phencyclidine Screen,Urine Not Detected (NotDetected); Tricyclic Antidepressant,Urine Not Detected (NotDetected); Urn Cannabinoid Scrn Not Detected (NotDetected)
[2023-09-12] MEDS ORDERED: NALOXONE 0.4 MG/ML 1 ML VIAL IV PRN (19:40)
[2023-09-12] MEDS: SODIUM CHLORIDE 0.9% 1,000 ML IV SCH (20:23)
[2023-09-13] MEDS ORDERED: ONDANSETRON 4 MG/2 ML VIAL IVP PRN (09:12)
[2023-09-13] MEDS ORDERED: ALBUTEROL NEBULIZED 2.5 MG/3 ML INHALATION PRN (09:22)
--- NOTE | 2023-09-13 09:53 | US ---
EXAMINATION TYPE: US kidneys/renal and bladder DATE OF EXAM: 09/13/2023 COMPARISON: NONE CLINICAL INDICATION: Female, 83 years old with history of Acute renal failure; ARF EXAM MEASUREMENTS: Right Kidney: 9.5 x 4.1 x 4.9 cm Left Kidney: 9.8 x 4.7 x 4.2 cm Right Kidney: Appeared wnl, lower pole gassed out. No hydronephrosis. Left Kidney: Limited visualization due to immobility of pt and overlying bowel content. No hydronephr osis is seen. Bladder: wnl Bilateral Jets seen: No IMPRESSION: No hydronephrosis.
[2023-09-13] MEDS: FLUoxetine HCL 20 MG CAP PO SCH ×2 (10:07→10:08)
[2023-09-13] MEDS: CALCIUM CARBONATE 500 MG CHEWABLE PO SCH (10:08)
[2023-09-13] MEDS: VITAMIN E (DL,TOCOPHERYL ACET) 400 UNIT (180 MG) CAP PO SCH (10:08)
[2023-09-13] MEDS: METOPROLOL TARTRATE 25 MG TAB PO SCH ×2 (10:08→20:19)
[2023-09-13] MEDS: POTASSIUM CHLORIDE ER 10 MEQ TAB.ER.PRT PO SCH (10:08)
[2023-09-13 10:16] LABS: African American GFR (CKD) 48 (>60 ml/min/1.73 sqM); Anion Gap 8 mmol/L; Blood Urea Nitrogen 20 mg/dL (7-17); Calcium 8.5 mg/dL (8.4-10.2); Carbon Dioxide 14 mmol/L (22-30); Chloride 118 mmol/L (98-107); Glucose 81 mg/dL (74-99); Non-African American GFR(CKD) 42 (>60 ml/min/1.73 sqM); Potassium 4.6 mmol/L (3.5-5.1); Sodium 140 mmol/L (137-145)
[2023-09-13] MEDS: SODIUM CHLORIDE 0.9% 1,000 ML IV SCH ×2 (10:16→20:19)
[2023-09-13 10:39] LABS: Basophils % (A) 0 %; Eosinophils # (A) 0.5 k/uL (0-0.7); Eosinophils % (A) 5 %; HCT 33.2 % (34.0-46.0); HGB 10.5 gm/dL (11.4-16.0); Hypochromasia Marked; Lymphocytes # (A) 2.3 k/uL (1.0-4.8); Lymphocytes % (A) 26 %; MCH 34.3 pg (25.0-35.0); MCHC 31.5 g/dL (31.0-37.0); MCV 108.7 fL (80.0-100.0); Macrocytosis Marked; Mean Platelet Volume 9.1; Monocytes # (A) 0.6 k/uL (0-1.0); Monocytes % (A) 7 %; Neutrophils # (A) 5.3 k/uL (1.3-7.7); Neutrophils % (A) 60 %; Platelet Count 252 k/uL (150-450); RBC 3.05 m/uL (3.80-5.40); RDW 14.5 % (11.5-15.5); WBC 8.8 k/uL (3.8-10.6)
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
[2023-09-13] MEDS: PRAMIPEXOLE 0.25 MG TAB PO SCH (20:19)
[2023-09-13] MEDS ORDERED: traZODone HCL 50 MG TAB PO SCH (21:00)
[2023-09-14] MEDS: ACETAMINOPHEN TAB 325 MG TAB PO PRN ×2 (00:03→16:26)
[2023-09-14] MEDS: ENOXAPARIN 40 MG/0.4 ML SYRINGE SQ SCH (09:08)
[2023-09-14] MEDS: FLUoxetine HCL 20 MG CAP PO SCH ×2 (09:08)
[2023-09-14] MEDS: METOPROLOL TARTRATE 25 MG TAB PO SCH ×2 (09:08→20:18)
[2023-09-14] MEDS: VITAMIN E (DL,TOCOPHERYL ACET) 400 UNIT (180 MG) CAP PO SCH (09:08)
[2023-09-14] MEDS: CALCIUM CARBONATE 500 MG CHEWABLE PO SCH (09:08)
[2023-09-14] MEDS: POTASSIUM CHLORIDE ER 10 MEQ TAB.ER.PRT PO SCH (09:08)
[2023-09-14 12:41] LABS: BUN/Creat Ratio 12.62 Ratio (12.00-20.00); Blood Urea Nitrogen 16.4 mg/dL (9.0-27.0); Calcium 8.3 mg/dL (8.7-10.3); Carbon Dioxide 17.9 mmol/L (21.6-31.8); Chloride 113 mmol/L (96-109); Glucose 93 mg/dL (70-110); Potassium 4.3 mmol/L (3.5-5.5); Sodium 139 mmol/L (135-145)
[2023-09-14 12:53] LABS: HCT 29.9 % (37.2-46.3); HGB 9.5 g/dL (12.0-15.0); MCH 33.5 pg (27.0-32.0); MCHC 31.8 g/dL (32.0-37.0); MCV 105.3 FL (80.0-97.0); Mean Platelet Volume 11.3 FL (9.5-12.2); NRBC Per 100 WBC 0 X 10*3/uL (0.00-0.01); Platelet Count 278 X 10*3/uL (140-440); RBC 2.84 X 10*6/uL (4.10-5.20); RDW 15.1 % (11.5-14.5); WBC 8.52 X 10*3/uL (4.50-10.00)
[2023-09-14 13:39] LABS: Basophils # (A) 0.03 X 10*3/uL (0.00-0.10); Basophils % (A) 0.4 %; Eosinophils # (A) 0.29 X 10*3/uL (0.04-0.35); Eosinophils % (A) 3.4 %; Lymphocytes % (A) 37.6 %; Macrocytosis (M) 2+; Monocytes # (A) 1.02 X 10*3/uL (0.20-1.00); Neutrophils # (A) 3.95 X 10*3/uL (1.80-7.70); Neutrophils % (A) 46.2 %
[2023-09-14] MEDS: SODIUM CHLORIDE 0.9% 1,000 ML IV SCH (16:50)
[2023-09-14] MEDS: PRAMIPEXOLE 0.25 MG TAB PO SCH (20:18)
--- NOTE | 2023-09-14 20:42 | P.PN ---
Progress Note - Text Progress Note Date: 09/14/23 Chief Complaint: Recurrent falls weakness * 83-year-old patient with past medical history significant for COPD, history of generalized weakness, recurrent falls, history of Covid pneumonitis, remote history of uterine cancer presents to the emergency department after gen eralized weakness and multiple falls. Workup in ER included CT head which was negative for acute intracranial process, mass effect, a 16 * History was obtained which was negative for fractures or traumatic injury. Blood work obtained in ER included WBC count of 8.5 hemoglobin 9.9 platelet count of 238 INR of 1.1 serum chemistry sodium 140 potassium 4 carbon dioxide 16 BU and 22 creatinine 1.43 liver profile AST 24 ALT 18 magnesium 1.9 urine toxin was obtained which was essentially negative * EKG obtained in ER showed sinus rhythm with heart rate of [address] segment changes * Patient was noted to have hemoglobin of 9.9, previous hemoglobin was noted to be around 11 * Creatinine was noted to be 1.43 previously creatinine was within normal limits * Patient denies passing out, patient will be placed in observation with PT OT evaluation for discharge disposition 09/14/2023: Patient had a baseline uses a walker. Feels a legs are getting very weak. He does feel sleepy all the time. Often dozes off. I feel her medications are contributing to the same. Morning dose of Prozac is being discontinued. Also cut back the dose of trazodone at night to 25 mg. We'll see how the patient does with medication changes. Also note patient's creatinine was 0.9 on August 22. On admission 1.43. Active Medications Acetaminophen (Acetaminophen Tab 325 Mg Tab) 650 mg PO Q6HR PRN PRN Reason: Mild Pain or Fever > 100.5 Last Admin: 09/14/23 16:26 Dose: 650 mg Albuterol Sulfate (Albuterol Nebulized 2.5 Mg/3 Ml) 2.5 mg INHALATION RT-QID PRN PRN Reason: Shortness Of Breath Or Wheezing Alprazolam (Alprazolam 0.5 Mg Tab) 0.5 mg PO TID PRN PRN Reason: Anxiety Calcium Carbonate/Glycine (Calcium Carbonate 500 Mg Chewable) 500 mg PO DAILY [facility] Last Admin: 09/14/23 09:08 Dose: 500 mg Enoxaparin Sodium (Enoxaparin 40 Mg/0.4 Ml Syringe) 40 mg SQ DAILY [facility] Last Admin: 09/14/23 09:08 Dose: 40 mg Fluoxetine HCl (Fluoxetine Hcl 20 Mg Cap) 40 mg PO DAILY [facility] Last Admin: 09/14/23 09:08 Dose: 40 mg Sodium Chloride (Saline 0.9%) 1,000 mls @ 75 mls/hr IV .[id number] [facility] Last Admin: 09/14/23 16:50 Dose: 75 mls/hr Metoprolol Tartrate (Metoprolol Tartrate 25 Mg Tab) 25 mg PO BID [facility] Last Admin: 09/14/23 20:18 Dose: 25 mg Naloxone HCl (Naloxone 0.4 Mg/Ml 1 Ml Vial) 0.2 mg IV Q2M PRN PRN Reason: Opioid Reversal Ondansetron HCl (Ondansetron 4 Mg/2 Ml Vial) 4 mg IVP Q8HR PRN PRN Reason: Nausea And Vomiting Potassium Chloride (Potassium Chloride Er 10 Meq Tab.Er.Prt) 10 meq PO DAILY [facility] Last Admin: 09/14/23 09:08 Dose: 10 meq Pramipexole Dihydrochloride (Pramipexole 0.25 Mg Tab) 0.25 mg PO HS [facility] Last Admin: 09/14/23 20:18 Dose: 0.25 mg Trazodone HCl (Trazodone Hcl 50 Mg Tab) 25 mg PO HS [facility] Last Admin: 09/14/23 20:18 Dose: 25 mg Vitamin E (Vitamin E (Dl,Tocopheryl Acet) 400 Unit (180 Mg) Cap) 400 unit PO DAILY [facility] Last Admin: 09/14/23 09:08 Dose: 400 unit . On examination: VITAL SIGNS: 97.6, 61, 14, 124/71, 99% room air GENERAL APPEARANCE: Tanning bed, tired HEENT: Normal external appearance of nose and ear. Oral cavity normal. EYES: Pupils equal. Conjunctiva normal. NECK: JVD not raised. Mass not palpable. RESPIRATORY: Respiratory effort normal. Lungs decreased breath sounds CARDIOVASCULAR: First and second sounds normal. No edema. ABDOMEN: Soft. Liver and spleen not palpable. No tenderness. No mass palpable. PSYCHIATRY: Alert and oriented x3. Mood and affect normal. INVESTIGATIONS, reviewed in the clinical context: 09/14/2023: White count 8.5 hemoglobin 9.5 sodium 139 potassium 4.3 creatinine 1.3. Bicarbonate 17.9 September 12: Creatinine 1.43 Previous labs: August 14: Creatinine 0.9 Assessment and plan: -Acute metabolic encephalopathy from medications making the patient rather lethargic sleepy all the time. Causing decreased oral intake. Precipitating falls. DC morning dose of Prozac. Cutback p.m. dose of trazodone. -Acute kidney injury combination of ATN and prerenal from decreased oral intake. Creatinine was 0.9 on August 14. On admission 1.43. IV fluids. -Moderate tricuspid regurgitation -Secondary pulmonary hypertension -anxiety and depression Prozac 40 mg daily at bedtime. Cutback nose of trazodone. -Chronic insomnia Trazodone back to 25 mg daily at bedtime. 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 Medications are being adjusted. Needs at least 2 overnights to make sure patient is same before she can be discharged. Change to inpatient
[2023-09-14] MEDS ORDERED: traZODone HCL 50 MG TAB PO SCH (21:00)
[2023-09-14] MEDS: LACTATED RINGERS 1,000 ML IV SCH (21:25)
[2023-09-14] MEDS: SODIUM BICARBONATE TAB 650 MG TAB PO SCH (21:25)
[2023-09-14] MEDS: ALPRAZolam 0.5 MG TAB PO PRN (23:17)
[2023-09-15] MEDS: LACTATED RINGERS 1,000 ML IV SCH ×2 (05:19→18:42)
[2023-09-15] MEDS: ENOXAPARIN 40 MG/0.4 ML SYRINGE SQ SCH (08:11)
[2023-09-15] MEDS: CALCIUM CARBONATE 500 MG CHEWABLE PO SCH (08:12)
[2023-09-15] MEDS: SODIUM BICARBONATE TAB 650 MG TAB PO SCH ×3 (08:12→20:04)
[2023-09-15] MEDS: POTASSIUM CHLORIDE ER 10 MEQ TAB.ER.PRT PO SCH (08:12)
[2023-09-15] MEDS: VITAMIN E (DL,TOCOPHERYL ACET) 400 UNIT (180 MG) CAP PO SCH (08:12)
[2023-09-15] MEDS: METOPROLOL TARTRATE 25 MG TAB PO SCH ×2 (08:12→20:04)
[2023-09-15] MEDS: FLUoxetine HCL 20 MG CAP PO SCH (08:12)
[2023-09-15] MEDS: ACETAMINOPHEN TAB 325 MG TAB PO PRN (11:40)
[2023-09-15] MEDS: PRAMIPEXOLE 0.25 MG TAB PO SCH (20:04)
[2023-09-15] MEDS: traZODone HCL 50 MG TAB PO SCH (20:04)
--- NOTE | 2023-09-16 00:17 | P.PN ---
Progress Note - Text Progress Note Date: 09/15/23 Chief Complaint: Recurrent falls weakness * 83-year-old patient with past medical history significant for COPD, history of generalized weakness, recurrent falls, history of Covid pneumonitis, remote history of uterine cancer presents to the emergency department after gen eralized weakness and multiple falls. Workup in ER included CT head which was negative for acute intracranial process, mass effect, a 16 * History was obtained which was negative for fractures or traumatic injury. Blood work obtained in ER included WBC count of 8.5 hemoglobin 9.9 platelet count of 238 INR of 1.1 serum chemistry sodium 140 potassium 4 carbon dioxide 16 BU and 22 creatinine 1.43 liver profile AST 24 ALT 18 magnesium 1.9 urine toxin was obtained which was essentially negative * EKG obtained in ER showed sinus rhythm with heart rate of [address] segment changes * Patient was noted to have hemoglobin of 9.9, previous hemoglobin was noted to be around 11 * Creatinine was noted to be 1.43 previously creatinine was within normal limits * Patient denies passing out, patient will be placed in observation with PT OT evaluation for discharge disposition 09/14/2023: Patient had a baseline uses a walker. Feels a legs are getting very weak. He does feel sleepy all the time. Often dozes off. I feel her medications are contributing to the same. Morning dose of Prozac is being discontinued. Also cut back the dose of trazodone at night to 25 mg. We'll see how the patient does with medication changes. Also note patient's creatinine was 0.9 on August 22. On admission 1.43. 09/15/2023: Patient had some disturbed sleep last night. We will increase the p.m. dose of trazodone. To what she was taking at home. Morning dose of Prozac was cutback yesterday. -40 mg. Active Medications Acetaminophen (Acetaminophen Tab 325 Mg Tab) 650 mg PO Q6HR PRN PRN Reason: Mild Pain or Fever > 100.5 Last Admin: 09/15/23 11:40 Dose: 650 mg Albuterol Sulfate (Albuterol Nebulized 2.5 Mg/3 Ml) 2.5 mg INHALATION RT-QID PRN PRN Reason: Shortness Of Breath Or Wheezing Alprazolam (Alprazolam 0.5 Mg Tab) 0.5 mg PO TID PRN PRN Reason: Anxiety Last Admin: 09/14/23 23:17 Dose: 0.5 mg Calcium Carbonate/Glycine (Calcium Carbonate 500 Mg Chewable) 500 mg PO DAILY [facility] Last Admin: 09/15/23 08:12 Dose: 500 mg Enoxaparin Sodium (Enoxaparin 40 Mg/0.4 Ml Syringe) 40 mg SQ DAILY [facility] Last Admin: 09/15/23 08:11 Dose: 40 mg Fluoxetine HCl (Fluoxetine Hcl 20 Mg Cap) 40 mg PO DAILY [facility] Last Admin: 09/15/23 08:12 Dose: 40 mg Lactated Ringer's (Lactated Ringers) 1,000 mls @ 100 mls/hr IV .Q10H [facility] Last Admin: 09/15/23 18:42 Dose: Not Given Metoprolol Tartrate (Metoprolol Tartrate 25 Mg Tab) 25 mg PO BID [facility] Last Admin: 09/15/23 20:04 Dose: 25 mg Naloxone HCl (Naloxone 0.4 Mg/Ml 1 Ml Vial) 0.2 mg IV Q2M PRN PRN Reason: Opioid Reversal Ondansetron HCl (Ondansetron 4 Mg/2 Ml Vial) 4 mg IVP Q8HR PRN PRN Reason: Nausea And Vomiting Potassium Chloride (Potassium Chloride Er 10 Meq Tab.Er.Prt) 10 meq PO DAILY [facility] Last Admin: 09/15/23 08:12 Dose: 10 meq Pramipexole Dihydrochloride (Pramipexole 0.25 Mg Tab) 0.25 mg PO HS [facility] Last Admin: 09/15/23 20:04 Dose: 0.25 mg Sodium Bicarbonate (Sodium Bicarbonate Tab 650 Mg Tab) 650 mg PO TID [facility] Last Admin: 09/15/23 20:04 Dose: 650 mg Trazodone HCl (Trazodone Hcl 50 Mg Tab) 50 mg PO HS [facility] Last Admin: 09/15/23 20:04 Dose: 50 mg Vitamin E (Vitamin E (Dl,Tocopheryl Acet) 400 Unit (180 Mg) Cap) 400 unit PO DAILY [facility] Last Admin: 09/15/23 08:12 Dose: 400 unit On examination: VITAL SIGNS: 97.6, 68, 16, 119 with 75, 97% room air GENERAL APPEARANCE: Laying in bed HEENT: Normal external appearance of nose and ear. Oral cavity normal. EYES: Pupils equal. Conjunctiva normal. NECK: JVD not raised. Mass not palpable. RESPIRATORY: Respiratory effort normal. Lungs decreased breath sounds CARDIOVASCULAR: First and second sounds normal. No edema. ABDOMEN: Soft. Liver and spleen not palpable. No tenderness. No mass palpable. PSYCHIATRY: Alert and oriented x3. Mood and affect normal. INVESTIGATIONS, reviewed in the clinical context: 09/14/2023: White count 8.5 hemoglobin 9.5 sodium 139 potassium 4.3 creatinine 1.3. Bicarbonate 17.9 September 12: Creatinine 1.43 Previous labs: August 14: Creatinine 0.9 Assessment and plan: -Acute metabolic encephalopathy from medications making the patient rather lethargic sleepy all the time. Causing decreased oral intake. Precipitating falls. Morning dose of Prozac cutback to 40 mg. -Acute kidney injury combination of ATN and prerenal from decreased oral intake. Creatinine was 0.9 on August 14. On admission 1.43. IV fluids. -Moderate tricuspid regurgitation -Secondary pulmonary hypertension -anxiety and depression Prozac 40 mg daily trazodone. -Chronic insomnia Trazodone 25 mg daily at bedtime. 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 Continue IV fluids. PTOT input. Back IV fluids.
[2023-09-16] MEDS: ALPRAZolam 0.5 MG TAB PO PRN ×2 (00:40→22:14)
[2023-09-16] MEDS: LACTATED RINGERS 1,000 ML IV SCH (05:03)
[2023-09-16] MEDS: ENOXAPARIN 40 MG/0.4 ML SYRINGE SQ SCH (09:39)
[2023-09-16] MEDS: POTASSIUM CHLORIDE ER 10 MEQ TAB.ER.PRT PO SCH (09:40)
[2023-09-16] MEDS: VITAMIN E (DL,TOCOPHERYL ACET) 400 UNIT (180 MG) CAP PO SCH (09:40)
[2023-09-16] MEDS: SODIUM BICARBONATE TAB 650 MG TAB PO SCH ×4 (09:40→21:23)
[2023-09-16] MEDS: ACETAMINOPHEN TAB 325 MG TAB PO PRN (09:40)
[2023-09-16] MEDS: CALCIUM CARBONATE 500 MG CHEWABLE PO SCH (09:40)
[2023-09-16] MEDS: METOPROLOL TARTRATE 25 MG TAB PO SCH ×2 (09:40→21:23)
[2023-09-16] MEDS: FLUoxetine HCL 20 MG CAP PO SCH (09:40)
[2023-09-16] MEDS: MAGNESIUM OXIDE 400 MG TAB PO SCH (09:40)
[2023-09-16 15:09] VITALS: RESP 16
--- NOTE | 2023-09-16 17:19 | P.PN ---
Progress Note - Text Progress Note Date: 09/16/23 Chief Complaint: Recurrent falls weakness * 83-year-old patient with past medical history significant for COPD, history of generalized weakness, recurrent falls, history of Covid pneumonitis, remote history of uterine cancer presents to the emergency department after gen eralized weakness and multiple falls. Workup in ER included CT head which was negative for acute intracranial process, mass effect, a 16 * History was obtained which was negative for fractures or traumatic injury. Blood work obtained in ER included WBC count of 8.5 hemoglobin 9.9 platelet count of 238 INR of 1.1 serum chemistry sodium 140 potassium 4 carbon dioxide 16 BU and 22 creatinine 1.43 liver profile AST 24 ALT 18 magnesium 1.9 urine toxin was obtained which was essentially negative * EKG obtained in ER showed sinus rhythm with heart rate of [address] segment changes * Patient was noted to have hemoglobin of 9.9, previous hemoglobin was noted to be around 11 * Creatinine was noted to be 1.43 previously creatinine was within normal limits * Patient denies passing out, patient will be placed in observation with PT OT evaluation for discharge disposition 09/14/2023: Patient had a baseline uses a walker. Feels a legs are getting very weak. He does feel sleepy all the time. Often dozes off. I feel her medications are contributing to the same. Morning dose of Prozac is being discontinued. Also cut back the dose of trazodone at night to 25 mg. We'll see how the patient does with medication changes. Also note patient's creatinine was 0.9 on August 22. On admission 1.43. 09/15/2023: Patient had some disturbed sleep last night. We will increase the p.m. dose of trazodone. To what she was taking at home. Morning dose of Prozac was cutback yesterday. -40 mg. 09/16/2023: Patient doing better. Walk about 20 feet with physical therapy. With walker. Patient feeling better. Did sleep well last night. Active Medications Acetaminophen (Acetaminophen Tab 325 Mg Tab) 650 mg PO Q6HR PRN PRN Reason: Mild Pain or Fever > 100.5 Last Admin: 09/16/23 09:40 Dose: 650 mg Albuterol Sulfate (Albuterol Nebulized 2.5 Mg/3 Ml) 2.5 mg INHALATION RT-QID PRN PRN Reason: Shortness Of Breath Or Wheezing Alprazolam (Alprazolam 0.5 Mg Tab) 0.5 mg PO TID PRN PRN Reason: Anxiety Last Admin: 09/16/23 00:40 Dose: 0.5 mg Calcium Carbonate/Glycine (Calcium Carbonate 500 Mg Chewable) 500 mg PO DAILY [facility] Last Admin: 09/16/23 09:40 Dose: 500 mg Enoxaparin Sodium (Enoxaparin 40 Mg/0.4 Ml Syringe) 40 mg SQ DAILY [facility] Last Admin: 09/16/23 09:39 Dose: 40 mg Fluoxetine HCl (Fluoxetine Hcl 20 Mg Cap) 40 mg PO DAILY [facility] Last Admin: 09/16/23 09:40 Dose: 40 mg Magnesium Oxide (Magnesium Oxide 400 Mg Tab) 400 mg PO DAILY [facility] Last Admin: 09/16/23 09:40 Dose: 400 mg Metoprolol Tartrate (Metoprolol Tartrate 25 Mg Tab) 25 mg PO BID [facility] Last Admin: 09/16/23 09:40 Dose: 25 mg Naloxone HCl (Naloxone 0.4 Mg/Ml 1 Ml Vial) 0.2 mg IV Q2M PRN PRN Reason: Opioid Reversal Ondansetron HCl (Ondansetron 4 Mg/2 Ml Vial) 4 mg IVP Q8HR PRN PRN Reason: Nausea And Vomiting Potassium Chloride (Potassium Chloride Er 10 Meq Tab.Er.Prt) 10 meq PO DAILY [facility] Last Admin: 09/16/23 09:40 Dose: 10 meq Pramipexole Dihydrochloride (Pramipexole 0.25 Mg Tab) 0.25 mg PO HS [facility] Last Admin: 09/15/23 20:04 Dose: 0.25 mg Sodium Bicarbonate (Sodium Bicarbonate Tab 650 Mg Tab) 650 mg PO TID [facility] Last Admin: 09/16/23 09:40 Dose: 650 mg Trazodone HCl (Trazodone Hcl 50 Mg Tab) 50 mg PO HS [facility] Last Admin: 09/15/23 20:04 Dose: 50 mg Vitamin E (Vitamin E (Dl,Tocopheryl Acet) 400 Unit (180 Mg) Cap) 400 unit PO DAILY [facility] Last Admin: 09/16/23 09:40 Dose: 400 unit On examination: VITAL SIGNS: 97.9, 67, 16, 1 22 x 6 10, 98% room air GENERAL APPEARANCE: Up in a recliner, more awake HEENT: Normal external appearance of nose and ear. Oral cavity normal. EYES: Pupils equal. Conjunctiva normal. NECK: JVD not raised. Mass not palpable. RESPIRATORY: Respiratory effort normal. Lungs decreased breath sounds CARDIOVASCULAR: First and second sounds normal. No edema. ABDOMEN: Soft. Liver and spleen not palpable. No tenderness. No mass palpable. PSYCHIATRY: Alert and oriented x3. Mood and affect normal. INVESTIGATIONS, reviewed in the clinical context: Ultrasound kidney: Right kidney within normal limits. Left kidney limited visualization. Bilateral jets probably not seen. 09/14/2023: White count 8.5 hemoglobin 9.5 sodium 139 potassium 4.3 creatinine 1.3. Bicarbonate 17.9 September 12: Creatinine 1.43 Previous labs: August 14: Creatinine 0.9 Assessment and plan: -Acute metabolic encephalopathy from medications making the patient rather lethargic sleepy all the time. Causing decreased oral intake. Precipitating falls.: Improving Morning dose of Prozac cutback to 40 mg. -Acute kidney injury combination of ATN and prerenal from decreased oral intake. Creatinine was 0.9 on August 14. On admission 1.43. IV fluids. -Probable chronic kidney disease stage III likely nephrosclerosis Patient has some proteinuria. -Moderate tricuspid regurgitation -Secondary pulmonary hypertension -anxiety and depression Prozac 40 mg daily trazodone. -Chronic insomnia Trazodone 25 mg daily at bedtime. 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 Hopefully home in 24 hours. Patient keen to go home. Continue IV fluids
[2023-09-16] MEDS: DEXTROSE 5%-0.45% NACL 1,000 ML IV SCH (17:43)
[2023-09-16] MEDS: traZODone HCL 50 MG TAB PO SCH (21:23)
[2023-09-16] MEDS: PRAMIPEXOLE 0.25 MG TAB PO SCH (21:23)
[2023-09-17] MEDS: DEXTROSE 5%-0.45% NACL 1,000 ML IV SCH (02:33)
[2023-09-17] MEDS: ACETAMINOPHEN TAB 325 MG TAB PO PRN ×2 (04:45→14:56)
[2023-09-17 06:38] LABS: African American GFR (CKD) >90 (>60 ml/min/1.73 sqM); Anion Gap 5 mmol/L; Blood Urea Nitrogen 13 mg/dL (7-17); Carbon Dioxide 19 mmol/L (22-30); Chloride 109 mmol/L (98-107); Glucose 109 mg/dL (74-99); Non-African American GFR(CKD) 84 (>60 ml/min/1.73 sqM); Potassium 3.3 mmol/L (3.5-5.1); Sodium 133 mmol/L (137-145)
[2023-09-17] MEDS: FLUoxetine HCL 20 MG CAP PO SCH (08:43)
[2023-09-17] MEDS: SODIUM BICARBONATE TAB 650 MG TAB PO SCH ×2 (08:43→13:03)
[2023-09-17] MEDS: METOPROLOL TARTRATE 25 MG TAB PO SCH (08:43)
[2023-09-17] MEDS: CALCIUM CARBONATE 500 MG CHEWABLE PO SCH (08:43)
[2023-09-17] MEDS: MAGNESIUM OXIDE 400 MG TAB PO SCH (08:43)
[2023-09-17] MEDS: POTASSIUM CHLORIDE ER 10 MEQ TAB.ER.PRT PO SCH (08:43)
[2023-09-17] MEDS: ENOXAPARIN 40 MG/0.4 ML SYRINGE SQ SCH (08:43)
[2023-09-17] MEDS: VITAMIN E (DL,TOCOPHERYL ACET) 400 UNIT (180 MG) CAP PO SCH (08:43)
[2023-09-17 14:11] VITALS: BP 140/71; PULSE 66; TEMP 97.9
--- NOTE | 2023-09-17 15:00 | CDI ---
Documentation Clarification Form Date: 09/17/2023 02:51:23 PM From: Fina Baptiste RN CCDS Phone: [phone] Admit Date: 09/14/2023 08:41:00 PM Patient Name: Naomi Yuen Visit Number: [id number] Discharge Date: ATTENTION: The Clinical Documentation Specialists (CDI) and [facility] Coding Staff appreciate your assistance in clarifying documentation. Please respond to the clarification below the line at the bottom and electronically sign. The CDI & [facility] Coding staff will review the response and follow-up if needed. Please note: Queries are made part of the Legal Health Record. If you have any questions, please contact the author of this message via ITS. Dr. Hi Dyson Bilateral Buttock stage II pressure ulcers is documented by Nursing, 09/14 Physical assessment Integumentary. Based on this information and the findings below, is there an additional diagnosis that is clinically appropriate for this patient? History/Risk Factors: 83 year old female presented to the ED for recurrent falls and generalized weakness. Medical History: COPD, recent COVID pneumonitis and remote history of uterine cancer. 09/13, H&P Clinical Indicators: Location: Bilateral Buttock Wound description: Stage II Treatment: Zinc paste, Turn 2QH, Absorbent pad checking Q1H Is there an additional diagnosis that is clinically appropriate for this patient? [ + ] Bilateral Buttock Pressures Ulcer Stage II [ ] Other condition, please specify [ ] Unable to determine Clinical Definitions: Stage 1 Pressure Ulcer: intact skin, non-blanching redness of local area Stage 2 Pressure Ulcer: Partial thickness, loss of dermis, pink wound bed Stage 3 Pressure Ulcer: Full thickness tissue loss Stage 4 Pressure Ulcer: Full thickness tissue loss with exposed bone, tendon, or muscle. Unstageable pressure ulcer: Full thickness tissue loss in which the base of the ulcer is covered by slough (yellow, hobbs, wren, green or brown) and/or eschar (hobbs, brown or black) in the wound bed. (Template Last Revised: October 2020) MTDD
--- NOTE | 2023-09-17 19:59 | P.DS ---
Providers Date of admission: 09/14/23 20:41 Expected date of discharge: 09/17/23 Attending physician: Hi Hassan Primary care physician: Carlyle [facility] Course: Chief Complaint: Recurrent falls weakness * 83-year-old patient with past medical history significant for COPD, history of generalized weakness, recurrent falls, history of Covid pneumonitis, remote history of uterine cancer presents to the emergency department after generalized weakness and multiple falls. Workup in ER included CT head which was negative for acute intracranial process, mass effect, a 16 * History was obtained which was negative for fractures or traumatic injury. Blood work obtained in ER included WBC count of 8.5 hemoglobin 9.9 platelet count of 238 INR of 1.1 serum chemistry sodium 140 potassium 4 carbon dioxide 16 BU and 22 creatinine 1.43 liver profile AST 24 ALT 18 magnesium 1.9 urine toxin was obtained which was essentially negative * EKG obtained in ER showed sinus rhythm with heart rate of [address] segment changes * Patient was noted to have hemoglobin of 9.9, previous hemoglobin was noted to be around 11 * Creatinine was noted to be 1.43 previously creatinine was within normal limits * Patient denies passing out, patient will be placed in observation with PT OT evaluation for discharge disposition 09/14/2023: Patient had a baseline uses a walker. Feels a legs are getting very weak. He does feel sleepy all the time. Often dozes off. I feel her medications are contributing to the same. Morning dose of Prozac is being discontinued. Also cut back the dose of trazodone at night to 25 mg. We'll see how the patient does with medication changes. Also note patient's creatinine was 0.9 on August 22. On admission 1.43. 09/15/2023: Patient had some disturbed sleep last night. We will increase the p.m. dose of trazodone. To what she was taking at home. Morning dose of Prozac was cutback yesterday. -40 mg. 09/16/2023: Patient doing better. Walk about 20 feet with physical therapy. With walker. Patient feeling better. Did sleep well last night. September 17, 2023: Patient doing much better. Did walk in the hallway. Feeling back to baseline. Questions answered. Eating well. Discussion and discharge planning more than 35 minutes On examination: VITAL SIGNS: 97.9, 66, 16, 140/91, 95% room air GENERAL APPEARANCE: Up in a chair, comfortable HEENT: Normal external appearance of nose and ear. Oral cavity normal. EYES: Pupils equal. Conjunctiva normal. NECK: JVD not raised. Mass not palpable. RESPIRATORY: Respiratory effort normal. Lungs decreased breath sounds CARDIOVASCULAR: First and second sounds normal. No edema. ABDOMEN: Soft. Liver and spleen not palpable. No tenderness. No mass palpable. PSYCHIATRY: Alert and oriented x3. Mood and affect normal. INVESTIGATIONS, reviewed in the clinical context: September 17: Creatinine 0.64 Ultrasound kidney: Right kidney within normal limits. Left kidney limited visualization. Bilateral jets probably not seen. 09/14/2023: White count 8.5 hemoglobin 9.5 sodium 139 potassium 4.3 creatinine 1.3. Bicarbonate 17.9 September 12: Creatinine 1.43 Previous labs: August 14: Creatinine 0.9 Assessment and plan: -Acute metabolic encephalopathy from medications making the patient rather lethargic sleepy all the time. Causing decreased oral intake. Precipitating falls.: Resolved Morning dose of Prozac cutback to 40 mg. -Acute kidney injury combination of ATN and prerenal from decreased oral intake.: Resolved Creatinine was 0.9 on August 14. On admission 1.43. IV fluids. -No CKD -Moderate tricuspid regurgitation -Secondary pulmonary hypertension -anxiety and depression Prozac 40 mg daily trazodone. -Chronic insomnia Trazodone 25 mg daily at bedtime. -Chronic gait dysfunction, uses a walker at baseline -Full code Disposition: Home Plan - Discharge Summary Discharge Rx Participant: No New Discharge Prescriptions: New Sodium Bicarbonate Tab 650 mg PO BID #30 tab Magnesium Oxide [Mag-Ox] 400 mg PO DAILY #30 tab Acetaminophen Tab [Tylenol] 650 mg PO Q6HR PRN tab PRN Reason: Mild Pain Or Fever > 100.5 Continue ALPRAZolam [Xanax] 0.5 - 1 mg PO TID PRN PRN Reason: Anxiety FLUoxetine HCL [PROzac] 40 mg PO DAILY traZODone HCL [Desyrel] 50 mg PO HS Pramipexole [Mirapex] 0.25 mg PO HS 15 Days #15 tab Metoprolol Tartrate [Lopressor] 25 mg PO BID Potassium Chloride ER [K-Dur 10] 10 meq PO DAILY Vitamin K(Unknown Dose) 1 tab PO DAILY Vitamin D3(Unknown Dose) 1 tab PO DAILY Vitamin E (Dl,Tocopheryl Acet) [Vitamin E (400 Iu = 180 mg)] 400 unit PO DAILY Calcium Carbonate [Calcium] 600 mg PO DAILY Discontinued FLUoxetine HCL [PROzac] 20 mg PO DAILY Discharge Medication List ALPRAZolam [Xanax] 0.5 - 1 mg PO TID PRN 09/10/19 [History] FLUoxetine HCL [PROzac] 40 mg PO DAILY 03/17/20 [History] traZODone HCL [Desyrel] 50 mg PO HS 06/21/23 [History] Pramipexole [Mirapex] 0.25 mg PO HS 15 Days #15 tab 07/01/23 [Rx] Calcium Carbonate [Calcium] 600 mg PO DAILY 09/12/23 [History] Metoprolol Tartrate [Lopressor] 25 mg PO BID 09/12/23 [History] Potassium Chloride ER [K-Dur 10] 10 meq PO DAILY 09/12/23 [History] Vitamin D3(Unknown Dose) 1 tab PO DAILY 09/12/23 [History] Vitamin E (Dl,Tocopheryl Acet) [Vitamin E (400 Iu = 180 mg)] 400 unit PO DAILY 09/12/23 [History] Vitamin K(Unknown Dose) 1 tab PO DAILY 09/12/23 [History] Acetaminophen Tab [Tylenol] 650 mg PO Q6HR PRN tab 09/17/23 [Rx] Magnesium Oxide [Mag-Ox] 400 mg PO DAILY #30 tab 09/17/23 [Rx] Sodium Bicarbonate Tab 650 mg PO BID #30 tab 09/17/23 [Rx] Follow up Appointment(s)/Referral(s): Carlyle Luevano MD [Primary Care Provider] - 1-2 days [facility] [NON-STAFF] - 1 Week Discharge Disposition: HOME SELF-CARE
== END 2023-09-17 15:02 | disposition home health service (06) | DRG 91 ==
LOC: EC 14:51 → 6NMEDSUR 19:43 → OBSVTOIN 09-14 20:41 → 6NMEDSUR 09-15 11:46
PROVIDERS: ADMIT Hospitalist; ATTEND Hospitalist
DX: G92.8 Other toxic encephalopathy (principal); N17.0 Acute kidney failure with tubular necrosis; L89.312 Pressure ulcer of right buttock, stage 2; I27.29 Other secondary pulmonary hypertension; L89.322 Pressure ulcer of left buttock, stage 2; E86.0 Dehydration; I12.9 Hypertensive chronic kidney disease with stage 1 through stage 4 chronic kidney disease, or unspecified chronic kidney disease; N18.30 Chronic kidney disease, stage 3 unspecified; J44.9 Chronic obstructive pulmonary disease, unspecified; I07.1 Rheumatic tricuspid insufficiency; F32.A Depression, unspecified; T50.905A Adverse effect of unspecified drugs, medicaments and biological substances, initial encounter; Z28.310 Unvaccinated for COVID-19; F41.9 Anxiety disorder, unspecified; G47.9 Sleep disorder, unspecified; F51.04 Psychophysiologic insomnia; R80.9 Proteinuria, unspecified; R29.6 Repeated falls; R26.9 Unspecified abnormalities of gait and mobility; Z79.899 Other long term (current) drug therapy; Z86.16 Personal history of COVID-19; Z85.42 Personal history of malignant neoplasm of other parts of uterus; Z87.891 Personal history of nicotine dependence; Y92.039 Unspecified place in apartment as the place of occurrence of the external cause; W19.XXXA Unspecified fall, initial encounter; Z88.0 Allergy status to penicillin
CPT/HCPCS: 36415; 70450; 71046; 72125; 72170; 76770; 80048; 80053; 80306; 80320; 81001; 83605; 83735; 84484; 85025; 85610; 85730; 93005; 94760; 96360; 96361; 99285

== ENCOUNTER 2023-09-30 16:21 | Emergency (ER) | payer MEDICARE ==
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
[2023-09-30 16:55] LABS: Basophils % (A) 0 %; Eosinophils # (A) 0.4 k/uL (0-0.7); Eosinophils % (A) 4 %; HCT 34.5 % (34.0-46.0); HGB 11.2 gm/dL (11.4-16.0); Hypochromasia Slight; Lymphocytes # (A) 2.2 k/uL (1.0-4.8); Lymphocytes % (A) 20 %; MCH 33.8 pg (25.0-35.0); MCHC 32.5 g/dL (31.0-37.0); MCV 103.8 fL (80.0-100.0); Macrocytosis Moderate; Mean Platelet Volume 7.6; Monocytes # (A) 0.8 k/uL (0-1.0); Monocytes % (A) 7 %; Neutrophils # (A) 7.7 k/uL (1.3-7.7); Neutrophils % (A) 68 %; Platelet Count 429 k/uL (150-450); RBC 3.32 m/uL (3.80-5.40); RDW 14.5 % (11.5-15.5); WBC 11.3 k/uL (3.8-10.6)
--- NOTE | 2023-09-30 16:55 | XR ---
EXAMINATION TYPE: XR chest 2V DATE OF EXAM: 09/30/2023 4:50 PM CLINICAL INDICATION:Female, 83 years old with history of dyspnea COMPARISON: Chest radiographs from on 2023 TECHNIQUE: XR chest 2V Frontal and lateral views of the chest. FINDINGS: Lungs/Pleura: No evidence of focal consolidation or pneumothorax. Blunting of the costophrenic angles is present. Pulmonary vascularity: Pulmonary vascular congestion. Heart/mediastinum: Cardiomediastinal silhouette is unremarkable. Musculoskeletal: No acute osseous pathology. Other findings: None IMPRESSION: Cardiomegaly, pulmonary vascular congestion and bilateral pleural effusions. Correlate with BNP for c ongestive heart failure.
[2023-09-30 17:04] LABS: ALT 15 U/L (4-34); AST 34 U/L (14-36); African American GFR (CKD) >90 (>60 ml/min/1.73 sqM); Albumin 2.7 g/dL (3.5-5.0); Alcohol <10 mg/dL; Alkaline Phosphatase 116 U/L (38-126); Anion Gap 5 mmol/L; Blood Urea Nitrogen 15 mg/dL (7-17); Carbon Dioxide 23 mmol/L (22-30); Chloride 110 mmol/L (98-107); Glucose 110 mg/dL (74-99); Magnesium 1.9 mg/dL (1.6-2.3); Non-African American GFR(CKD) 82 (>60 ml/min/1.73 sqM); Potassium 4.2 mmol/L (3.5-5.1); Sodium 138 mmol/L (137-145); Total Bilirubin 0.7 mg/dL (0.2-1.3); Total Protein 5.5 g/dL (6.3-8.2)
[2023-09-30 17:08] LABS: INR 1.3 (<1.2); Partial Thromboplastin Time 29.4 sec (22.0-30.0)
[2023-09-30 17:20] LABS: Lactic Acid, Venous 1.4 mmol/L (0.7-2.0)
--- NOTE | 2023-09-30 18:16 | CT ---
EXAMINATION TYPE: CT brain wo con CT DLP: 1134.2 mGycm, Automated exposure control for dose reduction was used. DATE OF EXAM: 09/30/2023 6:06 PM COMPARISON: 09/12/2023. CLINICAL INDICATION:Female, 83 years old with history of lethargy, alleged slurred speech, c/o weakne ss TECHNIQUE: Brain: Axial CT images of the brain were obtained with coronal and sagittal reformats created and rev iewed. Contrast used: None. Oral contrast used: None. FINDINGS: Brain: Extra-axial spaces: No abnormal extra-axial fluid collections. Ventricular system: Dilatation in proportion to cerebral atrophy. Cerebral parenchyma: Cerebral atrophy. No acute intraparenchymal hemorrhage or mass effect. The wren -white junction is well differentiated. Scattered hypoattenuating areas are seen within the white mat ter. Cerebellum: Unremarkable. Mass effect: No evidence of midline shift. Intracranial vasculature: Atherosclerotic calcifications of the intracranial vessels. Soft tissues: Normal. Calvarium/osseous structures: No depressed skull fracture. Paranasal sinuses and mastoid air cells: Mild scattered paranasal sinus disease. Visualized orbits: Bilateral aphakia IMPRESSION: 1. No acute intracranial process. 2. Nonspecific white matter changes, likely secondary to chronic small vessel ischemic disease.
[2023-09-30 21:31] LABS: Appearance,Urine Clear (Clear); Bilirubin,Urine Negative (Negative); Blood,Urine Negative (Negative); Color,Urine Yellow; Glucose,Urine (UA) Negative (Negative); Hyaline Casts,Urine 13 /lpf (0-2); Ketones,Urine 1+ (Negative); Leukocyte Esterase,Urine Negative (Negative); Mucus,Urine Occasional /hpf; Nitrite,Urine Negative (Negative); Protein,Urine 1+ (Negative); RBC,Urine 2 /hpf (0-5); Specific Gravity,Urine 1.022 (1.001-1.035); WBC,Urine 10 /hpf (0-5)
[2023-09-30] MEDS ORDERED: ACETAMINOPHEN TAB 500 MG TAB PO STA (23:35)
[2023-10-01 09:36] VITALS: BP 128/64; PULSE 63; RESP 16; TEMP 97.4
== END 2023-10-01 09:24 | disposition home or self-care (01) ==
LOC: EC 16:21
DX: R53.83 Other fatigue (principal); F41.9 Anxiety disorder, unspecified; F32.A Depression, unspecified; Z87.891 Personal history of nicotine dependence; Z79.899 Other long term (current) drug therapy; Z88.0 Allergy status to penicillin; Z88.1 Allergy status to other antibiotic agents; Z20.822 Contact with and (suspected) exposure to COVID-19
CPT/HCPCS: 99285; 36415; 93005; 80053; 82140; 83605; 83735; 84484; 85025; 85610; 85730; 81001; 87636; 71046; 70450; G0480; 80320

== ENCOUNTER 2023-10-03 16:27 | Inpatient (IN) | payer MEDICARE ==
[2023-10-03] MEDS: SODIUM CHLORIDE 0.9% 1,000 ML IV STA (17:14)
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
--- NOTE | 2023-10-03 17:40 | XR ---
EXAMINATION: XR chest 2V: 10/03/2023 5:30 PM CLINICAL INDICATION: Weakness TECHNIQUE: Departmental protocol COMPARISON: CXR 09/30/2023 FINDINGS: There is prominent silhouetting of the pulmonary vasculature bilaterally, greater on the right, secon mandie to ill-defined partially consolidative opacities.The radiographic pattern can correlate with a c linical diagnosis of multifocal bronchopneumonia versus asymmetric pulmonary edema. The cardiac silhouette is not enlarged. There is no pneumothorax or other abnormal gas collections. The skeletal structures and soft tissues are negative for acute findings. IMPRESSION: Prominent pulmonary abnormalities, right greater than left.
[2023-10-03 17:44] LABS: VBG PH 7.36 (7.31-7.41)
[2023-10-03 17:45] LABS: Basophils % (A) 0 %; Eosinophils # (A) 0.6 k/uL (0-0.7); Eosinophils % (A) 6 %; HGB 10.4 gm/dL (11.4-16.0); Hypochromasia Moderate; Lymphocytes # (A) 2.4 k/uL (1.0-4.8); Lymphocytes % (A) 23 %; MCH 33.3 pg (25.0-35.0); MCHC 31.6 g/dL (31.0-37.0); MCV 105.4 fL (80.0-100.0); Macrocytosis Moderate; Monocytes # (A) 0.6 k/uL (0-1.0); Monocytes % (A) 6 %; Neutrophils # (A) 6.8 k/uL (1.3-7.7); Neutrophils % (A) 64 %; Platelet Count 423 k/uL (150-450); RBC 3.13 m/uL (3.80-5.40); RDW 14.5 % (11.5-15.5); WBC 10.7 k/uL (3.8-10.6)
[2023-10-03 17:57] LABS: INR 1.2 (<1.2); Partial Thromboplastin Time 28.4 sec (22.0-30.0); Prothrombin Time 12.4 sec (10.0-12.5)
[2023-10-03 17:59] LABS: ALT 12 U/L (4-34); AST 30 U/L (14-36); African American GFR (CKD) >90 (>60 ml/min/1.73 sqM); Albumin 2.4 g/dL (3.5-5.0); Alkaline Phosphatase 100 U/L (38-126); Anion Gap 2 mmol/L; Blood Urea Nitrogen 16 mg/dL (7-17); Carbon Dioxide 25 mmol/L (22-30); Chloride 110 mmol/L (98-107); Glucose 99 mg/dL (74-99); Non-African American GFR(CKD) 84 (>60 ml/min/1.73 sqM); Potassium 3.9 mmol/L (3.5-5.1); Sodium 137 mmol/L (137-145); Total Bilirubin 0.4 mg/dL (0.2-1.3)
--- NOTE | 2023-10-03 18:01 | CT ---
EXAMINATION TYPE: CT brain wo con DATE OF EXAM: 10/03/2023 HISTORY: Confusion CT DLP: 1120.4 mGycm. Automated Exposure Control for Dose Reduction was Utilized. TECHNIQUE: CT scan of the head is performed without contrast. COMPARISON: CT 09/30/2023 FINDINGS: There is no acute intracranial hemorrhage or mass or mass effect. The globes are intact an d the paranasal sinuses, middle ear cavities, and mastoid sinus air cells are clear. IMPRESSION: No acute process.
[2023-10-03 18:06] LABS: NT-Pro-B-Type Natriuretic Pept 3970 pg/mL
[2023-10-03] MEDS: FUROSEMIDE 10 MG/ML 4 ML VIAL IV STA (18:34)
[2023-10-03] MEDS ORDERED: NALOXONE 0.4 MG/ML 1 ML VIAL IV PRN (18:53)
[2023-10-03] MEDS: FUROSEMIDE 10 MG/ML 4 ML VIAL IV SCH (20:10)
[2023-10-03] MEDS: HEPARIN SODIUM,PORCINE 5,000 UNIT/ML 1 ML VIAL SQ SCH (20:22)
[2023-10-03] MEDS ORDERED: ACETAMINOPHEN TAB 325 MG TAB PO PRN (21:00)
[2023-10-03] MEDS: SODIUM BICARBONATE TAB 650 MG TAB PO SCH (21:57)
[2023-10-03] MEDS: traZODone HCL 50 MG TAB PO SCH (21:57)
[2023-10-03] MEDS: METOPROLOL TARTRATE 25 MG TAB PO SCH (21:57)
[2023-10-03] MEDS: PRAMIPEXOLE 0.25 MG TAB PO SCH (21:57)
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
[2023-10-03] MEDS: AZITHROMYCIN 500 MG TAB PO SCH (22:42)
[2023-10-04] MEDS ORDERED: NON FORMULARY DRUG (Vitamin D3(Unknown Dose) 1 TAB) PO SCH (09:00)
[2023-10-04 09:01] LABS: Basophils % (A) 0 %; Eosinophils # (A) 0.5 k/uL (0-0.7); Eosinophils % (A) 6 %; HCT 34.6 % (34.0-46.0); HGB 10.9 gm/dL (11.4-16.0); Hypochromasia Moderate; Lymphocytes # (A) 2.5 k/uL (1.0-4.8); Lymphocytes % (A) 30 %; MCH 32.9 pg (25.0-35.0); MCHC 31.4 g/dL (31.0-37.0); MCV 104.6 fL (80.0-100.0); Macrocytosis Moderate; Mean Platelet Volume 7.8; Monocytes # (A) 0.8 k/uL (0-1.0); Monocytes % (A) 9 %; Neutrophils # (A) 4.4 k/uL (1.3-7.7); Neutrophils % (A) 53 %; Platelet Count 462 k/uL (150-450); RDW 14.7 % (11.5-15.5); WBC 8.3 k/uL (3.8-10.6)
[2023-10-04 09:28] LABS: African American GFR (CKD) >90 (>60 ml/min/1.73 sqM); Anion Gap 5 mmol/L; Blood Urea Nitrogen 13 mg/dL (7-17); Calcium 8.2 mg/dL (8.4-10.2); Carbon Dioxide 27 mmol/L (22-30); Chloride 107 mmol/L (98-107); Glucose 84 mg/dL (74-99); Non-African American GFR(CKD) 83 (>60 ml/min/1.73 sqM); Potassium 3.8 mmol/L (3.5-5.1); Sodium 139 mmol/L (137-145)
[2023-10-04] MEDS: ISOSORBIDE MONONITRATE ER 30 MG TAB.ER.24H PO SCH (09:50)
[2023-10-04] MEDS: FUROSEMIDE 10 MG/ML 4 ML VIAL IV SCH (09:50)
[2023-10-04] MEDS: FLUoxetine HCL 20 MG CAP PO SCH (09:51)
[2023-10-04] MEDS: MAGNESIUM OXIDE 400 MG TAB PO SCH (09:51)
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
[2023-10-04] MEDS: SPIRONOLACTONE 25 MG TAB PO SCH (11:45)
[2023-10-04] MEDS: VITAMIN E (DL,TOCOPHERYL ACET) 400 UNIT (180 MG) CAP PO SCH (11:45)
[2023-10-04] MEDS: LOSARTAN 50 MG TAB PO SCH (11:45)
--- NOTE | 2023-10-04 12:25 | CA ---
Transthoracic Echo Report Name: Naomi Yuen Age: 83 Gender: F : 1940 Exam Date: 10/04/2023 07:46 Exam Location: [facility] Ht (in): 66 Wt (lb): 136 Ordering Physician: Hi Hassan MD Attending/Referring Phys: Director [employer] Arshad RDCS Procedure CPT: Indications: chf Cardiac Hx: Technical Quality: Fair Contrast 1: Total Dose (mL): Contrast 2: Total Dose (mL): MEASUREMENTS (Male / Female) Normal Values 2D ECHO LV Diastolic Diameter PLAX 4.7 cm 4.2 - 5.9 / 3.9 - 5.3 cm LV Systolic Diameter PLAX 4.3 cm IVS Diastolic Thickness 1.1 cm 0.6 - 1.0 / 0.6 - 0.9 cm LVPW Diastolic Thickness 0.6 cm 0.6 - 1.0 / 0.6 - 0.9 cm LV Relative Wall Thickness 0.4 Aortic Root Diameter 3.1 cm LA Systolic Diameter LX 4.7 cm 3.0 - 4.0 / 2.7 - 3.8 cm DOPPLER AV Peak Velocity 121.1 cm/s AV Peak Gradient 5.9 mmHg AV Mean Velocity 73.5 cm/s AV Mean Gradient 2.4 mmHg AV Velocity Time Integral 25.4 cm AI Peak Velocity 270.5 cm/s AI Peak Gradient 29.3 mmHg AI Pressure Half Time 338.2 ms LVOT Peak Velocity 38.8 cm/s LVOT Peak Gradient 0.6 mmHg LVOT Velocity Time Integral 18.7 cm Mitral E Point Velocity 96.6 cm/s Mitral A Point Velocity 70.2 cm/s Mitral E to A Ratio 1.4 MV Deceleration Time 120.1 ms MV E' Velocity 7.9 cm/s Mitral E to MV E' Ratio 12.2 TR Peak Velocity 287.4 cm/s TR Peak Gradient 33.0 mmHg PV Peak Velocity 79.2 cm/s PV Peak Gradient 2.5 mmHg FINDINGS Left Ventricle Left ventricular ejection fraction is estimated at 55-60 %.normal left ventricular wall motion. Left ventricular cavity size normal. Right Ventricle Normal right ventricular size and function. Right Atrium Right atrium not well visualized. Left Atrium Moderately increased left atrial diameter. Mitral Valve Mild mitral regurgitation.moderate mitral annular calcification. Aortic Valve Mild aortic regurgitation.aortic valve sclerosis. Tricuspid Valve Mild tricuspid regurgitation.structurally normal tricuspid valve. Pulmonic Valve No pulmonic regurgitation.pulmonic valve not well visualized. Pericardium No pericardial effusion. Aorta Normal size aortic root and proximal ascending aorta. CONCLUSIONS Technically difficult study. Normal left ventricle size and systolic function Mild mitral, aortic and tricuspid regurgitation with mild pulmonary hypertension Previewed by: Dr. Joyce Cortes MD (Electronically Signed) Final Date: 04 October 2023 12:24
[2023-10-04 14:07] LABS: Appearance,Urine Cloudy (Clear); Bacteria,Urine Few /hpf; Bilirubin,Urine Negative (Negative); Blood,Urine Small (Negative); Color,Urine Colorless; Glucose,Urine (UA) Negative (Negative); Ketones,Urine Negative (Negative); Leukocyte Esterase,Urine Large (Negative); Mucus,Urine Rare /hpf; Nitrite,Urine Negative (Negative); Protein,Urine Negative (Negative); RBC,Urine 4 /hpf (0-5); Specific Gravity,Urine 1.006 (1.001-1.035); Urobilinogen,Urine <2.0 mg/dL (<2.0); WBC,Urine 12 /hpf (0-5)
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
[2023-10-04] MEDS: ZINC OXIDE PASTE (Z-GUARD) 1 APPLIC TOPICAL PRN (16:48)
[2023-10-05 08:23] VITALS: BP 119/63; PULSE 68; RESP 17; TEMP 98.3
[2023-10-05] MEDS: FUROSEMIDE 40 MG TAB PO SCH (08:46)
[2023-10-05 13:27] VITALS: BMI 23.4
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
== END 2023-10-05 14:12 | disposition home or self-care (01) | DRG 177 ==
LOC: EC 16:27 → 3SCARD 18:56 → 4SSUR 10-04 11:08
PROVIDERS: ADMIT Hospitalist; ATTEND Hospitalist
DX: J15.69 Pneumonia due to other Gram-negative bacteria (principal); G93.41 Metabolic encephalopathy; N17.0 Acute kidney failure with tubular necrosis; J96.01 Acute respiratory failure with hypoxia; I50.33 Acute on chronic diastolic (congestive) heart failure; J44.0 Chronic obstructive pulmonary disease with (acute) lower respiratory infection; I27.22 Pulmonary hypertension due to left heart disease; I11.0 Hypertensive heart disease with heart failure; I07.1 Rheumatic tricuspid insufficiency; F32.A Depression, unspecified; G25.81 Restless legs syndrome; F41.9 Anxiety disorder, unspecified; F51.04 Psychophysiologic insomnia; R26.89 Other abnormalities of gait and mobility; T41.5X6A Underdosing of therapeutic gases, initial encounter; R29.6 Repeated falls; Z87.891 Personal history of nicotine dependence; Z92.3 Personal history of irradiation; Z11.52 Encounter for screening for COVID-19; Z82.5 Family history of asthma and other chronic lower respiratory diseases; Z88.0 Allergy status to penicillin; Z88.1 Allergy status to other antibiotic agents; Z85.42 Personal history of malignant neoplasm of other parts of uterus; Z79.899 Other long term (current) drug therapy; Z86.16 Personal history of COVID-19; Z87.01 Personal history of pneumonia (recurrent); Z91.81 History of falling
CPT/HCPCS: 36415; 70450; 71046; 80048; 80053; 80320; 81001; 82803; 83605; 83735; 83880; 84145; 84484; 85025; 85610; 85730; 87040; 87636; 93005; 93306; 94760; 96361; 96365; 96366; 96372; 96375; 96376; 99285

== ENCOUNTER 2023-12-03 12:58 | Observation (INO) | payer MEDICARE ==
[2023-12-03 14:07] LABS: Basophils % (A) 0 %; Eosinophils # (A) 0.4 k/uL (0-0.7); Eosinophils % (A) 5 %; HCT 36.1 % (34.0-46.0); HGB 11.2 gm/dL (11.4-16.0); Hypochromasia Slight; Lymphocytes # (A) 2.3 k/uL (1.0-4.8); Lymphocytes % (A) 30 %; MCH 31.5 pg (25.0-35.0); MCHC 31.1 g/dL (31.0-37.0); MCV 101.1 fL (80.0-100.0); Macrocytosis Slight; Monocytes # (A) 0.4 k/uL (0-1.0); Monocytes % (A) 5 %; Neutrophils # (A) 4.6 k/uL (1.3-7.7); Neutrophils % (A) 60 %; Platelet Count 226 k/uL (150-450); RBC 3.57 m/uL (3.80-5.40); RDW 14.7 % (11.5-15.5); WBC 7.7 k/uL (3.8-10.6)
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
[2023-12-03 14:30] LABS: ALT 19 U/L (4-34); AST 32 U/L (14-36); African American GFR (CKD) 82 (>60 ml/min/1.73 sqM); Albumin 3.1 g/dL (3.5-5.0); Alkaline Phosphatase 75 U/L (38-126); Anion Gap 6 mmol/L; Blood Urea Nitrogen 24 mg/dL (7-17); Calcium 9.1 mg/dL (8.4-10.2); Carbon Dioxide 21 mmol/L (22-30); Chloride 112 mmol/L (98-107); Glucose 116 mg/dL (74-99); Magnesium 2.2 mg/dL (1.6-2.3); Non-African American GFR(CKD) 71 (>60 ml/min/1.73 sqM); Sodium 139 mmol/L (137-145); Total Bilirubin 0.5 mg/dL (0.2-1.3); Total Protein 5.9 g/dL (6.3-8.2)
[2023-12-03 14:33] LABS: Partial Thromboplastin Time 24.3 sec (22.0-30.0); Prothrombin Time 10.7 sec (10.0-12.5)
[2023-12-03 14:36] LABS: Potassium 4.4 mmol/L (3.5-5.1)
[2023-12-03 14:39] LABS: NT-Pro-B-Type Natriuretic Pept 2080 pg/mL
--- NOTE | 2023-12-03 15:03 | XR ---
EXAMINATION TYPE: XR chest 2V DATE OF EXAM: 12/03/2023 COMPARISON: 10/03/2023 TECHNIQUE: PA and lateral views submitted. HISTORY: Shortness of breath FINDINGS: Cardiomegaly with diffuse osteopenia and chronic resorption of the right clavicle. Chronic deformity of the left clavicle with underlying COPD. Atherosclerotic change aorta. Subsegmental basilar changes favor atelectasis over pneumonia. IMPRESSION: 1. COPD. Favor basilar atelectasis over pneumonia. No overt pulmonary edema.
[2023-12-03] MEDS: ACETAMINOPHEN TAB 325 MG TAB PO STA (15:05)
[2023-12-03 15:57] LABS: Appearance,Urine Clear (Clear); Bilirubin,Urine Negative (Negative); Blood,Urine Negative (Negative); Color,Urine Yellow; Glucose,Urine (UA) Negative (Negative); Hyaline Casts,Urine 13 /lpf (0-2); Ketones,Urine Negative (Negative); Leukocyte Esterase,Urine Small (Negative); Mucus,Urine Rare /hpf; Nitrite,Urine Negative (Negative); PH, Urine 5.5 (5.0-8.0); Protein,Urine Trace (Negative); RBC,Urine 1 /hpf (0-5); Specific Gravity,Urine 1.018 (1.001-1.035); Squamous Epithelial Cell,Urine 1 /hpf (0-4); Urobilinogen,Urine <2.0 mg/dL (<2.0); WBC,Urine 3 /hpf (0-5)
[2023-12-03] MEDS: HYDROcodone/APAP 5-325MG 1 EACH TAB PO STA (16:25)
[2023-12-03] MEDS: SODIUM CHLORIDE 0.9% 500 ML 500 ML IV STA (16:26)
--- NOTE | 2023-12-03 17:07 | CT ---
EXAMINATION TYPE: CT brain wo con DATE OF EXAM: 12/03/2023 COMPARISON: 10/03/2023 INDICATION: pt hit head when she fell. DLP: 1216.4 mGycm, Automated exposure control for dose reduction was used. CONTRAST: None CT of the brain is performed utilizing 3 mm thick sections through the posterior fossa and 3 mm thick sections through the remaining calvarium. Study is performed within 24 hours of arrival to the hosp ital. No abnormal hyperdensity is present to suggest an acute intracranial hemorrhage. No mass lesion is evident. No acute infarcts are evident. Periventricular white matter hypodensity is present, likely on the bas is of chronic white matter ischemic changes. Findings appear stable from comparison. Ventricles and sulci are appropriate for the patient age. Paranasal sinuses and mastoid air cells within the [id number] are clear. IMPRESSION: 1. Stable chronic appearing periventricular white matter ischemic type changes. Follow-up MRI can b e performed as clinically indicated.
[2023-12-03] MEDS ORDERED: NALOXONE 0.4 MG/ML 1 ML VIAL IV PRN (17:29)
[2023-12-03] MEDS: SODIUM CHLORIDE 0.9% 1,000 ML IV SCH (17:59)
[2023-12-03] MEDS ORDERED: Acetaminophen-Codeine 300-30mg TAB PO PRN (21:37)
[2023-12-03] MEDS: LOSARTAN 50 MG TAB PO SCH (22:37)
[2023-12-03] MEDS: traZODone HCL 50 MG TAB PO SCH (22:37)
[2023-12-03] MEDS: METOPROLOL TARTRATE 25 MG TAB PO SCH (22:37)
[2023-12-03] MEDS: PRAMIPEXOLE 0.25 MG TAB PO SCH (22:38)
[2023-12-03] MEDS: ARTIFICIAL TEARS-HYPROMELLOSE DROPS 15 ML BTL BOTH EYES SCH (22:38)
[2023-12-03] MEDS: ARTIFICIAL TEARS OINTMENT 3.5 GM TUBE LEFT EYE SCH (22:39)
[2023-12-04] MEDS: FLUoxetine HCL 20 MG CAP PO SCH ×2 (08:49→08:50)
[2023-12-04] MEDS: VIT A,C & E-LUTEIN-MINERALS 1 EACH TAB PO SCH (08:49)
[2023-12-04] MEDS: HYDROcodone/APAP 5-325MG 1 EACH TAB PO PRN (08:50)
[2023-12-04 12:24] VITALS: BMI 19.8
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
[2023-12-04 20:19] VITALS: RESP 16
[2023-12-05 08:05] VITALS: BP 96/56; PULSE 58; TEMP 98.5
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
== END 2023-12-05 13:18 | disposition home or self-care (01) ==
LOC: EC 12:58 → 5NMEDONC 19:43
PROVIDERS: ADMIT Hospitalist; ATTEND Hospitalist
DX: G72.89 Other specified myopathies (principal); E86.0 Dehydration; I50.32 Chronic diastolic (congestive) heart failure; J44.9 Chronic obstructive pulmonary disease, unspecified; I27.29 Other secondary pulmonary hypertension; I95.9 Hypotension, unspecified; G25.81 Restless legs syndrome; I07.1 Rheumatic tricuspid insufficiency; G89.29 Other chronic pain; M79.672 Pain in left foot; M79.671 Pain in right foot; R63.8 Other symptoms and signs concerning food and fluid intake; R26.9 Unspecified abnormalities of gait and mobility; F32.A Depression, unspecified; F41.9 Anxiety disorder, unspecified; F51.04 Psychophysiologic insomnia; Z11.52 Encounter for screening for COVID-19; Z11.59 Encounter for screening for other viral diseases; R29.6 Repeated falls; W19.XXXA Unspecified fall, initial encounter; Z79.899 Other long term (current) drug therapy; Z88.0 Allergy status to penicillin; Z88.1 Allergy status to other antibiotic agents; Z85.42 Personal history of malignant neoplasm of other parts of uterus; Z87.891 Personal history of nicotine dependence
CPT/HCPCS: 96361 ×3; 96360; 99285; 36415; 93005; 97116; 97162; 83880; 80053; 82550; 83605; 83735; 84484; 85025; 85610; 85730; 81001; 87636; 71046; 70450; G0378 ×3

== ENCOUNTER 2024-04-02 21:48 | Inpatient (IN) | payer MEDICARE ==
[~2024-04-02 21:48] MED LIST: MORPHINE SULFATE 4 MG/ML SYRINGE ONE; SODIUM CHLORIDE 0.9% 1,000 ML BAG ONE
[2024-04-02] MEDS ORDERED: MORPHINE SULFATE 4 MG/ML SYRINGE ONE (22:42)
[2024-04-03] MEDS ORDERED: MORPHINE SULFATE 4 MG/ML SYRINGE ONE ×3 (02:05→15:35)
[2024-04-03] MEDS ORDERED: LEVOTHYROXINE 50 MCG TAB ONE (06:20)
[2024-04-03] MEDS ORDERED: METOPROLOL TARTRATE 25 MG TAB ONE (09:35)
[2024-04-03] MEDS ORDERED: FLUoxetine HCL 20 MG CAP ONE ×2 (13:10→13:22)
[2024-04-03] MEDS ORDERED: ISOSORBIDE MONONITRATE ER 30 MG TAB.ER.24H PO ONE (13:11)
[2024-04-03] MEDS ORDERED: ceFAZolin 1,000 MG VIAL ONE ×2 (16:00→23:59)
[2024-04-03] MEDS ORDERED: LACTATED RINGERS 1,000 ML BAG ONE (16:00)
[2024-04-03] MEDS ORDERED: [UNRECOGNIZED DRUG - REMARK] IV ONE (16:00)
[2024-04-03] MEDS ORDERED: SODIUM CHLORIDE 0.9% 50 ML BAG IV ONE (16:00)
[2024-04-03] MEDS ORDERED: ROPIVACAINE 5 MG/ML 30 ML VIAL ONE (16:00)
[2024-04-03] MEDS ORDERED: ONDANSETRON 4 MG/2 ML VIAL ONE (16:14)
[2024-04-03] MEDS ORDERED: DEXAMETHASONE SOD PHOSPHATE 4 MG/ML 1 ML VIAL ONE (16:14)
[2024-04-03] MEDS ORDERED: NEOSTIGMINE 1 MG/ML 10 ML VIAL ONE ×2 (16:29)
[2024-04-03] MEDS ORDERED: TRANEXAMIC 1,000 MG/100ML-NACL PREMIX BAG ONE ×2 (16:29)
[2024-04-03] MEDS ORDERED: LIDOCAINE 1% INJ 10MG/ML (20 ML MDV) ONE ×2 (16:29)
[2024-04-03] MEDS ORDERED: GLYCOPYRROLATE 0.2 MG/ML 2 ML VIAL ONE ×2 (16:29)
[2024-04-03] MEDS ORDERED: PROPOFOL 10 MG/ML 20 ML VIAL IV ONE ×2 (16:29)
[2024-04-03] MEDS ORDERED: PHENYLEPHRINE-0.9% NACL SYG 1,000 MCG/10 ML SYRINGE ONE ×2 (16:29)
[2024-04-03] MEDS ORDERED: ROCURONIUM 10 MG/ML (5 ML VIAL) IV ONE ×2 (16:29)
[2024-04-03] MEDS ORDERED: HYDROmorphone (PF) 1 MG/ML ONE ×2 (16:29)
[2024-04-03] MEDS ORDERED: ceFAZolin 1 GM/50 ML BAG (PMX) ONE ×2 (16:29)
[2024-04-03] MEDS ORDERED: SUCCINYLCHOLINE CHLORIDE 200 MG/10 ML VIAL IV ONE ×2 (16:29)
[2024-04-03] MEDS ORDERED: fentaNYL (PF) 50 MCG/ML 2 ML AMP ONE ×2 (16:29)
[2024-04-03] MEDS ORDERED: ALPRAZolam 0.25 MG TAB ONE ×2 (22:33→23:53)
[2024-04-03] MEDS ORDERED: ASPIRIN 81 MG ONE (22:35)
[2024-04-03] MEDS ORDERED: DOCUSATE 100 MG CAP ONE (22:35)
[2024-04-03] MEDS ORDERED: HYDROmorphone 0.5 MG/0.5 ML SYRINGE ONE (22:54)
[2024-04-03] MEDS ORDERED: traZODone HCL 50 MG TAB ONE (23:53)
[2024-04-03] MEDS ORDERED: PRAMIPEXOLE 0.25 MG TAB ONE (23:56)
[2024-04-03] MEDS ORDERED: SODIUM CHLORIDE 0.9% 1,000 ML BAG ONE (23:59)
[2024-04-03] MEDS ORDERED: ARTIFICIAL TEARS OINTMENT 3.5 GM TUBE ONE (23:59)
[2024-04-03] MEDS ORDERED: SODIUM CHLORIDE 0.9% 50 ML BAG ONE (23:59)
[2024-04-04] MEDS ORDERED: HYDROcodone/APAP 10-325MG 1 EACH TAB ONE ×3 (03:44→19:49)
[2024-04-04] MEDS ORDERED: PANTOPRAZOLE 40 MG TABLET PO ONE ×2 (06:16→10:55)
[2024-04-04] MEDS ORDERED: SODIUM CHLORIDE 0.9% 50 ML BAG ONE (09:00)
[2024-04-04] MEDS ORDERED: ceFAZolin 1,000 MG VIAL ONE (09:00)
[2024-04-04] MEDS ORDERED: ISOSORBIDE MONONITRATE ER 30 MG TAB.ER.24H PO ONE (10:47)
[2024-04-04] MEDS ORDERED: FLUoxetine HCL 20 MG CAP ONE (10:48)
[2024-04-04] MEDS ORDERED: METOPROLOL TARTRATE 25 MG TAB ONE (10:49)
[2024-04-04] MEDS ORDERED: ASPIRIN 81 MG ONE ×2 (10:54→19:47)
[2024-04-04] MEDS ORDERED: DOCUSATE 100 MG CAP ONE ×2 (10:57→19:48)
[2024-04-04] MEDS ORDERED: PRAMIPEXOLE 0.25 MG TAB ONE (19:47)
[2024-04-04] MEDS ORDERED: ALPRAZolam 0.25 MG TAB ONE (19:47)
[2024-04-04] MEDS ORDERED: traZODone HCL 50 MG TAB ONE (20:02)
[2024-04-04] MEDS ORDERED: HYDROcodone/APAP 5-325MG 1 EACH TAB ONE (23:29)
[2024-04-05] MEDS ORDERED: HYDROcodone/APAP 10-325MG 1 EACH TAB ONE ×3 (05:02→19:24)
[2024-04-05] MEDS ORDERED: LEVOTHYROXINE 50 MCG TAB ONE (06:48)
[2024-04-05] MEDS ORDERED: PANTOPRAZOLE 40 MG TABLET PO ONE (06:48)
[2024-04-05] MEDS ORDERED: ASPIRIN 81 MG ONE ×2 (08:59→19:47)
[2024-04-05] MEDS ORDERED: SENNOSIDES 8.6 MG TAB ONE ×2 (08:59→19:47)
[2024-04-05] MEDS ORDERED: FLUoxetine HCL 20 MG CAP ONE (08:59)
[2024-04-05] MEDS ORDERED: ISOSORBIDE MONONITRATE ER 30 MG TAB.ER.24H PO ONE (08:59)
[2024-04-05] MEDS ORDERED: METOPROLOL TARTRATE 25 MG TAB ONE (09:00)
[2024-04-05] MEDS ORDERED: HYDROmorphone 0.5 MG/0.5 ML SYRINGE ONE ×2 (09:06→16:25)
[2024-04-05] MEDS ORDERED: traZODone HCL 50 MG TAB ONE (19:47)
[2024-04-05] MEDS ORDERED: ALPRAZolam 0.25 MG TAB ONE (19:51)
[2024-04-06] MEDS ORDERED: HYDROcodone/APAP 10-325MG 1 EACH TAB ONE ×3 (00:16→17:03)
[2024-04-06] MEDS ORDERED: LEVOTHYROXINE 50 MCG TAB ONE (06:27)
[2024-04-06] MEDS ORDERED: ISOSORBIDE MONONITRATE ER 30 MG TAB.ER.24H PO ONE (09:08)
[2024-04-06] MEDS ORDERED: FLUoxetine HCL 20 MG CAP ONE (09:09)
[2024-04-06] MEDS ORDERED: ASPIRIN 81 MG ONE (09:09)
[2024-04-06] MEDS ORDERED: METOPROLOL TARTRATE 25 MG TAB ONE (09:09)
[2024-04-06] MEDS ORDERED: PANTOPRAZOLE 40 MG TABLET PO ONE (09:09)
[2024-04-06] MEDS ORDERED: SENNOSIDES-DOCUSATE SODIUM 1 EACH TAB PO ONE (09:09)
[2024-04-06] MEDS ORDERED: LORATADINE 10 MG TAB ONE (12:05)
--- NOTE | 2024-04-20 15:30 | CT ---
EXAM: CT brain without contrast. CT cervical spine without contrast. DATE OF EXAM: 04/02/2024 KELVIN CRUM : 1940 Reason for study: FALL DLP: 1267.5 COMPARISON: None, please note PACS downtime occurred during the radiologist interpretation of these images with limited priors/reports. e. TECHNIQUE: Multiple axial CT images of the brain were obtained without IV contrast. Axial CT images from the skull base to the inferior aspect of T2 we obtained without intravenous cont rast. Coronal and sagittal reformatted images were also reviewed. One or more CT dose reduction strategies were utilized during this examination. Total DLP administered was 1267.5 mGycm . FINDINGS: CT BRAIN: Extra-axial spaces: No abnormal extra-axial fluid collections. Ventricular system: Within normal limits Cerebral parenchyma: No acute intraparenchymal hemorrhage or mass effect. The wren-white junction is well differentiated. Cerebellum: Unremarkable. Mass effect: No evidence of midline shift. Intracranial vasculature: Atherosclerotic calcifications of the intracranial vessels. Soft tissues: Normal. Calvarium/osseous structures: No depressed skull fracture. Paranasal sinuses and mastoid air cells: Clear. Visualized orbits: Bilateral aphakia CT CERVICAL SPINE: Fracture: None. Osseous structures: Multilevel degenerative disc disease changes with endplate spurring and disc oste ophyte complex's. Vertebral alignment: Within normal limits. Spinal canal/Neural Foramina: No evidence of significant spinal canal narrowing. No evidence of signi ficant neural foramina narrowing. Neck soft tissues: Prevertebral soft tissues are within normal limits. Other: The airway is patent. Mild centrilobular emphysema changes. Small left pleural effusion. IMPRESSION: 1. No acute intracranial process. 2. Nonspecific white matter changes, likely secondary to chronic small vessel ischemic disease. 3. No evidence of cervical spine fracture. 4. Mild multilevel degenerative disc disease. 5. Mild centrilobular emphysema changes in the lung apices. 6. Trace left pleural effusion.
--- NOTE | 2024-04-24 08:35 | XR ---
EXAMINATION TYPE: XR knee complete RT DATE OF EXAM: 04/02/2024 CLINICAL INDICATION: 83 year old female with history of pain from fall COMPARISON: None. TECHNIQUE: XR knee complete RT; examined in Frontal, lateral and oblique projections. FINDINGS: No evidence of any acute osseous pathology, soft tissue swelling, or joint effusion is note d. Tricompartmental osteophyte formation involving the femoral condyles, tibial plateau and patella. Mild joint space narrowing. A fabella is present. Atherosclerosis of the arterial vasculature. Chondr ocalcinosis. IMPRESSION: 1. No acute osseous pathology. 2. Mild tricompartmental osteoarthritic changes.
--- NOTE | 2024-04-24 08:35 | XR ---
EXAMINATION TYPE: XR Hip RT and AP Pelvis DATE OF EXAM: 04/02/2024 11:35 AM CLINICAL INDICATION: Fall COMPARISON: 09/12/2023 TECHNIQUE: XR Hip RT and AP Pelvis; hip was examined in the frontal and lateral projections and a AP pelvis. FINDINGS/IMPRESSION: 1. Irregular morphology to the femoral neck on the right suggestive of subcapital femoral neck fra cture with impaction. 2. Mild degeneration changes of the right hip.
== END 2024-04-06 17:28 | DRG 522 ==
LOC: 4SSUR 21:48
PROVIDERS: ADMIT Orthopaedic Surgery; ATTEND Orthopaedic Surgery
PROC: 0SRR0JZ Replacement of Right Hip Joint, Femoral Surface with Synthetic Substitute, Open Approach (ICD-10-PCS; principal; 2024-04-02)
PROC: 3E0T3BZ Introduction of Anesthetic Agent into Peripheral Nerves and Plexi, Percutaneous Approach (ICD-10-PCS; 2024-04-02)
DX: S72.001A Fracture of unspecified part of neck of right femur, initial encounter for closed fracture (principal); D62 Acute posthemorrhagic anemia; I50.30 Unspecified diastolic (congestive) heart failure; I11.0 Hypertensive heart disease with heart failure; Z88.0 Allergy status to penicillin; Z88.1 Allergy status to other antibiotic agents; G25.81 Restless legs syndrome; E03.9 Hypothyroidism, unspecified; F41.9 Anxiety disorder, unspecified; F32.A Depression, unspecified; Z79.890 Hormone replacement therapy
CPT/HCPCS: 70450; 72125; 73502; 86850; 86900; 86901; 93005; 96374; 99285

== ENCOUNTER → 2024-04-08 | Outpatient (CLI) | payer MEDICARE | END | disposition home or self-care (01) | LOC: LABPRL 06:15 | PROVIDERS: ATTEND Family Medicine | DX: I50.9 Heart failure, unspecified (principal); D64.9 Anemia, unspecified | CPT/HCPCS: 82306 ==

== ENCOUNTER → 2024-04-15 | Outpatient (CLI) | payer MEDICARE | END | disposition home or self-care (01) | LOC: LABPRL 06:04 | PROVIDERS: ATTEND Family Medicine | CPT/HCPCS: 82306 ==

== ENCOUNTER → 2024-04-18 | Outpatient (CLI) | payer MEDICARE | END | disposition home or self-care (01) | LOC: LABPRL 12:34 | PROVIDERS: ATTEND Family Medicine | DX: D64.9 Anemia, unspecified (principal) | CPT/HCPCS: 82728; 83540; 83550 ==

== ENCOUNTER → 2024-07-08 | Outpatient (CLI) | payer MEDICARE ==
[2024-07-08 18:14] LABS: Basophils # (A) 0.04 X 10*3/uL (0.00-0.10); Basophils % (A) 0.5 %; Eosinophils # (A) 0.28 X 10*3/uL (0.04-0.35); Eosinophils % (A) 3.8 %; HCT 34.4 % (37.2-46.3); HGB 10.7 g/dL (12.0-15.0); Lymphocytes # (A) 2.54 X 10*3/uL (0.90-5.00); MCH 31.8 pg (27.0-32.0); MCHC 31.1 g/dL (32.0-37.0); MCV 102.1 FL (80.0-97.0); Mean Platelet Volume 9.9 FL (9.5-12.2); Monocytes # (A) 0.84 X 10*3/uL (0.20-1.00); Monocytes % (A) 11.3 %; NRBC Per 100 WBC 0 X 10*3/uL (0.00-0.01); Neutrophils # (A) 3.74 X 10*3/uL (1.80-7.70); Neutrophils % (A) 50.1 %; Platelet Count 290 X 10*3/uL (140-440); RBC 3.37 X 10*6/uL (4.10-5.20); RDW 15.3 % (11.5-14.5); WBC 7.46 X 10*3/uL (4.50-10.00)
[2024-07-08 19:33] LABS: % Iron Saturation 20.57 (12.00-45.00); ALT 12 U/L (8-44); AST 22 U/L (13-35); Albumin 3.8 g/dL (3.8-4.9); Albumin/Globulin Ratio 1.73 Ratio (1.60-3.17); Alkaline Phosphatase 115 U/L (41-126); BUN/Creat Ratio 18.38 Ratio (12.00-20.00); Blood Urea Nitrogen 23.9 mg/dL (9.0-27.0); Calcium 8.7 mg/dL (8.7-10.3); Carbon Dioxide 24.4 mmol/L (21.6-31.8); Chloride 107 mmol/L (96-109); Ferritin 53.2 ng/mL (10.0-291.0); Globulin 2.2 g/dL (1.6-3.3); Glucose 87 mg/dL (70-110); Iron 79 UG/DL (50-170); Magnesium 2.3 mg/dL (1.5-2.4); Potassium 4.5 mmol/L (3.5-5.5); Sodium 142 mmol/L (135-145); T4, Free (Free Thyroxine) 1.26 ng/dL (0.80-1.80); Total Bilirubin 0.3 mg/dL (0.3-1.2); Total Iron Binding Capacity 384 UG/DL (228-460)
== END | disposition home or self-care (01) ==
LOC: LABWHC1 12:17
PROVIDERS: ATTEND Family Medicine
DX: I50.32 Chronic diastolic (congestive) heart failure (principal); D64.9 Anemia, unspecified; E03.9 Hypothyroidism, unspecified
CPT/HCPCS: 36415; 80053; 82607; 82728; 82746; 83540; 83550; 83735; 84439; 84443; 85025

== ENCOUNTER 2025-03-14 11:14 | Observation (INO) | payer MEDICARE ==
[2025-03-14] MEDS: SODIUM CHLORIDE 0.9% 1,000 ML IV ONE (12:14)
[2025-03-14] MEDS: MORPHINE SULFATE 4 MG/ML SYRINGE IVP STA (12:14)
[2025-03-14 12:19] LABS: Basophils # (A) 0.02 10*3/uL (0.00-0.10); Basophils % (A) 0.1 %; Eosinophils # (A) 0.13 10*3/uL (0.04-0.35); Eosinophils % (A) 0.9 %; HCT 36.8 % (37.2-46.3); HGB 12.6 g/dL (12.0-15.0); Lymphocytes # (A) 1.94 10*3/uL (0.90-5.00); Lymphocytes % (A) 13.8 %; MCH 34.7 pg (27.0-32.0); MCHC 34.2 g/dL (32.0-37.0); MCV 101.4 fL (80.0-97.0); Monocytes # (A) 1.08 10*3/uL (0.20-1.00); Monocytes % (A) 7.7 %; Neutrophils # (A) 10.86 10*3/uL (1.80-7.70); Neutrophils % (A) 77.0 %; Platelet Count 256 10*3/uL (140-440); RBC 3.63 10*6/uL (4.10-5.20); RDW 13.6 % (11.5-14.5); WBC 14.10 10*3/uL (4.50-10.00)
[2025-03-14 12:29] LABS: INR 0.9 (<1.2); Partial Thromboplastin Time 23.0 sec (22.0-30.0); Prothrombin Time 10.6 sec (10.0-12.5)
[2025-03-14 12:32] LABS: ALT 23 U/L (4-34); AST 29 U/L (14-36); African American GFR (CKD) 54 (>60 ml/min/1.73 sqM); Albumin 4.2 g/dL (3.5-5.0); Alkaline Phosphatase 123 U/L (38-126); Anion Gap 14 mmol/L; Blood Urea Nitrogen 27 mg/dL (7-17); Calcium 9.3 mg/dL (8.4-10.2); Carbon Dioxide 21 mmol/L (22-30); Chloride 103 mmol/L (98-107); Glucose 99 mg/dL (74-99); Non-African American GFR(CKD) 47 (>60 ml/min/1.73 sqM); Potassium 5.2 mmol/L (3.5-5.1); Sodium 138 mmol/L (137-145); Total Protein 6.8 g/dL (6.3-8.2)
--- NOTE | 2025-03-14 12:50 | XR ---
EXAMINATION TYPE: XR Hip LT and AP Pelvis DATE OF EXAM: 03/14/2025 12:44 PM INDICATION: Patient age:Female; 84 years old; Reason for study: fall, pain; PHH. pain COMPARISON: Right hip radiograph 04/02/2024 TECHNIQUE: The left hip was examined in the frontal and lateral projections and a AP pelvis. FINDINGS: Postsurgical changes from right hip arthroplasty. Hardware appears intact with appropriate alignment.No evidence of any acute osseous pathology, joint dislocation, or soft tissue swelling. Micki ck changes of the pubic symphysis. Both SI joints appear intact. IMPRESSION: 1. No acute osseous pathology. 2. Postsurgical changes from right total hip arthroplasty. Hardware appears intact. [facility], , 03/14/2025 12:47 PM
--- NOTE | 2025-03-14 14:17 | CT ---
EXAMINATION TYPE: CT pelvis wo con DATE OF EXAM: 03/14/2025 2:07 PM COMPARISON: Same-day left hip radiograph. CLINICAL INDICATION: Female, 84 years old with history of include full left hip; Fall, Left hip pain. TECHNIQUE: Axial CT pelvis wo con;Sagittal and coronal reformats were created on a separate workstat ion. Oral contrast used: without Oral Contrast (none if empty) CT DLP: 372.7 mGycm, Automated exposure control for dose reduction was used. FINDINGS: No acute fracture or dislocation. Right hip arthroplasty without periprosthetic loosening or other ac [place] hardware complication. A old right pubic ramus fracture Partially visualized urinary bladder appears mildly distended without wall thickening. No evidence of bowel obstruction. Moderate colonic stool burden partially visualized. No pathologic pelvic or ingui nal lymphadenopathy. Lumbosacral spinal degenerative changes partially visualized. IMPRESSION: No acute fracture or dislocation. [facility], , 03/14/2025 2:15 PM
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
[2025-03-14] MEDS ORDERED: ONDANSETRON 4 MG/2 ML VIAL IVP PRN (15:01)
[2025-03-14] MEDS ORDERED: NALOXONE 0.4 MG/ML 1 ML VIAL IV PRN (15:01)
[2025-03-14] MEDS: MORPHINE SULFATE 4 MG/ML SYRINGE IV PRN (16:45)
[2025-03-14] MEDS ORDERED: ACETAMINOPHEN TAB 325 MG TAB PO PRN (18:13)
[2025-03-14] MEDS: METOPROLOL TARTRATE 25 MG TAB PO SCH (21:30)
[2025-03-14] MEDS: prednisoLONE ACETATE 1% OPHTH DROPS 5 ML BTL RIGHT EYE SCH (21:31)
[2025-03-14] MEDS: ARTIFICIAL TEARS-HYPROMELLOSE DROPS 15 ML BTL BOTH EYES SCH (21:32)
[2025-03-14] MEDS: KETOROLAC 0.5% OPHTH DROPS 5 ML BTL RIGHT EYE SCH (21:32)
[2025-03-14] MEDS: VIT A,C & E-LUTEIN-MINERALS 1 EACH TAB PO SCH (22:17)
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
[2025-03-14] MEDS: PRAMIPEXOLE 0.25 MG TAB PO SCH (22:52)
[2025-03-14] MEDS: ENOXAPARIN 40 MG/0.4 ML SYRINGE SQ SCH (22:53)
[2025-03-14] MEDS: LACTATED RINGERS 1,000 ML IV SCH (22:53)
[2025-03-15] MEDS: Acetaminophen-Codeine 300-30mg TAB PO PRN (06:37)
[2025-03-15] MEDS: LEVOTHYROXINE 50 MCG TAB PO SCH (06:37)
[2025-03-15 07:52] LABS: Basophils # (A) 0.02 X 10*3/uL (0.00-0.10); Basophils % (A) 0.2 %; Eosinophils # (A) 0.56 X 10*3/uL (0.04-0.35); Eosinophils % (A) 6.3 %; HCT 31.4 % (37.2-46.3); HGB 10.1 g/dL (12.0-15.0); Immature Grans, Automated 0.30 %; Lymphocytes # (A) 2.37 X 10*3/uL (0.90-5.00); Lymphocytes % (A) 26.6 %; MCH 33.4 pg (27.0-32.0); MCHC 32.2 g/dL (32.0-37.0); MCV 104.0 FL (80.0-97.0); Monocytes # (A) 1.01 X 10*3/uL (0.20-1.00); Monocytes % (A) 11.3 %; NRBC Per 100 WBC 0 X 10*3/uL (0.00-0.01); Neutrophils # (A) 4.93 X 10*3/uL (1.80-7.70); Neutrophils % (A) 55.3 %; Platelet Count 230 X 10*3/uL (140-440); RBC 3.02 X 10*6/uL (4.10-5.20); RDW 14.0 % (11.5-14.5); WBC 8.92 X 10*3/uL (4.50-10.00)
[2025-03-15 07:59] LABS: Anion Gap 10.60 mmol/L (4.00-12.00); BUN/Creat Ratio 20.08 Ratio (12.00-20.00); Blood Urea Nitrogen 24.1 mg/dL (9.0-27.0); Carbon Dioxide 22.4 mmol/L (21.6-31.8); Chloride 104 mmol/L (96-109); Glucose 99 mg/dL (70-110); Potassium 4.6 mmol/L (3.5-5.5); Sodium 137 mmol/L (135-145)
[2025-03-15 08:00] LABS: ALT 17 U/L (8-44); AST 20 U/L (13-35); Albumin 3.4 g/dL (3.8-4.9); Albumin/Globulin Ratio 1.89 Ratio (1.60-3.17); Alkaline Phosphatase 89 U/L (41-126); Calcium 8.4 mg/dL (8.7-10.3); Globulin 1.8 g/dL (1.6-3.3); Total Protein 5.2 g/dL (6.2-8.2)
[2025-03-15 08:12] VITALS: BP 97/57
[2025-03-15] MEDS: PANTOPRAZOLE 40 MG TABLET PO SCH (09:07)
[2025-03-15] MEDS: ISOSORBIDE MONONITRATE ER 30 MG TAB.ER.24H PO SCH (09:07)
[2025-03-15] MEDS: POTASSIUM CHLORIDE ER 10 MEQ TAB.ER.PRT PO SCH (09:07)
[2025-03-15 11:19] VITALS: BMI 19.7
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
[2025-03-15 17:40] VITALS: PULSE 66; RESP 16; TEMP 98.2
== END 2025-03-15 17:02 ==
LOC: EC 11:14 → 6NMEDSUR 15:01
PROVIDERS: ADMIT Hospitalist; ATTEND Hospitalist
DX: M25.552 Pain in left hip (principal); W06.XXXA Fall from bed, initial encounter; R26.89 Other abnormalities of gait and mobility; E44.0 Moderate protein-calorie malnutrition; E86.0 Dehydration; G72.89 Other specified myopathies; I27.20 Pulmonary hypertension, unspecified; I07.1 Rheumatic tricuspid insufficiency; I50.32 Chronic diastolic (congestive) heart failure; F32.A Depression, unspecified; F41.9 Anxiety disorder, unspecified; G25.81 Restless legs syndrome; J44.9 Chronic obstructive pulmonary disease, unspecified; K21.9 Gastro-esophageal reflux disease without esophagitis; Z79.890 Hormone replacement therapy; Z79.899 Other long term (current) drug therapy; Z87.891 Personal history of nicotine dependence; Z96.641 Presence of right artificial hip joint; Z88.0 Allergy status to penicillin; Z88.1 Allergy status to other antibiotic agents
CPT/HCPCS: 96376; 96372 ×2; 96361; 96374; 99285; 36415; 97162; 97165; 86900; 86901; 80053 ×2; 85025 ×2; 85610; 85730; 86850; 73502; 72192; G0378 ×2; J2270; J1650 ×2